=== PATIENT | female | born 1975 | race African-American/Black ===

== ENCOUNTER 2017-10-07 03:39 | Inpatient (IN) | payer OTHER ==
[~2017-10-07] VITALS: Ht 167.6 cm; Wt 81.4 kg
[2017-10-07] VITALS (11 sets, daily range): BP systolic 101–112; BP diastolic 48–66; PULSE 60–86; RESP 20–26; TEMP 98.6–99; O2SAT 96–100
--- NOTE | 2017-10-07 04:03 | PD ---
HPI Chief Complaint: Headache Time Seen by Provider: 03:43 Travel History International Travel<30 days: No Contact w/Intl Traveler<30days: No Traveled to known affect area: No History of Present Illness HPI The patient is a 42 year old female who presents to the [facility] emergency department with a history of headache that awoke her from sound sleep this evening. She reports that she has a history of headaches including migraine headaches, however this one felt much worse than her usual headache. She reports that since Thursday she had been suffering with her usual migraine headache that she was treating with Tylenol. The patient went to [facility] and was diagnosed with an extensive subarachnoid hemorrhage. The patient was accepted in transfer by the neurosurgeon on-call. 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 The patient reports that with her headache worsening she had nausea and vomiting numerous times. The patient reports that she has neck pain associated with a headache. Otherwise on review of systems, the patient denies having any fevers, cough, congestion, chest pain, shortness of breath, abdominal pain, diarrhea, urinary symptoms, one-sided weakness, slurred speech, facial droop, difficulty with word finding ability, or vision changes. LMP: Ended 2 days ago. 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 ?: Not Past Surgical History Narrative Surgical The patient's past surgical history is significant for knee surgery, ectopic resection, benign brain tumor resection. Social History Alcohol Use: No Tobacco Use: No Substance Use: No Allergies-Medications (Allergen,Severity, Reaction): Coded Allergies: prochlorperazine (Verified Allergy, Intermediate, 10/07/17) Review of Systems Except as stated in HPI: all other systems reviewed are Neg General / Constitutional: No: Fever Eyes: Positive: Photophobia, No: Visual changes HENT: Positive: Headaches, Neck Stiffness, Neck Pain Cardiovascular: No: Chest Pain or Discomfort Respiratory: No: Shortness of Breath Gastrointestinal: Positive: Nausea, Vomiting, No: Abdominal Pain Genitourinary: No: Dysuria Musculoskeletal: No: Pain Skin: No Rash Neurologic: Positive: Headache, No: Weakness, Focal Abnormalities, Change in Mentation, Slurred Speech, Sensory Disturbance Psychiatric: No: Depression Endocrine: No: Polydipsia Hematologic/Lymphatic: No: Easy Bruising Physical Exam Narrative General: The patient is a well-developed well-nourished female in no acute distress Head and Neck exam: Head is normocephalic atraumatic. Eyes: EOMI, pupils are equal round and reactive to light. Nose: Midline septum with pink mucous membranes Mouth: Dentition unremarkable. Moist mucus membranes. Posterior oropharynx is not erythematous. No tonsillar hypertrophy. Uvula midline. Airway patent. Neck: No palpable lymphadenopathy. The patient reports having neck discomfort with attempts at flexion or extension. No thyromegaly. Cardiovascular: Regular rate and rhythm without murmurs, gallops, or rubs. Lungs: Clear to auscultation bilaterally. No wheezes, rhonchi, or rales. Abdomen: Soft, without tenderness to palpation in all 4 quadrants of the abdomen. No guarding, rebound, or rigidity. Normal bowel sounds are audible. No tenderness on palpation of McBurney's point. Extremities: No clubbing, cyanosis, or edema. 2+ pulses in all 4 extremities. No Tenderness on palpation. Back: No costovertebral angle tenderness to palpation. Neurologic Exam: Cranial nerves 2-12 were intact on exam. Strength is 5/5 in all 4 extremities. No sensory deficits noted. GCS is 15. Skin Exam: No rash noted. Intact skin that is warm and dry. Data Data Last Documented VS Vital Signs Date Time Temp Pulse Resp B/P (MAP) Pulse Ox O2 Delivery O2 Flow Rate FiO2 10/07/17 03:43 99.0 86 20 108/60 (76) 97 Orders Orders Cta Brain W Iv Contrast W 3d (10/07/17 ) Admit Order (Ed Use Only) (10/07/17 04:04) MDM Medical Decision Making Medical Screen Exam Complete: Yes Emergency Medical Condition: Yes Medical Record Reviewed: Yes Interpretation(s) Last Impressions Neck CTA 10/07/17 0000 Signed Impressions: Service Date/Time: Saturday, October 07, 2017 04:41 - CONCLUSION: Extracranial carotid and vertebral arteries have a normal appearance. Johann Shin MD Head CTA 10/07/17 0000 Signed Impressions: Service Date/Time: Saturday, October 07, 2017 04:41 - CONCLUSION: 3 mm ACom aneurysm. Johann Shin MD Head CT 10/07/17 0000 Signed Impressions: Service Date/Time: Saturday, October 07, 2017 04:41 - CONCLUSION: Large acute subarachnoid hemorrhage of concern for ruptured aneurysm. CTA to follow. No midline shift or tonsillar herniation. Johann Shin MD Differential Diagnosis Traumatic subarachnoid hemorrhage, versus aneurysmal rupture was subarachnoid hemorrhage Narrative Course During the course of the patients emergency department visit, the patients history, examination, and differential diagnosis were reviewed with the patient. The patient was placed on a laboratory monitor with oximetry and frequent blood pressure monitoring. The patient had IV access obtained and blood work sent for analysis. Of the other facility the patient was given Benadryl, Decadron, and Reglan for her headache. After the subarachnoid hemorrhage was identified the patient was given Nimotop po x 1. The patients laboratory studies and imaging studies from the other facility were reviewed. The patient was noted to have a sodium of 137, potassium 3.6, chloride 99, glucose 120, BUN 8, creatinine 0.66, total protein 6.9, alkaline phosphatase 62, AST 23, ALT 16, total bilirubin 0.5. White count is 11.1, hemoglobin 12.1, platelets 328 with a neutrophil percent of 44.6, lymphocytes 49.1. PT 14.3, INR 1.1, PTT 28.4. test was negative. CT scan of the other facility revealed extensive subarachnoid hemorrhage. 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 CTA of the neck shows extracranial carotid and vertebral arteries have a normal appearance. The patients results were discussed with the patient, including the plan of care. I explained that further testing and/ or monitoring is indicated based on the patients history, examination, and/ or laboratory findings. Therefore, I recommended admission for additional evaluation. The patient expressed understanding and was agreeable with this plan. The patient was admitted to the hospital in critical condition and sent to a bed under the care of neurosurgeon , Dr. Clinton. Physician Communication Physician Communication At approximately 4 AM, I spoke to Dr. Clinton regarding this patient's case. He did agree to admit the patient for continued evaluation and treatment. He requested that a CTA of the brain be done to further evaluate. This study was ordered. Diagnosis Primary Impression: Subarachnoid hemorrhage Additional Impression: Cerebral aneurysm rupture Admitting Information Admitting Physician Requests: Admit Laila Cast MD Oct 07, 2017 04:03
[2017-10-07] MEDS ORDERED: HYDROmorphone HCL PF 1 MG/ML VIAL IV PUSH PRN (04:15)
[2017-10-07] MEDS ORDERED: NALOXONE HCL 0.4 MG/ML AMP IV PUSH PRN (04:15)
--- NOTE | 2017-10-07 04:41 | HHI.HP ---
HPI Service Neurosurgery Primary Care Physician Unknown Chief Complaint: Severe Headache,nausea History of Present Illness 42 y.o. female transfered from [facility] where she presented with severe BOWEN that she awoke with. Prior history of migraines. Positive nausea and emesis last evening. No complaining of diplopia, blurred vision. No significant speech deficit or memory loss. No complaint of pain and weakness or numbness in the extremities. Positive dizziness. No vertigo. Review of Systems Constitutional: COMPLAINS OF: Dizziness, DENIES: Fever Eyes: COMPLAINS OF: Eye pain, Photosensitivity, DENIES: Blurred vision, Diplopia Ears, nose, mouth, throat: DENIES: Tinnitus, Hearing loss Respiratory: DENIES: Cough, Shortness of breath Cardiovascular: DENIES: Chest pain, Palpitations Gastrointestinal: COMPLAINS OF: Nausea, Vomiting, DENIES: Abdominal pain, Diarrhea Musculoskeletal: COMPLAINS OF: Neck pain, DENIES: Joint pain, Muscle aches Hematologic/lymphatic: DENIES: Bruising Neurologic: COMPLAINS OF: Headache, DENIES: Abnormal gait Psychiatric: COMPLAINS OF: Anxiety, DENIES: Confusion Past Family Social History Allergies: Coded Allergies: prochlorperazine (Verified Allergy, Intermediate, 10/07/17) Past Medical History SLE Migraine headaches Brain-orbital neoplasm previously resected Past Surgical History Brain-orbital neoplasm resected 1990 Right knee meniscus repair Ectopic Family History Diabetes in her mother. Her mother had an aneurysm, her grandmother stroke. Social History Smokes 1 pack of cigarettes a day since she was a teenager. Drinks a glass of vodka in the morning. No cocaine or other illicit drug use Physical Exam Vital Signs Vital Signs Date Time Temp Pulse Resp B/P (MAP) Pulse Ox O2 Delivery O2 Flow Rate FiO2 10/07/17 04:08 98 Room Air 10/07/17 03:43 99.0 86 20 108/60 (76) 97 Physical Exam GENERAL: This is a well-nourished, well-developed patient, appears very comfortable SKIN: No abrasions, contusion, rash noted. Skin warm and dry. HEAD: Atraumatic. Normocephalic. No temporal or scalp tenderness. EYES: Sclerae are clear and nonicteric ENT: No facial edema or ecchymosis. No periorbital edema. No CSF otorrhea or rhinorrhea. No palpable facial fracture or deformity. NECK: Trachea midline. Mild cervical spine tenderness. No nuchal rigidity. Decreased range of motion due to discomfort CARDIOVASCULAR: Regular rate and rhythm without murmurs, gallops, or rubs. RESPIRATORY: Clear to auscultation. Breath sounds equal bilaterally. No wheezes , rales, or rhonchi. GASTROINTESTINAL: Abdomen soft, non-tender, nondistended. No hepato-splenomegaly , or palpable masses. No guarding. MUSCULOSKELETAL: Extremities without cyanosis, or edema. No joint tenderness, or edema noted. No calf tenderness. Dorsalis pedis pulses 2+ bilateral NEUROLOGICAL: Awake and relatively alert. Oriented X 3 Speech is soft but clear Mild slowing of speech and thought processes Conversant and appropriate Follow simple commands well Answers questions appropriately Reasonable judgment and insight Recent and remote memory are intact No definite evidence of depression. She relates to being very anxious. Pupils are equal and reactive to accommodation. Extra-ocular movements, visual moreno to confrontation, facial sensorimotor, tongue, palate, sternocleidomastoid testing, hearing to finger rub testing, and bilateral shoulder shrug are all intact. Sensation is intact to light touch in all extremities Strength normal major flexion and extension groups all extremities Samia's absent bilaterally No ankle clonus Plantar responses absent bilateral Fine motor movements intact upper extremities Laboratory Laboratory Tests Test 10/07/17 05:11 10/07/17 06:15 10/07/17 08:30 10/07/17 16:25 White Blood Count 13.1 TH/MM3 Red Blood Count 4.93 MIL/MM3 Hemoglobin 11.7 GM/DL Hematocrit 37.0 % Mean Corpuscular Volume 75.1 FL Mean Corpuscular Hemoglobin 23.8 PG Mean Corpuscular Hemoglobin Concent 31.7 % Red Cell Distribution Width 13.8 % Platelet Count 300 TH/MM3 Mean Platelet Volume 7.6 FL Neutrophils (%) (Auto) 94.0 % Lymphocytes (%) (Auto) 4.9 % Monocytes (%) (Auto) 0.6 % Eosinophils (%) (Auto) 0.0 % Basophils (%) (Auto) 0.5 % Neutrophils # (Auto) 12.3 TH/MM3 Lymphocytes # (Auto) 0.6 TH/MM3 Monocytes # (Auto) 0.1 TH/MM3 Eosinophils # (Auto) 0.0 TH/MM3 Basophils # (Auto) 0.1 TH/MM3 CBC Comment DIFF FINAL Differential Comment Prothrombin Time 12.2 SEC Prothromb Time International Ratio 1.1 RATIO Activated Partial Thromboplast Time 26.4 SEC Blood Urea Nitrogen 8 MG/DL Creatinine 0.65 MG/DL Random Glucose 128 MG/DL Calcium Level 8.7 MG/DL Sodium Level 137 MEQ/L 138 MEQ/L Potassium Level 3.4 MEQ/L Chloride Level 106 MEQ/L Carbon Dioxide Level 23.8 MEQ/L Anion Gap 7 MEQ/L Estimat Glomerular Filtration Rate 121 ML/MIN Nasal Screen MRSA (PCR) MRSA NOT DETECTED Urine Color LIGHT-YELLOW Urine Turbidity CLEAR Urine pH 6.0 Urine Specific Blossom 1.046 Urine Protein NEG mg/dL Urine Glucose (UA) NEG mg/dL Urine Ketones 40 mg/dL Urine Occult Blood NEG Urine Nitrite NEG Urine Bilirubin NEG Urine Urobilinogen LESS THAN 2.0 MG/DL Urine Leukocyte Esterase NEG Urine RBC LESS THAN 1 /hpf Urine WBC LESS THAN 1 /hpf Urine Squamous Epithelial Cells <1 /hpf Microscopic Urinalysis Comment CULT NOT INDICATED Phosphorus Level 3.3 MG/DL Magnesium Level 1.8 MG/DL Imaging Last Impressions Neck CTA 10/07/17 0000 Signed Impressions: Service Date/Time: Saturday, October 07, 2017 04:41 - CONCLUSION: Extracranial carotid and vertebral arteries have a normal appearance. Johann Shin MD Head CTA 10/07/17 0000 Signed Impressions: Service Date/Time: Saturday, October 07, 2017 04:41 - CONCLUSION: 3 mm ACom aneurysm. Johann Shin MD Head CT 10/07/17 0000 Signed Impressions: Service Date/Time: Saturday, October 07, 2017 04:41 - CONCLUSION: Large acute subarachnoid hemorrhage of concern for ruptured aneurysm. CTA to follow. No midline shift or tonsillar herniation. MD Dominick Mejia VTE Risk Assessment Dominick VTE Risk Assessment: No/Low Risk (score <= 1) VTE Pharm Contraindication: Hemorrhage Caprini Risk Assessment Model Point Value = 1 Point Value = 2 Point Value = 3 Point Value = 5 Age 41-60 Minor surgery BMI > 25 kg/m2 Swollen legs Varicose veins or History of unexplained or recurrent spontaneous Oral contraceptives or hormone replacement Sepsis (< 1 month) Serious lung disease, including pneumonia (< 1 month) Abnormal pulmonary function Acute myocardial infarction Congestive heart failure (< 1 month) History of inflammatory bowel disease Medical patient at bed rest Age 61-74 Arthroscopic surgery Major open surgery (> 45 min) Laparoscopic surgery (> 45 min) Malignancy Confined to bed (> 72 hours) Immobilizing plaster cast Central venous access Age >= 75 History of VTE Family history of VTE Factor V Leiden Prothrombin [id number] Lupus anticoagulant Anticardiolipin antibodies Elevated serum homocysteine Heparin-induced thrombocytopenia Other congenital or acquired thrombophilia Stroke (< 1 month) Elective arthroplasty Hip, pelvis, or leg fracture Acute spinal cord injury (< 1 month) Prophylaxis Regimen Total Risk Factor Score Risk Level Prophylaxis Regimen 0-1 Low Early ambulation 2 Moderate Order ONE of the following: *Sequential Compression Device (SCD) *Heparin 5000 units SQ BID 3-4 Higher Order ONE of the following medications: *Heparin 5000 units SQ TID *Enoxaparin/Lovenox 40 mg SQ daily (WT < 150 kg, CrCl > 30 mL/min) *Enoxaparin/Lovenox 30 mg SQ daily (WT < 150 kg, CrCl > 10-29 mL/min) *Enoxaparin/Lovenox 30 mg SQ BID (WT < 150 kg, CrCl > 30 mL/min) AND/OR *Sequential Compression Device (SCD) 5 or more Highest Order ONE of the following medications: *Heparin 5000 units SQ TID (Preferred with Epidurals) *Enoxaparin/Lovenox 40 mg SQ daily (WT < 150 kg, CrCl > 30 mL/min) *Enoxaparin/Lovenox 30 mg SQ daily (WT < 150 kg, CrCl > 10-29 mL/min) *Enoxaparin/Lovenox 30 mg SQ BID (WT < 150 kg, CrCl > 30 mL/min) AND *Sequential Compression Device (SCD) Assessment and Plan Assessment and Plan Impression: SAH Assess for aneurysm Plan: Admit ISC CTA Nimodpine Monitor BP to keep 100 - 130 HOB elevated Pain meds\ Nausea meds Monitor sodium Ulcer prophyllaxis [employer] Specialist consult Ventriculostomy. Possible placement under anesthesia depending on CTA findings Jono Clinton MD Oct 07, 2017 04:41
[2017-10-07] MEDS ORDERED: IOHEXOL 350 MG/ML 10 ML VIAL (for RAD DIAG) IVCONTRAST ONE (04:59)
[2017-10-07] MEDS ORDERED: niCARdipine INJ 25 MG in SODIUM CHLOR 0.9% 250 ML INJ 240 ML IV PRN (05:00)
--- NOTE | 2017-10-07 05:03 | RADRPT ---
EXAM DATE/TIME: 10/07/2017 04:41 [facility] COMPARISON: No previous studies available for comparison. INDICATIONS : Cephalgia. Transfer from [facility] with subarachoid hemorrhage. RADIATION DOSE: 48.86 CTDIvol (mGy) MEDICAL HISTORY : Lupus. SURGICAL HISTORY : None. ENCOUNTER: Initial ACUITY: 1 day PAIN SCALE: 10/10 LOCATION: cranial TECHNIQUE: Multiple contiguous axial images were obtained of the head. Using automated exposure control and adj ustment of the mA and/or kV according to patient size, radiation dose was kept as low as reasonably a chievable to obtain optimal diagnostic quality images. DICOM format image data is available electro nically for review and comparison. FINDINGS: Diffuse subarachnoid hemorrhage noted in the bilateral cerebral hemisphere sulci and also the basal c istern and region of the foramen magnum. The epicenter of blood appears to be anterior to the brainst em suggesting the possibility of a basilar tip aneurysm.. I don't clearly see a mass/aneurysm. No mid line shift. No evidence of an acute ischemic event. The patient has had previous left frontal craniotomy, appears to have been done fairly remotely. CONCLUSION: Large acute subarachnoid hemorrhage of concern for ruptured aneurysm. CTA to follow. No midline shift or tonsillar herniation. Johann Shin MD on October 07, 2017 at 4:58 Board Certified Radiologist. This report was verified electronically.
--- NOTE | 2017-10-07 05:11 | PD.CONS ---
[facility] Service Critical Care Medicine Consult Requested By Dr. Clinton Reason for Consult Critical care management Primary Care Physician No Primary Care Physician History of Present Illness 42 yo AAF with past medical history of SLE, migraine headaches, benign brain tumor s/p resection in 1990 who is transferred from [facility] due to acute subarachnoid hemorrhage. 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 She says she took 2 Tylenol and Topamax and went to work. She states she was in a stressful situation at work and her headache got worse but she completed her shift and then ran some additional errands the morning of 10/06 and then went to sleep. She was awoken from sleep with severe 10/10 frontal headache associated with neck pain, nausea, vomiting, diaphoresis and photophobia. She required assistance from her son to get up out of bed and then was transported to [facility] via [facility]. No seizure activity. CT brain demonstrates diffuse SAH with no intraventricular extension or hydrocephalus. CTA demonstrates 3 mm Acom aneurysm with narrow neck per radiology report. She has received nimodipine. She is normotensive. Review of Systems Constitutional: DENIES: Fever Eyes: COMPLAINS OF: Photosensitivity Ears, nose, mouth, throat: DENIES: Throat pain Respiratory: DENIES: Shortness of breath Cardiovascular: DENIES: Chest pain Gastrointestinal: COMPLAINS OF: Nausea, DENIES: Abdominal pain Genitourinary: DENIES: Urinary frequency Musculoskeletal: COMPLAINS OF: Neck pain Integumentary: DENIES: Rash Neurologic: COMPLAINS OF: Headache, DENIES: Seizures, Tremor Past Family Social History Allergies: Coded Allergies: prochlorperazine (Verified Allergy, Intermediate, 10/07/17) Past Medical History Systemic lupus erythematosus. She is no longer followed by rheumatology due to insurance. She has been on Plaquenil, prednisone, methotrexate but takes her medication sporadically. Migraine headaches Benign brain tumor resected in 1990 Past Surgical History Ectopic 2010 Medial meniscus repair right knee 2014 Resection of benign brain tumor on the left in 1990 Reported Medications She takes her medications intermittently because she is not currently followed by her physicians and she "is trying to make her medications last" She takes Plaquenil, prednisone, methotrexate, Topamax. Family History Her mother has hypertension and diabetes. She believes her mother may have had a cerebral aneurysm but she is not sure. No family history of polycystic kidney disease Social History She has smoked a pack of cigarettes per day since age 19 and his ongoing smoker. Drinks 1.5 ounces of vodka every morning to help her sleep after her welder 2nd shift. Denies use of illicit drugs She works at [employer] She is x 1year. Her ex- lives in [facility] She has 4 children aged 10, 13, 18, 21. Her mother, Keturah Bello, lives in [place]. Her number is [phone]. She is trying to speak with her mother about being her healthcare surrogate. She says she has Medicaid and has had difficulty following up with specialists because they did not accept Medicaid. She was expected to get insurance from her work in November 2017 Physical Exam Vital Signs Vital Signs Date Time Temp Pulse Resp B/P (MAP) Pulse Ox O2 Delivery O2 Flow Rate FiO2 10/07/17 05:03 80 20 109/65 (80) 99 Room Air 10/07/17 04:30 98 10/07/17 04:08 98 Room Air 10/07/17 03:43 99.0 86 20 108/60 (76) 97 Physical Exam GENERAL: Well-nourished, well-developed patient who is laying in ED stretcher, speaking softly, laying very still. SKIN: Warm and dry, well perfused. HEAD: Atraumatic. Normocephalic. EYES: Pupils equal and round, 3mm and reactive bilaterally. No scleral icterus. No injection or drainage. ENT: No nasal bleeding or discharge. Mucous membranes pink and moist. NECK: Trachea midline. No JVD. CARDIOVASCULAR: Regular rate and rhythm, sinus rhythm on the monitr. No murmurs rubs or gallops. RESPIRATORY: No accessory muscle use. Clear to auscultation. Breath sounds equal bilaterally. On RA. GASTROINTESTINAL: Abdomen soft, non-tender, nondistended. Bowel sounds present. MUSCULOSKELETAL: Extremities without clubbing, cyanosis, or edema. No obvious deformities. NEUROLOGICAL: Awake and alert. No obvious cranial nerve deficits. Extra ocular movements intact. Normal tongue protrusion. No pronator drift. Speaks softly due to her headache but speech is otherwise normal. Oriented 4. Strength 5 out of 5 in all extremities. Sensation intact. Assessment and Plan Problem List: (1) SLE (systemic lupus erythematosus) ICD Code: M32.9 - Systemic lupus erythematosus, unspecified Status: Chronic (2) Migraines ICD Code: G43.909 - Migraine, unspecified, not intractable, without status migrainosus Status: Chronic (3) Hypokalemia ICD Code: E87.6 - Hypokalemia Status: Acute (4) Leukocytosis ICD Code: D72.829 - Elevated white blood cell count, unspecified Status: Acute (5) Subarachnoid hemorrhage ICD Code: I60.9 - Nontraumatic subarachnoid hemorrhage, unspecified Status: Acute (6) Cerebral aneurysm rupture ICD Code: I60.9 - Nontraumatic subarachnoid hemorrhage, unspecified Status: Acute (7) Anterior communicating artery aneurysm ICD Code: I67.1 - Cerebral aneurysm, nonruptured Status: Acute (8) Tobacco abuse ICD Code: Z72.0 - Tobacco use Status: Chronic Assessment and Plan NEURO: Acute aneurysmal subarachnoid hemorrhage with 3 mm Acom aneurysm. Wright/Goodwin Grade 2 Webber Grade 3. GCS 15 History of migraine headaches Daily alcohol use (1 ounce of vodka daily) Nimodipine 60 g by mouth every 4 hours She is normotensive. We'll use nicardipine if needed to maintain systolic blood pressure 110 to 130 Monitor sodium. Sodium at outside hospital was 137. 2% NaCl @ 20 mL/hr to avoid hyponatremia, monitor serial sodium with recheck 10/07 13:00 CT brain - large acute SAH. No midline shift. No hydrocephalus. CTA brain - 3 mm aneursym with narrow neck at ACom, Right A1 segment small, most likely congenital but ?spasm per radiology report. Neurosurgery consulted, Dr. Clinton. Discussed with Dr. Clinton. Consult IR for angio and coil. Dr. Clinton will place ventric while patient is asleep in IR. Consult placed to IR and Dr. Wills to discuss with physician when he arrives at 07:30. On Topamax chronically for migraines Dilaudid prn headache. RESP: Ongoing tobacco abuse Tobacco cessation discussed On RA CV: art line for hemodynamic monitoring. Nicardipine if needed as per above. 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 Creatinine at outside hospital 0.66. Monitor I/O. Monitor electrolytes ID: Mild leukocytosis, likely reactive. White blood cell count was 11 at outside hospital Obtain UA and culture is sent HEME: Hemoglobin at outside hospital was 12.1 with hematocrit 37.2. Coags and outside hospital were normal 10/07. Repeat coags have been ordered. ENDO: Glucose at outside hospital was 120. Monitor bedside glucose. RHEUM: Systemic lupus erythematosus Not consistently on disease modifying therapy for several months PROPH: SCDs for DVT prophylaxis. Pharmacologic DVT prophylaxis contraindicated due to acute subarachnoid hemorrhage. Protonix 40 mg by mouth daily for stress ulcer prophylaxis. ACCESS: Peripheral IV providing adequate access at this time. Radial art line placement for hemodynamic monitoring. She requested that I call her place of employment and said that she gave me permission to know that she was going to be admitted to the ICU she was not going to be at work today. I spoke with Loretta Rodas per patients request. I discussed with her need to designate healthcare surrogate. She states that she wishes for her mother, Keturah Bello, to be her alternate healthcare surrogate. She gave me permission to call her mother and updated her. I did call her mother but there was no answer at [phone] She designated her friend, Lalo, as primary healthcare surrogate. She has filled out healthcare surrogate form with contact information and given to RN. Patient is critically ill with acute subarachnoid hemorrhage and is at risk for neurologic decompensation related to re-bleed, hydrocephalus, etc. She will need to remain in ISC for securing aneurysm, ventriculostomy, monitoring of sodium, monitoring for evidence of vasospasm, monitoring of airway protection. Discussed with Dr. Cast. Discussed with Dr. Clinton CCT 60 minutes exclusive of separately billable procedures. Ariana Loomis MD Oct 07, 2017 05:11
--- NOTE | 2017-10-07 05:13 | RADRPT ---
EXAM DATE/TIME: 10/07/2017 04:41 [facility] COMPARISON: No previous studies available for comparison. INDICATIONS : Cephalgia. Evaluate for aneurysm. IV CONTRAST: 70 cc Omnipaque 350 (iohexol) IV ; Cumulative dose for multiple exams. RADIATION DOSE: 28.80 CTDIvol (mGy) ; Combined studies MEDICAL HISTORY : Lupus. SURGICAL HISTORY : None. ENCOUNTER: Initial ACUITY: 1 day PAIN SCALE: 10/10 LOCATION: cranial TECHNIQUE: Volumetric scanning was performed using a multi-row detector CT scanner. The data was post processed with a variety of visualization algorithms including full volume maximum intensity projection, multi -planar sliding thin slab reformation, curved planar reformation, and surface rendering techniques. Using automated exposure control and adjustment of the mA and/or kV according to patient size, radiat ion dose was kept as low as reasonably achievable to obtain optimal diagnostic quality images. DICO M format image data is available electronically for review and comparison. FINDINGS: Patient has a large amount of acute subarachnoid hemorrhage. A 3 mm aneurysm with a narrow neck is se en of the anterior communicating artery. No other aneurysm demonstrated. Right A1 segment is small, could be spasm or more likely congenital/developmental. Otherwise normal c aliber vessels. CONCLUSION: 3 mm ACom aneurysm. Johann Shin MD on October 07, 2017 at 5:09 Board Certified Radiologist. This report was verified electronically.
[2017-10-07 05:24] LABS: AUTOMATED NEUTROPHIL # 12.3 TH/MM3 (1.8-7.7); BASOPHIL # 0.1 TH/MM3 (0-0.2); BASOPHIL % 0.5 % (0.0-2.0); HEMO FLAGS DIFF FINAL; LYMPH % 4.9 % (9.0-44.0); LYMPHOCYTE # 0.6 TH/MM3 (1.0-4.8); MEAN CELL VOLUME 75.1 FL (80.0-100.0); MEAN CORPUSCULAR HEMOGLOBIN 23.8 PG (27.0-34.0); MEAN CORPUSCULAR HGB CONC 31.7 % (32.0-36.0); MONO % 0.6 % (0.0-8.0); PLATELET COUNT 300 TH/MM3 (150-450); RED BLOOD COUNT 4.93 MIL/MM3 (4.00-5.30); RED CELL DISTRIBUTION WIDTH 13.8 % (11.6-17.2); WHITE BLOOD COUNT 13.1 TH/MM3 (4.0-11.0)
--- NOTE | 2017-10-07 05:27 | RADRPT ---
EXAM DATE/TIME: 10/07/2017 04:41 [facility] COMPARISON: No previous studies available for comparison. INDICATIONS : Cephalgia. Evaluate for aneurysm. IV CONTRAST: 70 cc Omnipaque 350 (iohexol) IV ; Cumulative dose for multiple exams. RADIATION DOSE: 28.80 CTDIvol (mGy) ; Combined studies MEDICAL HISTORY : Lupus. SURGICAL HISTORY : None. ENCOUNTER: Initial ACUITY: 1 day PAIN SCALE: 10/10 LOCATION: cranial Elevated flow velocities and ICA/CCA ratios have been found to correlate with increased degrees of vessel stenosis, calculated as percentage of diameter relative to a normal segment of distal ICA/CCA. TECHNIQUE: Volumetric scanning was performed using a multirow detector CT scanner. The data was post processed with a variety of visualization algorithms including full-volume maximum intensity projection, multip lanar sliding thin-slab reformation, curved-planar reformation, and surface-rendering techniques. Us ing automated exposure control and adjustment of the mA and/or kV according to patient size, radiatio n dose was kept as low as reasonably achievable to obtain optimal diagnostic quality images. DICOM f ormat image data is available electronically for review and comparison. FINDINGS: AORTIC ARCH: There is a three-vessel origin of the great vessels from the aorta. No evidence of ostial narrowing. RIGHT CAROTID: The common carotid artery is intact. The carotid bulb has a normal configuration without ulceration o r narrowing. The internal carotid artery lumen is smooth without stenosis. The external carotid arabella ry is intact. LEFT CAROTID: The common carotid artery is intact. The carotid bulb has a normal configuration without ulceration or narrowing. The internal carotid artery lumen is smooth without stenosis. The external carotid ar yadiel is intact. VERTEBRALS: The vertebral arteries have a symmetric diameter. No stenotic lesions are seen. CONCLUSION: Extracranial carotid and vertebral arteries have a normal appearance. Johann Shin MD on October 07, 2017 at 5:24 Board Certified Radiologist. This report was verified electronically.
[2017-10-07 05:42] LABS: APTT (PATIENT) 26.4 SEC (24.3-30.1); INTERNATIONAL NORMALIZED RATIO 1.1 RATIO; PROTHROMBIN TIME - PATIENT 12.2 SEC (9.8-11.6)
[2017-10-07 05:49] LABS: BICARBONATE 23.8 MEQ/L (21.0-32.0); POTASSIUM 3.4 MEQ/L (3.5-5.1)
[2017-10-07] MEDS: NS + KCL 20 MEQ INJ 1,000 ML IV SCH (07:02)
[2017-10-07] MEDS ORDERED: MAGNESIUM SULFATE INJ 2 GM in SODIUM CHLORIDE 0.9% INJ 96 ML IV PRN (07:30)
[2017-10-07] MEDS ORDERED: MAGNESIUM SULFATE INJ 4 GM in SODIUM CHLORIDE 0.9% INJ 92 ML IV PRN (07:30)
[2017-10-07] MEDS ORDERED: SODIUM PHOSPHATE INJ 30 MMOL in SODIUM CHLOR 0.9% 250 ML INJ 240 ML IV PRN (07:30)
[2017-10-07] MEDS ORDERED: MAGNESIUM OXIDE 400 MG TAB PO PRN (07:30)
[2017-10-07] MEDS ORDERED: POTASSIUM PHOSPHATE INJ 30 MMOL in SODIUM CHLOR 0.9% 250 ML INJ 250 ML IV PRN (07:30)
[2017-10-07] MEDS ORDERED: POTASSIUM CHLOR 40 MEQ PREMIX 100 ML IV PRN (07:30)
[2017-10-07] MEDS ORDERED: POTASSIUM CHLOR 20 MEQ PREMIX 100 ML IV PRN (07:30)
[2017-10-07] MEDS ORDERED: POTASSIUM PHOSPHATE MONOBASIC 500 MG TAB PO PRN (07:30)
[2017-10-07] MEDS ORDERED: POTASSIUM CHLORIDE 25 MEQ EFFERVESCENT TAB PO PRN (07:30)
[2017-10-07] MEDS ORDERED: POTASSIUM PHOSPHATE MONOBASIC 500 MG TAB PO/TUBE PRN (07:30)
[2017-10-07] MEDS: HYDROmorphone HCL PF 1 MG/ML VIAL IV PUSH PRN ×2 (08:07→15:06)
[2017-10-07] MEDS: DOCUSATE SODIUM 100 MG CAP PO SCH ×2 (09:00→21:23)
[2017-10-07] MEDS: PANTOPRAZOLE SOD 40 MG DELAYED RELEASE TAB PO SCH (09:00)
[2017-10-07 09:12] LABS: BLOOD, URINE NEG (NEG); GLUCOSE,URINE NEG (NEG); KETONE, URINE 40 mg/dL (NEG); NITRITE,URINE NEG (NEG); SQUAMOUS EPITHELIAL CELL URINE <1 /hpf (0-5); URINE COLOR LIGHT-YELLOW (YELLW/STRAW)
[2017-10-07 09:13] LABS: COMMENT (UR) CULT NOT INDICATED; CULTURE IF INDICATED CULT NOT INDICATED
[2017-10-07] MEDS: niMODipine 30 MG CAP PO SCH ×4 (09:14→21:23)
--- NOTE | 2017-10-07 10:09 | HHI.NSPN ---
(Chacorta Ahmadi) History Chief Complaint: Headache (DaianaChacorta BAUTISTA) Interval History 10/06: 42 y.o. female transfered from [facility] where she presented with severe BOWEN that she awoke with. Prior history of migraines. Poatitive nausea and emesis this evening. 10/07: The patient is awake but has her head covered when seen this morning due to the light hurting her eyes. She speaks softly due to her headache and she does have dizziness when moving her head. She has not had any further nausea since last night. She does report numbness to the fingers during the night but none at present. (Chacorta Ahmadi) System Review Comments EYES: Light sensitivity. GASTROINTESTINAL: Nausea last night but none at present. MUSCULOSKELETAL: Numbness to the fingers last night but none at present. NEUROLOGICAL: Headache. Dizziness with movement of her head. Difficulty finding words. Numbness to the fingers last night but none at present. (JayuyaChacorta) Exam Results Vital Signs Date Time Temp Pulse Resp B/P (MAP) Pulse Ox O2 Delivery O2 Flow Rate FiO2 10/07/17 07:00 99 Room Air 10/07/17 06:27 10/07/17 06:00 71 10/07/17 05:43 20 10/07/17 05:03 80 20 109/65 (80) 99 Room Air 10/07/17 04:30 98 10/07/17 04:08 98 Room Air 10/07/17 03:43 99.0 86 20 108/60 (76) 97 (Chacorta Ahmadi) Physical Examination GENERAL: The patient is awake & alert but has her head covered due to the light. She readily interacts. Her affect is flat. She is not in any apparent distress. HEENT: Normocephalic, atraumatic. Face symmetrical. PERRLA 3 mm brisk, EOMI. MMM & pink, tongue midline to protrusion. MUSCULOSKELETAL: PAIGE w/o difficulty, extremities NTTP, no evident deformity or clubbing. NEUROLOGICAL: AAOx3. Speech clear & appropriate but does have some difficulty finding words. Follows simple commands w/o difficulty. CN II-XII appear grossly intact. Sensation intact to light touch to all extremities. Motor strength is 5/5 to all major flexion & extension muscle groups to include hand intrinsics & extrinsics. (Chacorta Ahmadi) Lab, Micro, Other Results Recent Impressions Neck CTA 10/07/17 0000 Signed Impressions: Service Date/Time: Saturday, October 07, 2017 04:41 - CONCLUSION: Extracranial carotid and vertebral arteries have a normal appearance. Johann Shin MD Head CTA 10/07/17 0000 Signed Impressions: Service Date/Time: Saturday, October 07, 2017 04:41 - CONCLUSION: 3 mm ACom aneurysm. Johann Shin MD Head CT 10/07/17 0000 Signed Impressions: Service Date/Time: Saturday, October 07, 2017 04:41 - CONCLUSION: Large acute subarachnoid hemorrhage of concern for ruptured aneurysm. CTA to follow. No midline shift or tonsillar herniation. Johann Shin MD Laboratory Tests Test 10/07/17 05:11 10/07/17 06:15 10/07/17 08:30 White Blood Count 13.1 TH/MM3 Red Blood Count 4.93 MIL/MM3 Hemoglobin 11.7 GM/DL Hematocrit 37.0 % Mean Corpuscular Volume 75.1 FL Mean Corpuscular Hemoglobin 23.8 PG Mean Corpuscular Hemoglobin Concent 31.7 % Red Cell Distribution Width 13.8 % Platelet Count 300 TH/MM3 Mean Platelet Volume 7.6 FL Neutrophils (%) (Auto) 94.0 % Lymphocytes (%) (Auto) 4.9 % Monocytes (%) (Auto) 0.6 % Eosinophils (%) (Auto) 0.0 % Basophils (%) (Auto) 0.5 % Neutrophils # (Auto) 12.3 TH/MM3 Lymphocytes # (Auto) 0.6 TH/MM3 Monocytes # (Auto) 0.1 TH/MM3 Eosinophils # (Auto) 0.0 TH/MM3 Basophils # (Auto) 0.1 TH/MM3 CBC Comment DIFF FINAL Differential Comment Prothrombin Time 12.2 SEC Prothromb Time International Ratio 1.1 RATIO Activated Partial Thromboplast Time 26.4 SEC Blood Urea Nitrogen 8 MG/DL Creatinine 0.65 MG/DL Random Glucose 128 MG/DL Calcium Level 8.7 MG/DL Sodium Level 137 MEQ/L Potassium Level 3.4 MEQ/L Chloride Level 106 MEQ/L Carbon Dioxide Level 23.8 MEQ/L Anion Gap 7 MEQ/L Estimat Glomerular Filtration Rate 121 ML/MIN Urine Color LIGHT-YELLOW Urine Turbidity CLEAR Urine pH 6.0 Urine Specific [place] 1.046 Urine Protein NEG mg/dL Urine Glucose (UA) NEG mg/dL Urine Ketones 40 mg/dL Urine Occult Blood NEG Urine Nitrite NEG Urine Bilirubin NEG Urine Urobilinogen LESS THAN 2.0 MG/DL Urine Leukocyte Esterase NEG Urine RBC LESS THAN 1 /hpf Urine WBC LESS THAN 1 /hpf Urine Squamous Epithelial Cells <1 /hpf Microscopic Urinalysis Comment CULT NOT INDICATED (Chacorta Ahmadi) Medical Decision Making Impression and Plan Impression: 1. SAH 2. Anterior communicating artery aneurysm The patient is doing fair today. She continues to have her headache w/ intermittent dizziness but no further nausea. She is neurologically intact except for some expressive aphasia. Reviewed labs for today. Leukocytosis w/neutrophilia noted. Mild hypokalemia. Sodium WNL. 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 Frequent neuro checks. Continue Nimodipine. Monitor SBP and keep between 100 to 130 mm Hg. Keep HOB elevated. Monitor sodium level. Continue pain medication. Continue anti-emetics. Monitor sodium Stress ulcer prophylaxis. Mechanical DVT prophylaxis. Hold pharmacologic DVT prophylaxis. Interventional Radiology for ventriculostomy placement. (Chacorta Ahmadi) Attending Statement The exam, history, and the medical decision-making described in the above note were completed with the assistance of the mid-level provider. I reviewed and agree with the findings presented. I attest that I had a [id number] encounter with the patient on the same day, and personally performed and documented my assessment and findings in the medical record. Patient has undergone endovascular coiling of the approximate 3 mm anterior communicating artery aneurysm. Following the procedure she remains awake and alert oriented and conversant and appropriate. Cranial nerves tested and intact Extremity sensorimotor tested and intact Vital signs stable Headache is better this evening. Continue nimodipine Continue monitor blood pressure closely. Increased blood pressure parameters on 10/08/2017 due to possible vasospasm. Transcranial Doppler monitoring starting 10/09/2017 Follow-up CT scan head 10/08/17. Initial CT scan with minimal ventricular enlargement and headache improving. Plan to defer ventriculostomy at this point. Discussed options with patient and she is in agreement. (Jono Clinton MD) Chacorta Ahmadi Oct 07, 2017 10:09 Jono Clinton MD Oct 07, 2017 23:51
[2017-10-07] MEDS ORDERED: VERAPAMIL HCL 5 MG/2 ML VIAL ONE ×2 (10:40→11:54)
[2017-10-07] MEDS ORDERED: HEPARIN SODIUM - IV 10,000 UNITS/10 ML VIAL ONE (11:55)
[2017-10-07] MEDS ORDERED: SUGAMMADEX SODIUM 200 MG/2 ML VIAL IV PUSH ONE ×2 (13:26)
[2017-10-07] MEDS ORDERED: IODIXANOL 320 MG/ML 50 ML VIAL (for RAD SPEC) I-ARTERIAL ONE (13:37)
--- NOTE | 2017-10-07 15:07 | PD.RAD ---
Post Procedure Progress Note Pre Procedure Diagnosis: (1) Cerebral aneurysm rupture Post Procedure Diagnosis: (1) Cerebral aneurysm rupture Procedure Date: Oct 07, 2017 Supervising Radiologist: Jon Collins Proceduralist/Assist: Bhupinder De Anda, RT(R), Chet Helton RT(R), Ana Bourgeois RT(R) Anesthesia: General Plan of Activity Patient to Unit: Critical Care Patient Condition: Good See PACS Report for procedural detail/treatment Vascular-Arterial Procedure Procedure 1 Procedure Site: Cerebral Procedure(s): Angiogram (coiled aneurysm complete occlusion) Access Access Site(s): Right Femoral Artery Closure Site(s): Right vascular closure device Jon Collins MD Oct 07, 2017 15:07
[2017-10-07] MEDS ORDERED: ACETAMINOPHEN 325 MG TAB PO PRN (15:15)
[2017-10-07 16:44] LABS: MAGNESIUM 1.8 MG/DL (1.5-2.5)
[2017-10-07] MEDS: HYDROmorphone HCL PF 1 MG/ML VIAL IV PRN ×2 (19:53→23:18)
[2017-10-07] MEDS: SODIUM CHLORIDE 23.4% INJ 188 MEQ in SODIUM CHLOR 0.9% 1000 ML INJ 1,000 ML IV SCH (22:00)
[2017-10-08] VITALS (13 sets, daily range): BP systolic 112–157; BP diastolic 58–87; PULSE 50–70; RESP 16–25; TEMP 98.1–98.8; O2SAT 92–97
[2017-10-08] MEDS: niMODipine 30 MG CAP PO SCH ×6 (00:42→20:44)
[2017-10-08] MEDS: NS + KCL 20 MEQ INJ 1,000 ML IV SCH ×3 (00:43→23:06)
[2017-10-08] MEDS: HYDROmorphone HCL PF 1 MG/ML VIAL IV PRN ×6 (02:04→20:44)
[2017-10-08] MEDS: POTASSIUM CHLOR 20 MEQ PREMIX 100 ML IV PRN ×2 (02:13→04:30)
--- NOTE | 2017-10-08 05:39 | RADRPT ---
EXAM DATE/TIME: 10/08/2017 04:56 [facility] COMPARISON: No previous studies available for comparison. INDICATIONS : Follow up subarachnoid hemorrhage; post coiling. RADIATION DOSE: 56.35 CTDIvol (mGy) MEDICAL HISTORY : Lupus SURGICAL HISTORY : None. ENCOUNTER: Subsequent ACUITY: 1 day PAIN SCALE: 7/10 LOCATION: cranial TECHNIQUE: Multiple contiguous axial images were obtained of the head. Using automated exposure control and adj ustment of the mA and/or kV according to patient size, radiation dose was kept as low as reasonably a chievable to obtain optimal diagnostic quality images. DICOM format image data is available electro nically for review and comparison. FINDINGS: Interim anterior communicating artery aneurysm coiling. Diffuse subarachnoid blood again noted, not s ignificantly changed. No ventriculomegaly. No mass, mass effect or midline shift. No evidence of infa rct. CONCLUSION: Interim aneurysm coiling. Diffuse subarachnoid hemorrhage not significantly changed. No new blood. Johann Shin MD on October 08, 2017 at 5:35 Board Certified Radiologist. This report was verified electronically.
[2017-10-08] MEDS: DOCUSATE SODIUM 100 MG CAP PO SCH ×2 (08:21→21:02)
[2017-10-08] MEDS: PANTOPRAZOLE SOD 40 MG DELAYED RELEASE TAB PO SCH (08:21)
[2017-10-08] MEDS: ONDANSETRON HCL 4 MG/2 ML VIAL IV PUSH PRN ×2 (08:59→20:48)
[2017-10-08] MEDS: SODIUM CHLORIDE 23.4% INJ 188 MEQ in SODIUM CHLOR 0.9% 1000 ML INJ 1,000 ML IV SCH (09:00)
[2017-10-08 09:21] LABS: AUTOMATED NEUTROPHIL # 10.2 TH/MM3 (1.8-7.7); BASOPHIL # 0.1 TH/MM3 (0-0.2); BASOPHIL % 0.8 % (0.0-2.0); EOSINOPHIL # 0.1 TH/MM3 (0-0.4); EOSINOPHIL % 0.4 % (0.0-4.0); HEMATOCRIT 32.2 % (35.0-46.0); HEMO FLAGS DIFF FINAL; LYMPH % 23.8 % (9.0-44.0); LYMPHOCYTE # 3.5 TH/MM3 (1.0-4.8); MEAN CELL VOLUME 74.7 FL (80.0-100.0); MEAN CORPUSCULAR HEMOGLOBIN 24.8 PG (27.0-34.0); MEAN CORPUSCULAR HGB CONC 33.3 % (32.0-36.0); MONO % 4.7 % (0.0-8.0); NEUT % 70.3 % (16.0-70.0); PLATELET COUNT 272 TH/MM3 (150-450); RED BLOOD COUNT 4.31 MIL/MM3 (4.00-5.30); WHITE BLOOD COUNT 14.5 TH/MM3 (4.0-11.0)
[2017-10-08 09:42] LABS: BICARBONATE 23.1 MEQ/L (21.0-32.0); POTASSIUM 3.8 MEQ/L (3.5-5.1)
--- NOTE | 2017-10-08 11:04 | HHI.CCPN ---
Subjective Remarks/Hospital Course 42 yo AAF with past medical history of SLE, migraine headaches, benign brain tumor s/p resection in 1990 who is transferred from [facility] due to acute subarachnoid hemorrhage. 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 She says she took 2 Tylenol and Topamax and went to work. She states she was in a stressful situation at work and her headache got worse but she completed her shift and then ran some additional errands the morning of 10/06 and then went to sleep. She was awoken from sleep with severe 10/10 frontal headache associated with neck pain, nausea, vomiting, diaphoresis and photophobia. She required assistance from her son to get up out of bed and then was transported to [facility] via [facility]. No seizure activity. CT brain demonstrates diffuse SAH with no intraventricular extension or hydrocephalus. CTA demonstrates 3 mm Acom aneurysm with narrow neck per radiology report. She has received nimodipine. She is normotensive. 10/08: s/p ACOM aneurysm coiling. Headache is improved. Systolic blood pressure remains in 110. Discussed with Dr. Marquez. I will target SBP 140-180, start Dale-Synephrine to achieve goal Objective Vital Signs Date Time Temp Pulse Resp B/P (MAP) Pulse Ox O2 Delivery O2 Flow Rate FiO2 10/08/17 10:00 58 10/08/17 09:54 20 10/08/17 08:05 96 21 10/08/17 08:00 98.5 128/66 (86) 10/08/17 07:00 Room Air Intake and Output 10/08/17 10/08/17 10/09/17 08:00 16:00 00:00 Intake Total 720 ml Output Total 300 ml Balance 420 ml Result Diagram: 10/08/1790410/08/17904 Objective Remarks GENERAL: Well-nourished, well-developed patient who is laying in ICU bed, mild distress and anxiety SKIN: Warm and dry, well perfused. HEAD: Atraumatic. Normocephalic. EYES: Pupils equal and round, 3mm and reactive bilaterally. No scleral icterus. No injection or drainage. ENT: No nasal bleeding or discharge. Mucous membranes pink and moist. NECK: Trachea midline. No JVD. CARDIOVASCULAR: Regular rate and rhythm, sinus rhythm on the monitor. No murmurs rubs or gallops. RESPIRATORY: No accessory muscle use. Clear to auscultation. Breath sounds equal bilaterally. On RA. GASTROINTESTINAL: Abdomen soft, non-tender, nondistended. Bowel sounds present. MUSCULOSKELETAL: Extremities without clubbing, cyanosis, or edema. No obvious deformities. NEUROLOGICAL: Awake and alert. No obvious cranial nerve deficits. Extra ocular movements intact. Normal tongue protrusion. Speaks softly otherwise normal. Oriented 4. Strength 5 out of 5 in all extremities. Sensation intact. A/P Problem List: (1) SLE (systemic lupus erythematosus) ICD Code: M32.9 - Systemic lupus erythematosus, unspecified Status: Chronic (2) Migraines ICD Code: G43.909 - Migraine, unspecified, not intractable, without status migrainosus Status: Chronic (3) Hypokalemia ICD Code: E87.6 - Hypokalemia Status: Acute (4) Leukocytosis ICD Code: D72.829 - Elevated white blood cell count, unspecified Status: Acute (5) Subarachnoid hemorrhage ICD Code: I60.9 - Nontraumatic subarachnoid hemorrhage, unspecified Status: Acute (6) Cerebral aneurysm rupture ICD Code: I60.9 - Nontraumatic subarachnoid hemorrhage, unspecified Status: Acute (7) Anterior communicating artery aneurysm ICD Code: I67.1 - Cerebral aneurysm, nonruptured Status: Acute (8) Tobacco abuse ICD Code: Z72.0 - Tobacco use Status: Chronic Assessment and Plan NEURO: Acute aneurysmal subarachnoid hemorrhage with 3 mm Acom aneurysm. Wright/Goodwin Grade 2 Webber Grade 3. GCS 15 History of migraine headaches Daily alcohol use (1 ounce of vodka daily) s/p coiling of ACOM aneurysm Nimodipine 60 g by mouth every 4 hours Post coiling target SBP 140-180, for vasospasm prevention. Start Dale-Synephrine Transcranial Doppler monitoring starting 10/09/2017 Monitor sodium. 2% NaCl @ 20 mL/hr to avoid hyponatremia, today 140 CT brain - large acute SAH. No midline shift. No hydrocephalus. repeat CT 10/08 : stable SAH, sp coiling CTA brain - 3 mm aneursym with narrow neck at ACom, Right A1 segment small, most likely congenital but ?spasm per radiology report. Neurosurgery Dr. Clinton. On Topamax chronically for migraines Dilaudid prn headache. RESP: Ongoing tobacco abuse Tobacco cessation discussed On RA CV: art line for hemodynamic monitoring. DCd due to malfunction Target SBP 140-180 as the aneurysm is secured and for vasospasm prevention Start Dale-Synephrine to achieve target 0.9 NaCl with 20 mEq of KCl per liter at 150 mL per hour. 2% saline at 20 ml per hour GI: Full liquid diet BAR HELPER: test at outside hospital was -ve10/07/17 FEN/RENAL: Monitor BMP. Creatinine at outside hospital 0.66. Monitor I/O. Monitor electrolytes ID: Mild leukocytosis, likely reactive. White blood cell count was 11 at outside hospital F/U UA and culture is sent HEME: Hemoglobin at outside hospital was 12.1 with hematocrit 37.2. Coags and outside hospital were normal 10/07. Repeat coags have been ordered. ENDO: Glucose at outside hospital was 120. Monitor bedside glucose. RHEUM: Systemic lupus erythematosus Not consistently on disease modifying therapy for several months PROPH: SCDs for DVT prophylaxis. Pharmacologic DVT prophylaxis contraindicated due to acute subarachnoid hemorrhage. Protonix 40 mg by mouth daily for stress ulcer prophylaxis. ACCESS: Place central line to initiate vasopressor Dr. Loomis Note : She requested that I call her place of employment and said that she gave me permission to know that she was going to be admitted to the ICU she was not going to be at work today. I spoke with Loretta Rodas per patients request. I discussed with her need to designate healthcare surrogate. She states that she wishes for her mother, Keturah Bello, to be her alternate healthcare surrogate. She gave me permission to call her mother and updated her. I did call her mother but there was no answer at [phone] She designated her friend, Lalo, as primary healthcare surrogate. She has filled out healthcare surrogate form with contact information and given to RN. Patient is critically ill with acute subarachnoid hemorrhage and is at risk for neurologic decompensation related to re-bleed, hydrocephalus, etc. She will need to remain in ISC for securing aneurysm, ventriculostomy if needed, monitoring of sodium, monitoring for evidence of vasospasm, monitoring of airway protection and also for vasopressor use Discussed with Dr. Marquez CCT 32 minutes exclusive of separately billable procedures. Sarah Wills MD Oct 08, 2017 11:04
[2017-10-08] MEDS ORDERED: TERBUTALINE INJ 1 MG/ML AMP SQ PRN (11:15)
--- NOTE | 2017-10-08 11:18 | HHI.NSPN ---
(Tiffany Odom) Note Status Status: Progress Note (Tiffany Odom) Interval History Interval History 10/06: 42 y.o. female transfered from [facility] where she presented with severe BOWEN that she awoke with. Prior history of migraines. Poatitive nausea and emesis this evening. 10/07: The patient is awake but has her head covered when seen this morning due to the light hurting her eyes. She speaks softly due to her headache and she does have dizziness when moving her head. She has not had any further nausea since last night. She does report numbness to the fingers during the night but none at present. 10/08: c/o mild headaches, photophobia, and nausea, moves x 4 reports symmetrically but patient reports mild heaviness right side. f/u CT Head completed this am. (Tiffany Odom) Labs, Micro, & Vital Signs Results Date Time Temp Pulse Resp B/P (MAP) Pulse Ox O2 Delivery O2 Flow Rate FiO2 10/08/17 10:00 58 10/08/17 09:54 20 10/08/17 08:05 96 21 10/08/17 08:00 60 10/08/17 08:00 98.5 58 23 128/66 (86) 96 10/08/17 07:00 98 Room Air 10/08/17 06:00 59 10/08/17 04:00 98.3 56 23 112/63 (79) 96 10/08/17 04:00 56 10/08/17 02:00 61 10/08/17 00:00 70 10/08/17 00:00 98.1 62 16 131/58 (82) 96 10/07/17 22:00 68 10/07/17 20:06 96 21 10/07/17 20:00 64 10/07/17 20:00 98.6 64 26 101/50 (67) 98 10/07/17 19:00 98 Room Air 10/07/17 18:00 60 10/07/17 16:00 66 10/07/17 16:00 98.6 68 21 106/48 (67) 100 Constitutional Vital Signs Date Time Temp Pulse Resp B/P (MAP) Pulse Ox O2 Delivery O2 Flow Rate FiO2 10/08/17 10:00 58 10/08/17 09:54 20 10/08/17 08:05 96 21 10/08/17 08:00 60 10/08/17 08:00 98.5 58 23 128/66 (86) 96 10/08/17 07:00 98 Room Air 10/08/17 06:00 59 10/08/17 04:00 98.3 56 23 112/63 (79) 96 10/08/17 04:00 56 10/08/17 02:00 61 10/08/17 00:00 70 10/08/17 00:00 98.1 62 16 131/58 (82) 96 10/07/17 22:00 68 10/07/17 20:06 96 21 10/07/17 20:00 64 10/07/17 20:00 98.6 64 26 101/50 (67) 98 10/07/17 19:00 98 Room Air 10/07/17 18:00 60 10/07/17 16:00 66 10/07/17 16:00 98.6 68 21 106/48 (67) 100 (Tiffany Odom) Review of Systems Constitutional: DENIES: Fever, Chills Gastrointestinal: COMPLAINS OF: Nausea Neurologic: COMPLAINS OF: Headache, DENIES: Seizures (Tiffany Odom) Physical Exam Alert, no acute distress. follows commands well. Speech clear, conversing well. CN: pupils equal, gross eoms intact. facial motor symmetric Sensation intact to light touch to all extremities. Motor strength is 5/5 to both upper and lower extremities - pt reports mild heaviness right side (Tiffany Odom) Ms Curry is alert, awake and oriented to time, place and person. Speech is fluent. Higher cognitive functions are normal. Cranial nerve examination demonstrates the pupils to be equal, round, and reactive to light. Extra-ocular movements are intact. Facial motor and sensory function are normal and symmetrical. Gross hearing is intact, bilaterally. The uvula is midline and elevates symmetrically with the soft palate. Sternocleidomastoid and trapezius muscles have normal and symmetrical strength. Other cranial nerves are intact. Neck is soft and supple. Cervical spine has a full range of motion in anterior flexion, extension, lateral bending, and rotation without pain. There is no tenderness to palpation to the spinous processes or paraspinal muscles. Muscle testing reveals normal bulk and tone overall without rigidity, spasticity , fasciculations, or atrophy. Muscle strength is 5/5 in all muscle groups of both upper extremities including deltoid, biceps, triceps, brachioradialis, wrist extension and organic gardening teacher. In the lower extremities, strength is 5/5 in both iliopsoas, quadriceps, hamstrings, plantar flexion, dorsiflexion, and extensor hallicus longus. Sensory examination is intact to light touch and sharp/dull discrimination in both the upper and lower extremities, symmetrically. Deep tendon reflexes are 2+ and symmetrical in the biceps, triceps, and brachioradialis, bilaterally, in the upper extremities. In the lower extremities , the patellar and Achilles are 2+, bilaterally. There is a bilateral plantar flexion response. Hoffmanns sign is negative. There is no clonus or other abnormal reflexes noted. Cerebellar examination is intact to [id number] test, rapid rhythmic alternating motion. There is no dysmetria, dysdiadochokinesia (Edward Marquez MD) Medications Current Medications Current Medications Medications (Trade) Dose Ordered Sig/Abdias Route PRN Reason Start Time Stop Time Status Last Admin Dose Admin Docusate Sodium (Colace) 100 mg BID PO 10/07/17 09:00 10/08/17 08:21 Pantoprazole Sodium (Protonix) 40 mg DAILY PO 10/07/17 09:00 10/08/17 08:21 Ondansetron HCl (Zofran Inj) 4 mg Q6H PRN IV PUSH NAUSEA OR VOMITING 10/07/17 04:15 10/08/17 08:59 Hydromorphone HCl (Dilaudid Pf Inj) 0.5 mg Q3H PRN IV PUSH Pain 3-5; if unable to take PO 10/07/17 04:15 10/07/17 05:01 Naloxone HCl (Narcan Inj) 0.4 mg UNSCH PRN IV PUSH SEE LABEL COMMENTS 10/07/17 04:15 Nimodipine (Nimotop) 60 mg Q4HR PO 10/07/17 08:00 10/08/17 08:21 Nicardipine HCl 25 mg/Sodium Chloride 250 ml @ 50 mls/hr TITRATE PRN IV Blood pressure management 10/07/17 05:00 Potassium Chloride/Sodium Chloride 1,000 ml @ 150 mls/hr Q6H40M IV 10/07/17 06:45 10/08/17 00:43 Sodium Chloride 188 meq/Sodium Chloride 1,047 ml @ 20 mls/hr Q24H IV 10/07/17 09:00 10/07/17 22:00 Potassium Chloride 100 ml @ 50 mls/hr Q2H PRN IV For Potassium 2.8 - 3.2 mEq/L 10/07/17 07:30 Potassium Chloride 100 ml @ 50 mls/hr Q2H PRN IV For Potassium 2.8 - 3.2 mEq/L 10/07/17 07:30 Potassium Bicarb/ Potassium Chloride (K-Lyte Cl Eff) 50 meq UNSCH PRN PO For Potassium 3.3 - 3.5 mEq/L 10/07/17 07:30 Potassium Chloride 100 ml @ 25 mls/hr UNSCH PRN IV For Potassium 3.3 - 3.5 mEq/L 10/07/17 07:30 Potassium Chloride 100 ml @ 50 mls/hr Q2H PRN IV For Potassium 3.3 - 3.5 mEq/L 10/07/17 07:30 10/08/17 04:30 Magnesium Sulfate 4 gm/Sodium Chloride 100 ml @ 50 mls/hr UNSCH PRN IV For Magnesium 0.9 - 1.1 mg/dL 10/07/17 07:30 Magnesium Oxide (Mag-Ox) 800 mg UNSCH PRN PO For Magnesium 1.2 - 1.6 mg/dL 10/07/17 07:30 Magnesium Sulfate 2 gm/Sodium Chloride 100 ml @ 50 mls/hr UNSCH PRN IV For Magnesium 1.2 - 1.6 mg/dL 10/07/17 07:30 Potassium Phosphate (K-Phos) 2,000 mg Q4H PRN PO For Phosphorus < 2.5 mg/dL 10/07/17 07:30 Sodium Phosphate 30 mmol/Sodium Chloride 250 ml @ 42 mls/hr UNSCH PRN IV For Phosphorus < 2.5 mg/dL 10/07/17 07:30 Potassium Phosphate (K-Phos) 2,000 mg UNSCH PRN PO/TUBE SEE LABEL COMMENTS 10/07/17 07:30 Potassium Phosphate 30 mmol/ Sodium Chloride 260 ml @ 42 mls/hr UNSCH PRN IV SEE LABEL COMMENTS 10/07/17 07:30 Acetaminophen (Tylenol) 650 mg Q4H PRN PO PAIN SCALE 1 TO 10 10/07/17 15:15 Hydromorphone HCl (Dilaudid Pf Inj) 1 mg Q2H PRN IV PAIN SCALE 6-10 10/07/17 18:00 10/08/17 09:24 Phenylephrine HCl 80 mg/Dextrose 500 ml @ 15 mls/hr TITRATE PRN IV Blood pressure Management 10/08/17 11:15 Terbutaline Sulfate (Brethine Inj) 1 mg UNSCH PRN SQ For Extravasation 10/08/17 11:15 (Tiffany Odom) Medical Decision Making MDM Remarks 42 y/o female with SAH, s/p coiling of ACOM aneurysm f/u CT Head 10/08/17 stable (Tiffany Odom) Plan Plan Remarks cont supportive care of headaches and nause cont close neuro checks in ISC critical care following cont nimodipine TCDs ordered for tomorrow nonchemical dvt proph in view of ICH (Tiffany Odom) Attending Statement As above Neuro. Continue neuro checks in a serial fashion. Continue agrressive hydration , goal to SBP 140 to 160mm Hg. Follow up with TCD Pulmonary.aggressive pulmonary toilette, nasotracheal suction, and breathing treatments with nebulizers. Nutrition. Oral diet Renal. Continue to monitor closely urine output, BUN and creatinine Endocrine. Continue to Monitor serial Acu checks and SSI as needed in detail ID Continue to monitor for signs of infection Continue Protonix for stress ulcer prophylaxis Continue adela hose and SCD's. OK to Lovenox The exam, history, and the medical decision-making described in the above note were completed with the assistance of the mid-level provider. I reviewed and agree with the findings presented. I attest that I had a [id number] encounter with the patient on the same day, and personally performed and documented my assessment and findings in the medical record. (Edward Marquez MD) Tiffany Odom Oct 08, 2017 11:18 Edward Marquez MD Oct 08, 2017 11:50
[2017-10-08] MEDS: PHENYLEPHRINE INJ 80 MG in DEXTROSE 5% IN WATE 500 ML INJ 492 ML IV PRN ×2 (11:40)
[2017-10-08] MEDS ORDERED: HYDROmorphone HCL PF 1 MG/ML VIAL IV PUSH ONE (13:45)
--- NOTE | 2017-10-08 14:14 | PD.PROCEDR ---
Central Line Procedure REASON FOR PROCEDURE Central venous access PROCEDURE PERFORMED Central line placement: LIJ central line US guided CONSENT Informed consent for procedure was obtained and time out performed. The risks and benefits of the procedure were discussed to include but limited to bleeding , clot formation, infection, and even . ANESTHESIA Local injection of 1% Lidocaine DESCRIPTION OF THE PROCEDURE The patient was placed in supine, mild Trendelenburg position. The area was exposed and cleansed with ChloraPrep, times two. Large sterile drape was used to cover the patient, with the site exposed, under sterile conditions including cap, face mask, sterile gown, and sterile gloves. On single attempt, the introducer needle was inserted with negative pressure in syringe and venous flash was obtained. The guide wire was then advanced without any restriction and the needle was removed. The dilator was used without any complications. Using Seldinger technique the 20 CM 7F catheter was advanced over the guide wire to a depth of 18 centimeters. The guide wire was removed. All ports were aspirated with dark venous blood return and flushed easily with sterile saline. All ports were capped. Antibiotic disc was placed around central line at puncture site. The central line was secured to the skin with two interrupted 2.0 silk sutures. The area was bandaged with sterile see-through central line bandage. RADIOLOGICAL DATA Ultrasound guidance was used to locate LIJ. COMPLICATIONS: No apparent complications ESTIMATED BLOOD LOSS: Less than 1 cc. Sarah Wills MD Oct 08, 2017 14:14
--- NOTE | 2017-10-08 14:41 | RADRPT ---
EXAM DATE/TIME: 10/08/2017 12:18 [facility] COMPARISON: No previous studies available for comparison. INDICATIONS : Central line placement. MEDICAL HISTORY : Lupus. SURGICAL HISTORY : None. ENCOUNTER: Subsequent ACUITY: 1 day PAIN SCORE: Non-responsive. LOCATION: Bilateral chest FINDINGS: Left central line tip projects at the cavoatrial junction. No evidence of pneumothorax. The lungs a re symmetrically aerated. No focal areas of consolidation. Both hemidiaphragms are well delineated. The heart is normal in size. CONCLUSION: Central line in good position. No evidence of pneumothorax. Jett Collier MD on October 08, 2017 at 14:35 Board Certified Radiologist. This report was verified electronically.
[2017-10-09] VITALS (12 sets, daily range): BP systolic 140–166; BP diastolic 73–92; PULSE 52–73; RESP 16–25; TEMP 98–98.8; O2SAT 93–100
[2017-10-09] MEDS: niMODipine 30 MG CAP PO SCH ×7 (00:22→23:53)
[2017-10-09] MEDS: HYDROmorphone HCL PF 1 MG/ML VIAL IV PRN ×10 (00:41→23:54)
[2017-10-09] MEDS: ONDANSETRON HCL 4 MG/2 ML VIAL IV PUSH PRN ×3 (03:11→15:15)
[2017-10-09] MEDS: PHENYLEPHRINE INJ 80 MG in DEXTROSE 5% IN WATE 500 ML INJ 492 ML IV PRN ×4 (04:14→22:43)
[2017-10-09 05:30] LABS: AUTOMATED NEUTROPHIL # 11.4 TH/MM3 (1.8-7.7); BASOPHIL # 0.1 TH/MM3 (0-0.2); BASOPHIL % 0.6 % (0.0-2.0); EOSINOPHIL # 0.1 TH/MM3 (0-0.4); EOSINOPHIL % 0.5 % (0.0-4.0); HEMATOCRIT 35.2 % (35.0-46.0); HEMO FLAGS DIFF FINAL; LYMPH % 21.2 % (9.0-44.0); LYMPHOCYTE # 3.3 TH/MM3 (1.0-4.8); MEAN CELL VOLUME 75.9 FL (80.0-100.0); MEAN CORPUSCULAR HGB CONC 31.7 % (32.0-36.0); MONO % 5.1 % (0.0-8.0); NEUT % 72.6 % (16.0-70.0); PLATELET COUNT 311 TH/MM3 (150-450); RED BLOOD COUNT 4.64 MIL/MM3 (4.00-5.30); RED CELL DISTRIBUTION WIDTH 14.1 % (11.6-17.2); WHITE BLOOD COUNT 15.7 TH/MM3 (4.0-11.0)
[2017-10-09 05:49] LABS: AST (GOT) 21 U/L (15-37); CHLORIDE 103 MEQ/L (98-107); POTASSIUM 3.8 MEQ/L (3.5-5.1); SODIUM (NA) 135 MEQ/L (136-145)
[2017-10-09 05:50] LABS: ANION GAP 6 MEQ/L (5-15); BICARBONATE 26.1 MEQ/L (21.0-32.0); BLOOD UREA NITROGEN 4 MG/DL (7-18); GLOMERULAR FILTRATION RATE 168 ML/MIN (>89); MAGNESIUM 1.8 MG/DL (1.5-2.5)
[2017-10-09 05:55] LABS: ALKALINE PHOSPHATASE 63 U/L (45-117); ALT (GPT) 22 U/L (10-53); TOTAL BILIRUBIN ADULT 0.6 MG/DL (0.2-1.0)
[2017-10-09] MEDS: NS + KCL 20 MEQ INJ 1,000 ML IV SCH ×2 (06:31→14:50)
[2017-10-09] MEDS: PANTOPRAZOLE SOD 40 MG DELAYED RELEASE TAB PO SCH (08:32)
[2017-10-09] MEDS: DOCUSATE SODIUM 100 MG CAP PO SCH ×2 (08:32→19:48)
[2017-10-09] MEDS: SODIUM CHLORIDE 23.4% INJ 188 MEQ in SODIUM CHLOR 0.9% 1000 ML INJ 1,000 ML IV SCH (09:00)
--- NOTE | 2017-10-09 09:21 | HHI.CCPN ---
Subjective Remarks/Hospital Course 42 yo AAF with past medical history of SLE, migraine headaches, benign brain tumor s/p resection in 1990 who is transferred from [facility] due to acute subarachnoid hemorrhage. 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 She says she took 2 Tylenol and Topamax and went to work. She states she was in a stressful situation at work and her headache got worse but she completed her shift and then ran some additional errands the morning of 10/06 and then went to sleep. She was awoken from sleep with severe 10/10 frontal headache associated with neck pain, nausea, vomiting, diaphoresis and photophobia. She required assistance from her son to get up out of bed and then was transported to [facility] via [facility]. No seizure activity. CT brain demonstrates diffuse SAH with no intraventricular extension or hydrocephalus. CTA demonstrates 3 mm Acom aneurysm with narrow neck per radiology report. She has received nimodipine. She is normotensive. 10/08: s/p ACOM aneurysm coiling. Headache is improved. Systolic blood pressure remains in 110. Discussed with Dr. Marquez. I will target SBP 140-180, start Dale-Synephrine to achieve goal 10/09: Still complains of retro-orbital pain. Remains on 100 mcg/m of Dale- Synephrine to keep systolic blood pressure between 140-180. Sodium 135 increase 2% saline to 40 ml per hour. TCDs from am Objective Vital Signs Date Time Temp Pulse Resp B/P (MAP) Pulse Ox O2 Delivery O2 Flow Rate FiO2 10/09/17 08:00 54 10/09/17 08:00 98.0 18 166/82 (110) 100 10/09/17 07:00 Nasal Cannula 2.00 10/08/17 08:05 21 Intake and Output 10/09/17 10/09/17 10/10/17 08:00 16:00 00:00 Intake Total 1050 ml Output Total 3100 ml Balance -2050 ml Result Diagram: 10/09/17 0510 10/09/17 0510 Objective Remarks GENERAL: Well-nourished, well-developed patient who is laying in ICU bed, mild distress and anxiety SKIN: Warm and dry, well perfused. HEAD: Atraumatic. Normocephalic. EYES: Pupils equal and round, 3mm and reactive bilaterally. No scleral icterus. No injection or drainage. ENT: No nasal bleeding or discharge. Mucous membranes pink and moist. NECK: Trachea midline. No JVD. CARDIOVASCULAR: Regular rate and rhythm, sinus rhythm on the monitor. No murmurs rubs or gallops. RESPIRATORY: No accessory muscle use. Clear to auscultation. Breath sounds equal bilaterally. On RA. GASTROINTESTINAL: Abdomen soft, non-tender, nondistended. Bowel sounds present. MUSCULOSKELETAL: Extremities without clubbing, cyanosis, or edema. No obvious deformities. NEUROLOGICAL: Awake and alert. No obvious cranial nerve deficits. Extra ocular movements intact. Normal tongue protrusion. Speech normal. Oriented 4. Strength 5 out of 5 in all extremities. Sensation intact. A/P Problem List: (1) Subarachnoid hemorrhage ICD Code: I60.9 - Nontraumatic subarachnoid hemorrhage, unspecified Status: Acute (2) Cerebral aneurysm rupture ICD Code: I60.9 - Nontraumatic subarachnoid hemorrhage, unspecified Status: Acute (3) SLE (systemic lupus erythematosus) ICD Code: M32.9 - Systemic lupus erythematosus, unspecified Status: Chronic (4) Migraines ICD Code: G43.909 - Migraine, unspecified, not intractable, without status migrainosus Status: Chronic (5) Hypokalemia ICD Code: E87.6 - Hypokalemia Status: Acute (6) Leukocytosis ICD Code: D72.829 - Elevated white blood cell count, unspecified Status: Acute (7) Anterior communicating artery aneurysm ICD Code: I67.1 - Cerebral aneurysm, nonruptured Status: Acute (8) Tobacco abuse ICD Code: Z72.0 - Tobacco use Status: Chronic Assessment and Plan NEURO: Acute aneurysmal subarachnoid hemorrhage with 3 mm Acom aneurysm. Wright/Goodwin Grade 2 Webber Grade 3. GCS 15 History of migraine headaches Daily alcohol use (1 ounce of vodka daily) s/p coiling of ACOM aneurysm Nimodipine 60 g by mouth every 4 hours Post coiling target SBP 140-180, for vasospasm prevention. Dale-Synephrine at 100 mcg/m Transcranial Doppler monitoring starting 10/10/2017 Monitor sodium. 2% NaCl @ 40 mL/hr to avoid hyponatremia, today 135 and 2% was increased CT brain - large acute SAH. No midline shift. No hydrocephalus. repeat CT 10/08 : stable SAH, sp coiling CTA brain - 3 mm aneurysm with narrow neck at ACom, Right A1 segment small, most likely congenital but ?spasm per radiology report. Neurosurgery Dr. Clinton. On Topamax chronically for migraines Dilaudid prn headache. RESP: Ongoing tobacco abuse Tobacco cessation discussed On RA CV: Target SBP 140-180 as the aneurysm is secured and for vasospasm prevention. Dale- Synephrine to achieve target 0.9 NaCl with 20 mEq of KCl per liter at 100 mL per hour. 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 Creatinine at outside hospital 0.66. Monitor I/O. Monitor electrolytes ID: Mild leukocytosis, likely reactive. White blood cell count 15.4 F/U UA and culture is sent HEME: Hemoglobin at outside hospital was 12.1 with hematocrit 37.2. Coags and outside hospital were normal 10/07. Repeat coags Nl ENDO: Glucose at outside hospital was 120. Monitor bedside glucose. RHEUM: Systemic lupus erythematosus Not consistently on disease modifying therapy for several months PROPH: SCDs for DVT prophylaxis. Pharmacologic DVT prophylaxis contraindicated due to acute subarachnoid hemorrhage, until cleared by neurosurgery. Protonix 40 mg by mouth daily for stress ulcer prophylaxis. ACCESS: [facility] central line placed 10/08/17 Dr. Loomis Note : She requested that I call her place of employment and said that she gave me permission to know that she was going to be admitted to the ICU she was not going to be at work today. I spoke with Loretta Rodas per patients request. I discussed with her need to designate healthcare surrogate. She states that she wishes for her mother, Keturah Bello, to be her alternate healthcare surrogate. She gave me permission to call her mother and updated her. I did call her mother but there was no answer at [phone] She designated her friend, Lalo, as primary healthcare surrogate. She has filled out healthcare surrogate form with contact information and given to RN. Patient is critically ill with acute subarachnoid hemorrhage and is at risk for neurologic decompensation related to re-bleed, hydrocephalus, etc. She will need to remain in ISC for securing aneurysm, ventriculostomy if needed, monitoring of sodium, monitoring for evidence of vasospasm, monitoring of airway protection and also for vasopressor use Discussed with Dr. Marquez 10/08 CCT 30 minutes exclusive of separately billable procedures. Sarah Wills MD Oct 09, 2017 09:21
--- NOTE | 2017-10-09 09:37 | RADRPT ---
EXAM DATE/TIME: 10/09/2017 07:38 [facility] COMPARISON: No previous studies available for comparison. INDICATIONS : Subarachnoid hemorrhage. MEDICAL HISTORY : Lupus. Anxiety. Nausea/vomiting. Ectopic . SURGICAL HISTORY : Appendectomy. Benign tumor removal as child. Orthopedic surgery, right knee. ENCOUNTER: Initial ACUITY: 2 days PAIN SCORE: 8/10 LOCATION: Bilateral cranial Current Exam: Oct 09, 2017 Lindegaard Ratio: Right: 4.3 Left: 2.7 Johnson Ratio: Right: 1.7 Left: 2.2 FINDINGS: Examination performed at bedside. Real-time ultrasound with the assistance of color and spectral Dop pler was utilized to evaluate the intracerebral circulation. Time-averaged maximal velocities are ca lculated in cm/s. Right proximal ICA is not visualized. Increased Lindegard ratio on the right. CONCLUSION: 1. Findings consistent with mild right MCA vasospasm Korey Bustos MD on October 09, 2017 at 9:32 Board Certified Radiologist. This report was verified electronically.
--- NOTE | 2017-10-09 23:58 | HHI.NSPN ---
History Chief Complaint: Headache Interval History Patient presented on 10/07/2017 after she awoke with extremely severe headache, nausea and emesis. 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 Now status post endovascular treatment for coil placement on 10/07/2017 10/09/2017: Persistent headache. No focal deficit. Exam Results Vital Signs Date Time Temp Pulse Resp B/P (MAP) Pulse Ox O2 Delivery O2 Flow Rate FiO2 10/09/17 22:43 55 168/83 10/09/17 20:00 98.8 16 93 10/09/17 19:00 Room Air 10/09/17 07:00 2.00 10/08/17 08:05 21 Intake and Output 10/09/17 10/09/17 10/10/17 08:00 16:00 00:00 Intake Total 1050 ml Output Total 3100 ml 2900 ml Balance -2050 ml -2900 ml Physical Examination Ms Curry is relatively alert, no apparent distress. Her speech and thought processes are mildly slowed. However she answers questions appropriately and follows simple commands well. Appears to have reasonable judgment and insight. No obvious anxiety or depression. Cranial nerve examination demonstrates the pupils to be equal, round, and reactive to light. Extra-ocular movements are intact. Facial motor and sensory function are normal and symmetrical. Gross hearing is intact, bilaterally. The uvula is midline and elevates symmetrically with the soft palate. Sternocleidomastoid and trapezius muscles have normal and symmetrical strength. Other cranial nerves are intact. Neck is soft and supple. Cervical spine has a full range of motion in anterior flexion, extension, lateral bending, and rotation without pain. There is no tenderness to palpation to the spinous processes or paraspinal muscles. Muscle testing reveals normal bulk and tone overall without rigidity, spasticity , fasciculations, or atrophy. Muscle strength is 5/5 in all muscle groups of both upper extremities including deltoid, biceps, triceps, brachioradialis, wrist extension and guardian family member. In the lower extremities, strength is 5/5 in both iliopsoas, quadriceps, hamstrings, plantar flexion, dorsiflexion, and extensor hallicus longus. Sensory examination is intact to light touch and sharp/dull discrimination in both the upper and lower extremities, symmetrically. Deep tendon reflexes are 2+ and symmetrical in the biceps, triceps, and brachioradialis, bilaterally, in the upper extremities. In the lower extremities , the patellar and Achilles are 2+, bilaterally. There is a bilateral plantar flexion response. Hoffmanns sign is negative. There is no clonus or other abnormal reflexes noted. Cerebellar examination is intact to [id number] test, rapid rhythmic alternating motion. There is no dysmetria, dysdiadochokinesia Lab, Micro, Other Results 10/08/2017 CT scan head images reviewed. No significant hydrocephalus. There might be some early clearing of the subarachnoid blood. No significant mass effect. Transcranial Doppler Study Complete 10/09/17 0000 Signed Impressions: Service Date/Time: Monday, October 09, 2017 07:38 - CONCLUSION: 1. Findings consistent with mild right MCA vasospasm Korey Bustos MD Head CT 10/08/17 0600 Signed Impressions: Service Date/Time: September 04:56 - CONCLUSION: Interim aneurysm coiling. Diffuse subarachnoid hemorrhage not significantly changed. No new blood. Johann Shin MD Chest X-Ray 10/08/17 0000 Signed Impressions: Service Date/Time: September 12:18 - CONCLUSION: Central line in good position. No evidence of pneumothorax. Jett Collier MD Laboratory Tests Test 10/09/17 05:10 10/09/17 17:30 10/09/17 21:59 White Blood Count 15.7 TH/MM3 Red Blood Count 4.64 MIL/MM3 Hemoglobin 11.1 GM/DL Hematocrit 35.2 % Mean Corpuscular Volume 75.9 FL Mean Corpuscular Hemoglobin 24.0 PG Mean Corpuscular Hemoglobin Concent 31.7 % Red Cell Distribution Width 14.1 % Platelet Count 311 TH/MM3 Mean Platelet Volume 7.6 FL Neutrophils (%) (Auto) 72.6 % Lymphocytes (%) (Auto) 21.2 % Monocytes (%) (Auto) 5.1 % Eosinophils (%) (Auto) 0.5 % Basophils (%) (Auto) 0.6 % Neutrophils # (Auto) 11.4 TH/MM3 Lymphocytes # (Auto) 3.3 TH/MM3 Monocytes # (Auto) 0.8 TH/MM3 Eosinophils # (Auto) 0.1 TH/MM3 Basophils # (Auto) 0.1 TH/MM3 CBC Comment DIFF FINAL Differential Comment Blood Urea Nitrogen 4 MG/DL Creatinine 0.49 MG/DL Random Glucose 104 MG/DL Total Protein 7.2 GM/DL Albumin 3.6 GM/DL Calcium Level 8.3 MG/DL Magnesium Level 1.8 MG/DL Alkaline Phosphatase 63 U/L Aspartate Amino Transf (AST/SGOT) 21 U/L Alanine Aminotransferase (ALT/SGPT) 22 U/L Total Bilirubin 0.6 MG/DL Sodium Level 135 MEQ/L 134 MEQ/L 135 MEQ/L Potassium Level 3.8 MEQ/L Chloride Level 103 MEQ/L Carbon Dioxide Level 26.1 MEQ/L Anion Gap 6 MEQ/L Estimat Glomerular Filtration Rate 168 ML/MIN Medical Decision Making Impression and Plan Impression: 1. Stable neurologic exam following endovascular treatment for anterior communicating artery aneurysm. 10/09/2017 transcranial Doppler with possible mild right MCA spasm. Plan: Continue to advance diet and activity as tolerated. Allow the pressure to increase, pressors as needed to maintain systolic blood pressure greater than 140. Continue transcranial Doppler. Check CT angiogram 10/11/17 depending on clinical course. Jono Clinton MD Oct 09, 2017 23:58
[2017-10-10] VITALS (12 sets, daily range): BP systolic 141–178; BP diastolic 74–97; PULSE 54–68; RESP 12–19; TEMP 98.2–98.6; O2SAT 96–100
[2017-10-10] MEDS: HYDROmorphone HCL PF 1 MG/ML VIAL IV PRN ×2 (02:01→04:37)
[2017-10-10] MEDS: NS + KCL 20 MEQ INJ 1,000 ML IV SCH ×4 (02:43→20:24)
[2017-10-10] MEDS: niMODipine 30 MG CAP PO SCH ×5 (04:06→20:23)
[2017-10-10] MEDS: ONDANSETRON HCL 4 MG/2 ML VIAL IV PUSH PRN (04:12)
[2017-10-10 04:43] LABS: AUTOMATED NEUTROPHIL # 9.7 TH/MM3 (1.8-7.7); BASOPHIL # 0.1 TH/MM3 (0-0.2); BASOPHIL % 0.4 % (0.0-2.0); EOSINOPHIL # 0.2 TH/MM3 (0-0.4); EOSINOPHIL % 1.4 % (0.0-4.0); HEMO FLAGS DIFF FINAL; LYMPH % 25.3 % (9.0-44.0); LYMPHOCYTE # 3.6 TH/MM3 (1.0-4.8); MEAN CELL VOLUME 74.6 FL (80.0-100.0); MEAN CORPUSCULAR HEMOGLOBIN 24.5 PG (27.0-34.0); MEAN CORPUSCULAR HGB CONC 32.8 % (32.0-36.0); NEUT % 67.9 % (16.0-70.0); PLATELET COUNT 286 TH/MM3 (150-450); RED BLOOD COUNT 4.82 MIL/MM3 (4.00-5.30); RED CELL DISTRIBUTION WIDTH 13.8 % (11.6-17.2); WHITE BLOOD COUNT 14.4 TH/MM3 (4.0-11.0)
[2017-10-10 04:57] LABS: SODIUM (NA) 137 MEQ/L (136-145)
[2017-10-10 06:55] LABS: CHLORIDE 103 MEQ/L (98-107); POTASSIUM 3.8 MEQ/L (3.5-5.1)
[2017-10-10 07:24] LABS: ALT (GPT) 23 U/L (10-53); ANION GAP 9 MEQ/L (5-15); AST (GOT) 22 U/L (15-37); BICARBONATE 24.7 MEQ/L (21.0-32.0); BLOOD UREA NITROGEN 3 MG/DL (7-18); GLOMERULAR FILTRATION RATE 176 ML/MIN (>89); MAGNESIUM 1.9 MG/DL (1.5-2.5)
[2017-10-10 07:26] LABS: ALKALINE PHOSPHATASE 66 U/L (45-117); TOTAL BILIRUBIN ADULT 0.7 MG/DL (0.2-1.0)
--- NOTE | 2017-10-10 09:10 | HHI.NSPN ---
(Mike Kwan) History Chief Complaint: Headache (Mike Kwan) Interval History Patient presented on 10/07/2017 after she awoke with extremely severe headache, nausea and emesis. 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 Now status post endovascular treatment for coil placement on 10/07/2017 10/09/2017: Persistent headache. No focal deficit. 10/10/17: Pt complains of frontal headache. No nausea or vomiting. No numbness or paresthesias. (Mike Kwan) Review of Systems General: Negative for: fever, chills, insomnia Respiratory: Negative for: shortness of breath, cough, sputum Cardiovascular: Negative for: chest pain Gastrointestinal: Negative for: nausea, vomitting, diarrhea, constipation ( Mike Kwan) Exam Results Vital Signs Date Time Temp Pulse Resp B/P (MAP) Pulse Ox O2 Delivery O2 Flow Rate FiO2 10/10/17 06:00 64 10/10/17 06:00 122/72 10/10/17 04:00 98.6 18 98 10/09/17 19:00 Room Air 10/09/17 07:00 2.00 10/08/17 08:05 21 Intake and Output 10/10/17 10/10/17 10/11/17 08:00 16:00 00:00 Intake Total 1240 ml Output Total 2650 ml Balance -1410 ml (Mike Kwan) Physical Examination General: Pt awake and resting comfortably in bed. Vitals are stable. Eyes: Pupils 3mm bilaterally and sclera anicteric. Resp: CTA bilaterally Heart: NSR no murmurs Abd: Soft positive bs. Skin: No cyanosis or erythema. SCDs in place. Muscle: Moves all 4 extremities with 5/5 strength. Neuro: Pt awake and alert. Pupils 3mm bilaterally reactive bilaterally. Speech clear and appropriate. Follows commands well. Sensation intact to light touch. (Mike Kwan) Lab, Micro, Other Results Last Impressions Transcranial Doppler Study Complete 10/09/17 0000 Signed Impressions: Service Date/Time: Monday, October 09, 2017 07:38 - CONCLUSION: 1. Findings consistent with mild right MCA vasospasm Korey Bustos MD Head CT 10/08/17 0600 Signed Impressions: Service Date/Time: September 04:56 - CONCLUSION: Interim aneurysm coiling. Diffuse subarachnoid hemorrhage not significantly changed. No new blood. Johann Shin MD Chest X-Ray 10/08/17 0000 Signed Impressions: Service Date/Time: September 12:18 - CONCLUSION: Central line in good position. No evidence of pneumothorax. Jett Collier MD Neck CTA 10/07/17 0000 Signed Impressions: Service Date/Time: Saturday, October 07, 2017 04:41 - CONCLUSION: Extracranial carotid and vertebral arteries have a normal appearance. Johann Shin MD Head CTA 10/07/17 0000 Signed Impressions: Service Date/Time: Saturday, October 07, 2017 04:41 - CONCLUSION: 3 mm ACom aneurysm. Johann Shin MD Laboratory Tests Test 10/09/17 17:30 10/09/17 21:59 10/10/17 04:30 Sodium Level 134 MEQ/L 135 MEQ/L 137 MEQ/L White Blood Count 14.4 TH/MM3 Red Blood Count 4.82 MIL/MM3 Hemoglobin 11.8 GM/DL Hematocrit 36.0 % Mean Corpuscular Volume 74.6 FL Mean Corpuscular Hemoglobin 24.5 PG Mean Corpuscular Hemoglobin Concent 32.8 % Red Cell Distribution Width 13.8 % Platelet Count 286 TH/MM3 Mean Platelet Volume 7.5 FL Neutrophils (%) (Auto) 67.9 % Lymphocytes (%) (Auto) 25.3 % Monocytes (%) (Auto) 5.0 % Eosinophils (%) (Auto) 1.4 % Basophils (%) (Auto) 0.4 % Neutrophils # (Auto) 9.7 TH/MM3 Lymphocytes # (Auto) 3.6 TH/MM3 Monocytes # (Auto) 0.7 TH/MM3 Eosinophils # (Auto) 0.2 TH/MM3 Basophils # (Auto) 0.1 TH/MM3 CBC Comment DIFF FINAL Differential Comment Blood Urea Nitrogen 3 MG/DL Creatinine 0.47 MG/DL Random Glucose 99 MG/DL Total Protein 7.4 GM/DL Albumin 3.7 GM/DL Calcium Level 9.1 MG/DL Magnesium Level 1.9 MG/DL Alkaline Phosphatase 66 U/L Aspartate Amino Transf (AST/SGOT) 22 U/L Alanine Aminotransferase (ALT/SGPT) 23 U/L Total Bilirubin 0.7 MG/DL Potassium Level 3.8 MEQ/L Chloride Level 103 MEQ/L Carbon Dioxide Level 24.7 MEQ/L Anion Gap 9 MEQ/L Estimat Glomerular Filtration Rate 176 ML/MIN (Mike Kwan) Medical Decision Making Impression and Plan Impression: 1. Stable neurologic exam following endovascular treatment for anterior communicating artery aneurysm. 10/09/2017 transcranial Doppler with possible mild right MCA spasm. Plan: Continue to advance diet and activity as tolerated. Allow the pressure to increase, pressors as needed to maintain systolic blood pressure greater than 140. Continue transcranial Doppler. Check CT angiogram 10/11/17 depending on clinical course. (Mike Kwan) Attending Statement The exam, history, and the medical decision-making described in the above note were completed with the assistance of the mid-level provider. I reviewed and agree with the findings presented. I attest that I had a [id number] encounter with the patient on the same day, and personally performed and documented my assessment and findings in the medical record. Complains of headache but no focal motor deficits and fluent speech. As complains of chronic low back pain and right S1 radiculopathy with some numbness. Transcranial Doppler studies with mild right vasospasm which has improved slightly from yesterday. We'll continue with the hypertensive and hyperdynamic vasospasm treatment with maintaining systolic blood pressure 160 to 180s range. Discussed with night shift supervisor Dr. Wills. (Reji Castillo MD) Mike Kwan Oct 10, 2017 09:10 Reji Castillo MD Oct 10, 2017 12:32
[2017-10-10] MEDS: PANTOPRAZOLE SOD 40 MG DELAYED RELEASE TAB PO SCH (09:48)
[2017-10-10] MEDS: DOCUSATE SODIUM 100 MG CAP PO SCH ×2 (09:48→20:23)
[2017-10-10] MEDS: SODIUM CHLORIDE 23.4% INJ 188 MEQ in SODIUM CHLOR 0.9% 1000 ML INJ 1,000 ML IV SCH (09:49)
--- NOTE | 2017-10-10 11:02 | RADRPT ---
EXAM DATE/TIME: 10/10/2017 08:00 [facility] COMPARISON: No previous studies available for comparison. INDICATIONS : Subarachnoid hemorrhage. MEDICAL HISTORY : Lupus. Anxiety. Nausea/vomiting. Ectopic . SURGICAL HISTORY : Appendectomy. Benign tumor removal as child. ENCOUNTER: Initial ACUITY: 3 days PAIN SCORE: 7/10 LOCATION: Bilateral cranial Current Exam: Oct 10, 2017 Lindegaard Ratio: Right: 3.0 Left: 1.9 Johnson Ratio: Right: 2.3 Left: 1.6 Previous Exam: Oct 09, 2017 Lindegaard Ratio: Right: 4.3 Left: 2.7 Johnson Ratio: Right: 1.7 Left: 2.2 FINDINGS: Examination performed at bedside. Real-time ultrasound with the assistance of color and spectral Dop pler was utilized to evaluate the intracerebral circulation. Time-averaged maximal velocities are ca lculated in cm/s. On the right side the limb to guide ratio has decreased from 4.3-3.0 over the last day. Left-sided de creased from 2.7-1.9. CONCLUSION: 1. Improving ratio on the right side characteristic of mild right MCA vasospasm, improving over the l ast day. Ameya Harding MD on October 10, 2017 at 10:55 Board Certified Radiologist. This report was verified electronically.
--- NOTE | 2017-10-10 11:09 | HHI.CCPN ---
Subjective Remarks/Hospital Course 42 yo AAF with past medical history of SLE, migraine headaches, benign brain tumor s/p resection in 1990 who is transferred from [facility] due to acute subarachnoid hemorrhage. 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 She says she took 2 Tylenol and Topamax and went to work. She states she was in a stressful situation at work and her headache got worse but she completed her shift and then ran some additional errands the morning of 10/06 and then went to sleep. She was awoken from sleep with severe 10/10 frontal headache associated with neck pain, nausea, vomiting, diaphoresis and photophobia. She required assistance from her son to get up out of bed and then was transported to [facility] via [facility]. No seizure activity. CT brain demonstrates diffuse SAH with no intraventricular extension or hydrocephalus. CTA demonstrates 3 mm Acom aneurysm with narrow neck per radiology report. She has received nimodipine. She is normotensive. 10/08: s/p ACOM aneurysm coiling. Headache is improved. Systolic blood pressure remains in 110. Discussed with Dr. Marquez. I will target SBP 140-180, start Dale-Synephrine to achieve goal 10/09: Still complains of retro-orbital pain. Remains on 100 mcg/m of Dale- Synephrine to keep systolic blood pressure between 140-180. Sodium 135 increase 2% saline to 40 ml per hour. TCDs from am 10/10: Patient is still complaining of headache. Remains on Dale-Synephrine. TCD yesterday showed mild right vasospasm. Will increase the blood pressure parameters to 160-180, titrate up Dale-Synephrine, sodium remains at 137 will DC to person stop 3% at 40 ML per hour and increase normal saline to 150 ML per hour. Discussed with Dr. Castillo no CTA at this time as there is no clinical change Objective Vital Signs Date Time Temp Pulse Resp B/P (MAP) Pulse Ox O2 Delivery O2 Flow Rate FiO2 10/10/17 10:00 62 142/80 10/10/17 08:00 98.4 12 98 10/10/17 07:00 Room Air 10/09/17 07:00 2.00 10/08/17 08:05 21 Intake and Output 10/10/17 10/10/17 10/11/17 08:00 16:00 00:00 Intake Total 1240 ml 1047 ml Output Total 2650 ml Balance -1410 ml 1047 ml Result Diagram: 10/10/1742910/10/17429 Objective Remarks GENERAL: Well-nourished, well-developed patient who is laying in ICU bed, mild distress due to headache SKIN: Warm and dry, well perfused. HEAD: Atraumatic. Normocephalic. EYES: Pupils equal and round, 3mm and reactive bilaterally. No scleral icterus. No injection or drainage. ENT: No nasal bleeding or discharge. Mucous membranes pink and moist. NECK: Trachea midline. No JVD. CARDIOVASCULAR: Regular rate and rhythm, sinus rhythm on the monitor. No murmurs rubs or gallops. On Dale-Synephrine to maintain blood pressure above 140 RESPIRATORY: No accessory muscle use. Clear to auscultation. Breath sounds equal bilaterally. GASTROINTESTINAL: Abdomen soft, non-tender, nondistended. Bowel sounds present. MUSCULOSKELETAL: Extremities without clubbing, cyanosis, or edema. No obvious deformities. NEUROLOGICAL: Awake and alert. No obvious cranial nerve deficits. Extra ocular movements intact. Normal tongue protrusion. Speech normal. Oriented 4. Strength 5 out of 5 in all extremities. Sensation intact. A/P Problem List: (1) Subarachnoid hemorrhage ICD Code: I60.9 - Nontraumatic subarachnoid hemorrhage, unspecified Status: Acute (2) Cerebral aneurysm rupture ICD Code: I60.9 - Nontraumatic subarachnoid hemorrhage, unspecified Status: Acute (3) SLE (systemic lupus erythematosus) ICD Code: M32.9 - Systemic lupus erythematosus, unspecified Status: Chronic (4) Migraines ICD Code: G43.909 - Migraine, unspecified, not intractable, without status migrainosus Status: Chronic (5) Hypokalemia ICD Code: E87.6 - Hypokalemia Status: Acute (6) Leukocytosis ICD Code: D72.829 - Elevated white blood cell count, unspecified Status: Acute (7) Anterior communicating artery aneurysm ICD Code: I67.1 - Cerebral aneurysm, nonruptured Status: Acute (8) Tobacco abuse ICD Code: Z72.0 - Tobacco use Status: Chronic Assessment and Plan NEURO: Acute aneurysmal subarachnoid hemorrhage with 3 mm Acom aneurysm. Wright/Goodwin Grade 2 Webber Grade 3. GCS 15 Mild right vasospasm History of migraine headaches Daily alcohol use (1 ounce of vodka daily) s/p coiling of ACOM aneurysm Nimodipine 60 g by mouth every 4 hours Post coiling target SBP 140-180, for vasospasm prevention. Dale-Synephrine at 100 mcg/m Transcranial Doppler monitoring starting 10/09/2017-mild right vasospasm Monitor sodium. 2% NaCl @ 40 mL/hr to avoid hyponatremia, today 135 and 2% was increased CT brain - large acute SAH. No midline shift. No hydrocephalus. repeat CT 10/08 : stable SAH, sp coiling CTA brain - 3 mm aneurysm with narrow neck at ACom, Right A1 segment small, most likely congenital but ?spasm per radiology report. Neurosurgery Dr. Clinton. On Topamax chronically for migraines Dilaudid prn headache. RESP: Ongoing tobacco abuse Tobacco cessation discussed On RA CV: Target SBP 140-180 as the aneurysm is secured and for vasospasm prevention. Dale- Synephrine to achieve target 0.9 NaCl with 20 mEq of KCl per liter at 100 mL per hour. 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 Creatinine at outside hospital 0.66. Monitor I/O. Monitor electrolytes ID: Mild leukocytosis, likely reactive. White blood cell count 15.4 F/U UA and culture is sent HEME: Hemoglobin at outside hospital was 12.1 with hematocrit 37.2. Coags and outside hospital were normal 10/07. Repeat coags Nl ENDO: Glucose at outside hospital was 120. Monitor bedside glucose. RHEUM: Systemic lupus erythematosus Not consistently on disease modifying therapy for several months PROPH: SCDs for DVT prophylaxis. Pharmacologic DVT prophylaxis contraindicated due to acute subarachnoid hemorrhage, until cleared by neurosurgery. Protonix 40 mg by mouth daily for stress ulcer prophylaxis. ACCESS: [facility] central line placed 10/08/17 Dr. Loomis Note : She requested that I call her place of employment and said that she gave me permission to know that she was going to be admitted to the ICU she was not going to be at work today. I spoke with Loretta Rodas per patients request. I discussed with her need to designate healthcare surrogate. She states that she wishes for her mother, Keturah Bello, to be her alternate healthcare surrogate. She gave me permission to call her mother and updated her. I did call her mother but there was no answer at [phone] She designated her friend, Lalo, as primary healthcare surrogate. She has filled out healthcare surrogate form with contact information and given to RN. Patient is critically ill with acute subarachnoid hemorrhage and is at risk for neurologic decompensation related to re-bleed, hydrocephalus, etc. She will need to remain in ISC for securing aneurysm, ventriculostomy if needed, monitoring of sodium, monitoring for evidence of vasospasm, monitoring of airway protection and also for vasopressor use Discussed with Dr. Marquez 10/08 CCT 30 minutes exclusive of separately billable procedures. Sarah Wills MD Oct 10, 2017 11:09
[2017-10-10] MEDS ORDERED: MORPHINE SULFATE 4 MG/ML INJ IV PUSH PRN (11:15)
[2017-10-10] MEDS ORDERED: PHENYLEPHRINE INJ 80 MG in DEXTROSE 5% IN WATE 500 ML INJ 492 ML IV PRN ×2 (13:00)
[2017-10-10] MEDS: 3% SALINE INJ 500 ML IV SCH (13:49)
[2017-10-10] MEDS: HYDROmorphone HCL PF 2 MG/ML VIAL IV PUSH PRN ×2 (17:29→20:23)
[2017-10-10] MEDS: ENOXAPARIN SODIUM 40 MG/0.4 ML SYRINGE SQ SCH (17:29)
[2017-10-10 18:13] LABS: ALT (GPT) 27 U/L (10-53); ANION GAP 7 MEQ/L (5-15); AST (GOT) 24 U/L (15-37); BICARBONATE 28.3 MEQ/L (21.0-32.0); BLOOD UREA NITROGEN 2 MG/DL (7-18); CHLORIDE 106 MEQ/L (98-107); GLOMERULAR FILTRATION RATE 160 ML/MIN (>89); POTASSIUM 3.7 MEQ/L (3.5-5.1); SODIUM (NA) 141 MEQ/L (136-145)
[2017-10-10 18:15] LABS: ALKALINE PHOSPHATASE 71 U/L (45-117); TOTAL BILIRUBIN ADULT 0.7 MG/DL (0.2-1.0)
[2017-10-10] MEDS: PHENYLEPHRINE INJ 80 MG in SODIUM CHLORID 0.9% 500 ML INJ 492 ML IV PRN (21:36)
[2017-10-10 22:51] LABS: PH, URINE 7.5 (5.0-8.5)
[2017-10-11] VITALS: BP 177/93; PULSE 58; RESP 17; TEMP 98; O2SAT 99
[2017-10-11] MEDS: niMODipine 30 MG CAP PO SCH ×5 (00:56→21:36)
[2017-10-11] MEDS: HYDROmorphone HCL PF 2 MG/ML VIAL IV PUSH PRN ×4 (00:58→22:54)
[2017-10-11] MEDS: 3% SALINE INJ 500 ML IV SCH ×2 (01:09→18:20)
[2017-10-11 02:00] VITALS: PULSE 58
[2017-10-11] MEDS: NS + KCL 20 MEQ INJ 1,000 ML IV SCH ×2 (02:29→13:24)
[2017-10-11 04:00] VITALS: BP 145/90; PULSE 58; PULSE 60; RESP 11; TEMP 98.1; O2SAT 98
[2017-10-11] MEDS: PHENYLEPHRINE INJ 80 MG in SODIUM CHLORID 0.9% 500 ML INJ 492 ML IV PRN ×3 (05:40→22:08)
[2017-10-11 06:00] VITALS: PULSE 60
[2017-10-11] MEDS: PANTOPRAZOLE SOD 40 MG DELAYED RELEASE TAB PO SCH (09:00)
--- NOTE | 2017-10-11 10:05 | HHI.NSPN ---
(Mike Kwan) History Chief Complaint: Headache (Mike Kwan) Interval History Patient presented on 10/07/2017 after she awoke with extremely severe headache, nausea and emesis. 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 Now status post endovascular treatment for coil placement on 10/07/2017 10/09/2017: Persistent headache. No focal deficit. 10/10/17: Pt complains of frontal headache. No nausea or vomiting. No numbness or paresthesias. 10/11/17: Pt complains of frontal headaches and neck discomfort. No n/v. No numbness or paresthesias. No significant photophobia. (Mike Kwan) Review of Systems General: Negative for: fever, chills, insomnia Respiratory: Negative for: shortness of breath, cough, sputum Cardiovascular: Negative for: chest pain Gastrointestinal: Negative for: nausea, vomitting, diarrhea, constipation ( Mike Kwan) Exam Results Vital Signs Date Time Temp Pulse Resp B/P (MAP) Pulse Ox O2 Delivery O2 Flow Rate FiO2 10/11/17 06:09 11 10/11/17 06:00 60 10/11/17 05:40 164/82 10/11/17 04:00 98.1 98 10/10/17 19:00 Room Air 10/09/17 07:00 2.00 10/08/17 08:05 21 Intake and Output 10/11/17 10/11/17 10/12/17 08:00 16:00 00:00 Intake Total 4352 ml Output Total 3000 ml Balance 1352 ml (Mike Kwan) Physical Examination General: Pt awake and resting comfortably in bed. Vitals are stable. Eyes: Pupils 3mm bilaterally and sclera anicteric. Resp: CTA bilaterally Heart: NSR no murmurs Abd: Soft positive bs. Skin: No cyanosis or erythema. SCDs in place. Muscle: Moves all 4 extremities with 5/5 strength. Neuro: Pt awake and alert. Pupils 3mm bilaterally reactive bilaterally. Speech clear and appropriate. Follows commands well. Sensation intact to light touch. (Mike Kwan) Lab, Micro, Other Results Last Impressions Transcranial Doppler Study Complete 10/10/17 0000 Signed Impressions: Service Date/Time: Tuesday, October 10, 2017 08:00 - CONCLUSION: 1. Improving ratio on the right side characteristic of mild right MCA vasospasm, improving over the last day. Ameya Harding MD Head CT 10/08/17 0600 Signed Impressions: Service Date/Time: September 04:56 - CONCLUSION: Interim aneurysm coiling. Diffuse subarachnoid hemorrhage not significantly changed. No new blood. Johann Shin MD Chest X-Ray 10/08/17 0000 Signed Impressions: Service Date/Time: September 12:18 - CONCLUSION: Central line in good position. No evidence of pneumothorax. Jett Collier MD Neck CTA 10/07/17 0000 Signed Impressions: Service Date/Time: Saturday, October 07, 2017 04:41 - CONCLUSION: Extracranial carotid and vertebral arteries have a normal appearance. Johann Shin MD Head CTA 10/07/17 0000 Signed Impressions: Service Date/Time: Saturday, October 07, 2017 04:41 - CONCLUSION: 3 mm ACom aneurysm. Johann Shin MD Laboratory Tests Test 10/10/17 17:15 10/11/17 00:10 Urine pH 7.5 Urine Specific [place] 1.007 Urine Osmolality 343 MOSM/KG Blood Urea Nitrogen 2 MG/DL Creatinine 0.51 MG/DL Random Glucose 116 MG/DL Total Protein 7.8 GM/DL Albumin 3.7 GM/DL Calcium Level 9.0 MG/DL Alkaline Phosphatase 71 U/L Aspartate Amino Transf (AST/SGOT) 24 U/L Alanine Aminotransferase (ALT/SGPT) 27 U/L Total Bilirubin 0.7 MG/DL Sodium Level 141 MEQ/L 135 MEQ/L Potassium Level 3.7 MEQ/L Chloride Level 106 MEQ/L Carbon Dioxide Level 28.3 MEQ/L Anion Gap 7 MEQ/L Estimat Glomerular Filtration Rate 160 ML/MIN Serum Osmolality 294 MOSM/KG (Mike Kwan) Medical Decision Making Impression and Plan Impression: 1. Stable neurologic exam following endovascular treatment for anterior communicating artery aneurysm. 10/09/2017 transcranial Doppler with possible mild right MCA spasm. Plan: Continue with close Neuro checks. Continue to advance diet and activity as tolerated. Allow the pressure to increase, pressors as needed to maintain systolic blood pressure greater than 140. Continue transcranial Doppler. (Mike Kwan) Attending Statement The exam, history, and the medical decision-making described in the above note were completed with the assistance of the mid-level provider. I reviewed and agree with the findings presented. I attest that I had a [id number] encounter with the patient on the same day, and personally performed and documented my assessment and findings in the medical record. Stable neurologic examination. Relates headache is slightly better. Continue with the vasospasm prophylaxis treatment along with the transcranial Doppler monitoring. Out of bed as tolerated. Discussed with nursing staff. (Reji Castillo MD) Mike Kwan Oct 11, 2017 10:05 Reji Castillo MD Oct 11, 2017 11:30
[2017-10-11] MEDS ORDERED: BISACODYL 10 MG SUPP RECTAL ONE (10:30)
--- NOTE | 2017-10-11 10:38 | HHI.CCPN ---
Subjective Remarks/Hospital Course 42 yo AAF with past medical history of SLE, migraine headaches, benign brain tumor s/p resection in 1990 who is transferred from [facility] due to acute subarachnoid hemorrhage. 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 She says she took 2 Tylenol and Topamax and went to work. She states she was in a stressful situation at work and her headache got worse but she completed her shift and then ran some additional errands the morning of 10/06 and then went to sleep. She was awoken from sleep with severe 10/10 frontal headache associated with neck pain, nausea, vomiting, diaphoresis and photophobia. She required assistance from her son to get up out of bed and then was transported to [facility] via [facility]. No seizure activity. CT brain demonstrates diffuse SAH with no intraventricular extension or hydrocephalus. CTA demonstrates 3 mm Acom aneurysm with narrow neck per radiology report. She has received nimodipine. She is normotensive. 10/08: s/p ACOM aneurysm coiling. Headache is improved. Systolic blood pressure remains in 110. Discussed with Dr. Marquez. I will target SBP 140-180, start Dale-Synephrine to achieve goal 10/09: Still complains of retro-orbital pain. Remains on 100 mcg/m of Dale- Synephrine to keep systolic blood pressure between 140-180. Sodium 135 increase 2% saline to 40 ml per hour. TCDs from am 10/10: Patient is still complaining of headache. Remains on Dale-Synephrine. TCD yesterday showed mild right vasospasm. Will increase the blood pressure parameters to 160-180, titrate up Dale-Synephrine, sodium remains at 137 will DC to person stop 3% at 40 ML per hour and increase normal saline to 150 ML per hour. Discussed with Dr. Anna novak CTA at this time as there is no clinical change 10/11: Requiring dale to maintain sbp 160 -180 increased to 100 mcg/min. Na 135, 3% increased to 60 ml, will KVO NS. Head ache improved. TCD 10/10 improving vasospasm Objective Vital Signs Date Time Temp Pulse Resp B/P (MAP) Pulse Ox O2 Delivery O2 Flow Rate FiO2 10/11/17 06:09 11 10/11/17 06:00 60 10/11/17 05:40 164/82 10/11/17 04:00 98.1 98 10/10/17 19:00 Room Air 10/09/17 07:00 2.00 10/08/17 08:05 21 Intake and Output 10/11/17 10/11/17 10/12/17 08:00 16:00 00:00 Intake Total 4352 ml Output Total 3000 ml Balance 1352 ml Result Diagram: 10/10/17 0430 10/11/17 0010 Objective Remarks GENERAL: Well-nourished, well-developed patient who is laying in ICU bed, mild distress SKIN: Warm and dry, well perfused. HEAD: Atraumatic. Normocephalic. EYES: Pupils equal and round, 3mm and reactive bilaterally. No scleral icterus. No injection or drainage. ENT: No nasal bleeding or discharge. Mucous membranes pink and moist. NECK: Trachea midline. No JVD. CARDIOVASCULAR: Regular rate and rhythm, sinus rhythm on the monitor. No murmurs rubs or gallops. On Dale-Synephrine to maintain blood pressure 160-180 RESPIRATORY: No accessory muscle use. Clear to auscultation. Breath sounds equal bilaterally. GASTROINTESTINAL: Abdomen soft, non-tender, nondistended. Bowel sounds present. MUSCULOSKELETAL: Extremities without clubbing, cyanosis, or edema. No obvious deformities. NEUROLOGICAL: Awake and alert. No obvious cranial nerve deficits. Extra ocular movements intact. Speech normal. Oriented 4. Strength 5 out of 5 in all extremities. Sensation intact. A/P Problem List: (1) Subarachnoid hemorrhage ICD Code: I60.9 - Nontraumatic subarachnoid hemorrhage, unspecified Status: Acute (2) Vasospasm of cerebral artery ICD Code: I67.848 - Other cerebrovascular vasospasm and vasoconstriction (3) Cerebral aneurysm rupture ICD Code: I60.9 - Nontraumatic subarachnoid hemorrhage, unspecified Status: Acute (4) SLE (systemic lupus erythematosus) ICD Code: M32.9 - Systemic lupus erythematosus, unspecified Status: Chronic (5) Migraines ICD Code: G43.909 - Migraine, unspecified, not intractable, without status migrainosus Status: Chronic (6) Hypokalemia ICD Code: E87.6 - Hypokalemia Status: Acute (7) Leukocytosis ICD Code: D72.829 - Elevated white blood cell count, unspecified Status: Acute (8) Anterior communicating artery aneurysm ICD Code: I67.1 - Cerebral aneurysm, nonruptured Status: Acute (9) Tobacco abuse ICD Code: Z72.0 - Tobacco use Status: Chronic Assessment and Plan NEURO: Acute aneurysmal subarachnoid hemorrhage with 3 mm Acom aneurysm. Wright/Goodwin Grade 2 Webber Grade 3. GCS 15 Mild right vasospasm History of migraine headaches Daily alcohol use (1 ounce of vodka daily) s/p coiling of ACOM aneurysm. Nimodipine 60 g by mouth every 4 hours Post coiling target SBP 160-180, for vasospasm prevention. Dale-Synephrine at 100 mcg/m Transcranial Doppler monitoring starting 10/09/2017-mild right vasospasm, improved vasospasm 10/10/17 Monitor sodium. 3% NaCl @ 60 mL/hr. CT brain - large acute SAH. No midline shift. No hydrocephalus. repeat CT 10/08: stable SAH, sp coiling CTA brain - 3 mm aneurysm with narrow neck at ACOM, Right A1 segment small, most likely congenital but ?spasm per radiology report. Neurosurgery Dr. Clinton. On Topamax chronically for migraines Dilaudid, Percocet prn headache. RESP: Ongoing tobacco abuse Tobacco cessation discussed On RA CV: Target SBP 160-180 as the aneurysm is secured and for mild vasospasm. Dale- Synephrine to achieve target 0.9 NaCl with 20 mEq of KCl per liter at 20 mL per hour. 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 Creatinine at outside hospital 0.66. Monitor I/O. Monitor electrolytes ID: Mild leukocytosis, likely reactive. White blood cell count 15.4 F/U UA and culture is sent HEME: Hemoglobin at outside hospital was 12.1 with hematocrit 37.2. Coags and outside hospital were normal 10/07. Repeat coags Nl ENDO: Glucose at outside hospital was 120. Monitor bedside glucose. RHEUM: Systemic lupus erythematosus Not consistently on disease modifying therapy for several months PROPH: SCDs for DVT prophylaxis. Lovenox 40 mg sq daily from 10/10, cleared by neurosurgery Dr. Castillo. Protonix 40 mg by mouth daily for stress ulcer prophylaxis. ACCESS: [facility] central line placed 10/08/17 Dr. Loomis Note : She requested that I call her place of employment and said that she gave me permission to know that she was going to be admitted to the ICU she was not going to be at work today. I spoke with Loretta Rodas per patients request. I discussed with her need to designate healthcare surrogate. She states that she wishes for her mother, Keturah Bello, to be her alternate healthcare surrogate. She gave me permission to call her mother and updated her. I did call her mother but there was no answer at [phone] She designated her friend, Lalo, as primary healthcare surrogate. She has filled out healthcare surrogate form with contact information and given to RN. Patient is critically ill with acute subarachnoid hemorrhage and is at risk for neurologic decompensation related to re-bleed, hydrocephalus, etc. She will need to remain in ISC for securing aneurysm, ventriculostomy if needed, monitoring of sodium, and treatment of vasospasm. Discussed with Dr. Marquez 10/08, D/W Dr. Castillo 10/10/17 Level 3 Sarah Wills MD Oct 11, 2017 10:38
[2017-10-11] MEDS: LACTULOSE SYRUP 20 GM/30 ML CUP PO SCH ×3 (13:23→22:00)
[2017-10-11] MEDS: SENNOSIDES SYRUP 8.8 MG/5 ML CUP PO SCH (13:23)
[2017-10-11] MEDS: DOCUSATE SODIUM 100 MG CAP PO SCH ×2 (13:23→22:00)
--- NOTE | 2017-10-11 15:15 | RADRPT ---
EXAM DATE/TIME: 10/11/2017 07:20 [facility] COMPARISON: No previous studies available for comparison. INDICATIONS : Subarachnoid hemorrhage. MEDICAL HISTORY : Lupus. Anxiety. Nausea/vomiting. Ectopic . SURGICAL HISTORY : Appendectomy. Benign tumor removed as child. ENCOUNTER: Subsequent ACUITY: 4-6 days PAIN SCORE: 5/10 LOCATION: Bilateral cranial Current Exam: Oct 11, 2017 [place] Ratio: Right: 2.8 Left: 2.1 Johnson Ratio: Right: 2.1 Left: 1.5 Previous Exam: Oct 10, 2017 Ratio: Right: 3.0 Left: 1.9 Johnson Ratio: Right: 2.3 Left: 1.6 FINDINGS: Examination performed at bedside. Real-time ultrasound with the assistance of color and spectral Dop pler was utilized to evaluate the intracerebral circulation. Time-averaged maximal velocities are ca lculated in cm/s. On the right side [place] ratio has decreased from 3-2.8 over the last day. Left-sided ratio measu res 2.1 on today's exam. CONCLUSION: 1. Slight improvement in vasospasm in the right middle cerebral artery over the last day. Ameya Harding MD on October 11, 2017 at 15:10 Board Certified Radiologist. This report was verified electronically.
[2017-10-11] MEDS: ENOXAPARIN SODIUM 40 MG/0.4 ML SYRINGE SQ SCH (18:21)
[2017-10-11 20:00] VITALS: BP 156/93; PULSE 62; RESP 15; TEMP 98.6; O2SAT 99
[2017-10-11 22:00] VITALS: PULSE 64
[2017-10-12] VITALS (12 sets, daily range): BP systolic 149–183; BP diastolic 79–115; PULSE 58–74; RESP 11–18; TEMP 97.9–98.8; O2SAT 98–99
[2017-10-12] MEDS: niMODipine 30 MG CAP PO SCH ×6 (00:28→20:01)
[2017-10-12] MEDS: 3% SALINE INJ 500 ML IV SCH ×3 (00:28→20:01)
[2017-10-12] MEDS: HYDROmorphone HCL PF 2 MG/ML VIAL IV PUSH PRN ×5 (03:00→23:32)
[2017-10-12] MEDS: PHENYLEPHRINE INJ 80 MG in SODIUM CHLORID 0.9% 500 ML INJ 492 ML IV PRN ×4 (04:50→23:47)
[2017-10-12] MEDS: PANTOPRAZOLE SOD 40 MG DELAYED RELEASE TAB PO SCH (08:04)
[2017-10-12] MEDS: LACTULOSE SYRUP 20 GM/30 ML CUP PO SCH ×4 (08:04→20:02)
[2017-10-12] MEDS: SENNOSIDES SYRUP 8.8 MG/5 ML CUP PO SCH (08:04)
[2017-10-12] MEDS: DOCUSATE SODIUM 100 MG CAP PO SCH ×2 (08:04→20:01)
--- NOTE | 2017-10-12 09:06 | RADRPT ---
EXAM DATE/TIME: 10/12/2017 07:29 [facility] COMPARISON: US TRANSCRANIAL DOPPLER COMPLETE, October 11, 2017, 7:20. INDICATIONS : Subarachnoid hemorrhage. MEDICAL HISTORY : Lupus. Anxiety. Nausea/vomiting. SURGICAL HISTORY : Appendectomy. Benign tumor removal as child. Orthopedic surgery, right knee. ENCOUNTER: Subsequent ACUITY: 4-6 days PAIN SCORE: 0/10 LOCATION: Bilateral cranial Current Exam: Oct 12, 2017 [place] Ratio: Right: 2.7 Left: 1.8 Johnson Ratio: Right: 1.9 Left: 1.8 Previous Exam: Oct 11, 2017 [place] Ratio: Right: 2.8 Left: 2.1 Johnson Ratio: Right: 2.1 Left: 1.5 FINDINGS: Examination performed at bedside. Real-time ultrasound with the assistance of color and spectral Dop pler was utilized to evaluate the intracerebral circulation. Time-averaged maximal velocities are ca lculated in cm/s. No elevated velocities observed. No reversal of flow. Waveforms are normal. CONCLUSION: No vasospasm. Jett Fuentes Jr., MD on October 12, 2017 at 8:55 Board Certified Radiologist. This report was verified electronically.
--- NOTE | 2017-10-12 09:18 | HHI.CCPN ---
Subjective Remarks/Hospital Course 42 yo AAF with past medical history of SLE, migraine headaches, benign brain tumor s/p resection in 1990 who is transferred from [facility] due to acute subarachnoid hemorrhage. 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 She says she took 2 Tylenol and Topamax and went to work. She states she was in a stressful situation at work and her headache got worse but she completed her shift and then ran some additional errands the morning of 10/06 and then went to sleep. She was awoken from sleep with severe 10/10 frontal headache associated with neck pain, nausea, vomiting, diaphoresis and photophobia. She required assistance from her son to get up out of bed and then was transported to [facility] via [facility]. No seizure activity. CT brain demonstrates diffuse SAH with no intraventricular extension or hydrocephalus. CTA demonstrates 3 mm Acom aneurysm with narrow neck per radiology report. She has received nimodipine. She is normotensive. 10/08: s/p ACOM aneurysm coiling. Headache is improved. Systolic blood pressure remains in 110. Discussed with Dr. Marquez. I will target SBP 140-180, start Dale-Synephrine to achieve goal 10/09: Still complains of retro-orbital pain. Remains on 100 mcg/m of Dale- Synephrine to keep systolic blood pressure between 140-180. Sodium 135 increase 2% saline to 40 ml per hour. TCDs from am 10/10: Patient is still complaining of headache. Remains on Dale-Synephrine. TCD yesterday showed mild right vasospasm. Will increase the blood pressure parameters to 160-180, titrate up Dale-Synephrine, sodium remains at 137 will DC to person stop 3% at 40 ML per hour and increase normal saline to 150 ML per hour. Discussed with Dr. Anna novak CTA at this time as there is no clinical change 10/11: Requiring dale to maintain sbp 160 -180 increased to 100 mcg/min. Na 135, 3% increased to 60 ml, will KVO NS. Head ache improved. TCD 10/10 improving vasospasm 10/12: Clinically stable, Requiring dale-synephrine to maintain SBP 160-180. TCD 10/11 no vasospasm. C/o about some spotting. Objective Vital Signs Date Time Temp Pulse Resp B/P (MAP) Pulse Ox O2 Delivery O2 Flow Rate FiO2 10/12/17 08:00 62 10/12/17 07:00 Room Air 21 10/12/17 04:50 178/100 10/12/17 04:00 98.7 11 98 10/09/17 07:00 2.00 Intake and Output 10/12/17 10/12/17 10/13/17 08:00 16:00 00:00 Intake Total 750 ml Output Total 2600 ml Balance -1850 ml Result Diagram: 10/10/17 0430 10/11/17 0010 Objective Remarks GENERAL: Well-nourished, well-developed patient who is laying in ICU bed, mild distress, anxious SKIN: Warm and dry, well perfused. HEAD: Atraumatic. Normocephalic. EYES: Pupils equal and round, 3mm and reactive bilaterally. No scleral icterus. No injection or drainage. ENT: No nasal bleeding or discharge. Mucous membranes pink and moist. NECK: Trachea midline. No JVD. CARDIOVASCULAR: Regular rate and rhythm, sinus rhythm on the monitor. No murmurs rubs or gallops. On Dale-Synephrine to maintain blood pressure 160-180 RESPIRATORY: No accessory muscle use. Clear to auscultation. Breath sounds equal bilaterally. GASTROINTESTINAL: Abdomen soft, non-tender, nondistended. Bowel sounds present. MUSCULOSKELETAL: Extremities without clubbing, cyanosis, or edema. No obvious deformities. NEUROLOGICAL: Awake and alert. No obvious cranial nerve deficits. Extra ocular movements intact. Speech normal. Oriented 4. Strength 5 out of 5 in all extremities. A/P Problem List: (1) Subarachnoid hemorrhage ICD Code: I60.9 - Nontraumatic subarachnoid hemorrhage, unspecified Status: Acute (2) Vasospasm of cerebral artery ICD Code: I67.848 - Other cerebrovascular vasospasm and vasoconstriction (3) Cerebral aneurysm rupture ICD Code: I60.9 - Nontraumatic subarachnoid hemorrhage, unspecified Status: Acute (4) SLE (systemic lupus erythematosus) ICD Code: M32.9 - Systemic lupus erythematosus, unspecified Status: Chronic (5) Migraines ICD Code: G43.909 - Migraine, unspecified, not intractable, without status migrainosus Status: Chronic (6) Hypokalemia ICD Code: E87.6 - Hypokalemia Status: Acute (7) Leukocytosis ICD Code: D72.829 - Elevated white blood cell count, unspecified Status: Acute (8) Anterior communicating artery aneurysm ICD Code: I67.1 - Cerebral aneurysm, nonruptured Status: Acute (9) Tobacco abuse ICD Code: Z72.0 - Tobacco use Status: Chronic Assessment and Plan NEURO: Acute aneurysmal subarachnoid hemorrhage with 3 mm Acom aneurysm. (Wright/Goodwin Grade 2 Webber Grade 3) Mild vasospasm History of migraine headaches Daily alcohol use (1 ounce of vodka daily) s/p coiling of ACOM aneurysm. Nimodipine 60 g by mouth every 4 hours Post coiling target SBP 160-180, for vasospasm prevention. Dale-Synephrine titrate Transcranial Doppler monitoring starting 10/09/2017-mild right vasospasm, improved vasospasm 10/10/17, no vasospasm 10/11 Monitor sodium. 3% NaCl @ 60 mL/hr. CT brain - large acute SAH. No midline shift. No hydrocephalus. repeat CT 10/08: stable SAH, sp coiling CTA brain - 3 mm aneurysm with narrow neck at ACOM, Right A1 segment small, most likely congenital but ?spasm per radiology report. Neurosurgery Dr. Clinton. On Topamax chronically for migraines. Dilaudid, Percocet prn headache. RESP: Ongoing tobacco abuse Tobacco cessation discussed On RA CV: Target SBP 160-180 as the aneurysm is secured and for mild vasospasm. Dale- Synephrine to achieve target 0.9 NaCl with 20 mEq of KCl per liter at 20 mL per hour. 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 Creatinine normal. Monitor electrolytes ID: Mild leukocytosis, likely reactive. Repeat F/U UA HEME: Hemoglobin at outside hospital was 12.1 with hematocrit 37.2. Coags and outside hospital were normal 10/07. Repeat coags Nl ENDO: Glucose at outside hospital was 120. Monitor bedside glucose. RHEUM: Systemic lupus erythematosus Not consistently on disease modifying therapy for several months PROPH: SCDs for DVT prophylaxis. Lovenox 40 mg sq daily from 10/10, cleared by neurosurgery Dr. Castillo. Protonix 40 mg by mouth daily for stress ulcer prophylaxis. ACCESS: [facility] central line placed 10/08/17 Dr. Loomis Note : She requested that I call her place of employment and said that she gave me permission to know that she was going to be admitted to the ICU she was not going to be at work today. I spoke with Loretta Rodas per patients request. I discussed with her need to designate healthcare surrogate. She states that she wishes for her mother, Keturah Bello, to be her alternate healthcare surrogate. She gave me permission to call her mother and updated her. I did call her mother but there was no answer at [phone] She designated her friend, Lalo, as primary healthcare surrogate. She has filled out healthcare surrogate form with contact information and given to RN. Patient is critically ill with acute subarachnoid hemorrhage and is at risk for neurologic decompensation related to re-bleed, hydrocephalus, etc. She will need to remain in ISC for securing aneurysm, ventriculostomy if needed, monitoring of sodium, and treatment of vasospasm. Discussed with Dr. Marquez 10/08, D/W Dr. Castillo 10/10/17 D/W neuro PA Chacorta Ahmadi 10/12 Level 3 Sarah Wills MD Oct 12, 2017 09:18
--- NOTE | 2017-10-12 09:37 | HHI.NSPN ---
(Chacorta Ahmadi) History Chief Complaint: Pressure to the head, vaginal bleeding (Chacorta Ahmadi) Interval History 10/06: 42 y.o. female transfered from [facility] where she presented with severe BOWEN that she awoke with. Prior history of migraines. Poatitive nausea and emesis this evening. 10/07: The patient is awake but has her head covered when seen this morning due to the light hurting her eyes. She speaks softly due to her headache and she does have dizziness when moving her head. She has not had any further nausea since last night. She does report numbness to the fingers during the night but none at present. The patient went for an angiogram with subsequent coiling of an aneurysm with complete occlusion in the afternoon. 10/08: c/o mild headaches, photophobia, and nausea, moves x 4 reports symmetrically but patient reports mild heaviness right side. f/u CT Head completed this am. 10/09/2017: Persistent headache. No focal deficit. 10/10/17: Pt complains of frontal headache. No nausea or vomiting. No numbness or paresthesias. 10/11/17: Pt complains of frontal headaches and neck discomfort. No n/v. No numbness or paresthesias. No significant photophobia. 10/12: This morning the patient is awake and alert when seen. She states that no one is listening to her and taking her seriously. She says that she has had vaginal bleeding for a few days and that her menses ended a couple days before she came into the hospital. She is wondering if it might be related to the Cannon catheter being in place. She reports spasms to the posterolateral left neck which she relates to the central venous catheter placed in the left internal jugular vein. She states that she has pressure to the head and some light sensitivity. She denies any nausea for the past few days and states that she did have a bowel movement. She says she is getting up to the bedside commode without difficulty. Nursing this morning reports that the patient had a bowel movement and complained of blood which Nursing only saw on the tissue but not mixed with the stool. Nursing reports that the patient's sodium level was 135 yesterday and that she put out over four litres of urine the past 24 hours. It was also reported that the patient was changed from 2% saline to 3% saline in order to increase her sodium level and that if the fluids are decreased the patient's blood pressure drops in half. The Sap Sd Analyst is continuing to maintain the patient's systolic blood pressure between 160 and 180 mm Hg due to vasospasms noted on Thursday. Yesterday's transcranial Doppler study demonstrated slight improvement in the vasospasm. (Chacorta Ahmadi) System Review Comments EYES: Mild light sensitivity. NECK: Spasm to the left posterolateral region. GENITOURINARY: Vaginal bleeding which she relates to the Cannon. NEUROLOGICAL: Pressure to the head. The remainder of the ROS is negative. (Chacorta Ahmadi) Exam Results 10/10/17 10/10/17 10/11/17 10/11/17 10/12/17 10/12/17 06:00 18:00 06:00 18:00 06:00 18:00 Intake Total 1240 ml 1467 ml 4352 ml 240 ml 1250 ml Output Total 2650 ml 5600 ml 3000 ml 3850 ml 2600 ml Balance -1410 ml -4133 ml 1352 ml -3610 ml -1350 ml Intake Oral 240 ml 240 ml 480 ml 240 ml 50 ml IV Total 1000 ml 1227 ml 3872 ml 1200 ml Output Urine Total 2650 ml 5600 ml 3000 ml 3850 ml 2600 ml # Bowel Movements 0 0 0 0 0 Vital Signs Date Time Temp Pulse Resp B/P (MAP) Pulse Ox O2 Delivery O2 Flow Rate FiO2 10/12/17 07:00 Room Air 21 10/12/17 06:00 62 10/12/17 04:50 62 178/100 10/12/17 04:00 74 10/12/17 04:00 98.7 74 11 149/84 (105) 98 10/12/17 03:30 17 10/12/17 02:00 66 10/12/17 00:00 58 10/12/17 00:00 98.8 58 12 179/105 (129) 99 10/11/17 22:08 62 161/89 10/11/17 22:00 64 10/11/17 20:00 98.6 62 15 156/93 (114) 99 10/11/17 20:00 62 10/11/17 19:00 97 Room Air 10/11/17 15:31 62 109/63 10/11/17 07:00 95 Room Air 10/11/17 06:00 60 10/11/17 05:40 55 164/82 10/11/17 04:00 58 10/11/17 04:00 98.1 60 11 145/90 (108) 98 10/11/17 02:29 60 160/92 10/11/17 02:00 58 10/11/17 01:09 58 183/88 10/11/17 00:00 98.0 58 17 177/93 (121) 99 10/11/17 00:00 58 10/10/17 23:00 58 178/98 10/10/17 22:22 75 157/88 10/10/17 22:00 67 10/10/17 21:47 147 147/78 10/10/17 21:36 61 138/74 10/10/17 20:00 98.3 56 18 178/97 (124) 96 10/10/17 20:00 56 10/10/17 19:00 96 Room Air 10/10/17 18:00 54 10/10/17 16:00 62 10/10/17 16:00 98.4 62 16 152/75 (100) 100 10/10/17 14:00 68 10/10/17 12:00 98.5 58 19 152/87 (108) 99 10/10/17 12:00 58 10/10/17 10:00 62 10/10/17 10:00 62 142/80 10/10/17 08:00 64 10/10/17 08:00 98.4 65 12 141/76 (97) 98 10/10/17 07:00 97 Room Air 10/10/17 06:00 64 10/10/17 06:00 64 122/72 10/10/17 04:00 98.6 64 18 172/78 (109) 98 10/10/17 04:00 64 10/10/17 03:00 54 184/84 10/10/17 02:30 56 168/88 10/10/17 02:00 56 10/10/17 01:45 54 169/82 10/10/17 00:00 98.2 62 16 155/74 (101) 98 10/10/17 00:00 62 10/09/17 22:43 55 168/83 10/09/17 22:00 56 10/09/17 20:00 98.8 56 16 140/79 (99) 93 10/09/17 20:00 56 10/09/17 19:00 96 Room Air 10/09/17 18:00 56 10/09/17 16:00 98.3 73 18 148/81 (103) 96 10/09/17 16:00 56 10/09/17 14:00 59 10/09/17 12:00 62 10/09/17 12:00 98.0 62 18 148/73 (98) 10/09/17 10:00 62 (Chacorta Ahmadi) Physical Examination General: Awake & alert in bed, readily interacts. Affect normal. No apparent distress. HEENT: Normocephalic, atraumatic. PERRLA 3 mm brisk, EOMI. MMM & pink, tongue midline to protrusion. Respiratory: CTAB w/o W/R/R, equal excursion, non-laboured, on RA. Cardiovascular: S1S2 w/RRR w/o M/G/R, monitor is sinus rhythm w/o any ectopy noted. Gastrointestinal: Abdomen soft, nontender, positive bowel sounds. Genitourinary: Cannon catheter to BSD w/clear pale yellow urine. Skin: Warm, dry & intact w/o any evident rashes, ulcerations or lesions. Musculoskeletal: PAIGE w/o difficulty, no evident deformity or clubbing. Neurological: AAOx3. Speech clear & appropriate. Follows simple commands w/o difficulty. CN II-XII appear grossly intact. Sensation intact to light touch to all extremities. Motor strength is 5/5 to all flexion & extension muscle groups. (Chacorta Ahmadi) Lab, Micro, Other Results Recent Impressions Transcranial Doppler Study Complete 10/10/17 0000 Signed Impressions: Service Date/Time: Tuesday, October 10, 2017 08:00 - CONCLUSION: 1. Improving ratio on the right side characteristic of mild right MCA vasospasm, improving over the last day. Ameya Harding MD Laboratory Tests Test 10/09/17 17:30 10/09/17 21:59 10/10/17 04:30 10/10/17 17:15 Sodium Level 134 MEQ/L 135 MEQ/L 137 MEQ/L 141 MEQ/L White Blood Count 14.4 TH/MM3 Red Blood Count 4.82 MIL/MM3 Hemoglobin 11.8 GM/DL Hematocrit 36.0 % Mean Corpuscular Volume 74.6 FL Mean Corpuscular Hemoglobin 24.5 PG Mean Corpuscular Hemoglobin Concent 32.8 % Red Cell Distribution Width 13.8 % Platelet Count 286 TH/MM3 Mean Platelet Volume 7.5 FL Neutrophils (%) (Auto) 67.9 % Lymphocytes (%) (Auto) 25.3 % Monocytes (%) (Auto) 5.0 % Eosinophils (%) (Auto) 1.4 % Basophils (%) (Auto) 0.4 % Neutrophils # (Auto) 9.7 TH/MM3 Lymphocytes # (Auto) 3.6 TH/MM3 Monocytes # (Auto) 0.7 TH/MM3 Eosinophils # (Auto) 0.2 TH/MM3 Basophils # (Auto) 0.1 TH/MM3 CBC Comment DIFF FINAL Differential Comment Blood Urea Nitrogen 3 MG/DL 2 MG/DL Creatinine 0.47 MG/DL 0.51 MG/DL Random Glucose 99 MG/DL 116 MG/DL Total Protein 7.4 GM/DL 7.8 GM/DL Albumin 3.7 GM/DL 3.7 GM/DL Calcium Level 9.1 MG/DL 9.0 MG/DL Magnesium Level 1.9 MG/DL Alkaline Phosphatase 66 U/L 71 U/L Aspartate Amino Transf (AST/SGOT) 22 U/L 24 U/L Alanine Aminotransferase (ALT/SGPT) 23 U/L 27 U/L Total Bilirubin 0.7 MG/DL 0.7 MG/DL Potassium Level 3.8 MEQ/L 3.7 MEQ/L Chloride Level 103 MEQ/L 106 MEQ/L Carbon Dioxide Level 24.7 MEQ/L 28.3 MEQ/L Anion Gap 9 MEQ/L 7 MEQ/L Estimat Glomerular Filtration Rate 176 ML/MIN 160 ML/MIN Urine pH 7.5 Urine Specific [place] 1.007 Urine Osmolality 343 MOSM/KG Serum Osmolality 294 MOSM/KG Test 10/11/17 00:10 Sodium Level 135 MEQ/L (Chacorta Ahmadi) Medical Decision Making Impression and Plan Impression: 1. SAH 2. Anterior communicating artery aneurysm 3. Right middle cerebral artery vasospasm The patient is doing well today. Continues to have headache which she describes as pressure. Reports muscle spasm and vaginal bleeding. Labs for today still pending collection. Transcranial Doppler with slight improvement in the vasospasm to the right middle cerebral artery. POD #5 () s/p: Angiogram with aneurysm coiling resulting in complete occlusion Post Procedure Diagnosis: (1) Cerebral aneurysm rupture Plan: Critical care management per Sap Sd Analyst. Frequent neuro checks. Continue Nimodipine. Monitor SBP and keep between 160 to 180 mm Hg due to vasospasm. Keep HOB elevated. Continue 3% saline & monitor sodium level. Continue pain medication. Continue anti-emetics. Stress ulcer prophylaxis. Mechanical DVT prophylaxis. Pharmacological DVT prophylaxis. Maintain Cannon catheter to monitor urine output. CMP now. UA now. CMP & CBC in AM. CT w/o & CTA brain w/contrast today. (Chacorta Ahmadi) Attending Statement The exam, history, and the medical decision-making described in the above note were completed with the assistance of the mid-level provider. I reviewed and agree with the findings presented. I attest that I had a [id number] encounter with the patient on the same day, and personally performed and documented my assessment and findings in the medical record. Patient's exam remains nonfocal. Persistent significant headache. Mild nausea Increase urine output with sodium relatively stable, mostly within normal limits. Continue to monitor her fluid balance and electrolytes. Recheck urine specific gravity as needed. No definite DI at present. Transcranial Doppler and CT angiogram 10/12/2017 without evidence of vasospasm. Maintaining elevated blood pressure for cerebral perfusion. On Lovenox for DVT prophylaxis. (Jono Clinton MD) Chacorta Ahmadi Oct 12, 2017 09:37 Jono Clinton MD Oct 12, 2017 21:47
[2017-10-12 13:12] LABS: ALT (GPT) 26 U/L (10-53); ANION GAP 7 MEQ/L (5-15); AST (GOT) 16 U/L (15-37); BICARBONATE 27.3 MEQ/L (21.0-32.0); BLOOD UREA NITROGEN 4 MG/DL (7-18); CHLORIDE 103 MEQ/L (98-107); GLOMERULAR FILTRATION RATE 176 ML/MIN (>89); POTASSIUM 3.3 MEQ/L (3.5-5.1); SODIUM (NA) 137 MEQ/L (136-145)
[2017-10-12 13:14] LABS: ALKALINE PHOSPHATASE 77 U/L (45-117); TOTAL BILIRUBIN ADULT 0.7 MG/DL (0.2-1.0)
[2017-10-12] MEDS: ONDANSETRON HCL 4 MG/2 ML VIAL IV PUSH PRN ×2 (14:17→23:44)
[2017-10-12] MEDS: ENOXAPARIN SODIUM 40 MG/0.4 ML SYRINGE SQ SCH (14:17)
[2017-10-12] MEDS ORDERED: IOHEXOL 350 MG/ML 10 ML VIAL (for RAD DIAG) IVCONTRAST ONE (15:11)
--- NOTE | 2017-10-12 15:44 | RADRPT ---
EXAM DATE/TIME: 10/12/2017 14:53 [facility] COMPARISON: CTA BRAIN W 3D RECON, October 07, 2017, 4:41. CT BRAIN W/O CONTRAST, October 08, 2017, 4:56. INDICATIONS : Abnormal prior CTA brain. RADIATION DOSE: 56.35 CTDIvol (mGy) MEDICAL HISTORY : Lupus. SURGICAL HISTORY : anuerysm coil ENCOUNTER: Subsequent ACUITY: 1 day PAIN SCALE: Non-responsive LOCATION: Bilateral head TECHNIQUE: Multiple contiguous axial images were obtained of the head. Using automated exposure control and adj ustment of the mA and/or kV according to patient size, radiation dose was kept as low as reasonably a chievable to obtain optimal diagnostic quality images. DICOM format image data is available electro nically for review and comparison. FINDINGS: Since the most recent prior study there has been maturation of the subarachnoid hemorrhage. This is n early isodense to the adjacent brain parenchyma. No new hemorrhage appreciated. No infarction observe d. No significant mass effect. Ventricles remain patent. Streak artifact from the aneurysm coils note d within the suprasellar cistern. Calvarium is intact. A prior left temporal craniotomy again noted. CONCLUSION: 1. Further maturation of the subarachnoid hemorrhage. No new hemorrhage. 2. No appreciable mass effect. Jett Fuentes Jr., MD on October 12, 2017 at 15:38 Board Certified Radiologist. This report was verified electronically.
--- NOTE | 2017-10-12 16:30 | RADRPT ---
EXAM DATE/TIME: 10/12/2017 14:53 [facility] COMPARISON: CTA BRAIN W 3D RECON, October 07, 2017, 4:41. CT BRAIN W/O CONTRAST, October 12, 2017, 14:53. ANG IOGRAM, CEREBRAL WO ARCH, October 07, 2017, 10:40. INDICATIONS : Abnormal prior CTA brain. IV CONTRAST: 70 cc Omnipaque 350 (iohexol) IV RADIATION DOSE: 15.63 CTDIvol (mGy) MEDICAL HISTORY : Lupus. SURGICAL HISTORY : anuerysm coil ENCOUNTER: Initial ACUITY: 1 day PAIN SCALE: Non-responsive LOCATION: Bilateral head TECHNIQUE: Volumetric scanning was performed using a multi-row detector CT scanner. The data was post processed with a variety of visualization algorithms including full volume maximum intensity projection, multi -planar sliding thin slab reformation, curved planar reformation, and surface rendering techniques. Using automated exposure control and adjustment of the mA and/or kV according to patient size, radiat ion dose was kept as low as reasonably achievable to obtain optimal diagnostic quality images. DICO M format image data is available electronically for review and comparison. FINDINGS: There has been coil embolization of anterior communicating artery aneurysm. The aneurysm appears excl uded. There is no evidence of vasospasm with widely patent anterior and middle cerebral artery branch es on both sides. The right A1 is diminutive and not well-seen on today's exam. The posterior circula tion is stable and intact. CONCLUSION: Satisfactory appearance post ACOMM aneurysm coiling. Johann Troy MD on October 12, 2017 at 16:20 Board Certified Radiologist. This report was verified electronically.
[2017-10-13] VITALS (12 sets, daily range): BP systolic 158–191; BP diastolic 93–105; PULSE 62–80; RESP 12–22; TEMP 97.8–98.7; O2SAT 97–100
[2017-10-13] MEDS: niMODipine 30 MG CAP PO SCH ×6 (00:04→20:53)
[2017-10-13] MEDS: HYDROmorphone HCL PF 2 MG/ML VIAL IV PUSH PRN ×5 (04:33→20:53)
[2017-10-13 05:14] LABS: AUTOMATED NEUTROPHIL # 12.5 TH/MM3 (1.8-7.7); BASOPHIL % 0.3 % (0.0-2.0); EOSINOPHIL # 0.1 TH/MM3 (0-0.4); EOSINOPHIL % 0.5 % (0.0-4.0); HEMATOCRIT 39.2 % (35.0-46.0); HEMO FLAGS DIFF FINAL; LYMPH % 19.9 % (9.0-44.0); LYMPHOCYTE # 3.4 TH/MM3 (1.0-4.8); MEAN CELL VOLUME 74.9 FL (80.0-100.0); MEAN CORPUSCULAR HEMOGLOBIN 24.2 PG (27.0-34.0); MEAN CORPUSCULAR HGB CONC 32.3 % (32.0-36.0); MONO % 6.9 % (0.0-8.0); NEUT % 72.4 % (16.0-70.0); PLATELET COUNT 337 TH/MM3 (150-450); RED BLOOD COUNT 5.23 MIL/MM3 (4.00-5.30); RED CELL DISTRIBUTION WIDTH 13.8 % (11.6-17.2); WHITE BLOOD COUNT 17.3 TH/MM3 (4.0-11.0)
[2017-10-13 05:34] LABS: ANION GAP 9 MEQ/L (5-15); AST (GOT) 13 U/L (15-37); BICARBONATE 25.8 MEQ/L (21.0-32.0); BLOOD UREA NITROGEN 8 MG/DL (7-18); CHLORIDE 104 MEQ/L (98-107); GLOMERULAR FILTRATION RATE 153 ML/MIN (>89); MAGNESIUM 1.7 MG/DL (1.5-2.5); POTASSIUM 3.2 MEQ/L (3.5-5.1); SODIUM (NA) 139 MEQ/L (136-145)
[2017-10-13 05:38] LABS: ALKALINE PHOSPHATASE 73 U/L (45-117); ALT (GPT) 17 U/L (10-53); TOTAL BILIRUBIN ADULT 0.7 MG/DL (0.2-1.0)
[2017-10-13] MEDS: POTASSIUM CHLOR 40 MEQ PREMIX 100 ML IV PRN ×2 (05:45→09:16)
[2017-10-13] MEDS: PHENYLEPHRINE INJ 80 MG in SODIUM CHLORID 0.9% 500 ML INJ 492 ML IV PRN ×4 (05:58→21:47)
[2017-10-13] MEDS: 3% SALINE INJ 500 ML IV SCH (05:58)
[2017-10-13] MEDS: SENNOSIDES SYRUP 8.8 MG/5 ML CUP PO SCH (07:45)
[2017-10-13] MEDS: LACTULOSE SYRUP 20 GM/30 ML CUP PO SCH ×4 (07:45→20:54)
[2017-10-13] MEDS: PANTOPRAZOLE SOD 40 MG DELAYED RELEASE TAB PO SCH (07:53)
[2017-10-13] MEDS: DOCUSATE SODIUM 100 MG CAP PO SCH ×2 (07:53→20:53)
--- NOTE | 2017-10-13 10:02 | RADRPT ---
EXAM DATE/TIME: 10/13/2017 08:19 [facility] COMPARISON: US TRANSCRANIAL DOPPLER COMPLETE, October 12, 2017, 7:29. INDICATIONS : Subarachnoid hemorrhage. MEDICAL HISTORY : Lupus. Anxiety. Nausea/vomiting. SURGICAL HISTORY : Appendectomy. Benign tumor removal as child. Orthopedic surgery, right knee. ENCOUNTER: [facility] ACUITY: 4-6 days PAIN SCORE: 0/10 LOCATION: Bilateral cranial Current Exam: Oct 13, 2017 [place] Ratio: Right: 2.2 Left: 2.2 Johnson Ratio: Right: 1.4 Left: 1.7 Previous Exam: Oct 12, 2017 [place] Ratio: Right: 2.7 Left: 1.8 Johnson Ratio: Right: 1.9 Left: 1.8 FINDINGS: Examination performed at bedside. Real-time ultrasound with the assistance of color and spectral Dop pler was utilized to evaluate the intracerebral circulation. Time-averaged maximal velocities are ca lculated in cm/s. Stable normal ratios with unremarkable waveforms. CONCLUSION: 1. No significant vasospasm. Korey Bustos MD on October 13, 2017 at 9:58 Board Certified Radiologist. This report was verified electronically.
--- NOTE | 2017-10-13 12:11 | HHI.CCPN ---
Subjective Remarks/Hospital Course 42 yo AAF with past medical history of SLE, migraine headaches, benign brain tumor s/p resection in 1990 who is transferred from [facility] due to acute subarachnoid hemorrhage. 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 She says she took 2 Tylenol and Topamax and went to work. She states she was in a stressful situation at work and her headache got worse but she completed her shift and then ran some additional errands the morning of 10/06 and then went to sleep. She was awoken from sleep with severe 10/10 frontal headache associated with neck pain, nausea, vomiting, diaphoresis and photophobia. She required assistance from her son to get up out of bed and then was transported to [facility] via [facility]. No seizure activity. CT brain demonstrates diffuse SAH with no intraventricular extension or hydrocephalus. CTA demonstrates 3 mm Acom aneurysm with narrow neck per radiology report. She has received nimodipine. She is normotensive. 10/08: s/p ACOM aneurysm coiling. Headache is improved. Systolic blood pressure remains in 110. Discussed with Dr. Marquez. I will target SBP 140-180, start Dale-Synephrine to achieve goal 10/09: Still complains of retro-orbital pain. Remains on 100 mcg/m of Dale- Synephrine to keep systolic blood pressure between 140-180. Sodium 135 increase 2% saline to 40 ml per hour. TCDs from am 10/10: Patient is still complaining of headache. Remains on Dale-Synephrine. TCD yesterday showed mild right vasospasm. Will increase the blood pressure parameters to 160-180, titrate up Dale-Synephrine, sodium remains at 137 will DC to person stop 3% at 40 ML per hour and increase normal saline to 150 ML per hour. Discussed with Dr. Castillo no CTA at this time as there is no clinical change 10/11: Requiring dale to maintain sbp 160 -180 increased to 100 mcg/min. Na 135, 3% increased to 60 ml, will KVO NS. Head ache improved. TCD 10/10 improving vasospasm 10/12: Clinically stable, Requiring dale-synephrine to maintain SBP 160-180. TCD 10/11 no vasospasm. C/o about some spotting. 11/28: CTA negative for vasospasm on 10/12/17/ CT of the head stable subarachnoid hemorrhage. TCD today negative for vasospasm. RN reports significant orthostatic hypotension with getting out of bed. I will start Midrin, continue Dale-Synephrine to target systolic blood pressure 160-180, continue 3% saline Objective Vital Signs Date Time Temp Pulse Resp B/P (MAP) Pulse Ox O2 Delivery O2 Flow Rate FiO2 10/13/17 11:56 69 193/107 10/13/17 08:00 97.8 12 97 10/12/17 07:00 Room Air 21 10/09/17 07:00 2.00 Intake and Output 10/13/17 10/13/17 10/14/17 08:00 16:00 00:00 Intake Total 1200 ml 95 ml Output Total 1350 ml Balance -150 ml 95 ml Result Diagram: 10/13/173 10/13/17442 Objective Remarks GENERAL: Well-nourished, well-developed patient who is laying in ICU bed, mild distress, anxious SKIN: Warm and dry, well perfused. HEAD: Atraumatic. Normocephalic. EYES: Pupils equal and round, 3mm and reactive bilaterally. No scleral icterus. No injection or drainage. ENT: No nasal bleeding or discharge. Mucous membranes pink and moist. NECK: Trachea midline. No JVD. CARDIOVASCULAR: Regular rate and rhythm, sinus rhythm on the monitor. No murmurs rubs or gallops. On Dale-Synephrine to maintain blood pressure 160-180 RESPIRATORY: No accessory muscle use. Clear to auscultation. Breath sounds equal bilaterally. GASTROINTESTINAL: Abdomen soft, non-tender, nondistended. Bowel sounds present. MUSCULOSKELETAL: Extremities without clubbing, cyanosis, or edema. No obvious deformities. NEUROLOGICAL: Awake and alert. No obvious cranial nerve deficits. Extra ocular movements intact. Speech normal. Oriented 4. Strength normal. A/P Problem List: (1) Subarachnoid hemorrhage ICD Code: I60.9 - Nontraumatic subarachnoid hemorrhage, unspecified Status: Acute (2) Vasospasm of cerebral artery ICD Code: I67.848 - Other cerebrovascular vasospasm and vasoconstriction (3) Cerebral aneurysm rupture ICD Code: I60.9 - Nontraumatic subarachnoid hemorrhage, unspecified Status: Acute (4) SLE (systemic lupus erythematosus) ICD Code: M32.9 - Systemic lupus erythematosus, unspecified Status: Chronic (5) Migraines ICD Code: G43.909 - Migraine, unspecified, not intractable, without status migrainosus Status: Chronic (6) Hypokalemia ICD Code: E87.6 - Hypokalemia Status: Acute (7) Leukocytosis ICD Code: D72.829 - Elevated white blood cell count, unspecified Status: Acute (8) Anterior communicating artery aneurysm ICD Code: I67.1 - Cerebral aneurysm, nonruptured Status: Acute (9) Tobacco abuse ICD Code: Z72.0 - Tobacco use Status: Chronic Assessment and Plan NEURO: Acute aneurysmal subarachnoid hemorrhage with 3 mm Acom aneurysm. (Wright/Goodwin Grade 2 Webber Grade 3) Mild vasospasm History of migraine headaches Daily alcohol use (1 ounce of vodka daily) s/p coiling of ACOM aneurysm. Continue Nimodipine 60 g by mouth every 4 hours Post coiling target SBP 160-180, for vasospasm prevention. On Dale-Synephrine. Transcranial Doppler monitoring starting 10/09/2017-mild right vasospasm. No vasospasm TCD 10/13 and CTA 10/12 Monitor sodium. 3% NaCl @ 60 mL/hr to keep NA above 140 CT brain - large acute SAH. No midline shift. No hydrocephalus. repeat CT 10/08 : stable SAH, sp coiling CTA brain - 3 mm aneurysm with narrow neck at ACOM, Right A1 segment small, most likely congenital but ?spasm per radiology report. Neurosurgery Dr. Clinton. On Topamax chronically for migraines. Dilaudid, Percocet prn headache. RESP: Ongoing tobacco abuse Tobacco cessation discussed On RA CV: Target SBP 160-180 as the aneurysm is secured and for mild vasospasm. 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 Creatinine normal. Monitor electrolytes ID: Mild leukocytosis, likely reactive. Repeat F/U UA HEME: Hemoglobin coags stable ENDO: Glucose at outside hospital was 120. Monitor bedside glucose. RHEUM: Systemic lupus erythematosus Not consistently on disease modifying therapy for several months PROPH: SCDs for DVT prophylaxis. Lovenox 40 mg sq daily from 10/10, cleared by neurosurgery Dr. Castillo. Protonix 40 mg by mouth daily for stress ulcer prophylaxis. ACCESS: [facility] central line placed 10/08/17 Dr. Loomis Note : She requested that I call her place of employment and said that she gave me permission to know that she was going to be admitted to the ICU she was not going to be at work today. I spoke with Loretta Rodas per patients request. I discussed with her need to designate healthcare surrogate. She states that she wishes for her mother, Keturah Bello, to be her alternate healthcare surrogate. She gave me permission to call her mother and updated her. I did call her mother but there was no answer at [phone] She designated her friend, Lalo, as primary healthcare surrogate. She has filled out healthcare surrogate form with contact information and given to RN. Patient is critically ill with acute subarachnoid hemorrhage and is at risk for neurologic decompensation related to re-bleed, hydrocephalus, etc. She will need to remain in [facility] for securing aneurysm, ventriculostomy if needed, monitoring of sodium, and treatment of vasospasm. Discussed with Dr. Marquez 10/08, D/W Dr. Castillo 10/10/17 D/W neuro PA Chacorta Ahmadi 10/12 Level 3 Sarha Wills MD Oct 13, 2017 12:11
[2017-10-13] MEDS: MIDODRINE 5 MG TAB PO SCH ×2 (12:26→16:57)
--- NOTE | 2017-10-13 12:27 | HHI.NSPN ---
History Chief Complaint: Frontal headache Interval History 10/06: 42 y.o. female transfered from [facility] where she presented with severe BOWEN that she awoke with. Prior history of migraines. Poatitive nausea and emesis this evening. 10/07: The patient is awake but has her head covered when seen this morning due to the light hurting her eyes. She speaks softly due to her headache and she does have dizziness when moving her head. She has not had any further nausea since last night. She does report numbness to the fingers during the night but none at present. The patient went for an angiogram with subsequent coiling of an aneurysm with complete occlusion in the afternoon. 10/08: c/o mild headaches, photophobia, and nausea, moves x 4 reports symmetrically but patient reports mild heaviness right side. f/u CT Head completed this am. 10/09/2017: Persistent headache. No focal deficit. 10/10/17: Pt complains of frontal headache. No nausea or vomiting. No numbness or paresthesias. 10/11/17: Pt complains of frontal headaches and neck discomfort. No n/v. No numbness or paresthesias. No significant photophobia. 10/12: This morning the patient is awake and alert when seen. She states that no one is listening to her and taking her seriously. She says that she has had vaginal bleeding for a few days and that her menses ended a couple days before she came into the hospital. She is wondering if it might be related to the Cannon catheter being in place. She reports spasms to the posterolateral left neck which she relates to the central venous catheter placed in the left internal jugular vein. She states that she has pressure to the head and some light sensitivity. She denies any nausea for the past few days and states that she did have a bowel movement. She says she is getting up to the bedside commode without difficulty. Nursing this morning reports that the patient had a bowel movement and complained of blood which Nursing only saw on the tissue but not mixed with the stool. Nursing reports that the patient's sodium level was 135 yesterday and that she put out over four litres of urine the past 24 hours. It was also reported that the patient was changed from 2% saline to 3% saline in order to increase her sodium level and that if the fluids are decreased the patient's blood pressure drops in half. The Court Transcriber is continuing to maintain the patient's systolic blood pressure between 160 and 180 mm Hg due to vasospasms noted on Thursday. Yesterday's transcranial Doppler study demonstrated slight improvement in the vasospasm. 10/13: The patient is awake and alert when seen this morning. She complains of a frontal headache. She states that when she gets up it is worse and she will have some lightheadedness. She reports having to get up every couple hours so as to void. The Cannon catheter was discontinued yesterday. She does endorse light sensitivity to bright lights. She has not had any nausea the past several hours but did earlier. The transcranial Doppler study yesterday did not demonstrated any significant vasospasm. CT brain yesterday demonstrated an evolving subarachnoid haemorrhage but no new findings and the CTA did not demonstrate any vasospasm. System Review Comments EYES: Light sensitivity to bright lights. NECK: Spasm to the left neck. GASTROINTESTINAL: Nausea earlier but none the past several hours. GENITOURINARY: Has to get up to urinate every couple hours. NEUROLOGICAL: Headache to the front of the head. Lightheaded when she gets up. The remainder of the ROS is negative. Exam Results 10/11/17 10/11/17 10/12/17 10/12/17 10/13/17 10/13/17 06:00 18:00 06:00 18:00 06:00 18:00 Intake Total 4352 ml 240 ml 1250 ml 2000 ml 1800 ml 95 ml Output Total 3000 ml 3850 ml 2600 ml 1350 ml 1350 ml Balance 1352 ml -3610 ml -1350 ml 650 ml 450 ml 95 ml Intake Oral 480 ml 240 ml 50 ml 200 ml IV Total 3872 ml 1200 ml 2000 ml 1600 ml 95 ml Output Urine Total 3000 ml 3850 ml 2600 ml 1350 ml 1350 ml # Voids 3 # Bowel Movements 0 0 0 2 0 Vital Signs Date Time Temp Pulse Resp B/P (MAP) Pulse Ox O2 Delivery O2 Flow Rate FiO2 10/13/17 11:56 69 193/107 10/13/17 10:50 68 133/89 10/13/17 10:00 66 10/13/17 08:24 65 123/82 10/13/17 08:00 97.8 66 12 191/105 (133) 97 10/13/17 08:00 65 10/13/17 07:38 66 119/74 10/13/17 06:00 74 10/13/17 05:58 77 163/96 10/13/17 05:03 12 10/13/17 04:00 64 10/13/17 04:00 98.7 64 22 158/93 (114) 98 10/13/17 02:00 80 10/13/17 00:00 98.4 62 13 168/94 (118) 100 10/13/17 00:00 62 10/12/17 23:47 65 170/92 10/12/17 22:00 66 10/12/17 20:00 98.3 62 17 183/115 (137) 99 10/12/17 20:00 62 10/12/17 18:00 65 10/12/17 16:11 62 168/78 10/12/17 16:00 62 10/12/17 16:00 97.9 64 18 168/85 (112) 98 10/12/17 14:00 65 10/12/17 12:00 98.2 62 18 172/79 (110) 98 10/12/17 12:00 62 10/12/17 10:09 62 171/104 10/12/17 10:00 62 10/12/17 08:00 62 10/12/17 08:00 98.0 62 18 175/88 (117) 98 10/12/17 07:00 Room Air 21 10/12/17 06:00 62 10/12/17 04:50 62 178/100 10/12/17 04:00 74 10/12/17 04:00 98.7 74 11 149/84 (105) 98 10/12/17 02:00 66 10/12/17 00:00 58 10/12/17 00:00 98.8 58 12 179/105 (129) 99 10/11/17 22:08 62 161/89 10/11/17 22:00 64 10/11/17 20:00 98.6 62 15 156/93 (114) 99 10/11/17 20:00 62 10/11/17 19:00 97 Room Air 10/11/17 15:31 62 109/63 10/11/17 07:00 95 Room Air 10/11/17 06:00 60 10/11/17 05:40 55 164/82 10/11/17 04:00 58 10/11/17 04:00 98.1 60 11 145/90 (108) 98 10/11/17 02:29 60 160/92 10/11/17 02:00 58 10/11/17 01:09 58 183/88 10/11/17 00:00 98.0 58 17 177/93 (121) 99 10/11/17 00:00 58 10/10/17 23:00 58 178/98 10/10/17 22:22 75 157/88 10/10/17 22:00 67 10/10/17 21:47 147 147/78 10/10/17 21:36 61 138/74 10/10/17 20:00 98.3 56 18 178/97 (124) 96 10/10/17 20:00 56 10/10/17 19:00 96 Room Air 10/10/17 18:00 54 10/10/17 16:00 62 10/10/17 16:00 98.4 62 16 152/75 (100) 100 10/10/17 14:00 68 Physical Examination General: Awake & alert sitting up in bed, readily interacts. Affect normal. No apparent distress. HEENT: Normocephalic, atraumatic. PERRLA 3 mm brisk, EOMI. MMM & pink, tongue midline to protrusion. Musculoskeletal: PAIGE w/o difficulty, no evident deformity or clubbing. Neurological: AAOx3. Speech clear & appropriate. Follows simple commands w/o difficulty. CN II-XII appear grossly intact. Sensation intact to light touch to all extremities. Motor strength is 5/5 to all flexion & extension muscle groups. Lab, Micro, Other Results Recent Impressions Transcranial Doppler Study Complete 10/13/17 0000 Signed Impressions: Service Date/Time: Friday, October 13, 2017 08:19 - CONCLUSION: 1. No significant vasospasm. Korey Bustos MD Transcranial Doppler Study Complete 10/12/17 0000 Signed Impressions: Service Date/Time: Thursday, October 12, 2017 07:29 - CONCLUSION: No vasospasm. Jett Fuentes Jr., MD Head CTA 10/12/17 0000 Signed Impressions: Service Date/Time: Thursday, October 12, 2017 14:53 - CONCLUSION: Satisfactory appearance post ACOMM aneurysm coiling. Johann Troy MD Head CT 10/12/17 0000 Signed Impressions: Service Date/Time: Thursday, October 12, 2017 14:53 - CONCLUSION: 1. Further maturation of the subarachnoid hemorrhage. No new hemorrhage. 2. No appreciable mass effect. Jett Fuentes Jr., MD Transcranial Doppler Study Complete 10/11/17 0000 Signed Impressions: Service Date/Time: Wednesday, October 11, 2017 07:20 - CONCLUSION: 1. Slight improvement in vasospasm in the right middle cerebral artery over the last day. Ameya Harding MD Laboratory Tests Test 10/10/17 17:15 10/11/17 00:10 10/12/17 12:08 10/13/17 04:43 Urine pH 7.5 Urine Specific [place] 1.007 Urine Osmolality 343 MOSM/KG Blood Urea Nitrogen 2 MG/DL 4 MG/DL 8 MG/DL Creatinine 0.51 MG/DL 0.47 MG/DL 0.53 MG/DL Random Glucose 116 MG/DL 108 MG/DL 104 MG/DL Total Protein 7.8 GM/DL 8.1 GM/DL 7.6 GM/DL Albumin 3.7 GM/DL 3.7 GM/DL 3.4 GM/DL Calcium Level 9.0 MG/DL 9.2 MG/DL 8.8 MG/DL Alkaline Phosphatase 71 U/L 77 U/L 73 U/L Aspartate Amino Transf (AST/SGOT) 24 U/L 16 U/L 13 U/L Alanine Aminotransferase (ALT/SGPT) 27 U/L 26 U/L 17 U/L Total Bilirubin 0.7 MG/DL 0.7 MG/DL 0.7 MG/DL Sodium Level 141 MEQ/L 135 MEQ/L 137 MEQ/L 139 MEQ/L Potassium Level 3.7 MEQ/L 3.3 MEQ/L 3.2 MEQ/L Chloride Level 106 MEQ/L 103 MEQ/L 104 MEQ/L Carbon Dioxide Level 28.3 MEQ/L 27.3 MEQ/L 25.8 MEQ/L Anion Gap 7 MEQ/L 7 MEQ/L 9 MEQ/L Estimat Glomerular Filtration Rate 160 ML/MIN 176 ML/MIN 153 ML/MIN Serum Osmolality 294 MOSM/KG White Blood Count 17.3 TH/MM3 Red Blood Count 5.23 MIL/MM3 Hemoglobin 12.6 GM/DL Hematocrit 39.2 % Mean Corpuscular Volume 74.9 FL Mean Corpuscular Hemoglobin 24.2 PG Mean Corpuscular Hemoglobin Concent 32.3 % Red Cell Distribution Width 13.8 % Platelet Count 337 TH/MM3 Mean Platelet Volume 7.8 FL Neutrophils (%) (Auto) 72.4 % Lymphocytes (%) (Auto) 19.9 % Monocytes (%) (Auto) 6.9 % Eosinophils (%) (Auto) 0.5 % Basophils (%) (Auto) 0.3 % Neutrophils # (Auto) 12.5 TH/MM3 Lymphocytes # (Auto) 3.4 TH/MM3 Monocytes # (Auto) 1.2 TH/MM3 Eosinophils # (Auto) 0.1 TH/MM3 Basophils # (Auto) 0.0 TH/MM3 CBC Comment DIFF FINAL Differential Comment Magnesium Level 1.7 MG/DL Medical Decision Making Impression and Plan Impression: 1. SAH 2. Anterior communicating artery aneurysm 3. Right middle cerebral artery vasospasm The patient has a persistent headache. Lightheaded when getting up. Decrease in excessive urine output the past 24 hours. Reviewed labs for today. Leukocytosis w/increase. Hypokalemia. Sodium WNL. Transcranial Doppler w/o vasospasm. CT brain w/evolving SAH. CTA brain w/o vasospasm. POD #6 () s/p: Angiogram with aneurysm coiling resulting in complete occlusion Post Procedure Diagnosis: (1) Cerebral aneurysm rupture Plan: Critical care management per Court Transcriber. Frequent neuro checks. Continue Nimodipine. Monitor SBP and keep between 160 to 180 mm Hg due to vasospasm. Keep HOB elevated. Continue 3% saline & monitor sodium level. Continue pain medication. Continue anti-emetics. Stress ulcer prophylaxis. Mechanical DVT prophylaxis. Pharmacological DVT prophylaxis. Electrolyte replacement guidelines. Chacorta Ahmadi Oct 13, 2017 12:27
[2017-10-13] MEDS: ENOXAPARIN SODIUM 40 MG/0.4 ML SYRINGE SQ SCH (16:57)
[2017-10-13 17:36] LABS: BACTERIA, URINE RARE /hpf; BLOOD, URINE LARGE (NEG); GLUCOSE,URINE NEG (NEG); KETONE, URINE NEG (NEG); MUCUS URINE FEW /lpf (OCC); NITRITE,URINE NEG (NEG); PH, URINE 7.5 (5.0-8.5); SQUAMOUS EPITHELIAL CELL URINE 8 /hpf (0-5); URINE COLOR YELLOW (YELLW/STRAW)
[2017-10-13 17:40] LABS: COMMENT (UR) CATH-CULTURE IND; CULTURE IF INDICATED CATH CULTURE IND
[2017-10-14] VITALS (12 sets, daily range): BP systolic 151–183; BP diastolic 72–107; PULSE 58–84; RESP 12–22; TEMP 98.2–98.7; O2SAT 99–100
[2017-10-14] MEDS: HYDROmorphone HCL PF 2 MG/ML VIAL IV PUSH PRN ×6 (00:50→22:35)
[2017-10-14] MEDS: niMODipine 30 MG CAP PO SCH ×7 (00:50→23:40)
[2017-10-14] MEDS: 3% SALINE INJ 500 ML IV SCH ×2 (01:26→20:49)
[2017-10-14] MEDS: SENNOSIDES SYRUP 8.8 MG/5 ML CUP PO SCH (07:49)
[2017-10-14] MEDS: LACTULOSE SYRUP 20 GM/30 ML CUP PO SCH ×4 (07:49→20:48)
[2017-10-14] MEDS: PANTOPRAZOLE SOD 40 MG DELAYED RELEASE TAB PO SCH (08:12)
[2017-10-14] MEDS: DOCUSATE SODIUM 100 MG CAP PO SCH ×2 (08:12→20:49)
[2017-10-14] MEDS: MIDODRINE 5 MG TAB PO SCH ×4 (08:12→23:40)
--- NOTE | 2017-10-14 11:40 | RADRPT ---
EXAM DATE/TIME: 10/14/2017 07:46 [place] COMPARISON: US TRANSCRANIAL DOPPLER COMPLETE, October 13, 2017, 8:19. INDICATIONS : Subarachnoid hemorrhage. MEDICAL HISTORY : Lupus. Anxiety. Nausea/vomiting. SURGICAL HISTORY : Appendectomy. Benign tumor removal as child. Orthopedic surgery; right knee. ENCOUNTER: Subsequent ACUITY: 4-6 days PAIN SCORE: 5/10 LOCATION: cranial Current Exam: Oct 14, 2017 [place] Ratio: Right: 1.81 Left: 1.6 [place] Ratio: Right: 1.47 Left: 1.91 Previous Exam: Oct 13, 2017 [place] Ratio: Right: 1.1 Left: 1.2 Johnson Ratio: Right: 0.9 Left: 0.8 FINDINGS: Examination performed at bedside. Real-time ultrasound with the assistance of color and spectral Dop pler was utilized to evaluate the intracerebral circulation. Time-averaged maximal velocities are ca lculated in cm/s. Stable satisfactory flow velocity measurements and ratios involving anterior and posterior circulatio n vasculature. CONCLUSION: No evidence of vasospasm Johann Troy MD on October 14, 2017 at 11:35 Board Certified Radiologist. This report was verified electronically.
--- NOTE | 2017-10-14 13:18 | HHI.CCPN ---
Subjective Remarks/Hospital Course 42 yo AAF with past medical history of SLE, migraine headaches, benign brain tumor s/p resection in 1990 who is transferred from [facility] due to acute subarachnoid hemorrhage. 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 She says she took 2 Tylenol and Topamax and went to work. She states she was in a stressful situation at work and her headache got worse but she completed her shift and then ran some additional errands the morning of 10/06 and then went to sleep. She was awoken from sleep with severe 10/10 frontal headache associated with neck pain, nausea, vomiting, diaphoresis and photophobia. She required assistance from her son to get up out of bed and then was transported to [facility] via [facility]. No seizure activity. CT brain demonstrates diffuse SAH with no intraventricular extension or hydrocephalus. CTA demonstrates 3 mm Acom aneurysm with narrow neck per radiology report. She has received nimodipine. She is normotensive. 10/08: s/p ACOM aneurysm coiling. Headache is improved. Systolic blood pressure remains in 110. Discussed with Dr. Marquez. I will target SBP 140-180, start Dale-Synephrine to achieve goal 10/09: Still complains of retro-orbital pain. Remains on 100 mcg/m of Dale- Synephrine to keep systolic blood pressure between 140-180. Sodium 135 increase 2% saline to 40 ml per hour. TCDs from am 10/10: Patient is still complaining of headache. Remains on Dale-Synephrine. TCD yesterday showed mild right vasospasm. Will increase the blood pressure parameters to 160-180, titrate up Dale-Synephrine, sodium remains at 137 will DC to person stop 3% at 40 ML per hour and increase normal saline to 150 ML per hour. Discussed with Dr. Castillo no CTA at this time as there is no clinical change 10/11: Requiring dale to maintain sbp 160 -180 increased to 100 mcg/min. Na 135, 3% increased to 60 ml, will KVO NS. Head ache improved. TCD 10/10 improving vasospasm 10/12: Clinically stable, Requiring dale-synephrine to maintain SBP 160-180. TCD 10/11 no vasospasm. C/o about some spotting. 11/28: CTA negative for vasospasm on 10/12/17/ CT of the head stable subarachnoid hemorrhage. TCD today negative for vasospasm. RN reports significant orthostatic hypotension with getting out of bed. I will start Midrin, continue Dale-Synephrine to target systolic blood pressure 160-180, continue 3% saline. 10/14: No vasopspams and asymptomatic when BP low; will taper off neosynephrine. D/W Neurosurgery. Objective Vital Signs Date Time Temp Pulse Resp B/P (MAP) Pulse Ox O2 Delivery O2 Flow Rate FiO2 10/14/17 12:00 79 10/14/17 12:00 98.2 12 181/107 (131) 100 10/12/17 07:00 Room Air 21 Intake and Output 10/14/17 10/14/17 10/15/17 08:00 16:00 00:00 Intake Total 2044 ml Output Total 1600 ml Balance 444 ml Result Diagram: 10/13/17 0443 10/13/17 1610 Objective Remarks Laying in ICU bed, mild distress, anxious, jittery. SKIN: Warm and dry, well perfused. HEAD: Atraumatic. Normocephalic. EYES: Pupils equal and round, 2 mm and reactive bilaterally. No scleral icterus. No injection or drainage. ENT: No nasal bleeding or discharge. Mucous membranes pink and moist. NECK: Trachea midline. Airway widely patent. CARDIOVASCULAR: Regular rate and rhythm, sinus rhythm on the monitor. No murmurs rubs or gallops. RESPIRATORY: No accessory muscle use. Clear to auscultation. Breath sounds equal bilaterally. No wheezes. GASTROINTESTINAL: Abdomen soft, non-tender, nondistended. Bowel sounds present. MUSCULOSKELETAL: Extremities without clubbing, cyanosis, or edema. Well perfused. NEUROLOGICAL: Awake and alert. No obvious cranial nerve deficits. Extra ocular movements intact. Speech normal. Oriented 3. Strength normal. A/P Problem List: (1) Subarachnoid hemorrhage ICD Code: I60.9 - Nontraumatic subarachnoid hemorrhage, unspecified Status: Acute (2) Vasospasm of cerebral artery ICD Code: I67.848 - Other cerebrovascular vasospasm and vasoconstriction (3) Cerebral aneurysm rupture ICD Code: I60.9 - Nontraumatic subarachnoid hemorrhage, unspecified Status: Acute (4) SLE (systemic lupus erythematosus) ICD Code: M32.9 - Systemic lupus erythematosus, unspecified Status: Chronic (5) Migraines ICD Code: G43.909 - Migraine, unspecified, not intractable, without status migrainosus Status: Chronic (6) Hypokalemia ICD Code: E87.6 - Hypokalemia Status: Acute (7) Leukocytosis ICD Code: D72.829 - Elevated white blood cell count, unspecified Status: Acute (8) Anterior communicating artery aneurysm ICD Code: I67.1 - Cerebral aneurysm, nonruptured Status: Acute (9) Tobacco abuse ICD Code: Z72.0 - Tobacco use Status: Chronic Assessment and Plan NEURO: Acute aneurysmal subarachnoid hemorrhage with 3 mm Acom aneurysm. (Wright/Goodwin Grade 2 Webber Grade 3) Mild vasospasm History of migraine headaches Daily alcohol use (1 ounce of vodka daily) s/p coiling of ACOM aneurysm. Continue Nimodipine 60 g by mouth every 4 hours Post coiling target SBP 160-180, for vasospasm prevention. On Dale-Synephrine. Transcranial Doppler monitoring starting 10/09/2017-mild right vasospasm. No vasospasm TCD 10/13 and CTA 10/12 Monitor sodium. 3% NaCl @ 60 mL/hr to keep NA above 140 CT brain - large acute SAH. No midline shift. No hydrocephalus. repeat CT 10/08 : stable SAH, sp coiling CTA brain - 3 mm aneurysm with narrow neck at ACOM, Right A1 segment small, most likely congenital but ?spasm per radiology report. Neurosurgery Dr. Clinton. On Topamax chronically for migraines. Dilaudid, Percocet prn headache. Minimize hip/sciatic pain medication. RESP: Ongoing tobacco abuse Tobacco cessation discussed On RA CV: Target SBP 160-180 as the aneurysm is secured and for mild vasospasm. Dale- Synephrine to achieve target Increase Midodrine for orthostatic hypotension started 10 mg by mouth 3 times a day d/c 3% saline at 60 ml per hour Trend Na GI: Regular diet INVESTIGATION OFFICER: test at outside hospital was -ve10/07/17 FEN/RENAL: Monitor BMP. Creatinine normal. Monitor electrolytes ID: Mild leukocytosis, likely reactive. Repeat F/U UA HEME: Hemoglobin coags stable ENDO: Glucose at outside hospital was 120. Monitor bedside glucose. RHEUM: Systemic lupus erythematosus Not consistently on disease modifying therapy for several months PROPH: SCDs for DVT prophylaxis. Lovenox 40 mg sq daily from 10/10, cleared by neurosurgery Dr. Castillo. Protonix 40 mg by mouth daily for stress ulcer prophylaxis. ACCESS: [facility] central line placed 10/08/17 Dr. Loomis Note : She requested that I call her place of employment and said that she gave me permission to know that she was going to be admitted to the ICU she was not going to be at work today. I spoke with Loretta Rodas per patients request. I discussed with her need to designate healthcare surrogate. She states that she wishes for her mother, Keturah Bello, to be her alternate healthcare surrogate. She gave me permission to call her mother and updated her. I did call her mother but there was no answer at [phone] She designated her friend, Lalo, as primary healthcare surrogate. She has filled out healthcare surrogate form with contact information and given to RN. Overall impression: Patient is critically ill with acute subarachnoid hemorrhage. No signs of vasospasm. Say Lynch MD Oct 14, 2017 13:18
[2017-10-14] MEDS: ONDANSETRON HCL 4 MG/2 ML VIAL IV PUSH PRN (13:50)
[2017-10-14] MEDS: ENOXAPARIN SODIUM 40 MG/0.4 ML SYRINGE SQ SCH (17:06)
--- NOTE | 2017-10-14 23:58 | HHI.NSPN ---
History Chief Complaint: Frontal headache Interval History Patient presented on 10/07/2017 after she awoke with extremely severe headache, nausea and emesis. 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 Now status post endovascular treatment for coil placement on 10/07/2017 10/09/2017: Persistent headache. No focal deficit. Exam Results Vital Signs Date Time Temp Pulse Resp B/P (MAP) Pulse Ox O2 Delivery O2 Flow Rate FiO2 10/14/17 22:00 67 10/14/17 21:00 155/90 10/14/17 20:00 98.2 15 100 10/12/17 07:00 Room Air 21 Intake and Output 10/14/17 10/14/17 10/15/17 08:00 16:00 00:00 Intake Total 2044 ml 1300 ml Output Total 1600 ml 1300 ml Balance 444 ml 0 ml Physical Examination General: Awake & alert sitting up in bed, readily interacts. Affect normal. No apparent distress. HEENT: Normocephalic, atraumatic. PERRLA 3 mm brisk, EOMI. MMM & pink, tongue midline to protrusion. Musculoskeletal: PAIGE w/o difficulty, no evident deformity or clubbing. Neurological: AAOx3. Speech clear & appropriate. Follows simple commands w/o difficulty. CN II-XII appear grossly intact. Sensation intact to light touch to all extremities. Motor strength is 5/5 to all flexion & extension muscle groups. Lab, Micro, Other Results Last 24 hours Impressions Transcranial Doppler Study Complete 10/14/17 0000 Signed Impressions: Service Date/Time: Saturday, October 14, 2017 07:46 - CONCLUSION: No evidence of vasospasm Johann Troy MD Medical Decision Making Impression and Plan Impression: 1. Stable neurologic exam following endovascular treatment for anterior communicating artery aneurysm. 10/14/2017 transcranial Doppler with possible mild right MCA spasm. Fluid balance has normalized Plan: Continue to advance diet and activity as tolerated. Allow the pressure to increase, pressors as needed to maintain systolic blood pressure greater than 140. Continue transcranial Doppler. D/W poiser Jono Clinton MD Oct 14, 2017 23:58
[2017-10-15] VITALS (8 sets, daily range): BP systolic 110–123; BP diastolic 56–73; PULSE 60–77; RESP 12–20; TEMP 98–98.4; O2SAT 98–100
[2017-10-15] MEDS: niMODipine 30 MG CAP PO SCH ×6 (03:40→22:37)
[2017-10-15] MEDS: MIDODRINE 5 MG TAB PO SCH ×4 (05:10→22:37)
[2017-10-15] MEDS: SENNOSIDES SYRUP 8.8 MG/5 ML CUP PO SCH (08:21)
[2017-10-15] MEDS: DOCUSATE SODIUM 100 MG CAP PO SCH ×2 (08:21→19:45)
[2017-10-15] MEDS: 3% SALINE INJ 500 ML IV SCH ×2 (08:21→22:37)
[2017-10-15] MEDS: LACTULOSE SYRUP 20 GM/30 ML CUP PO SCH ×4 (08:21→19:45)
[2017-10-15] MEDS: PANTOPRAZOLE SOD 40 MG DELAYED RELEASE TAB PO SCH (08:21)
[2017-10-15] MEDS: HYDROmorphone HCL PF 2 MG/ML VIAL IV PUSH PRN ×4 (08:33→22:46)
[2017-10-15 10:54] LABS: HEMATOCRIT 33.3 % (35.0-46.0); MEAN CELL VOLUME 74.7 FL (80.0-100.0); MEAN CORPUSCULAR HGB CONC 32.1 % (32.0-36.0); PLATELET COUNT 254 TH/MM3 (150-450); RED BLOOD COUNT 4.45 MIL/MM3 (4.00-5.30); RED CELL DISTRIBUTION WIDTH 13.4 % (11.6-17.2); REVIEW FLAG FINAL; WHITE BLOOD COUNT 7.7 TH/MM3 (4.0-11.0)
[2017-10-15 11:18] LABS: BICARBONATE 24.1 MEQ/L (21.0-32.0)
[2017-10-15] MEDS: POTASSIUM CHLOR 40 MEQ PREMIX 100 ML IV PRN ×2 (11:27→13:55)
--- NOTE | 2017-10-15 11:55 | HHI.CCPN ---
Subjective Remarks/Hospital Course 42 yo AAF with past medical history of SLE, migraine headaches, benign brain tumor s/p resection in 1990 who is transferred from [facility] due to acute subarachnoid hemorrhage. 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 She says she took 2 Tylenol and Topamax and went to work. She states she was in a stressful situation at work and her headache got worse but she completed her shift and then ran some additional errands the morning of 10/06 and then went to sleep. She was awoken from sleep with severe 10/10 frontal headache associated with neck pain, nausea, vomiting, diaphoresis and photophobia. She required assistance from her son to get up out of bed and then was transported to [facility] via [facility]. No seizure activity. CT brain demonstrates diffuse SAH with no intraventricular extension or hydrocephalus. CTA demonstrates 3 mm Acom aneurysm with narrow neck per radiology report. She has received nimodipine. She is normotensive. 10/08: s/p ACOM aneurysm coiling. Headache is improved. Systolic blood pressure remains in 110. Discussed with Dr[address] Marquez. I will target SBP 140-180, start Dale-Synephrine to achieve goal 10/09: Still complains of retro-orbital pain. Remains on 100 mcg/m of Dale- Synephrine to keep systolic blood pressure between 140-180. Sodium 135 increase 2% saline to 40 ml per hour. TCDs from am 10/10: Patient is still complaining of headache. Remains on Dale-Synephrine. TCD yesterday showed mild right vasospasm. Will increase the blood pressure parameters to 160-180, titrate up Dale-Synephrine, sodium remains at 137 will DC to person stop 3% at 40 ML per hour and increase normal saline to 150 ML per hour. Discussed with Dr. Casitllo no CTA at this time as there is no clinical change 10/11: Requiring dale to maintain sbp 160 -180 increased to 100 mcg/min. Na 135, 3% increased to 60 ml, will KVO NS. Head ache improved. TCD 10/10 improving vasospasm 10/12: Clinically stable, Requiring dale-synephrine to maintain SBP 160-180. TCD 10/11 no vasospasm. C/o about some spotting. 11/28: CTA negative for vasospasm on 10/12/17/ CT of the head stable subarachnoid hemorrhage. TCD today negative for vasospasm. RN reports significant orthostatic hypotension with getting out of bed. I will start Midrin, continue Dale-Synephrine to target systolic blood pressure 160-180, continue 3% saline. 10/14: No vasopspams and asymptomatic when BP low; will taper off neosynephrine. D/W Neurosurgery. 10/15: BP acceptable off of neosynephrine. Continue midodrine until stable. Objective Vital Signs Date Time Temp Pulse Resp B/P (MAP) Pulse Ox O2 Delivery O2 Flow Rate FiO2 10/15/17 08:00 67 10/15/17 08:00 98.2 12 112/64 (80) 98 10/12/17 07:00 Room Air 21 Intake and Output 10/15/17 10/15/17 10/16/17 08:00 16:00 00:00 Intake Total 2180 ml 500 ml Output Total 950 ml Balance 1230 ml 500 ml Result Diagram: 10/15/17 1035 10/15/17 1035 Objective Remarks Laying in ICU bed, mild distress, anxious, jittery. SKIN: Warm and dry, well perfused. HEAD: Atraumatic. Normocephalic. EYES: Pupils equal and round, 2 mm and reactive bilaterally. No scleral icterus. No injection or drainage. ENT: No nasal bleeding or discharge. Mucous membranes pink and moist. NECK: Trachea midline. Airway widely patent. CARDIOVASCULAR: Regular rate and rhythm, sinus rhythm on the monitor. No murmurs rubs or gallops. RESPIRATORY: No accessory muscle use. Clear to auscultation. Breath sounds equal bilaterally. No wheezes. GASTROINTESTINAL: Abdomen soft, non-tender, nondistended. Bowel sounds present. MUSCULOSKELETAL: Extremities without clubbing, cyanosis, or edema. Well perfused. NEUROLOGICAL: Awake and alert. No obvious cranial nerve deficits. Extra ocular movements intact. Speech normal. Oriented 3. Strength normal. Painful sciatica. A/P Problem List: (1) Subarachnoid hemorrhage ICD Code: I60.9 - Nontraumatic subarachnoid hemorrhage, unspecified Status: Acute (2) Vasospasm of cerebral artery ICD Code: I67.848 - Other cerebrovascular vasospasm and vasoconstriction (3) Cerebral aneurysm rupture ICD Code: I60.9 - Nontraumatic subarachnoid hemorrhage, unspecified Status: Acute (4) SLE (systemic lupus erythematosus) ICD Code: M32.9 - Systemic lupus erythematosus, unspecified Status: Chronic (5) Migraines ICD Code: G43.909 - Migraine, unspecified, not intractable, without status migrainosus Status: Chronic (6) Hypokalemia ICD Code: E87.6 - Hypokalemia Status: Acute (7) Leukocytosis ICD Code: D72.829 - Elevated white blood cell count, unspecified Status: Acute (8) Anterior communicating artery aneurysm ICD Code: I67.1 - Cerebral aneurysm, nonruptured Status: Acute (9) Tobacco abuse ICD Code: Z72.0 - Tobacco use Status: Chronic Assessment and Plan NEURO: Acute aneurysmal subarachnoid hemorrhage with 3 mm Acom aneurysm. (Wright/Goodwin Grade 2 Webber Grade 3) Mild vasospasm History of migraine headaches Daily alcohol use (1 ounce of vodka daily) s/p coiling of ACOM aneurysm. Continue Nimodipine 60 g by mouth every 4 hours Post coiling target SBP 160-180, for vasospasm prevention. On Dale-Synephrine. Transcranial Doppler monitoring starting 10/09/2017-mild right vasospasm. No vasospasm TCD 10/13 and CTA 10/12 Monitor sodium. 3% NaCl @ 60 mL/hr to keep NA above 140 CT brain - large acute SAH. No midline shift. No hydrocephalus. repeat CT 10/08 : stable SAH, sp coiling CTA brain - 3 mm aneurysm with narrow neck at ACOM, Right A1 segment small, most likely congenital but ?spasm per radiology report. Neurosurgery Dr. Clinton. On Topamax chronically for migraines. Dilaudid, Percocet prn headache. Minimize hip/sciatic pain medication. RESP: Ongoing tobacco abuse Tobacco cessation discussed On RA CV: Target SBP 160-180 as the aneurysm is secured and for mild vasospasm. Dale- Synephrine to achieve target Increase Midodrine for orthostatic hypotension started 10 mg by mouth 3 times a day d/c 3% saline at 60 ml per hour Trend Na GI: Regular diet BUSINESS SUPPORT PROFESSIONAL: test at outside hospital was -ve10/07/17 FEN/RENAL: Monitor BMP. Creatinine normal. Monitor electrolytes ID: Mild leukocytosis, likely reactive. Repeat F/U UA HEME: Hemoglobin coags stable ENDO: Glucose at outside hospital was 120. Monitor bedside glucose. RHEUM: Systemic lupus erythematosus Not consistently on disease modifying therapy for several months PROPH: SCDs for DVT prophylaxis. Lovenox 40 mg sq daily from 10/10, cleared by neurosurgery Dr. Castillo. Protonix 40 mg by mouth daily for stress ulcer prophylaxis. ACCESS: [facility] central line placed 10/08/17 Dr. Loomis Note : She requested that I call her place of employment and said that she gave me permission to know that she was going to be admitted to the ICU she was not going to be at work today. I spoke with Loretta Rodas per patients request. I discussed with her need to designate healthcare surrogate. She states that she wishes for her mother, Keturah Bello, to be her alternate healthcare surrogate. She gave me permission to call her mother and updated her. I did call her mother but there was no answer at [phone] She designated her friend, Lalo, as primary healthcare surrogate. She has filled out healthcare surrogate form with contact information and given to RN. Overall impression: BP acceptable. Transfer to floor. Say Lynch MD Oct 15, 2017 11:55
--- NOTE | 2017-10-15 12:06 | RADRPT ---
EXAM DATE/TIME: 10/15/2017 07:36 [place] COMPARISON: US TRANSCRANIAL DOPPLER COMPLETE, October 14, 2017, 7:46. INDICATIONS : Subarachnoid hemorrhage. MEDICAL HISTORY : Lupus. Anxiety. Nausea/vomiting SURGICAL HISTORY : Appendectomy. Benign tumor removal as child. Orthopedic surgery right knee. ENCOUNTER: [facility] ACUITY: 4-6 days PAIN SCORE: 8/10 LOCATION: cranial Current Exam: Oct 15, 2017 [place] Ratio: Right: 2.71 Left: 2.86 [place] Ratio: Right: 1.86 Left: 3.28 Previous Exam: Oct 14, 2017 [place] Ratio: Right: 1.81 Left: 1.6 [place] Ratio: Right: 1.47 Left: 1.91 FINDINGS: Examination performed at bedside. Real-time ultrasound with the assistance of color and spectral Dop pler was utilized to evaluate the intracerebral circulation. Time-averaged maximal velocities are ca lculated in cm/s. CONCLUSION: No evidence of vasospasm. Jett Fuentes Jr., MD on October 15, 2017 at 11:51 Board Certified Radiologist. This report was verified electronically.
[2017-10-15] MEDS: ENOXAPARIN SODIUM 40 MG/0.4 ML SYRINGE SQ SCH (17:12)
[2017-10-16] VITALS (7 sets, daily range): BP systolic 100–142; BP diastolic 60–86; PULSE 61–78; RESP 18–20; TEMP 98.1–98.7; O2SAT 9–100
[2017-10-16] MEDS: HYDROmorphone HCL PF 2 MG/ML VIAL IV PUSH PRN ×6 (03:29→20:29)
[2017-10-16] MEDS: niMODipine 30 MG CAP PO SCH ×5 (03:29→20:26)
[2017-10-16] MEDS: MIDODRINE 5 MG TAB PO SCH ×3 (05:03→17:44)
[2017-10-16] MEDS: PANTOPRAZOLE SOD 40 MG DELAYED RELEASE TAB PO SCH (08:00)
[2017-10-16] MEDS: DOCUSATE SODIUM 100 MG CAP PO SCH ×2 (08:00→20:26)
[2017-10-16] MEDS: LACTULOSE SYRUP 20 GM/30 ML CUP PO SCH ×4 (08:00→20:27)
[2017-10-16] MEDS: SENNOSIDES SYRUP 8.8 MG/5 ML CUP PO SCH (08:01)
--- NOTE | 2017-10-16 09:47 | HHI.NSPN ---
History Chief Complaint: Sciatica Interval History 10/06: 42 y.o. female transfered from [facility] where she presented with severe BOWEN that she awoke with. Prior history of migraines. Poatitive nausea and emesis this evening. 10/07: The patient is awake but has her head covered when seen this morning due to the light hurting her eyes. She speaks softly due to her headache and she does have dizziness when moving her head. She has not had any further nausea since last night. She does report numbness to the fingers during the night but none at present. The patient went for an angiogram with subsequent coiling of an aneurysm with complete occlusion in the afternoon. 10/08: c/o mild headaches, photophobia, and nausea, moves x 4 reports symmetrically but patient reports mild heaviness right side. f/u CT Head completed this am. 10/09/2017: Persistent headache. No focal deficit. 10/09/2017: Persistent headache. No focal deficit. 10/10/17: Pt complains of frontal headache. No nausea or vomiting. No numbness or paresthesias. 10/11/17: Pt complains of frontal headaches and neck discomfort. No n/v. No numbness or paresthesias. No significant photophobia. 10/12: This morning the patient is awake and alert when seen. She states that no one is listening to her and taking her seriously. She says that she has had vaginal bleeding for a few days and that her menses ended a couple days before she came into the hospital. She is wondering if it might be related to the Cannon catheter being in place. She reports spasms to the posterolateral left neck which she relates to the central venous catheter placed in the left internal jugular vein. She states that she has pressure to the head and some light sensitivity. She denies any nausea for the past few days and states that she did have a bowel movement. She says she is getting up to the bedside commode without difficulty. Nursing this morning reports that the patient had a bowel movement and complained of blood which Nursing only saw on the tissue but not mixed with the stool. Nursing reports that the patient's sodium level was 135 yesterday and that she put out over four litres of urine the past 24 hours. It was also reported that the patient was changed from 2% saline to 3% saline in order to increase her sodium level and that if the fluids are decreased the patient's blood pressure drops in half. The Electroencephalographic Technologist is continuing to maintain the patient's systolic blood pressure between 160 and 180 mm Hg due to vasospasms noted on Thursday. Yesterday's transcranial Doppler study demonstrated slight improvement in the vasospasm. 10/13: The patient is awake and alert when seen this morning. She complains of a frontal headache. She states that when she gets up it is worse and she will have some lightheadedness. She reports having to get up every couple hours so as to void. The Cannon catheter was discontinued yesterday. She does endorse light sensitivity to bright lights. She has not had any nausea the past several hours but did earlier. The transcranial Doppler study yesterday did not demonstrated any significant vasospasm. CT brain yesterday demonstrated an evolving subarachnoid haemorrhage but no new findings and the CTA did not demonstrate any vasospasm. 10/16: The patient is drowsy when seen. She awakens to voice and readily interacts. Techs are doing a transcranial Doppler when seen. She denies any headache or dizziness at present. She states that her sciatica is what is bothering her the most at present. She does say that when she wakes up if she opens her eyes before she moves she has no problem but if she starts to move before opening her eyes she gets spasms to the lower extremities. She also says that when she gets up to ambulate once she takes a step she has to stop and get herself ready to take another step. She says she feels like she is getting better but is having trouble doing things. She does say it is like the lower extremities between the knees to the buttocks are not working. System Review Comments EYES: Light sensitivity to bright lights. MUSCULOSKELETAL: Legs give out. Muscle spasms if she moves before opening eyes. NEUROLOGICAL: Intermittent headache. Dizziness intermittently when she gets up. The remainder of the ROS is negative. Exam Results 10/14/17 10/14/17 10/15/17 10/15/17 10/16/17 10/16/17 06:00 18:00 06:00 18:00 06:00 18:00 Intake Total 2044 ml 800 ml 2680 ml 600 ml 2290 ml Output Total 1600 ml 1300 ml 950 ml Balance 444 ml -500 ml 1730 ml 600 ml 2290 ml Intake Oral 360 ml 800 ml 1050 ml 1690 ml IV Total 1684 ml 1630 ml 600 ml 600 ml Output Urine Total 1600 ml 1300 ml 950 ml # Voids 2 9 # Bowel Movements 0 0 1 2 Vital Signs Date Time Temp Pulse Resp B/P (MAP) Pulse Ox O2 Delivery O2 Flow Rate FiO2 10/16/17 04:00 98.3 62 18 133/77 (95) 100 10/16/17 00:00 98.7 78 20 126/73 (90) 100 10/15/17 20:00 60 10/15/17 20:00 98.1 60 18 110/67 (81) 100 10/15/17 16:00 98.2 65 12 119/56 (77) 100 10/15/17 12:00 98.0 77 20 123/61 (81) 100 10/15/17 08:00 67 10/15/17 08:00 98.2 64 12 112/64 (80) 98 10/15/17 06:00 70 10/15/17 04:00 98.1 62 18 120/70 (87) 100 10/15/17 04:00 72 10/15/17 04:00 62 120/70 10/15/17 03:00 63 134/80 10/15/17 02:00 64 10/15/17 02:00 69 114/68 10/15/17 01:00 65 111/63 10/15/17 00:00 98.4 70 16 119/73 (88) 100 10/15/17 00:00 68 10/15/17 00:00 58 134/83 10/14/17 23:00 61 122/74 10/14/17 22:00 67 10/14/17 22:00 68 126/67 10/14/17 21:00 61 155/90 10/14/17 20:00 98.2 65 15 178/72 (107) 100 10/14/17 20:00 58 10/14/17 20:00 65 138/72 10/14/17 18:00 62 10/14/17 16:00 67 10/14/17 16:00 98.5 67 14 151/78 (102) 100 10/14/17 14:00 63 10/14/17 12:00 79 10/14/17 12:00 98.2 74 12 181/107 (131) 100 10/14/17 10:00 68 10/14/17 08:00 98.3 79 22 183/100 (127) 100 10/14/17 08:00 84 10/14/17 06:00 68 10/14/17 04:56 15 10/14/17 04:00 80 10/14/17 04:00 98.7 80 15 153/100 (117) 99 10/14/17 02:00 70 10/14/17 00:00 62 10/14/17 00:00 98.3 62 15 153/100 (117) 99 10/13/17 22:00 65 10/13/17 21:47 70 151/96 10/13/17 20:00 72 10/13/17 20:00 98.7 72 21 180/103 (128) 99 10/13/17 18:00 67 10/13/17 17:02 74 190/113 10/13/17 16:00 98.4 72 12 184/105 (131) 99 10/13/17 16:00 66 10/13/17 14:00 65 10/13/17 12:00 67 10/13/17 12:00 97.8 66 15 180/105 (130) 98 10/13/17 11:56 69 193/107 10/13/17 10:50 68 133/89 10/13/17 10:00 66 Physical Examination General: Drowsy but awakens to voice, alert after that. Affect normal. No apparent distress. HEENT: Normocephalic, atraumatic. Face symmetrical. PERRLA 3 mm brisk, EOMI. MMM & pink, tongue midline to protrusion. RESPIRATORY: CTAB w/o W/R/R, equal excursion, nonlaboured, on RA. CARDIOVASCULAR: S1S2 w/RRR w/o MG/R, monitor is sinus rhythm w/o any ectopy. GASTROINTESTINAL: Abdomen soft, nontender, positive bowel sounds. MUSCULOSKELETAL: PAIGE w/o difficulty, no evident deformity or clubbing. NEUROLOGICAL: AAOx3. Speech clear & appropriate. Follows simple commands w/o difficulty. CN II-XII appear grossly intact. Sensation intact to light touch to all extremities. Motor strength is 5/5 to all flexion & extension muscle groups. Lab, Micro, Other Results Recent Impressions Transcranial Doppler Study Complete 10/15/17 0000 Signed Impressions: Service Date/Time: September 07:36 - CONCLUSION: No evidence of vasospasm. Jett Fuentes Jr., MD Transcranial Doppler Study Complete 10/14/17 0000 Signed Impressions: Service Date/Time: Saturday, October 14, 2017 07:46 - CONCLUSION: No evidence of vasospasm Johann Troy MD Laboratory Tests Test 10/13/17 16:10 10/13/17 16:35 10/15/17 10:35 10/15/17 21:20 Potassium Level 3.5 MEQ/L 3.0 MEQ/L 3.5 MEQ/L Urine Color YELLOW Urine Turbidity HAZY Urine pH 7.5 Urine Specific [place] 1.011 Urine Protein TRACE mg/dL Urine Glucose (UA) NEG mg/dL Urine Ketones NEG mg/dL Urine Occult Blood LARGE Urine Nitrite NEG Urine Bilirubin NEG Urine Urobilinogen LESS THAN 2.0 MG/DL Urine Leukocyte Esterase NEG Urine RBC 22 /hpf Urine WBC 7 /hpf Urine Squamous Epithelial Cells 8 /hpf Urine Amorphous Sediment RARE Urine Bacteria RARE /hpf Urine Mucus FEW /lpf Microscopic Urinalysis Comment CATH-CULTURE IND White Blood Count 7.7 TH/MM3 Red Blood Count 4.45 MIL/MM3 Hemoglobin 10.7 GM/DL Hematocrit 33.3 % Mean Corpuscular Volume 74.7 FL Mean Corpuscular Hemoglobin 24.0 PG Mean Corpuscular Hemoglobin Concent 32.1 % Red Cell Distribution Width 13.4 % Platelet Count 254 TH/MM3 Mean Platelet Volume 7.9 FL Blood Urea Nitrogen 7 MG/DL Creatinine 0.43 MG/DL Random Glucose 88 MG/DL Calcium Level 8.6 MG/DL Sodium Level 142 MEQ/L Chloride Level 107 MEQ/L Carbon Dioxide Level 24.1 MEQ/L Anion Gap 11 MEQ/L Estimat Glomerular Filtration Rate 195 ML/MIN Medical Decision Making Impression and Plan Impression: 1. SAH 2. Anterior communicating artery aneurysm 3. Right middle cerebral artery vasospasm The patient is doing better, remains neurologically intact. Complains of sciatica and lower extremity weakness. PT recommends inpatient rehab at present. Urine culuture positive for UTI with Enterococcus facecalis. Transcranial Doppler w/o vasospasm. CT brain w/evolving SAH. CTA brain w/o vasospasm. POD #9 () s/p: Angiogram with aneurysm coiling resulting in complete occlusion Post Procedure Diagnosis: (1) Cerebral aneurysm rupture Plan: Critical care management per Electroencephalographic Technologist. Frequent neuro checks. Continue Nimodipine. Normalise blood pressure. Keep HOB elevated. Continue 3% saline & monitor sodium level. Continue pain medication. Continue anti-emetics. Stress ulcer prophylaxis. Mechanical DVT prophylaxis. Pharmacological DVT prophylaxis. Electrolyte replacement guidelines. Ciprofloxin 250 mg BID x3d. Chacorta Ahmadi Oct 16, 2017 09:47
--- NOTE | 2017-10-16 10:53 | RADRPT ---
EXAM DATE/TIME: 10/16/2017 07:36 [place] COMPARISON: No previous studies available for comparison. INDICATIONS : Subarachnoid hemorrhage. MEDICAL HISTORY : Lupus. Anxiety. Nausea/vomiting. SURGICAL HISTORY : Appendectomy. Benign tumor removal as child. Orthopedic surgery right knee. ENCOUNTER: [facility] ACUITY: 1 week PAIN SCORE: 8/10 LOCATION: Bilateral cranial Current Exam: Oct 16, 2017 [place] Ratio: Right: 2.8 Left: 2.6 [place] Ratio: Right: 0.6 Left: 2.4 Previous Exam: Oct 15, 2017 [place] Ratio: Right: 2.71 Left: 2.86 [place] Ratio: Right: 1.86 Left: 1.9 FINDINGS: Examination performed at bedside. Real-time ultrasound with the assistance of color and spectral Dop pler was utilized to evaluate the intracerebral circulation. Time-averaged maximal velocities are ca lculated in cm/s. Stable intact cerebral circulatory parameters. CONCLUSION: No evidence of vasospasm Johann Troy MD on October 16, 2017 at 10:49 Board Certified Radiologist. This report was verified electronically.
--- NOTE | 2017-10-16 14:36 | HHI.CCPN ---
Subjective Remarks/Hospital Course 42 yo AAF with past medical history of SLE, migraine headaches, benign brain tumor s/p resection in 1990 who is transferred from [facility] due to acute subarachnoid hemorrhage. She states that she works shift supervisor film processing and she originally woke up with a headache the evening of 10/05. She says she took 2 Tylenol and Topamax and went to work. She states she was in a stressful situation at work and her headache got worse but she completed her shift and then ran some additional errands the morning of 10/06 and then went to sleep. She was awoken from sleep with severe 10/10 frontal headache associated with neck pain, nausea, vomiting, diaphoresis and photophobia. She required assistance from her son to get up out of bed and then was transported to [facility] via [facility]. No seizure activity. CT brain demonstrates diffuse SAH with no intraventricular extension or hydrocephalus. CTA demonstrates 3 mm Acom aneurysm with narrow neck per radiology report. She has received nimodipine. She is normotensive. 10/08: s/p ACOM aneurysm coiling. Headache is improved. Systolic blood pressure remains in 110. Discussed with Dr. Marquez. I will target SBP 140-180, start Dale-Synephrine to achieve goal 10/09: Still complains of retro-orbital pain. Remains on 100 mcg/m of Dale- Synephrine to keep systolic blood pressure between 140-180. Sodium 135 increase 2% saline to 40 ml per hour. TCDs from am 10/10: Patient is still complaining of headache. Remains on Dale-Synephrine. TCD yesterday showed mild right vasospasm. Will increase the blood pressure parameters to 160-180, titrate up Dale-Synephrine, sodium remains at 137 will DC to person stop 3% at 40 ML per hour and increase normal saline to 150 ML per hour. Discussed with Dr. Castillo no CTA at this time as there is no clinical change 10/11: Requiring dale to maintain sbp 160 -180 increased to 100 mcg/min. Na 135, 3% increased to 60 ml, will KVO NS. Head ache improved. TCD 10/10 improving vasospasm 10/12: Clinically stable, Requiring dale-synephrine to maintain SBP 160-180. TCD 10/11 no vasospasm. C/o about some spotting. 10/13: CTA negative for vasospasm on 10/12/17/ CT of the head stable subarachnoid hemorrhage. TCD today negative for vasospasm. RN reports significant orthostatic hypotension with getting out of bed. I will start Midrin, continue Dale-Synephrine to target systolic blood pressure 160-180, continue 3% saline. 10/14: No vasopspams and asymptomatic when BP low; will taper off neosynephrine. D/W Neurosurgery. 10/15: BP acceptable off of neosynephrine. Continue midodrine until stable. 10/16: No vasospasm and no additional iv BP support. Continue midodrine. Objective Vital Signs Date Time Temp Pulse Resp B/P (MAP) Pulse Ox O2 Delivery O2 Flow Rate FiO2 10/16/17 14:04 98.2 78 18 100/60 (73) 99 10/12/17 07:00 Room Air 21 Intake and Output 10/16/17 10/16/17 10/17/17 08:00 16:00 00:00 Intake Total 840 ml 330 ml Balance 840 ml 330 ml Result Diagram: 10/15/17 1035 10/15/17 2120 Other Results Microbiology Date/Time Source Procedure Growth Status 10/13/17 16:35 Urine Catheterized Urine Urine Culture - Final Enterococcus Faecalis Complete Objective Remarks Colin: anxious, jittery. SKIN: Warm and dry, well perfused. HEAD: Atraumatic. Normocephalic. EYES: Pupils equal and round, 2 mm and reactive bilaterally. No scleral icterus. No injection or drainage. ENT: No nasal bleeding or discharge. Mucous membranes pink and moist. NECK: Trachea midline. Airway widely patent. CARDIOVASCULAR: Regular rate and rhythm, sinus rhythm on the monitor. No murmurs rubs or gallops. RESPIRATORY: No accessory muscle use. Clear to auscultation. Breath sounds equal bilaterally. No wheezes. GASTROINTESTINAL: Abdomen soft, non-tender, nondistended. Bowel sounds present. MUSCULOSKELETAL: Extremities without clubbing, cyanosis, or edema. Well perfused. NEUROLOGICAL: Awake and alert. No obvious cranial nerve deficits. Extra ocular movements intact. Speech normal. Oriented 3. Strength normal. Painful sciatica persists. A/P Problem List: (1) Subarachnoid hemorrhage ICD Code: I60.9 - Nontraumatic subarachnoid hemorrhage, unspecified Status: Acute (2) Vasospasm of cerebral artery ICD Code: I67.848 - Other cerebrovascular vasospasm and vasoconstriction (3) Cerebral aneurysm rupture ICD Code: I60.9 - Nontraumatic subarachnoid hemorrhage, unspecified Status: Acute (4) SLE (systemic lupus erythematosus) ICD Code: M32.9 - Systemic lupus erythematosus, unspecified Status: Chronic (5) Migraines ICD Code: G43.909 - Migraine, unspecified, not intractable, without status migrainosus Status: Chronic (6) Hypokalemia ICD Code: E87.6 - Hypokalemia Status: Acute (7) Leukocytosis ICD Code: D72.829 - Elevated white blood cell count, unspecified Status: Acute (8) Anterior communicating artery aneurysm ICD Code: I67.1 - Cerebral aneurysm, nonruptured Status: Acute (9) Tobacco abuse ICD Code: Z72.0 - Tobacco use Status: Chronic Assessment and Plan NEURO: Acute aneurysmal subarachnoid hemorrhage with 3 mm Acom aneurysm. (Wright/Goodwin Grade 2 Webber Grade 3) Mild vasospasm History of migraine headaches Daily alcohol use (1 ounce of vodka daily) s/p coiling of ACOM aneurysm. Continue Nimodipine 60 g by mouth every 4 hours Post coiling target SBP 160-180, for vasospasm prevention. On Dale-Synephrine. Transcranial Doppler monitoring starting 10/09/2017-mild right vasospasm. No vasospasm TCD 10/13 and CTA 10/12 Monitor sodium. 3% NaCl @ 60 mL/hr to keep NA above 140 CT brain - large acute SAH. No midline shift. No hydrocephalus. repeat CT 10/08 : stable SAH, sp coiling CTA brain - 3 mm aneurysm with narrow neck at ACOM, Right A1 segment small, most likely congenital but ?spasm per radiology report. Neurosurgery Dr. Clinton. On Topamax chronically for migraines. Dilaudid, Percocet prn headache. Minimize hip/sciatic pain medication. RESP: Ongoing tobacco abuse Tobacco cessation discussed On RA CV: Target SBP 160-180 as the aneurysm is secured and for mild vasospasm. 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 Creatinine normal. Monitor electrolytes ID: Mild leukocytosis, likely reactive. Repeat F/U UA HEME: Hemoglobin coags stable ENDO: Glucose at outside hospital was 120. Monitor bedside glucose. RHEUM: Systemic lupus erythematosus Not consistently on disease modifying therapy for several months PROPH: SCDs for DVT prophylaxis. Lovenox 40 mg sq daily from 10/10, cleared by neurosurgery Dr. Castillo. Protonix 40 mg by mouth daily for stress ulcer prophylaxis. ACCESS: [facility] central line placed 10/08/17 Dr. Loomis Note : She requested that I call her place of employment and said that she gave me permission to know that she was going to be admitted to the ICU she was not going to be at work today. I spoke with Loretta Rodas per patients request. I discussed with her need to designate healthcare surrogate. She states that she wishes for her mother, Keturah Bello, to be her alternate healthcare surrogate. She gave me permission to call her mother and updated her. I did call her mother but there was no answer at [phone] She designated her friend, Lalo, as primary healthcare surrogate. She has filled out healthcare surrogate form with contact information and given to RN. Overall impression: BP acceptable. Transfer to floor. D/C central line. Say Lynch MD Oct 16, 2017 14:36
[2017-10-16] MEDS: ENOXAPARIN SODIUM 40 MG/0.4 ML SYRINGE SQ SCH (16:14)
[2017-10-16] MEDS: CIPROFLOXACIN 250 MG TAB PO SCH (20:26)
[2017-10-17] MEDS: MIDODRINE 5 MG TAB PO SCH ×4 (00:03→07:07)
[2017-10-17] MEDS: niMODipine 30 MG CAP PO SCH ×6 (00:03→20:54)
[2017-10-17] MEDS: HYDROmorphone HCL PF 2 MG/ML VIAL IV PUSH PRN ×3 (00:04→08:01)
[2017-10-17 01:17] VITALS: BP 146/82; PULSE 63; RESP 18; TEMP 98.6; O2SAT 100
[2017-10-17] MEDS: ONDANSETRON HCL 4 MG/2 ML VIAL IV PUSH PRN (03:26)
[2017-10-17 04:50] VITALS: BP 141/77; PULSE 63; RESP 18; TEMP 99.2; O2SAT 99
[2017-10-17] MEDS: LACTULOSE SYRUP 20 GM/30 ML CUP PO SCH ×4 (08:00→20:56)
[2017-10-17] MEDS: DOCUSATE SODIUM 100 MG CAP PO SCH ×2 (08:00→20:56)
[2017-10-17] MEDS: SENNOSIDES SYRUP 8.8 MG/5 ML CUP PO SCH (08:00)
[2017-10-17] MEDS: PANTOPRAZOLE SOD 40 MG DELAYED RELEASE TAB PO SCH (08:01)
[2017-10-17] MEDS: CIPROFLOXACIN 250 MG TAB PO SCH ×2 (08:01→20:54)
[2017-10-17 08:57] VITALS: BP 145/70; PULSE 67; RESP 20; TEMP 98.2; O2SAT 100
--- NOTE | 2017-10-17 09:57 | HHI.PR ---
Subjective Remarks Patient reports nausea and vomiting overnight which she attributed to Cipro. She took Cipro this morning but doing OK so far. She complains of muscle spasm of bilateral thigh muscles which makes it difficult to ambulate. She reports a mild headache this morning. No change in vision. No focal weakness. No lightheadedness. Objective Vitals Vital Signs Date Time Temp Pulse Resp B/P (MAP) Pulse Ox O2 Delivery O2 Flow Rate FiO2 10/17/17 08:57 98.2 67 20 145/70 (95) 100 10/17/17 04:50 99.2 63 18 141/77 (98) 99 10/17/17 01:17 98.6 63 18 146/82 (103) 100 10/16/17 20:59 98.1 64 18 138/86 (103) 100 10/16/17 16:45 98.1 78 20 127/73 (91) 98 10/16/17 16:00 98.3 61 18 142/78 (99) 99 10/16/17 14:04 98.2 78 18 100/60 (73) 99 I/O 10/16/17 10/16/17 10/16/17 10/17/17 10/17/17 10/17/17 07:00 15:00 23:00 07:00 15:00 23:00 Intake Total 840 ml 330 ml Balance 840 ml 330 ml Intake Oral 840 ml IV Total 330 ml # Voids 6 2 # Bowel Movements 1 Result Diagram: 10/15/17 1035 10/17/17 0724 Imaging Last Impressions Transcranial Doppler Study Complete 10/16/17 0000 Signed Impressions: Service Date/Time: Monday, October 16, 2017 07:36 - CONCLUSION: No evidence of vasospasm Johann Troy MD Head CTA 10/12/17 0000 Signed Impressions: Service Date/Time: Thursday, October 12, 2017 14:53 - CONCLUSION: Satisfactory appearance post ACOMM aneurysm coiling. Johann Troy MD Head CT 10/12/17 0000 Signed Impressions: Service Date/Time: Thursday, October 12, 2017 14:53 - CONCLUSION: 1. Further maturation of the subarachnoid hemorrhage. No new hemorrhage. 2. No appreciable mass effect. Jett Fuentes Jr., MD Chest X-Ray 10/08/17 0000 Signed Impressions: Service Date/Time: September 12:18 - CONCLUSION: Central line in good position. No evidence of pneumothorax. Jett Collier MD Neck CTA 10/07/17 0000 Signed Impressions: Service Date/Time: Saturday, October 07, 2017 04:41 - CONCLUSION: Extracranial carotid and vertebral arteries have a normal appearance. Johann Shin MD Objective Remarks GENERAL: This is a well-nourished, well-developed patient, in no apparent distress. CARDIOVASCULAR: Normal rate and regular rhythm without murmurs, gallops, or rubs. RESPIRATORY: Good respiratory efforts. Breath sounds equal and clear to auscultation bilaterally. GASTROINTESTINAL: Abdomen soft, non-tender, non-distended. Normal active bowel sounds MUSCULOSKELETAL: Extremities without cyanosis, or edema. Patient complains of tenderness to palpation over the posterior thigh muscles bilaterally. NEURO: Alert & Oriented x4 to person, place, time, situation. Moves all ext x4 PSYCH: Appropriate mood and affect. 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 (Wright/Goodwin Grade 2 Webber Grade 3) Mild vasospasm History of migraine headaches Daily alcohol use (1 ounce of vodka daily) s/p coiling of ACOM aneurysm. Continue Nimodipine 60 g by mouth every 4 hours Transcranial Doppler monitoring starting 10/09/2017-mild right vasospasm. No vasospasm TCD 10/13 and CTA 10/12 Monitor sodium. Patient received 3% saline in the ICU. Sodium dropped down to 134. Will give a liter of normal saline. Monitor sodium level in a.m. CT brain - large acute SAH. No midline shift. No hydrocephalus. repeat CT 10/08 : stable SAH, sp coiling CTA brain - 3 mm aneurysm with narrow neck at ACOM, Right A1 segment small, most likely congenital but ?spasm per radiology report. Neurosurgery Dr. Clinton. Discontinue Dilaudid. Add [place] as needed for pain BP elevated, discontinue Midodrine and continue to monitor. Physical therapy. Bilateral Lower extremity spasm: Could be related to above versus electrolyte abnormalities versus deconditioning. - Check electrolytes. Continue PT Ongoing tobacco abuse Tobacco cessation discussed On RA Systemic lupus erythematosus Not consistently on disease modifying therapy for several months PROPH: SCDs for DVT prophylaxis. Lovenox 40 mg sq daily from 10/10, cleared by neurosurgery Dr. Castillo. Protonix 40 mg by mouth daily for stress ulcer prophylaxis. Discharge Planning Will need clearance from neurosurgery prior to discharge. Possible discharge in 1-2 days if she continues to improve. Valarie Zavaleta MD Oct 17, 2017 09:57
[2017-10-17 10:52] LABS: MAGNESIUM 1.9 MG/DL (1.5-2.5)
[2017-10-17 10:53] LABS: BICARBONATE 30.8 MEQ/L (21.0-32.0)
[2017-10-17 10:55] LABS: POTASSIUM 2.9 MEQ/L (3.5-5.1)
[2017-10-17] MEDS ORDERED: NS + KCL 20 MEQ INJ 1,000 ML IV SCH (11:00)
[2017-10-17] MEDS ORDERED: POTASSIUM CHLORIDE 10 MEQ CONTROLLED RELEASE TAB PO ONE (11:15)
[2017-10-17] MEDS: ACETAMINOPHEN/HYDROcodone 325 MG/5 MG TAB PO PRN ×3 (11:22→20:55)
[2017-10-17 11:43] VITALS: BP 158/67; PULSE 81; RESP 20; TEMP 97.8; O2SAT 97
--- NOTE | 2017-10-17 12:24 | HHI.NSPN ---
(Tiffany Odom) Note Status Status: Progress Note (Tiffany Odom) Interval History Interval History 10/06: 42 y.o. female transfered from [facility] where she presented with severe BOWEN that she awoke with. Prior history of migraines. Poatitive nausea and emesis this evening. 10/07: The patient is awake but has her head covered when seen this morning due to the light hurting her eyes. She speaks softly due to her headache and she does have dizziness when moving her head. She has not had any further nausea since last night. She does report numbness to the fingers during the night but none at present. The patient went for an angiogram with subsequent coiling of an aneurysm with complete occlusion in the afternoon. 10/08: c/o mild headaches, photophobia, and nausea, moves x 4 reports symmetrically but patient reports mild heaviness right side. f/u CT Head completed this am. 10/09/2017: Persistent headache. No focal deficit. 10/09/2017: Persistent headache. No focal deficit. 10/10/17: Pt complains of frontal headache. No nausea or vomiting. No numbness or paresthesias. 10/11/17: Pt complains of frontal headaches and neck discomfort. No n/v. No numbness or paresthesias. No significant photophobia. 10/12: This morning the patient is awake and alert when seen. She states that no one is listening to her and taking her seriously. She says that she has had vaginal bleeding for a few days and that her menses ended a couple days before she came into the hospital. She is wondering if it might be related to the Cannon catheter being in place. She reports spasms to the posterolateral left neck which she relates to the central venous catheter placed in the left internal jugular vein. She states that she has pressure to the head and some light sensitivity. She denies any nausea for the past few days and states that she did have a bowel movement. She says she is getting up to the bedside commode without difficulty. Nursing this morning reports that the patient had a bowel movement and complained of blood which Nursing only saw on the tissue but not mixed with the stool. Nursing reports that the patient's sodium level was 135 yesterday and that she put out over four litres of urine the past 24 hours. It was also reported that the patient was changed from 2% saline to 3% saline in order to increase her sodium level and that if the fluids are decreased the patient's blood pressure drops in half. The Learning And Development Director is continuing to maintain the patient's systolic blood pressure between 160 and 180 mm Hg due to vasospasms noted on Thursday. Yesterday's transcranial Doppler study demonstrated slight improvement in the vasospasm. 10/13: The patient is awake and alert when seen this morning. She complains of a frontal headache. She states that when she gets up it is worse and she will have some lightheadedness. She reports having to get up every couple hours so as to void. The Cannon catheter was discontinued yesterday. She does endorse light sensitivity to bright lights. She has not had any nausea the past several hours but did earlier. The transcranial Doppler study yesterday did not demonstrated any significant vasospasm. CT brain yesterday demonstrated an evolving subarachnoid haemorrhage but no new findings and the CTA did not demonstrate any vasospasm. 10/16: The patient is drowsy when seen. She awakens to voice and readily interacts. Techs are doing a transcranial Doppler when seen. She denies any headache or dizziness at present. She states that her sciatica is what is bothering her the most at present. She does say that when she wakes up if she opens her eyes before she moves she has no problem but if she starts to move before opening her eyes she gets spasms to the lower extremities. She also says that when she gets up to ambulate once she takes a step she has to stop and get herself ready to take another step. She says she feels like she is getting better but is having trouble doing things. She does say it is like the lower extremities between the knees to the buttocks are not working. 10/17: reports headaches improving, persistent pain in her legs due to muscle spasms requesting muscle relaxants. (Tiffany Odom) Labs, Micro, & Vital Signs Results Date Time Temp Pulse Resp B/P (MAP) Pulse Ox O2 Delivery O2 Flow Rate FiO2 12/2/17 11:43 97.8 81 20 158/67 (97) 97 10/17/17 08:57 98.2 67 20 145/70 (95) 100 10/17/17 04:50 99.2 63 18 141/77 (98) 99 10/17/17 01:17 98.6 63 18 146/82 (103) 100 10/16/17 20:59 98.1 64 18 138/86 (103) 100 10/16/17 16:45 98.1 78 20 127/73 (91) 98 10/16/17 16:00 98.3 61 18 142/78 (99) 99 10/16/17 14:04 98.2 78 18 100/60 (73) 99 Constitutional Vital Signs Date Time Temp Pulse Resp B/P (MAP) Pulse Ox O2 Delivery O2 Flow Rate FiO2 10/17/17 11:43 97.8 81 20 158/67 (97) 97 10/17/17 08:57 98.2 67 20 145/70 (95) 100 10/17/17 04:50 99.2 63 18 141/77 (98) 99 10/17/17 01:17 98.6 63 18 146/82 (103) 100 10/16/17 20:59 98.1 64 18 138/86 (103) 100 10/16/17 16:45 98.1 78 20 127/73 (91) 98 10/16/17 16:00 98.3 61 18 142/78 (99) 99 10/16/17 14:04 98.2 78 18 100/60 (73) 99 (Tiffany Odom) Physical Exam Alert and oriented x 3. Speech is fluent. Follows commands well CN: pupils equal, facial motor symmetric Motor: 5/5 in both upper and lower extremities Sensory: intact to light touch x 4 (Tiffany Odom) She is alert, awake and oriented to time, place and person. Speech is fluent. Cranial nerve examination: pupils to be equal, round and reactive to light. Extra-ocular movements are intact. Facial motor and sensory function are normal and symmetrical. Gross hearing appears intact. Sternocleidomastoid and trapezius muscles are symmetrical. Other cranial nerves are intact. Neck is soft and supple with a good range of motion without pain. Muscle strength is normal in all muscle groups of both upper and lower extremities. Sensory examination is intact to light touch and pin prick in both the upper and lower extremities. Deep tendon reflexes are symmetrical in both upper and lower extremities. There is a bilateral plantar flexion response. Cerebellar examination is unremarkable, without deficits. (Edward Marquez MD) Medications Current Medications Current Medications Medications (Trade) Dose Ordered Sig/Abdias Route PRN Reason Start Time Stop Time Status Last Admin Dose Admin Docusate Sodium (Colace) 100 mg BID PO 10/07/17 09:00 10/16/17 20:26 Pantoprazole Sodium (Protonix) 40 mg DAILY PO 10/07/17 09:00 10/17/17 08:01 Ondansetron HCl (Zofran Inj) 4 mg Q6H PRN IV PUSH NAUSEA OR VOMITING 10/07/17 04:15 10/17/17 03:26 Naloxone HCl (Narcan Inj) 0.4 mg UNSCH PRN IV PUSH SEE LABEL COMMENTS 10/07/17 04:15 Nimodipine (Nimotop) 60 mg Q4HR PO 10/07/17 08:00 10/17/17 11:20 Nicardipine HCl 25 mg/Sodium Chloride 250 ml @ 50 mls/hr TITRATE PRN IV Blood pressure management 10/07/17 05:00 Acetaminophen (Tylenol) 650 mg Q4H PRN PO PAIN SCALE 1 TO 5 10/07/17 15:15 Terbutaline Sulfate (Brethine Inj) 1 mg UNSCH PRN SQ For Extravasation 10/08/17 11:15 Enoxaparin Sodium (Lovenox Inj) 40 mg Q24H SQ 10/10/17 16:00 10/16/17 16:14 Lactulose (Lactulose Liq) 30 ml QID PO 10/11/17 13:00 10/16/17 20:27 Sennosides (Senna Liq) 8.8 mg DAILY PO 10/11/17 10:30 10/12/17 08:04 Phenylephrine HCl 80 mg/Sodium Chloride 500 ml @ 15 mls/hr TITRATE PRN IV Blood pressure Management 10/12/17 05:15 10/13/17 21:47 Ciprofloxacin (Cipro) 250 mg Q12HR PO 10/16/17 21:00 10/19/17 21:00 10/17/17 08:01 Acetaminophen/ Hydrocodone Bitart (Leland 5-325 Mg) 1 tab Q4H PRN PO PAIN GREATER THAN 5 10/17/17 10:00 10/17/17 11:22 Potassium Chloride/Sodium Chloride 1,000 ml @ 84 mls/hr [id number] IV 10/17/17 11:00 10/17/17 22:54 10/17/17 11:21 (Tiffany Odom) Current Medications Current Medications Docusate Sodium (Colace) 100 mg BID PO Last administered on 10/16/17 20:26; Start 10/07/17 at 09:00 Pantoprazole Sodium (Protonix) 40 mg DAILY PO Last administered on 10/18/17 09 :12; Start 10/07/17 at 09:00 Ondansetron HCl (Zofran Inj) 4 mg Q6H PRN IV PUSH NAUSEA OR VOMITING Last administered on 10/17/17 03:26; Start 10/07/17 at 04:15 Hydromorphone HCl (Dilaudid Pf Inj) 0.5 mg Q3H PRN IV PUSH Pain 3-5; if unable to take PO Last administered on 10/07/17 05:01; Start 10/07/17 at 04:15; Stop 10/10/17 at 11:03; Status DC Hydromorphone HCl (Dilaudid Pf Inj) 1 mg Q3H PRN IV PUSH Pain 6-10;if unable to take PO Last administered on 10/07/17 15:06; Start 10/07/17 at 04:15; Stop 10/07/17 at 17:58; Status DC Naloxone HCl (Narcan Inj) 0.4 mg UNSCH PRN IV PUSH SEE LABEL COMMENTS; Start 10/07/17 at 04:15 Nimodipine (Nimotop) 60 mg Q4HR PO Last administered on 10/18/17 15:29; Start 10/07/17 at 08:00 Nicardipine HCl 25 mg/Sodium Chloride 250 ml @ 50 mls/hr TITRATE PRN IV Blood pressure management; Start 10/07/17 at 05:00 Iohexol (Omnipaque 350 Inj) 70 ml STK-MED ONCE IVCONTRAST Last administered on 10/07/17 04:59; Start 10/07/17 at 04:59; Stop 10/07/17 at 05:00; Status DC Potassium Chloride/Sodium Chloride 1,000 ml @ 20 mls/hr Q24H IV Last administered on 10/11/17 13:24; Start 10/07/17 at 06:45; Stop 10/12/17 at 16 :06; Status DC Sodium Chloride 188 meq/Sodium Chloride 1,047 ml @ 60 mls/hr [id number] IV Last administered on 10/10/17 09:49; Start 10/07/17 at 09:00; Stop 10/10/17 at 11 :03; Status DC Potassium Chloride 100 ml @ 50 mls/hr Q2H PRN IV For Potassium 2.8 - 3.2 mEq/ L Last administered on 10/15/17 13:55; Start 10/07/17 at 07:30; Stop at 07:12; Status DC Potassium Chloride 100 ml @ 50 mls/hr Q2H PRN IV For Potassium 2.8 - 3.2 mEq/L ; Start 10/07/17 at 07:30; Stop 10/17/17 at 07:12; Status DC Potassium Bicarb/ Potassium Chloride (K-Lyte Cl Eff) 50 meq UNSCH PRN PO For Potassium 3.3 - 3.5 mEq/L; Start 10/07/17 at 07:30; Stop 10/17/17 at 07:12; Status DC Potassium Chloride 100 ml @ 25 mls/hr UNSCH PRN IV For Potassium 3.3 - 3.5 mEq /L Last administered on 10/12/17 14:33; Start 10/07/17 at 07:30; Stop at 07:12; Status DC Potassium Chloride 100 ml @ 50 mls/hr Q2H PRN IV For Potassium 3.3 - 3.5 mEq/ L Last administered on 10/08/17 04:30; Start 10/07/17 at 07:30; Stop at 07:12; Status DC Magnesium Sulfate 4 gm/Sodium Chloride 100 ml @ 50 mls/hr UNSCH PRN IV For Magnesium 0.9 - 1.1 mg/dL; Start 10/07/17 at 07:30; Stop 10/17/17 at 07:12; Status DC Magnesium Oxide (Mag-Ox) 800 mg UNSCH PRN PO For Magnesium 1.2 - 1.6 mg/dL; Start 10/07/17 at 07:30; Stop 10/17/17 at 07:12; Status DC Magnesium Sulfate 2 gm/Sodium Chloride 100 ml @ 50 mls/hr UNSCH PRN IV For Magnesium 1.2 - 1.6 mg/dL; Start 10/07/17 at 07:30; Stop 10/17/17 at 07:12; Status DC Potassium Phosphate (K-Phos) 2,000 mg Q4H PRN PO For Phosphorus < 2.5 mg/dL; Start 10/07/17 at 07:30; Stop 10/17/17 at 07:12; Status DC Sodium Phosphate 30 mmol/Sodium Chloride 250 ml @ 42 mls/hr UNSCH PRN IV For Phosphorus < 2.5 mg/dL; Start 10/07/17 at 07:30; Stop 10/17/17 at 07:12; Status DC Potassium Phosphate (K-Phos) 2,000 mg UNSCH PRN PO/TUBE SEE LABEL COMMENTS; Start 10/07/17 at 07:30; Stop 10/17/17 at 07:12; Status DC Potassium Phosphate 30 mmol/ Sodium Chloride 260 ml @ 42 mls/hr UNSCH PRN IV SEE LABEL COMMENTS; Start 10/07/17 at 07:30; Stop 10/17/17 at 07:12; Status DC Verapamil HCl (Isoptin Inj) 10 mg STK-MED ONCE .ROUTE Last administered on t 02:30; Start 10/07/17 at 10:40; Stop 10/07/17 at 10:41; Status DC Verapamil HCl (Isoptin Inj) 10 mg STK-MED ONCE .ROUTE ; Start 10/07/17 at 11:54 ; Stop 10/07/17 at 11:55; Status DC Heparin Sodium (Porcine) (Heparin Inj) 10,000 units STK-MED ONCE .ROUTE ; Start 10/07/17 at 11:55; Stop 10/07/17 at 11:56; Status DC Sugammadex Sodium (Bridion Inj) 200 mg STK-MED ONCE IV PUSH ; Start 10/07/17 at 13:26; Stop 10/07/17 at 13:27; Status DC Iodixanol (VISIPAQUE 320 INJ (Rad Spec)) 94 ml STK-MED ONCE I-ARTERIAL Last administered on 10/07/17 13:20; Start 10/07/17 at 13:37; Stop 10/07/17 at 13 :38; Status DC Acetaminophen (Tylenol) 650 mg Q4H PRN PO PAIN SCALE 1 TO 5; Start 10/07/17 at 15:15 Hydromorphone HCl (Dilaudid Pf Inj) 1 mg Q2H PRN IV PAIN SCALE 6-10 Last administered on 10/10/17 04:37; Start 10/07/17 at 18:00; Stop 10/10/17 at 11 :03; Status DC Phenylephrine HCl 80 mg/Dextrose 500 ml @ 15 mls/hr TITRATE PRN IV Blood pressure Management Last administered on 10/09/17 22:43; Start 10/08/17 at 11 :15; Stop 10/10/17 at 11:00; Status DC Terbutaline Sulfate (Brethine Inj) 1 mg UNSCH PRN SQ For Extravasation; Start 10/08/17 at 11:15 Hydromorphone HCl (Dilaudid Pf Inj) 1 mg ONCE ONCE IV PUSH Last administered on 10/08/17 13:45; Start 10/08/17 at 13:45; Stop 10/08/17 at 13:46; Status DC Phenylephrine HCl 80 mg/Dextrose 500 ml @ 15 mls/hr TITRATE PRN IV Blood pressure Management; Start 10/10/17 at 13:00; Stop 10/10/17 at 20:50; Status DC Enoxaparin Sodium (Lovenox Inj) 40 mg Q24H SQ Last administered on 10/18/17 15 :29; Start 10/10/17 at 16:00 Morphine Sulfate (Morphine Inj) 4 mg Q3H PRN IV PUSH pain 6-10 Last administered on 10/10/17 13:42; Start 10/10/17 at 11:15; Stop 10/10/17 at 16 :41; Status DC Sodium Chloride 500 ml @ 30 mls/hr CONTINUOUS IV Last administered on 22:37; Start 10/10/17 at 11:15; Stop 10/16/17 at 10:21; Status DC Hydromorphone HCl (Dilaudid Pf Inj) 2 mg Q3H PRN IV PUSH pain 6-10 Last administered on 10/17/17 08:01; Start 10/10/17 at 16:45; Stop 10/17/17 at 10: 00; Status DC Phenylephrine HCl 80 mg/Sodium Chloride 500 ml @ 15 mls/hr TITRATE PRN IV Blood pressure Management Last administered on 10/12/17 04:50; Start at 21:00; Stop 10/12/17 at 05:04; Status DC Lactulose (Lactulose Liq) 30 ml QID PO Last administered on 10/16/17 20:27; Start 10/11/17 at 13:00 Bisacodyl (Dulcolax Supp) 10 mg ONCE ONCE RECTAL Last administered on 13:23; Start 10/11/17 at 10:30; Stop 10/11/17 at 10:31; Status DC Sennosides (Senna Liq) 8.8 mg DAILY PO Last administered on 10/12/17 08:04; Start 10/11/17 at 10:30 Phenylephrine HCl 80 mg/Sodium Chloride 500 ml @ 15 mls/hr TITRATE PRN IV Blood pressure Management Last administered on 10/13/17 21:47; Start at 05:15 Iohexol (Omnipaque 350 Inj) 70 ml STK-MED ONCE IVCONTRAST Last administered on 10/12/17 15:11; Start 10/12/17 at 15:11; Stop 10/12/17 at 15:12; Status DC Midodrine (Proamatine) 5 mg TID@07,12,17 PO Last administered on 10/14/17 11: 14; Start 10/13/17 at 12:00; Stop 10/14/17 at 13:21; Status DC Midodrine (Proamatine) 10 mg Q6H PO Last administered on 10/17/17 07:07; Start 10/14/17 at 18:00; Stop 10/17/17 at 09:56; Status DC Ciprofloxacin (Cipro) 250 mg Q12HR PO Last administered on 10/18/17 09:12; Start 10/16/17 at 21:00; Stop 10/19/17 at 21:00 Acetaminophen/ Hydrocodone Bitart (Leland 5-325 Mg) 1 tab Q4H PRN PO PAIN GREATER THAN 5 Last administered on 10/18/17 13:20; Start 10/17/17 at 10:00 Potassium Chloride/Sodium Chloride 1,000 ml @ 84 mls/hr [id number] IV Last administered on 10/17/17 11:21; Start 10/17/17 at 11:00; Stop 10/17/17 at 22:54 ; Status DC Potassium Chloride (KCl) 30 meq ONCE ONCE PO Last administered on 10/17/17 11 :21; Start 10/17/17 at 11:15; Stop 10/17/17 at 11:18; Status DC Cyclobenzaprine HCl (Flexeril) 5 mg Q8H PRN PO muscle spasms Last administered on 10/18/17 11:30; Start 10/17/17 at 12:30 Miscellaneous (Pill Splitter) 1 ea UNSCH PRN OTHER SEE LABEL COMMENTS; Start 10/17/17 at 12:30 Sodium Chloride 500 ml @ 50 mls/hr Q10H ONCE IV Last administered on 09:35; Start 10/18/17 at 09:15; Stop 10/18/17 at 19:14 Potassium Chloride 100 ml @ 50 mls/hr Q2H IV Last administered on 10/18/17 13 :20; Start 10/18/17 at 11:00; Stop 10/18/17 at 14:59; Status DC Potassium Chloride (KCl) 40 meq ONCE ONCE PO Last administered on 10/18/17 11 :30; Start 10/18/17 at 11:00; Stop 10/18/17 at 11:05; Status DC Zolpidem Tartrate (Ambien) 5 mg HS PRN PO INSOMNIA; Start 10/18/17 at 17:00 (Edward Marquez MD) Medical Decision Making MDM Remarks 42 y/o female with SAH, s/p coiling of ACOM aneurysm stable serial TCDs and CTA w/o vasospasms leg muscle spasms (Tiffany Odom) MDM Remarks Last 48 hours Impressions Transcranial Doppler Study Complete 10/17/17 0000 Signed Impressions: Service Date/Time: Tuesday, October 17, 2017 11:42 - CONCLUSION: 1. Findings consistent with mild right MCA vasospasm. 2. Basilar artery was not visualized and therefore not evaluated on today's exam. Korey Bustos MD (Edward Marquez MD) Plan Plan Remarks cont supportive care prn pain start on muscle relaxants for spasms cont neuro checks f/u TCDs cont nimodipine (Tiffany Odom) Attending Statement Continue neuro checks in a serial fashion. A follow-up TCD will be obtained Pulmonary.. Continue aggressive pulmonary toilette, nasotracheal suction, and breathing treatments with nebulizers. Nutrition. NPO Renal. monitor closely urine output, BUN and creatinine Endocrine. Monitor serial Acu checks and SSI as needed in detail ID monitor for signs of infection Protonix for stress ulcer prophylaxis The exam, history, and the medical decision-making described in the above note were completed with the assistance of the mid-level provider. I reviewed and agree with the findings presented. I attest that I had a [id number] encounter with the patient on the same day, and personally performed and documented my assessment and findings in the medical record. (Edward Marquez MD) Tiffany Odom Oct 17, 2017 12:24 Edward Marquez MD Oct 18, 2017 17:11
[2017-10-17] MEDS ORDERED: PILL SPLITTER OTHER PRN (12:30)
[2017-10-17] MEDS: CYCLOBENZAPRINE HCL 10 MG TAB PO PRN ×2 (14:49→20:55)
[2017-10-17] MEDS: ENOXAPARIN SODIUM 40 MG/0.4 ML SYRINGE SQ SCH (16:03)
--- NOTE | 2017-10-17 16:37 | RADRPT ---
EXAM DATE/TIME: 10/17/2017 11:42 [facility] COMPARISON: US TRANSCRANIAL DOPPLER COMPLETE, October 16, 2017, 7:36. INDICATIONS : Subarachnoid hemorrhage. MEDICAL HISTORY : Lupus. Anxiety. Nausea/vomiting. Ectopic . SURGICAL HISTORY : Appendectomy. 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 Orthopedic surgery, right knee. ENCOUNTER: [facility] ACUITY: 1 week PAIN SCORE: 7/10 LOCATION: Bilateral cranial Current Exam: Oct 17, 2017 [place] Ratio: Right: 3.8 Left: 2.6 [place] Ratio: Right: 1.3 Left: 1.2 Previous Exam: Oct 16, 2017 [place] Ratio: Right: 2.8 Left: 2.6 Johnson Ratio: Right: 0.6 Left: 2.4 FINDINGS: Examination performed at bedside. Real-time ultrasound with the assistance of color and spectral Dop pler was utilized to evaluate the intracerebral circulation. Time-averaged maximal velocities are ca lculated in cm/s. Basilar artery is not visualized. Interval increase in right [place] ratio consistent with mild vas ospasm. CONCLUSION: 1. Findings consistent with mild right MCA vasospasm. 2. Basilar artery was not visualized and therefore not evaluated on today's exam. Korey Bustos MD on October 17, 2017 at 16:30 Board Certified Radiologist. This report was verified electronically.
[2017-10-17 16:43] VITALS: BP 144/70; PULSE 77; RESP 20; TEMP 98.9; O2SAT 100
[2017-10-17 20:00] VITALS: BP 145/81; PULSE 85; RESP 18; TEMP 99.1; O2SAT 100
[2017-10-18] VITALS: BP 148/84; PULSE 87; RESP 20; TEMP 98
[2017-10-18] MEDS: ACETAMINOPHEN/HYDROcodone 325 MG/5 MG TAB PO PRN ×6 (00:16→21:02)
[2017-10-18] MEDS: niMODipine 30 MG CAP PO SCH ×6 (00:17→21:02)
[2017-10-18 04:00] VITALS: BP 123/64; PULSE 79; RESP 18; TEMP 97; O2SAT 97
[2017-10-18 08:00] VITALS: BP 119/73; PULSE 81; RESP 18; TEMP 98.7; O2SAT 99
[2017-10-18] MEDS: LACTULOSE SYRUP 20 GM/30 ML CUP PO SCH ×4 (09:00→21:02)
[2017-10-18] MEDS: SENNOSIDES SYRUP 8.8 MG/5 ML CUP PO SCH (09:00)
[2017-10-18] MEDS: DOCUSATE SODIUM 100 MG CAP PO SCH ×2 (09:00→21:02)
[2017-10-18] MEDS: PANTOPRAZOLE SOD 40 MG DELAYED RELEASE TAB PO SCH (09:12)
[2017-10-18] MEDS: CIPROFLOXACIN 250 MG TAB PO SCH ×2 (09:12→21:02)
[2017-10-18] MEDS ORDERED: SODIUM CHLORID 0.9% 500 ML INJ 500 ML IV ONE (09:15)
--- NOTE | 2017-10-18 10:30 | HHI.PR ---
Subjective Remarks Patient reports persistent bilateral lower extremity spasm/pain. Potassium is still low Objective Vitals Vital Signs Date Time Temp Pulse Resp B/P (MAP) Pulse Ox O2 Delivery O2 Flow Rate FiO2 10/18/17 08:00 98.7 81 18 119/73 (88) 99 10/18/17 04:00 97.0 79 18 123/64 (83) 97 10/18/17 00:00 98.0 87 20 148/84 (105) 10/17/17 20:00 99.1 85 18 145/81 (102) 100 10/17/17 16:43 98.9 77 20 144/70 (94) 100 10/17/17 11:43 97.8 81 20 158/67 (97) 97 I/O 10/17/17 10/17/17 10/17/17 10/18/17 10/18/17 10/18/17 07:00 15:00 23:00 07:00 15:00 23:00 Intake Total 600 ml 588 ml Output Total 8 ml Balance 600 ml 588 ml -8 ml Intake Oral 600 ml IV Total 588 ml Output Urine Total 8 ml # Voids 2 6 # Bowel Movements 0 Result Diagram: 10/15/17 1035 10/17/17 0724 Objective Remarks GENERAL: This is a well-nourished, well-developed patient, in no apparent distress. CARDIOVASCULAR: Normal rate and regular rhythm without murmurs, gallops, or rubs. RESPIRATORY: Good respiratory efforts. Breath sounds equal and clear to auscultation bilaterally. GASTROINTESTINAL: Abdomen soft, non-tender, non-distended. Normal active bowel sounds MUSCULOSKELETAL: Extremities without cyanosis, or edema. Patient denies tenderness to palpation over the posterior thigh muscles bilaterally. NEURO: Alert & Oriented x4 to person, place, time, situation. Moves all ext x4 PSYCH: Appropriate mood and affect. 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 (Wright/Goodwin Grade 2 Webber Grade 3) Mild vasospasm History of migraine headaches Daily alcohol use (1 ounce of vodka daily) s/p coiling of ACOM aneurysm. Continue Nimodipine 60 g by mouth every 4 hours Transcranial Doppler monitoring starting 10/09/2017-mild right vasospasm. No vasospasm TCD 10/13 and CTA 10/12 Monitor sodium. Patient received 3% saline in the ICU. Sodium dropped down to 134. Will give a liter of normal saline. Monitor sodium level in a.m. CT brain - large acute SAH. No midline shift. No hydrocephalus. repeat CT 10/08 : stable SAH, sp coiling CTA brain - 3 mm aneurysm with narrow neck at ACOM, Right A1 segment small, most likely congenital but ?spasm per radiology report. Neurosurgery Dr. Clinton. [place] as needed for pain Physical therapy. Serial transcranial Doppler per neurosurgery. Still has some evidence of vasospasm today. Bilateral Lower extremity spasm: Likely related to above versus electrolyte abnormalities versus deconditioning. -Replace K. Continue PT Ongoing tobacco abuse Tobacco cessation discussed On RA Systemic lupus erythematosus Not consistently on disease modifying therapy for several months PROPH: SCDs for DVT prophylaxis. Lovenox 40 mg sq daily from 10/10, cleared by neurosurgery Dr. Castillo. Protonix 40 mg by mouth daily for stress ulcer prophylaxis. Discharge Planning Per primary. Valarie Zavaleta MD Oct 18, 2017 10:30
--- NOTE | 2017-10-18 10:47 | HHI.NSPN ---
(Tiffany Odom) Note Status Status: Progress Note (Tiffany Odom) Interval History Interval History 10/06: 42 y.o. female transfered from [facility], [place] where she presented with severe BOWEN that she awoke with. Prior history of migraines. Poatitive nausea and emesis this evening. 10/07: The patient is awake but has her head covered when seen this morning due to the light hurting her eyes. She speaks softly due to her headache and she does have dizziness when moving her head. She has not had any further nausea since last night. She does report numbness to the fingers during the night but none at present. The patient went for an angiogram with subsequent coiling of an aneurysm with complete occlusion in the afternoon. 10/08: c/o mild headaches, photophobia, and nausea, moves x 4 reports symmetrically but patient reports mild heaviness right side. f/u CT Head completed this am. 10/09/2017: Persistent headache. No focal deficit. 10/09/2017: Persistent headache. No focal deficit. 10/10/17: Pt complains of frontal headache. No nausea or vomiting. No numbness or paresthesias. 10/11/17: Pt complains of frontal headaches and neck discomfort. No n/v. No numbness or paresthesias. No significant photophobia. 10/12: This morning the patient is awake and alert when seen. She states that no one is listening to her and taking her seriously. She says that she has had vaginal bleeding for a few days and that her menses ended a couple days before she came into the hospital. She is wondering if it might be related to the Cannon catheter being in place. She reports spasms to the posterolateral left neck which she relates to the central venous catheter placed in the left internal jugular vein. She states that she has pressure to the head and some light sensitivity. She denies any nausea for the past few days and states that she did have a bowel movement. She says she is getting up to the bedside commode without difficulty. Nursing this morning reports that the patient had a bowel movement and complained of blood which Nursing only saw on the tissue but not mixed with the stool. Nursing reports that the patient's sodium level was 135 yesterday and that she put out over four litres of urine the past 24 hours. It was also reported that the patient was changed from 2% saline to 3% saline in order to increase her sodium level and that if the fluids are decreased the patient's blood pressure drops in half. The Diesel Truck Technician is continuing to maintain the patient's systolic blood pressure between 160 and 180 mm Hg due to vasospasms noted on Thursday. Yesterday's transcranial Doppler study demonstrated slight improvement in the vasospasm. 10/13: The patient is awake and alert when seen this morning. She complains of a frontal headache. She states that when she gets up it is worse and she will have some lightheadedness. She reports having to get up every couple hours so as to void. The Cannon catheter was discontinued yesterday. She does endorse light sensitivity to bright lights. She has not had any nausea the past several hours but did earlier. The transcranial Doppler study yesterday did not demonstrated any significant vasospasm. CT brain yesterday demonstrated an evolving subarachnoid haemorrhage but no new findings and the CTA did not demonstrate any vasospasm. 10/16: The patient is drowsy when seen. She awakens to voice and readily interacts. Techs are doing a transcranial Doppler when seen. She denies any headache or dizziness at present. She states that her sciatica is what is bothering her the most at present. She does say that when she wakes up if she opens her eyes before she moves she has no problem but if she starts to move before opening her eyes she gets spasms to the lower extremities. She also says that when she gets up to ambulate once she takes a step she has to stop and get herself ready to take another step. She says she feels like she is getting better but is having trouble doing things. She does say it is like the lower extremities between the knees to the buttocks are not working. 10/17: reports headaches improving, persistent pain in her legs due to muscle spasms requesting muscle relaxants. 10/18: stable headaches and leg spasms. TCD yesterday reports mild right MCA vasospasm, denies left hemiparesis or paresthesias. (Tiffany Odom) Labs, Micro, & Vital Signs Results Date Time Temp Pulse Resp B/P (MAP) Pulse Ox O2 Delivery O2 Flow Rate FiO2 10/18/17 08:00 98.7 81 18 119/73 (88) 99 10/18/17 04:00 97.0 79 18 123/64 (83) 97 10/18/17 00:00 98.0 87 20 148/84 (105) 10/17/17 20:00 99.1 85 18 145/81 (102) 100 10/17/17 16:43 98.9 77 20 144/70 (94) 100 10/17/17 11:43 97.8 81 20 158/67 (97) 97 Constitutional Vital Signs Date Time Temp Pulse Resp B/P (MAP) Pulse Ox O2 Delivery O2 Flow Rate FiO2 10/18/17 08:00 98.7 81 18 119/73 (88) 99 10/18/17 04:00 97.0 79 18 123/64 (83) 97 10/18/17 00:00 98.0 87 20 148/84 (105) 10/17/17 20:00 99.1 85 18 145/81 (102) 100 10/17/17 16:43 98.9 77 20 144/70 (94) 100 10/17/17 11:43 97.8 81 20 158/67 (97) 97 (Tiffany Odom) Review of Systems Musculoskeletal: COMPLAINS OF: Muscle aches Neurologic: COMPLAINS OF: Headache, DENIES: Localized weakness, Paresthesias ( Tiffany Odom) Physical Exam Alert and oriented x 3. Speech is fluent. Follows commands well CN: pupils equal, facial motor symmetric. EOMs intact. Motor: 5/5 in both upper and lower extremities Sensory: intact to light touch x 4 Cerebellar: finger to nose intact (Tiffany Odom) Ms Curry is alert, awake and oriented to time, place and person. Speech is fluent. Cranial nerve examination: pupils to be equal, round and reactive to light. Extra-ocular movements are intact. Facial motor and sensory function are normal and symmetrical. Gross hearing appears intact. Sternocleidomastoid and trapezius muscles are symmetrical. Other cranial nerves are intact. Neck is soft and supple with a good range of motion without pain. Muscle strength is normal in all muscle groups of both upper and lower extremities. Sensory examination is intact to light touch and pin prick in both the upper and lower extremities. Deep tendon reflexes are symmetrical in both upper and lower extremities. There is a bilateral plantar flexion response. Cerebellar examination is unremarkable (Edward Marquez MD) Medications Current Medications Current Medications Medications (Trade) Dose Ordered Sig/Abdias Route PRN Reason Start Time Stop Time Status Last Admin Dose Admin Docusate Sodium (Colace) 100 mg BID PO 10/07/17 09:00 10/16/17 20:26 Pantoprazole Sodium (Protonix) 40 mg DAILY PO 10/07/17 09:00 10/18/17 09:12 Ondansetron HCl (Zofran Inj) 4 mg Q6H PRN IV PUSH NAUSEA OR VOMITING 10/07/17 04:15 10/17/17 03:26 Naloxone HCl (Narcan Inj) 0.4 mg UNSCH PRN IV PUSH SEE LABEL COMMENTS 10/07/17 04:15 Nimodipine (Nimotop) 60 mg Q4HR PO 10/07/17 08:00 10/18/17 09:13 Nicardipine HCl 25 mg/Sodium Chloride 250 ml @ 50 mls/hr TITRATE PRN IV Blood pressure management 10/07/17 05:00 Acetaminophen (Tylenol) 650 mg Q4H PRN PO PAIN SCALE 1 TO 5 10/07/17 15:15 Terbutaline Sulfate (Brethine Inj) 1 mg UNSCH PRN SQ For Extravasation 10/08/17 11:15 Enoxaparin Sodium (Lovenox Inj) 40 mg Q24H SQ 10/10/17 16:00 10/17/17 16:03 Lactulose (Lactulose Liq) 30 ml QID PO 10/11/17 13:00 10/16/17 20:27 Sennosides (Senna Liq) 8.8 mg DAILY PO 10/11/17 10:30 10/12/17 08:04 Phenylephrine HCl 80 mg/Sodium Chloride 500 ml @ 15 mls/hr TITRATE PRN IV Blood pressure Management 10/12/17 05:15 10/13/17 21:47 Ciprofloxacin (Cipro) 250 mg Q12HR PO 10/16/17 21:00 10/19/17 21:00 10/18/17 09:12 Acetaminophen/ Hydrocodone Bitart ([place] 5-325 Mg) 1 tab Q4H PRN PO PAIN GREATER THAN 5 10/17/17 10:00 10/18/17 09:12 Cyclobenzaprine HCl (Flexeril) 5 mg Q8H PRN PO muscle spasms 10/17/17 12:30 10/17/17 20:55 Miscellaneous (Pill Splitter) 1 ea UNSCH PRN OTHER SEE LABEL COMMENTS 10/17/17 12:30 Sodium Chloride 500 ml @ 50 mls/hr Q10H ONCE IV 10/18/17 09:15 10/18/17 19:14 10/18/17 09:35 (Tiffany Odom) Current Medications Current Medications Docusate Sodium (Colace) 100 mg BID PO Last administered on 10/16/17 20:26; Start 10/07/17 at 09:00 Pantoprazole Sodium (Protonix) 40 mg DAILY PO Last administered on 10/18/17 09 :12; Start 10/07/17 at 09:00 Ondansetron HCl (Zofran Inj) 4 mg Q6H PRN IV PUSH NAUSEA OR VOMITING Last administered on 10/17/17 03:26; Start 10/07/17 at 04:15 Hydromorphone HCl (Dilaudid Pf Inj) 0.5 mg Q3H PRN IV PUSH Pain 3-5; if unable to take PO Last administered on 10/07/17 05:01; Start 10/07/17 at 04:15; Stop 10/10/17 at 11:03; Status DC Hydromorphone HCl (Dilaudid Pf Inj) 1 mg Q3H PRN IV PUSH Pain 6-10;if unable to take PO Last administered on 10/07/17 15:06; Start 10/07/17 at 04:15; Stop 10/07/17 at 17:58; Status DC Naloxone HCl (Narcan Inj) 0.4 mg UNSCH PRN IV PUSH SEE LABEL COMMENTS; Start 10/07/17 at 04:15 Nimodipine (Nimotop) 60 mg Q4HR PO Last administered on 10/18/17 15:29; Start 10/07/17 at 08:00 Nicardipine HCl 25 mg/Sodium Chloride 250 ml @ 50 mls/hr TITRATE PRN IV Blood pressure management; Start 10/07/17 at 05:00 Iohexol (Omnipaque 350 Inj) 70 ml STK-MED ONCE IVCONTRAST Last administered on 10/07/17 04:59; Start 10/07/17 at 04:59; Stop 10/07/17 at 05:00; Status DC Potassium Chloride/Sodium Chloride 1,000 ml @ 20 mls/hr Q24H IV Last administered on 10/11/17 13:24; Start 10/07/17 at 06:45; Stop 10/12/17 at 16 :06; Status DC Sodium Chloride 188 meq/Sodium Chloride 1,047 ml @ 60 mls/hr [id number] IV Last administered on 10/10/17 09:49; Start 10/07/17 at 09:00; Stop 10/10/17 at 11 :03; Status DC Potassium Chloride 100 ml @ 50 mls/hr Q2H PRN IV For Potassium 2.8 - 3.2 mEq/ L Last administered on 10/15/17 13:55; Start 10/07/17 at 07:30; Stop at 07:12; Status DC Potassium Chloride 100 ml @ 50 mls/hr Q2H PRN IV For Potassium 2.8 - 3.2 mEq/L ; Start 10/07/17 at 07:30; Stop 10/17/17 at 07:12; Status DC Potassium Bicarb/ Potassium Chloride (K-Lyte Cl Eff) 50 meq UNSCH PRN PO For Potassium 3.3 - 3.5 mEq/L; Start 10/07/17 at 07:30; Stop 10/17/17 at 07:12; Status DC Potassium Chloride 100 ml @ 25 mls/hr UNSCH PRN IV For Potassium 3.3 - 3.5 mEq /L Last administered on 10/12/17 14:33; Start 10/07/17 at 07:30; Stop at 07:12; Status DC Potassium Chloride 100 ml @ 50 mls/hr Q2H PRN IV For Potassium 3.3 - 3.5 mEq/ L Last administered on 10/08/17 04:30; Start 10/07/17 at 07:30; Stop at 07:12; Status DC Magnesium Sulfate 4 gm/Sodium Chloride 100 ml @ 50 mls/hr UNSCH PRN IV For Magnesium 0.9 - 1.1 mg/dL; Start 10/07/17 at 07:30; Stop 10/17/17 at 07:12; Status DC Magnesium Oxide (Mag-Ox) 800 mg UNSCH PRN PO For Magnesium 1.2 - 1.6 mg/dL; Start 10/07/17 at 07:30; Stop 10/17/17 at 07:12; Status DC Magnesium Sulfate 2 gm/Sodium Chloride 100 ml @ 50 mls/hr UNSCH PRN IV For Magnesium 1.2 - 1.6 mg/dL; Start 10/07/17 at 07:30; Stop 10/17/17 at 07:12; Status DC Potassium Phosphate (K-Phos) 2,000 mg Q4H PRN PO For Phosphorus < 2.5 mg/dL; Start 10/07/17 at 07:30; Stop 10/17/17 at 07:12; Status DC Sodium Phosphate 30 mmol/Sodium Chloride 250 ml @ 42 mls/hr UNSCH PRN IV For Phosphorus < 2.5 mg/dL; Start 10/07/17 at 07:30; Stop 10/17/17 at 07:12; Status DC Potassium Phosphate (K-Phos) 2,000 mg UNSCH PRN PO/TUBE SEE LABEL COMMENTS; Start 10/07/17 at 07:30; Stop 10/17/17 at 07:12; Status DC Potassium Phosphate 30 mmol/ Sodium Chloride 260 ml @ 42 mls/hr UNSCH PRN IV SEE LABEL COMMENTS; Start 10/07/17 at 07:30; Stop 10/17/17 at 07:12; Status DC Verapamil HCl (Isoptin Inj) 10 mg STK-MED ONCE .ROUTE Last administered on t 02:30; Start 10/07/17 at 10:40; Stop 10/07/17 at 10:41; Status DC Verapamil HCl (Isoptin Inj) 10 mg STK-MED ONCE .ROUTE ; Start 10/07/17 at 11:54 ; Stop 10/07/17 at 11:55; Status DC Heparin Sodium (Porcine) (Heparin Inj) 10,000 units STK-MED ONCE .ROUTE ; Start 10/07/17 at 11:55; Stop 10/07/17 at 11:56; Status DC Sugammadex Sodium (Bridion Inj) 200 mg STK-MED ONCE IV PUSH ; Start 10/07/17 at 13:26; Stop 10/07/17 at 13:27; Status DC Iodixanol (VISIPAQUE 320 INJ (Rad Spec)) 94 ml STK-MED ONCE I-ARTERIAL Last administered on 10/07/17 13:20; Start 10/07/17 at 13:37; Stop 10/07/17 at 13 :38; Status DC Acetaminophen (Tylenol) 650 mg Q4H PRN PO PAIN SCALE 1 TO 5; Start 10/07/17 at 15:15 Hydromorphone HCl (Dilaudid Pf Inj) 1 mg Q2H PRN IV PAIN SCALE 6-10 Last administered on 10/10/17 04:37; Start 10/07/17 at 18:00; Stop 10/10/17 at 11 :03; Status DC Phenylephrine HCl 80 mg/Dextrose 500 ml @ 15 mls/hr TITRATE PRN IV Blood pressure Management Last administered on 10/09/17 22:43; Start 10/08/17 at 11 :15; Stop 10/10/17 at 11:00; Status DC Terbutaline Sulfate (Brethine Inj) 1 mg UNSCH PRN SQ For Extravasation; Start 10/08/17 at 11:15 Hydromorphone HCl (Dilaudid Pf Inj) 1 mg ONCE ONCE IV PUSH Last administered on 10/08/17 13:45; Start 10/08/17 at 13:45; Stop 10/08/17 at 13:46; Status DC Phenylephrine HCl 80 mg/Dextrose 500 ml @ 15 mls/hr TITRATE PRN IV Blood pressure Management; Start 10/10/17 at 13:00; Stop 10/10/17 at 20:50; Status DC Enoxaparin Sodium (Lovenox Inj) 40 mg Q24H SQ Last administered on 10/18/17 15 :29; Start 10/10/17 at 16:00 Morphine Sulfate (Morphine Inj) 4 mg Q3H PRN IV PUSH pain 6-10 Last administered on 10/10/17 13:42; Start 10/10/17 at 11:15; Stop 10/10/17 at 16 :41; Status DC Sodium Chloride 500 ml @ 30 mls/hr CONTINUOUS IV Last administered on 22:37; Start 10/10/17 at 11:15; Stop 10/16/17 at 10:21; Status DC Hydromorphone HCl (Dilaudid Pf Inj) 2 mg Q3H PRN IV PUSH pain 6-10 Last administered on 10/17/17 08:01; Start 10/10/17 at 16:45; Stop 10/17/17 at 10: 00; Status DC Phenylephrine HCl 80 mg/Sodium Chloride 500 ml @ 15 mls/hr TITRATE PRN IV Blood pressure Management Last administered on 10/12/17 04:50; Start at 21:00; Stop 10/12/17 at 05:04; Status DC Lactulose (Lactulose Liq) 30 ml QID PO Last administered on 10/16/17 20:27; Start 10/11/17 at 13:00 Bisacodyl (Dulcolax Supp) 10 mg ONCE ONCE RECTAL Last administered on 13:23; Start 10/11/17 at 10:30; Stop 10/11/17 at 10:31; Status DC Sennosides (Senna Liq) 8.8 mg DAILY PO Last administered on 10/12/17 08:04; Start 10/11/17 at 10:30 Phenylephrine HCl 80 mg/Sodium Chloride 500 ml @ 15 mls/hr TITRATE PRN IV Blood pressure Management Last administered on 10/13/17 21:47; Start at 05:15 Iohexol (Omnipaque 350 Inj) 70 ml STK-MED ONCE IVCONTRAST Last administered on 10/12/17 15:11; Start 10/12/17 at 15:11; Stop 10/12/17 at 15:12; Status DC Midodrine (Proamatine) 5 mg TID@07,12,17 PO Last administered on 10/14/17 11: 14; Start 10/13/17 at 12:00; Stop 10/14/17 at 13:21; Status DC Midodrine (Proamatine) 10 mg Q6H PO Last administered on 10/17/17 07:07; Start 10/14/17 at 18:00; Stop 10/17/17 at 09:56; Status DC Ciprofloxacin (Cipro) 250 mg Q12HR PO Last administered on 10/18/17 09:12; Start 10/16/17 at 21:00; Stop 10/19/17 at 21:00 Acetaminophen/ Hydrocodone Bitart ([place] 5-325 Mg) 1 tab Q4H PRN PO PAIN GREATER THAN 5 Last administered on 10/18/17 13:20; Start 10/17/17 at 10:00 Potassium Chloride/Sodium Chloride 1,000 ml @ 84 mls/hr [id number] IV Last administered on 10/17/17 11:21; Start 10/17/17 at 11:00; Stop 10/17/17 at 22:54 ; Status DC Potassium Chloride (KCl) 30 meq ONCE ONCE PO Last administered on 10/17/17 11 :21; Start 10/17/17 at 11:15; Stop 10/17/17 at 11:18; Status DC Cyclobenzaprine HCl (Flexeril) 5 mg Q8H PRN PO muscle spasms Last administered on 10/18/17 11:30; Start 10/17/17 at 12:30 Miscellaneous (Pill Splitter) 1 ea UNSCH PRN OTHER SEE LABEL COMMENTS; Start 10/17/17 at 12:30 Sodium Chloride 500 ml @ 50 mls/hr Q10H ONCE IV Last administered on 09:35; Start 10/18/17 at 09:15; Stop 10/18/17 at 19:14 Potassium Chloride 100 ml @ 50 mls/hr Q2H IV Last administered on 10/18/17 13 :20; Start 10/18/17 at 11:00; Stop 10/18/17 at 14:59; Status DC Potassium Chloride (KCl) 40 meq ONCE ONCE PO Last administered on 10/18/17 11 :30; Start 10/18/17 at 11:00; Stop 10/18/17 at 11:05; Status DC Zolpidem Tartrate (Ambien) 5 mg HS PRN PO INSOMNIA; Start 10/18/17 at 17:00 (Edward Marquez MD) Medical Decision Making MDM Remarks 42 y/o female with SAH, s/p coiling of ACOM aneurysm, TCD 10/17 with mild right MCA vasospasms, with nonfocal neurological exam leg muscle spasms (Tiffany Odom) MDM Remarks Last 48 hours Impressions Transcranial Doppler Study Complete 10/18/17 0000 Signed Impressions: Service Date/Time: Wednesday, October 18, 2017 08:31 - CONCLUSION: 1. Improved right MCA territory vasospasm. 2. Mild left MCA territory vasospasm. Korey Bustos MD Transcranial Doppler Study Complete 10/17/17 0000 Signed Impressions: Service Date/Time: Tuesday, October 17, 2017 11:42 - CONCLUSION: 1. Findings consistent with mild right MCA vasospasm. 2. Basilar artery was not visualized and therefore not evaluated on today's exam. Korey Bustos MD (Edward Marquez MD) Plan Plan Remarks bolus of NS, cont close neuro checks cont supportive care prn pain cont muscle relaxants for spasms f/u TCDs cont nimodipine dw nursing (Tiffany Odom) Attending Statement S/P SAH. Continue neuro checks in a serial fashion. A follow-up TCD will be obtained today Pulmonary.. Continue aggressive pulmonary toilette, nasotracheal suction, and breathing treatments with nebulizers. Nutrition. NPO Renal. monitor closely urine output, BUN and creatinine Endocrine. Monitor serial Acu checks and SSI as needed in detail ID monitor for signs of infection Protonix for stress ulcer prophylaxis The exam, history, and the medical decision-making described in the above note were completed with the assistance of the mid-level provider. I reviewed and agree with the findings presented. I attest that I had a [id number] encounter with the patient on the same day, and personally performed and documented my assessment and findings in the medical record. (Edward Marquez MD) Tiffany Odom Oct 18, 2017 10:47 Edward Marquez MD Oct 18, 2017 17:12
[2017-10-18 10:51] LABS: POTASSIUM 2.8 MEQ/L (3.5-5.1)
[2017-10-18] MEDS ORDERED: POTASSIUM CHLORIDE 20 MEQ CONTROLLED RELEASE TAB PO ONE (11:00)
[2017-10-18] MEDS: POTASSIUM CHLOR 20 MEQ PREMIX 100 ML IV SCH ×2 (11:30→13:20)
[2017-10-18] MEDS: CYCLOBENZAPRINE HCL 10 MG TAB PO PRN ×2 (11:30→21:02)
[2017-10-18 12:00] VITALS: BP 109/64; PULSE 90; RESP 18; TEMP 98.4; O2SAT 100
--- NOTE | 2017-10-18 15:05 | RADRPT ---
EXAM DATE/TIME: 10/18/2017 08:31 [facility] COMPARISON: US TRANSCRANIAL DOPPLER COMPLETE, October 17, 2017, 11:42. INDICATIONS : Subarachnoid hemorrhage. MEDICAL HISTORY : Lupus. Anxiety. Nathen SURGICAL HISTORY : Appendectomy. Benign tumor removal as child. Orthopedic surgery, right ovidioe e. ENCOUNTER: [facility] ACUITY: 1 week PAIN SCORE: 7/10 LOCATION: cranial Current Exam: Oct 18, 2017 [place] Ratio: Right: 2.9 Left: 2.98 Johnson Ratio: Right: 1.3 Left: 3.0 Previous Exam: Oct 17, 2017 [place] Ratio: Right: 3.8 Left: 2.6 Johnson Ratio: Right: 1.3 Left: 2.4 FINDINGS: Examination performed at bedside. Real-time ultrasound with the assistance of color an d spectral Doppler was utilized to evaluate the intracerebral circulation. Time-averaged maximal joao ocities are calculated in cm/s. Improved ratios on the right with slightly increased pressure on the left suggesting possible mild le ft MCA vasospasm. CONCLUSION: 1. Improved right MCA territory vasospasm. 2. Mild left MCA territory vasospasm. Korey Bustos MD on October 18, 2017 at 15:00 Board Certified Radiologist. This report was verified electronically.
[2017-10-18] MEDS: ENOXAPARIN SODIUM 40 MG/0.4 ML SYRINGE SQ SCH (15:29)
[2017-10-18 16:00] VITALS: BP 115/77; PULSE 86; RESP 18; TEMP 98.7; O2SAT 98
[2017-10-18 20:00] VITALS: BP 116/68; PULSE 87; RESP 18; TEMP 98.8; O2SAT 99
[2017-10-18] MEDS: ZOLPIDEM TARTRATE 5 MG TAB PO PRN (21:02)
[2017-10-19] VITALS: BP 117/80; PULSE 80; RESP 18; TEMP 97.3; O2SAT 97
[2017-10-19] MEDS: niMODipine 30 MG CAP PO SCH ×6 (00:48→20:30)
[2017-10-19] MEDS: ACETAMINOPHEN/HYDROcodone 325 MG/5 MG TAB PO PRN ×5 (02:00→20:31)
[2017-10-19 04:00] VITALS: BP_SYST 117; PULSE 86; RESP 18; TEMP 98.2; O2SAT 99
[2017-10-19] MEDS: CYCLOBENZAPRINE HCL 10 MG TAB PO PRN ×2 (04:44→15:58)
[2017-10-19 07:57] LABS: BICARBONATE 28.1 MEQ/L (21.0-32.0)
[2017-10-19] MEDS: PANTOPRAZOLE SOD 40 MG DELAYED RELEASE TAB PO SCH (08:28)
[2017-10-19] MEDS: CIPROFLOXACIN 250 MG TAB PO SCH ×2 (08:29→20:29)
[2017-10-19] MEDS: SENNOSIDES SYRUP 8.8 MG/5 ML CUP PO SCH ×2 (08:29→08:36)
[2017-10-19] MEDS: DOCUSATE SODIUM 100 MG CAP PO SCH ×2 (08:29→20:30)
[2017-10-19] MEDS: LACTULOSE SYRUP 20 GM/30 ML CUP PO SCH ×5 (08:29→20:30)
[2017-10-19 08:30] VITALS: BP 114/76; PULSE 97; RESP 18; TEMP 98.2; O2SAT 99
[2017-10-19] MEDS ORDERED: POTASSIUM CHLORIDE 20 MEQ CONTROLLED RELEASE TAB PO ONE (09:15)
--- NOTE | 2017-10-19 09:53 | RADRPT ---
EXAM DATE/TIME: 10/19/2017 07:23 [facility] COMPARISON: US TRANSCRANIAL DOPPLER COMPLETE, October 18, 2017, 8:31. INDICATIONS : Subarachnoid hemorrhage. MEDICAL HISTORY : Lupus. Anxiety. Nausea/vomiting. Ectopic . SURGICAL HISTORY : Appendectomy. Benign tumor removal as child. Orthopedic ENCOUNTER: Subsequent ACUITY: 2 weeks PAIN SCORE: 2/10 LOCATION: Bilateral cranial Current Exam: Oct 19, 2017 [place] Ratio: Right: 3.9 Left: 2.4 Johnson Ratio: Right: 1.5 Left: 2.6 Previous Exam: Oct 18, 2017 [place] Ratio: Right: 2.9 Left: 2.98 Johnson Ratio: Right: 1.3 Left: 3.0 FINDINGS: Examination performed at bedside. Real-time ultrasound with the assistance of color and spectral Dop pler was utilized to evaluate the intracerebral circulation. Time-averaged maximal velocities are ca lculated in cm/s. Doppler velocities in the proximal right MCA territory approximately 120 cm/s CONCLUSION: 1. Interval increase in velocities and the [place] ratio in the right MCA territory characteristic of mild vasospasm in this territory. 2. Otherwise stable. Dimitris Astudillo MD on October 19, 2017 at 9:48 Board Certified Radiologist. This report was verified electronically.
--- NOTE | 2017-10-19 10:02 | RADRPT ---
EXAM DATE/TIME: 10/07/2017 10:40 [facility] COMPARISON: CTA BRAIN W 3D RECON, October 07, 2017, 4:41. CT BRAIN W/O CONTRAST, October 12, 2017, 14:53. INDICATIONS : Patient presents with possible aneurysm in need of cerebral angiogram with possible coiling. MEDICAL HISTORY : Systemic lupus erythematosus. She is no longer followed by rheumatology due to insurance. She has b een on Plaquenil, prednisone, methotrexate but takes her medication sporadically. Migraine headaches Benign brain tumor resected in 1990 SURGICAL HISTORY : Ectopic 2010 Medial meniscus repair right knee 2013 Resection of benign brain tumor on the left in 1990 ENCOUNTER: Initial ACUITY: 2 days PAIN SCORE: 10/10 LOCATION: Headache FLUORO TIME: 40.7 minutes IMAGE SERIES: 13 ACCESS SITE: Right Femoral artery CONTRAST: 94 cc Visipaque (iodixanol) MEDICATION(S): 1.) 2 g cefazolin (Ancef) IV 2.) 8,000 units Heparin IV 3.) 10 mg Verapamil IV DEVICE(S): 1.) Left Anterior communicating artery 3mm x 6mm embolic coil(s) 2.) Left Anterior communicating artery 2mm x 2cm embolic coil(s) 3.) Left Anterior communicating artery 2mm x 1.5cm embolic coil(s) 4.) Right common femoral artery 6fr Angio-Seal PROCEDURE : 1. Ultrasound-guided puncture of the access site. 2. Angiography of the access site prior to closure device. 3. Conscious sedation with continuous EKG and Oximetry monitoring. 4. Percutaneous closure of the access site. 5. Angiography of the left common carotid artery 6. Angiography of the left internal carotid artery 7. angiography of the left intercommunicating artery 8. Intracranial aneurysm coiling The risks, benefits and alternatives to the procedure were explained and verbal and written consent w as obtained. The site was prepped in sterile fashion. Full sterile technique was used, including ca p, mask, sterile gloves and gown and a large sterile sheet. Hand hygiene and 2% chlorhexidine and/or betadine/alcohol prep was utilized per protocol for cutaneous antisepsis. Sterile gel and sterile p robe cover were utilized for ultrasound guidance. The skin and subcutaneous tissues were infiltrated with local anesthetic solution. With ultrasound and fluoroscopic guidance the selected artery was punctured and a vascular sheath was placed. Angiography of the common femoral artery was performed for evaluation prior to percutaneous closure device placement. A diagnostic catheter was advanced into the left common carotid artery where AP and lateral runs were obtained demonstrating the cerebral circulation time as well as the anterior communicating artery an eurysm. Following this a 6 Serbian guide catheter was placed into the horizontal petrous segment and r oadmapping was performed. Using the prescribed coils the aneurysm was packed to 44% density. Followup angiography demonstrates no evidence of vasospasm or embolism. Hemostasis was obtained with the prescribed medicated closure device. Conscious sedation was perform ed with the prescribed dosages and duration as above in the presence of an independent trained radiol ogy nurse to assist in the monitoring of the patient. EKG and oximetry remained stable throughout th e procedure. CONCLUSION: 1. 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 This report was verified electronically.
--- NOTE | 2017-10-19 10:17 | HHI.NSPN ---
History Chief Complaint: Leg pain and spasms Interval History 10/06: 42 y.o. female transfered from [facility] where she presented with severe BOWEN that she awoke with. Prior history of migraines. Poatitive nausea and emesis this evening. 10/07: The patient is awake but has her head covered when seen this morning due to the light hurting her eyes. She speaks softly due to her headache and she does have dizziness when moving her head. She has not had any further nausea since last night. She does report numbness to the fingers during the night but none at present. The patient went for an angiogram with subsequent coiling of an aneurysm with complete occlusion in the afternoon. 10/08: c/o mild headaches, photophobia, and nausea, moves x 4 reports symmetrically but patient reports mild heaviness right side. f/u CT Head completed this am. 10/09/2017: Persistent headache. No focal deficit. 10/09/2017: Persistent headache. No focal deficit. 10/10/17: Pt complains of frontal headache. No nausea or vomiting. No numbness or paresthesias. 10/11/17: Pt complains of frontal headaches and neck discomfort. No n/v. No numbness or paresthesias. No significant photophobia. 10/12: This morning the patient is awake and alert when seen. She states that no one is listening to her and taking her seriously. She says that she has had vaginal bleeding for a few days and that her menses ended a couple days before she came into the hospital. She is wondering if it might be related to the Cannon catheter being in place. She reports spasms to the posterolateral left neck which she relates to the central venous catheter placed in the left internal jugular vein. She states that she has pressure to the head and some light sensitivity. She denies any nausea for the past few days and states that she did have a bowel movement. She says she is getting up to the bedside commode without difficulty. Nursing this morning reports that the patient had a bowel movement and complained of blood which Nursing only saw on the tissue but not mixed with the stool. Nursing reports that the patient's sodium level was 135 yesterday and that she put out over four litres of urine the past 24 hours. It was also reported that the patient was changed from 2% saline to 3% saline in order to increase her sodium level and that if the fluids are decreased the patient's blood pressure drops in half. The [place] [employer] is continuing to maintain the patient's systolic blood pressure between 160 and 180 mm Hg due to vasospasms noted on Thursday. Yesterday's transcranial Doppler study demonstrated slight improvement in the vasospasm. 10/13: The patient is awake and alert when seen this morning. She complains of a frontal headache. She states that when she gets up it is worse and she will have some lightheadedness. She reports having to get up every couple hours so as to void. The Cannon catheter was discontinued yesterday. She does endorse light sensitivity to bright lights. She has not had any nausea the past several hours but did earlier. The transcranial Doppler study yesterday did not demonstrated any significant vasospasm. CT brain yesterday demonstrated an evolving subarachnoid haemorrhage but no new findings and the CTA did not demonstrate any vasospasm. 10/16: The patient is drowsy when seen. She awakens to voice and readily interacts. Techs are doing a transcranial Doppler when seen. She denies any headache or dizziness at present. She states that her sciatica is what is bothering her the most at present. She does say that when she wakes up if she opens her eyes before she moves she has no problem but if she starts to move before opening her eyes she gets spasms to the lower extremities. She also says that when she gets up to ambulate once she takes a step she has to stop and get herself ready to take another step. She says she feels like she is getting better but is having trouble doing things. She does say it is like the lower extremities between the knees to the buttocks are not working. 10/17: reports headaches improving, persistent pain in her legs due to muscle spasms requesting muscle relaxants. 10/18: stable headaches and leg spasms. TCD yesterday reports mild right MCA vasospasm, denies left hemiparesis or paresthesias. 10/19: The patient this morning awakens as this practitioner enters the room. She states that she isn't doing good because of pain and spasms to the lower extremities. She says the muscle relaxant "hasn't kicked in yet." She reports the pain whenever she stands. She had no other complaints. System Review Comments EYES: Improved light sensitivity. MUSCULOSKELETAL: Pain and muscle spasms to the legs. NEUROLOGICAL: Leg pain. The remainder of the ROS is negative. Exam Results 10/17/17 10/17/17 10/18/17 10/18/17 10/19/17 10/19/17 06:00 18:00 06:00 18:00 06:00 18:00 Intake Total 600 ml 588 ml 1120 ml 250 ml Output Total 8 ml Balance 600 ml 580 ml 1120 ml 250 ml Intake Oral 600 ml 720 ml IV Total 588 ml 400 ml 250 ml Output Urine Total 8 ml # Voids 2 6 6 6 # Bowel Movements 0 Vital Signs Date Time Temp Pulse Resp B/P (MAP) Pulse Ox O2 Delivery O2 Flow Rate FiO2 10/19/17 08:30 98.2 97 18 114/76 (89) 99 10/19/17 04:00 98.2 86 18 117/ 99 10/19/17 00:00 97.3 80 18 117/80 (92) 97 10/18/17 20:00 98.8 87 18 116/68 (84) 99 10/18/17 16:00 98.7 86 18 115/77 (90) 98 10/18/17 12:00 98.4 90 18 109/64 (79) 100 10/18/17 08:00 98.7 81 18 119/73 (88) 99 10/18/17 04:00 97.0 79 18 123/64 (83) 97 10/18/17 00:00 98.0 87 20 148/84 (105) 10/17/17 20:00 99.1 85 18 145/81 (102) 100 10/17/17 16:43 98.9 77 20 144/70 (94) 100 10/17/17 11:43 97.8 81 20 158/67 (97) 97 10/17/17 08:57 98.2 67 20 145/70 (95) 100 10/17/17 04:50 99.2 63 18 141/77 (98) 99 10/17/17 01:17 98.6 63 18 146/82 (103) 100 10/16/17 20:59 98.1 64 18 138/86 (103) 100 10/16/17 16:45 98.1 78 20 127/73 (91) 98 10/16/17 16:00 98.3 61 18 142/78 (99) 99 10/16/17 14:04 98.2 78 18 100/60 (73) 99 Physical Examination General: Asleep but awakens as this practitioner enters the room, alert after that. Affect flat. No apparent distress. HEENT: Normocephalic, atraumatic. Face symmetrical. PERRLA 3 mm brisk, EOMI. MMM & pink, tongue midline to protrusion. MUSCULOSKELETAL: PAIGE w/o difficulty, no evident deformity or clubbing. No evident TTP of extremities. Minimal TTP to the lumbosacral spine. NEUROLOGICAL: AAOx3. Speech clear & appropriate. Follows simple commands w/o difficulty. CN II-XII appear grossly intact. Sensation intact to light touch to all extremities. Motor strength is 5/5 to all flexion & extension muscle groups. No ankle clonus bilaterally. Appears to be upward plantar flexion response bilaterally. No Lujan's bilaterally. Lab, Micro, Other Results Recent Impressions Transcranial Doppler Study Complete 10/18/17 0000 Signed Impressions: Service Date/Time: Wednesday, October 18, 2017 08:31 - CONCLUSION: 1. Improved right MCA territory vasospasm. 2. Mild left MCA territory vasospasm. Korey Bustos MD Transcranial Doppler Study Complete 10/17/17 0000 Signed Impressions: Service Date/Time: Tuesday, October 17, 2017 11:42 - CONCLUSION: 1. Findings consistent with mild right MCA vasospasm. 2. Basilar artery was not visualized and therefore not evaluated on today's exam. Korey Bustos MD Laboratory Tests Test 10/17/17 07:24 10/18/17 10:03 10/19/17 06:29 Blood Urea Nitrogen 4 MG/DL 6 MG/DL 6 MG/DL Creatinine 0.53 MG/DL 0.51 MG/DL 0.55 MG/DL Random Glucose 105 MG/DL 97 MG/DL 94 MG/DL Calcium Level 9.3 MG/DL 9.4 MG/DL 9.3 MG/DL Magnesium Level 1.9 MG/DL Sodium Level 134 MEQ/L 133 MEQ/L 136 MEQ/L Potassium Level 2.9 MEQ/L 2.8 MEQ/L 3.0 MEQ/L Chloride Level 97 MEQ/L 97 MEQ/L 99 MEQ/L Carbon Dioxide Level 30.8 MEQ/L 28.0 MEQ/L 28.1 MEQ/L Anion Gap 6 MEQ/L 8 MEQ/L 9 MEQ/L Estimat Glomerular Filtration Rate 153 ML/MIN 160 ML/MIN 147 ML/MIN Medical Decision Making Impression and Plan Impression: 1. SAH 2. Anterior communicating artery aneurysm 3. Right middle cerebral artery vasospasm 4. Mild left middle cerebral artery vasospasm The patient is neurologically stable. She complains of pain and muscle spasms to both lower extremities. . PT recommends inpatient rehab at present. Urine culture positive for UTI with Enterococcus facecalis & treated w/Cipro. Transcranial Doppler w/improved right MCA territory vasospasm & mild left MCA territory vasospasm. TCD report for today is pending. Reviewed labs for today. Slightly improved hypokalemia from yesterday being treated. CT brain w/evolving SAH. CTA brain w/o vasospasm. POD #12 () s/p: Angiogram with aneurysm coiling resulting in complete occlusion Post Procedure Diagnosis: (1) Cerebral aneurysm rupture Plan: Medical management per Hospitalist. Frequent neuro checks. Continue Nimodipine. Normalise blood pressure. Keep HOB elevated. Monitor sodium level. Continue pain medication. Continue anti-emetics. Stress ulcer prophylaxis. Mechanical DVT prophylaxis. Pharmacological DVT prophylaxis. Electrolyte replacement guidelines. Chacorta Ahmadi Oct 19, 2017 10:17
--- NOTE | 2017-10-19 11:09 | HHI.PR ---
Subjective Remarks Patient is still having LE pain/spasm. States it is unchanged K is still low Objective Vitals Vital Signs Date Time Temp Pulse Resp B/P (MAP) Pulse Ox O2 Delivery O2 Flow Rate FiO2 10/19/17 08:30 98.2 97 18 114/76 (89) 99 10/19/17 04:00 98.2 86 18 117/ 99 10/19/17 00:00 97.3 80 18 117/80 (92) 97 10/18/17 20:00 98.8 87 18 116/68 (84) 99 10/18/17 16:00 98.7 86 18 115/77 (90) 98 10/18/17 12:00 98.4 90 18 109/64 (79) 100 I/O 10/18/17 10/18/17 10/18/17 10/19/17 10/19/17 10/19/17 07:00 15:00 23:00 07:00 15:00 23:00 Intake Total 300 ml 1070 ml Output Total 8 ml Balance -8 ml 300 ml 1070 ml Intake Oral 720 ml IV Total 300 ml 350 ml Output Urine Total 8 ml # Voids 6 6 Result Diagram: 10/15/17 1035 10/19/17 0629 Objective Remarks GENERAL: This is a well-nourished, well-developed patient, in no apparent distress. CARDIOVASCULAR: Normal rate and regular rhythm without murmurs, gallops, or rubs. RESPIRATORY: Good respiratory efforts. Breath sounds equal and clear to auscultation bilaterally. GASTROINTESTINAL: Abdomen soft, non-tender, non-distended. Normal active bowel sounds MUSCULOSKELETAL: Extremities without cyanosis, or edema. Patient denies tenderness to palpation over the posterior thigh muscles bilaterally. NEURO: Alert & Oriented x4 to person, place, time, situation. Moves all ext x4 PSYCH: Appropriate mood and affect. 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 (Wright/Goodwin Grade 2 Webber Grade 3) Mild vasospasm History of migraine headaches Daily alcohol use (1 ounce of vodka daily) s/p coiling of ACOM aneurysm. Continue Nimodipine 60 g by mouth every 4 hours Transcranial Doppler monitoring starting 10/09/2017-mild right vasospasm. No vasospasm TCD 10/13 and CTA 10/12 Monitor sodium. Patient received 3% saline in the ICU. Sodium dropped down to 134. Will give a liter of normal saline. Monitor sodium level in a.m. CT brain - large acute SAH. No midline shift. No hydrocephalus. repeat CT 10/08 : stable SAH, sp coiling CTA brain - 3 mm aneurysm with narrow neck at ACOM, Right A1 segment small, most likely congenital but ?spasm per radiology report. Neurosurgery Dr. Clinton. [place] as needed for pain Physical therapy. Serial transcranial Doppler per neurosurgery. Further plans per neurosurgery Bilateral Lower extremity spasm: Likely related to above. Also has some electrolyte abnormalities. Replace potassium. -Continue PT Ongoing tobacco abuse Tobacco cessation discussed On RA Systemic lupus erythematosus Not consistently on disease modifying therapy for several months Hypokalemia: - Replace K. Check mag PROPH: SCDs for DVT prophylaxis. Lovenox 40 mg sq daily from 10/10, cleared by neurosurgery Dr. Castillo. Protonix 40 mg by mouth daily for stress ulcer prophylaxis. Discharge Planning Per primary. Valarie Zavaleta MD Oct 19, 2017 11:09
[2017-10-19 12:03] VITALS: BP 107/71; PULSE 93; RESP 18; TEMP 97.7; O2SAT 98
[2017-10-19] MEDS: ENOXAPARIN SODIUM 40 MG/0.4 ML SYRINGE SQ SCH (16:48)
[2017-10-19 16:56] VITALS: BP 114/74; PULSE 90; RESP 18; TEMP 98.7; O2SAT 98
[2017-10-19 20:26] VITALS: BP 106/56; PULSE 94; RESP 18; TEMP 98.5; O2SAT 100
[2017-10-19] MEDS: POTASSIUM CHLORIDE 10 MEQ CONTROLLED RELEASE TAB PO SCH (20:30)
[2017-10-19] MEDS: ZOLPIDEM TARTRATE 5 MG TAB PO PRN (20:30)
[2017-10-20] VITALS (12 sets, daily range): BP systolic 97–115; BP diastolic 55–82; PULSE 68–96; RESP 18–20; TEMP 97.6–98.8; O2SAT 94–100
[2017-10-20] MEDS: niMODipine 30 MG CAP PO SCH ×6 (00:39→21:07)
[2017-10-20] MEDS: ACETAMINOPHEN/HYDROcodone 325 MG/5 MG TAB PO PRN ×4 (00:39→18:42)
[2017-10-20] MEDS: LACTULOSE SYRUP 20 GM/30 ML CUP PO SCH ×4 (09:00→21:00)
[2017-10-20] MEDS: DOCUSATE SODIUM 100 MG CAP PO SCH ×2 (09:00→21:05)
[2017-10-20] MEDS: SENNOSIDES SYRUP 8.8 MG/5 ML CUP PO SCH (09:00)
[2017-10-20] MEDS: POTASSIUM CHLORIDE 10 MEQ CONTROLLED RELEASE TAB PO SCH ×2 (09:13→21:06)
[2017-10-20] MEDS: PANTOPRAZOLE SOD 40 MG DELAYED RELEASE TAB PO SCH (09:14)
--- NOTE | 2017-10-20 10:09 | RADRPT ---
EXAM DATE/TIME: 10/20/2017 07:55 [facility] COMPARISON: US TRANSCRANIAL DOPPLER COMPLETE, October 19, 2017, 7:23. INDICATIONS : Subarachnoid hemorrhage. MEDICAL HISTORY : Lupus. Anxiety. Nausea/vomiting. Ectopic . SURGICAL HISTORY : Appendectomy. 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 Orthopedic surgery, right knee. ENCOUNTER: Subsequent ACUITY: 2 weeks PAIN SCORE: 4/10 LOCATION: Bilateral cranial Current Exam: Oct 20, 2017 [place] Ratio: Right: 6.0 Left: 2.0 [place] Ratio: Right: 1.6 Left: 2.4 Previous Exam: Oct 19, 2017 [place] Ratio: Right: 3.9 Left: 2.4 Johnson Ratio: Right: 1.5 Left: 2.6 FINDINGS: Examination performed at bedside. Real-time ultrasound with the assistance of color and spectral Dop pler was utilized to evaluate the intracerebral circulation. Time-averaged maximal velocities are ca lculated in cm/s. Findings consistent with increasing vasospasm right MCA. CONCLUSION: Increasing right MCA vasospasm. Js Fletcher MD FACR on October 20, 2017 at 10:04 Board Certified Radiologist. This report was verified electronically.
--- NOTE | 2017-10-20 10:30 | HHI.PR ---
Subjective Remarks Increasing vasospasm on TCD today. BP low. Objective Vitals Vital Signs Date Time Temp Pulse Resp B/P (MAP) Pulse Ox O2 Delivery O2 Flow Rate FiO2 10/20/17 08:01 97.9 84 18 104/67 (79) 100 10/20/17 05:22 97.8 85 18 99/73 (82) 100 10/20/17 00:33 98.1 89 18 102/65 (77) 99 10/19/17 20:26 98.5 94 18 106/56 (73) 100 10/19/17 16:56 98.7 90 18 114/74 (87) 98 10/19/17 12:03 97.7 93 18 107/71 (83) 98 I/O 10/19/17 10/19/17 10/19/17 10/20/17 10/20/17 10/20/17 07:00 15:00 23:00 07:00 15:00 23:00 Intake Total 480 ml Balance 480 ml Intake Oral 480 ml # Voids 6 2 1 Result Diagram: 10/20/17 0540 Objective Remarks GENERAL: This is a well-nourished, well-developed patient, in no apparent distress. CARDIOVASCULAR: Normal rate and regular rhythm without murmurs, gallops, or rubs. RESPIRATORY: Good respiratory efforts. Breath sounds equal and clear to auscultation bilaterally. GASTROINTESTINAL: Abdomen soft, non-tender, non-distended. Normal active bowel sounds MUSCULOSKELETAL: Extremities without cyanosis, or edema. Patient denies tenderness to palpation over the posterior thigh muscles bilaterally. NEURO: Alert & Oriented x4 to person, place, time, situation. Moves all ext x4 PSYCH: Appropriate mood and affect. A/P Assessment and Plan 42-year-old female admitted with subarachnoid hemorrhage and aneurysm: Acute aneurysmal subarachnoid hemorrhage with 3 mm Acom aneurysm. (Wright/Goodwin Grade 2 Webber Grade 3) Mild vasospasm History of migraine headaches Daily alcohol use (1 ounce of vodka daily) s/p coiling of ACOM aneurysm. Continue Nimodipine 60 g by mouth every 4 hours Monitor sodium. Patient received 3% saline in the ICU. Sodium dropped down to 134. Will give a liter of normal saline. Monitor sodium level in a.m. CT brain - large acute SAH. No midline shift. No hydrocephalus. repeat CT 10/08 : stable SAH, sp coiling CTA brain - 3 mm aneurysm with narrow neck at ACOM, Right A1 segment small, most likely congenital but ?spasm per radiology report. Neurosurgery Dr. Clinton. [place] as needed for pain Physical therapy. Serial transcranial Doppler per neurosurgery. 10/20/17: Persistent and increasing vasospasm. BP is low. Midodrine previously discontinued for elevated BP. Will restart Midodrine and give 500 ns bolus. Further plans per neurosurgery Bilateral Lower extremity spasm: Likely related to above. Also has some electrolyte abnormalities. Replace potassium. -Continue PT Ongoing tobacco abuse Tobacco cessation previously discussed On RA Systemic lupus erythematosus Not consistently on disease modifying therapy for several months Hypokalemia: - Replace K. Check mag PROPH: SCDs for DVT prophylaxis. Lovenox 40 mg sq daily from 10/10, cleared by neurosurgery Dr. Castillo. Protonix 40 mg by mouth daily for stress ulcer prophylaxis. Discharge Planning Per primary. Valarie Zavaleta MD Oct 20, 2017 10:30
[2017-10-20] MEDS ORDERED: SODIUM CHLORID 0.9% 500 ML INJ 500 ML IV ONE (11:00)
--- NOTE | 2017-10-20 11:59 | HHI.NSPN ---
(Chacorta Ahmadi) History Chief Complaint: Slight headache (Chacorta Ahmadi) Interval History 10/06: 42 y.o. female transfered from [facility] where she presented with severe BOWEN that she awoke with. Prior history of migraines. Poatitive nausea and emesis this evening. 10/07: The patient is awake but has her head covered when seen this morning due to the light hurting her eyes. She speaks softly due to her headache and she does have dizziness when moving her head. She has not had any further nausea since last night. She does report numbness to the fingers during the night but none at present. The patient went for an angiogram with subsequent coiling of an aneurysm with complete occlusion in the afternoon. 10/08: c/o mild headaches, photophobia, and nausea, moves x 4 reports symmetrically but patient reports mild heaviness right side. f/u CT Head completed this am. 10/09/2017: Persistent headache. No focal deficit. 10/09/2017: Persistent headache. No focal deficit. 10/10/17: Pt complains of frontal headache. No nausea or vomiting. No numbness or paresthesias. 10/11/17: Pt complains of frontal headaches and neck discomfort. No n/v. No numbness or paresthesias. No significant photophobia. 10/12: This morning the patient is awake and alert when seen. She states that no one is listening to her and taking her seriously. She says that she has had vaginal bleeding for a few days and that her menses ended a couple days before she came into the hospital. She is wondering if it might be related to the Cannon catheter being in place. She reports spasms to the posterolateral left neck which she relates to the central venous catheter placed in the left internal jugular vein. She states that she has pressure to the head and some light sensitivity. She denies any nausea for the past few days and states that she did have a bowel movement. She says she is getting up to the bedside commode without difficulty. Nursing this morning reports that the patient had a bowel movement and complained of blood which Nursing only saw on the tissue but not mixed with the stool. Nursing reports that the patient's sodium level was 135 yesterday and that she put out over four litres of urine the past 24 hours. It was also reported that the patient was changed from 2% saline to 3% saline in order to increase her sodium level and that if the fluids are decreased the patient's blood pressure drops in half. The Joint Finisher is continuing to maintain the patient's systolic blood pressure between 160 and 180 mm Hg due to vasospasms noted on Thursday. Yesterday's transcranial Doppler study demonstrated slight improvement in the vasospasm. 10/13: The patient is awake and alert when seen this morning. She complains of a frontal headache. She states that when she gets up it is worse and she will have some lightheadedness. She reports having to get up every couple hours so as to void. The Cannon catheter was discontinued yesterday. She does endorse light sensitivity to bright lights. She has not had any nausea the past several hours but did earlier. The transcranial Doppler study yesterday did not demonstrated any significant vasospasm. CT brain yesterday demonstrated an evolving subarachnoid haemorrhage but no new findings and the CTA did not demonstrate any vasospasm. 10/16: The patient is drowsy when seen. She awakens to voice and readily interacts. Techs are doing a transcranial Doppler when seen. She denies any headache or dizziness at present. She states that her sciatica is what is bothering her the most at present. She does say that when she wakes up if she opens her eyes before she moves she has no problem but if she starts to move before opening her eyes she gets spasms to the lower extremities. She also says that when she gets up to ambulate once she takes a step she has to stop and get herself ready to take another step. She says she feels like she is getting better but is having trouble doing things. She does say it is like the lower extremities between the knees to the buttocks are not working. 10/17: reports headaches improving, persistent pain in her legs due to muscle spasms requesting muscle relaxants. 10/18: stable headaches and leg spasms. TCD yesterday reports mild right MCA vasospasm, denies left hemiparesis or paresthesias. 10/19: The patient this morning awakens as this practitioner enters the room. She states that she isn't doing good because of pain and spasms to the lower extremities. She says the muscle relaxant "hasn't kicked in yet." She reports the pain whenever she stands. She had no other complaints. 10/20: The patient is awake and alert this morning when seen. She does have a slight headache. Her affect is better today. She denies any dizziness, nausea and leg pain or spasms. Her only other complaint is a dry nose and not being able to blow it. (Chacorta Ahmadi) System Review Comments HENT: Dry but stopped up nose. EYES: Light sensitivity continues to improve. NEUROLOGICAL: Slight headache. The remainder of the ROS is negative. (Chacorta Ahmadi) Exam Results 10/18/17 10/18/17 10/19/17 10/19/17 10/20/17 10/20/17 05:59 17:59 05:59 17:59 05:59 17:59 Intake Total 588 ml 400 ml 970 ml 480 ml Output Total 8 ml Balance 580 ml 400 ml 970 ml 480 ml Intake Oral 720 ml 480 ml IV Total 588 ml 400 ml 250 ml Output Urine Total 8 ml # Voids 12 2 1 Vital Signs Date Time Temp Pulse Resp B/P (MAP) Pulse Ox O2 Delivery O2 Flow Rate FiO2 10/20/17 08:01 97.9 84 18 104/67 (79) 100 10/20/17 05:22 97.8 85 18 99/73 (82) 100 10/20/17 00:33 98.1 89 18 102/65 (77) 99 10/19/17 20:26 98.5 94 18 106/56 (73) 100 10/19/17 16:56 98.7 90 18 114/74 (87) 98 10/19/17 12:03 97.7 93 18 107/71 (83) 98 10/19/17 08:30 98.2 97 18 114/76 (89) 99 10/19/17 04:00 98.2 86 18 117/ 99 10/19/17 00:00 97.3 80 18 117/80 (92) 97 10/18/17 20:00 98.8 87 18 116/68 (84) 99 10/18/17 16:00 98.7 86 18 115/77 (90) 98 10/18/17 12:00 98.4 90 18 109/64 (79) 100 10/18/17 08:00 98.7 81 18 119/73 (88) 99 10/18/17 04:00 97.0 79 18 123/64 (83) 97 10/18/17 00:00 98.0 87 20 148/84 (105) 10/17/17 20:00 99.1 85 18 145/81 (102) 100 10/17/17 16:43 98.9 77 20 144/70 (94) 100 (Chacorta Ahmadi) Physical Examination General: Awake & alert, affect improved, no apparent distress. HEENT: Normocephalic, atraumatic. Face symmetrical. PERRLA 3 mm brisk, EOMI. MMM & pink, tongue midline to protrusion. MUSCULOSKELETAL: PAIGE w/o difficulty, no evident deformity or clubbing. No evident TTP of extremities. NEUROLOGICAL: AAOx3. Speech clear & appropriate. Follows simple commands w/o difficulty. CN II-XII appear grossly intact. Sensation intact to light touch to all extremities. Motor strength is 5/5 to all flexion & extension muscle groups. (Chacorta Ahmadi) Physical Examination Ms Curry is alert, awake and oriented to time, place and person. Speech is fluent. Cranial nerve examination: pupils to be equal, round and reactive to light. Extra-ocular movements are intact. Facial motor and sensory function are normal and symmetrical. Gross hearing appears intact. Sternocleidomastoid and trapezius muscles are symmetrical. Other cranial nerves are intact. Neck is soft and supple with a good range of motion without pain. Muscle strength is normal in all muscle groups of both upper and lower extremities. Sensory examination is intact to light touch and pin prick in both the upper and lower extremities. Deep tendon reflexes are symmetrical in both upper and lower extremities. There is a bilateral plantar flexion response. Cerebellar examination is unremarkable (Edward Marquez MD) Lab, Micro, Other Results Recent Impressions Transcranial Doppler Study Complete 10/20/17 0000 Signed Impressions: Service Date/Time: Friday, October 20, 2017 07:55 - CONCLUSION: Increasing right MCA vasospasm. Js Fletcher MD FACR Transcranial Doppler Study Complete 10/19/17 0000 Signed Impressions: Service Date/Time: Thursday, October 19, 2017 07:23 - CONCLUSION: 1. Interval increase in velocities and the Lindegard ratio in the right MCA territory characteristic of mild vasospasm in this territory. 2. Otherwise stable. Dimitris Astudillo MD Transcranial Doppler Study Complete 10/18/17 0000 Signed Impressions: Service Date/Time: Wednesday, October 18, 2017 08:31 - CONCLUSION: 1. Improved right MCA territory vasospasm. 2. Mild left MCA territory vasospasm. Korey Bustos MD Laboratory Tests Test 10/18/17 10:03 10/19/17 06:29 10/20/17 05:40 Blood Urea Nitrogen 6 MG/DL 6 MG/DL Creatinine 0.51 MG/DL 0.55 MG/DL Random Glucose 97 MG/DL 94 MG/DL Calcium Level 9.4 MG/DL 9.3 MG/DL Sodium Level 133 MEQ/L 136 MEQ/L 137 MEQ/L Potassium Level 2.8 MEQ/L 3.0 MEQ/L Chloride Level 97 MEQ/L 99 MEQ/L Carbon Dioxide Level 28.0 MEQ/L 28.1 MEQ/L Anion Gap 8 MEQ/L 9 MEQ/L Estimat Glomerular Filtration Rate 160 ML/MIN 147 ML/MIN Magnesium Level 2.0 MG/DL (Chacorta Ahmadi) Lab, Micro, Other Results Last 48 hours Impressions Transcranial Doppler Study Complete 10/20/17 0000 Signed Impressions: Service Date/Time: Friday, October 20, 2017 07:55 - CONCLUSION: Increasing right MCA vasospasm. Js Fletcher MD FACR Cerebral Arteriogram 10/20/17 0000 Signed Impressions: Service Date/Time: Friday, October 20, 2017 13:51 - CONCLUSION: 1. No significant angiographic evidence for right MCA territory vasospasm. 2. Uncomplicated intra-arterial administration of 10 mg verapamil in the distal right internal carotid cervical segment. Korey Bustos MD Transcranial Doppler Study Complete 10/19/17 0000 Signed Impressions: Service Date/Time: Thursday, October 19, 2017 07:23 - CONCLUSION: 1. Interval increase in velocities and the Lindegard ratio in the right MCA territory characteristic of mild vasospasm in this territory. 2. Otherwise stable. Dimitris Astudillo MD (Edward Marquez MD) Medical Decision Making Impression and Plan Impression: 1. SAH 2. Anterior communicating artery aneurysm 3. Right middle cerebral artery vasospasm 4. Mild left middle cerebral artery vasospasm The patient is neurologically stable. She complains of pain and muscle spasms to both lower extremities. . PT recommends inpatient rehab at present. Reviewed labs for today. Sodium 137. Transcranial Doppler w/increasing right MCA territory vasospasm. POD #13 () s/p: Angiogram with aneurysm coiling resulting in complete occlusion Post Procedure Diagnosis: (1) Cerebral aneurysm rupture Plan: Medical management per Hospitalist. Frequent neuro checks. Continue Nimodipine. Normalise blood pressure. Keep HOB elevated. Monitor sodium level. Continue pain medication. Continue anti-emetics. Stress ulcer prophylaxis. Mechanical DVT prophylaxis. Pharmacological DVT prophylaxis. Electrolyte replacement guidelines. Saline nasal spray PRN. Will do cerebral angiogram today due to increasing right MCA vasospasm. (Chacorta Ahmadi) Impression and Plan Current Medications Docusate Sodium (Colace) 100 mg BID PO Last administered on 10/20/17 21:05; Start 10/07/17 at 09:00 Pantoprazole Sodium (Protonix) 40 mg DAILY PO Last administered on 10/20/17 09 :14; Start 10/07/17 at 09:00 Ondansetron HCl (Zofran Inj) 4 mg Q6H PRN IV PUSH NAUSEA OR VOMITING Last administered on 10/17/17 03:26; Start 10/07/17 at 04:15 Hydromorphone HCl (Dilaudid Pf Inj) 0.5 mg Q3H PRN IV PUSH Pain 3-5; if unable to take PO Last administered on 10/07/17 05:01; Start 10/07/17 at 04:15; Stop 10/10/17 at 11:03; Status DC Hydromorphone HCl (Dilaudid Pf Inj) 1 mg Q3H PRN IV PUSH Pain 6-10;if unable to take PO Last administered on 10/07/17 15:06; Start 10/07/17 at 04:15; Stop 10/07/17 at 17:58; Status DC Naloxone HCl (Narcan Inj) 0.4 mg UNSCH PRN IV PUSH SEE LABEL COMMENTS; Start 10/07/17 at 04:15 Nimodipine (Nimotop) 60 mg Q4HR PO Last administered on 10/20/17 21:07; Start 10/07/17 at 08:00 Nicardipine HCl 25 mg/Sodium Chloride 250 ml @ 50 mls/hr TITRATE PRN IV Blood pressure management; Start 10/07/17 at 05:00 Iohexol (Omnipaque 350 Inj) 70 ml STK-MED ONCE IVCONTRAST Last administered on 10/07/17 04:59; Start 10/07/17 at 04:59; Stop 10/07/17 at 05:00; Status DC Potassium Chloride/Sodium Chloride 1,000 ml @ 20 mls/hr Q24H IV Last administered on 10/11/17 13:24; Start 10/07/17 at 06:45; Stop 10/12/17 at 16 :06; Status DC Sodium Chloride 188 meq/Sodium Chloride 1,047 ml @ 60 mls/hr [id number] IV Last administered on 10/10/17 09:49; Start 10/07/17 at 09:00; Stop 10/10/17 at 11 :03; Status DC Potassium Chloride 100 ml @ 50 mls/hr Q2H PRN IV For Potassium 2.8 - 3.2 mEq/ L Last administered on 10/15/17 13:55; Start 10/07/17 at 07:30; Stop at 07:12; Status DC Potassium Chloride 100 ml @ 50 mls/hr Q2H PRN IV For Potassium 2.8 - 3.2 mEq/L ; Start 10/07/17 at 07:30; Stop 10/17/17 at 07:12; Status DC Potassium Bicarb/ Potassium Chloride (K-Lyte Cl Eff) 50 meq UNSCH PRN PO For Potassium 3.3 - 3.5 mEq/L; Start 10/07/17 at 07:30; Stop 10/17/17 at 07:12; Status DC Potassium Chloride 100 ml @ 25 mls/hr UNSCH PRN IV For Potassium 3.3 - 3.5 mEq /L Last administered on 10/12/17 14:33; Start 10/07/17 at 07:30; Stop at 07:12; Status DC Potassium Chloride 100 ml @ 50 mls/hr Q2H PRN IV For Potassium 3.3 - 3.5 mEq/ L Last administered on 10/08/17t 04:30; Start 10/07/17 at 07:30; Stop at 07:12; Status DC Magnesium Sulfate 4 gm/Sodium Chloride 100 ml @ 50 mls/hr UNSCH PRN IV For Magnesium 0.9 - 1.1 mg/dL; Start 10/07/17 at 07:30; Stop 10/17/17 at 07:12; Status DC Magnesium Oxide (Mag-Ox) 800 mg UNSCH PRN PO For Magnesium 1.2 - 1.6 mg/dL; Start 10/07/17 at 07:30; Stop 10/17/17 at 07:12; Status DC Magnesium Sulfate 2 gm/Sodium Chloride 100 ml @ 50 mls/hr UNSCH PRN IV For Magnesium 1.2 - 1.6 mg/dL; Start 10/07/17 at 07:30; Stop 10/17/17 at 07:12; Status DC Potassium Phosphate (K-Phos) 2,000 mg Q4H PRN PO For Phosphorus < 2.5 mg/dL; Start 10/07/17 at 07:30; Stop 10/17/17 at 07:12; Status DC Sodium Phosphate 30 mmol/Sodium Chloride 250 ml @ 42 mls/hr UNSCH PRN IV For Phosphorus < 2.5 mg/dL; Start 10/07/17 at 07:30; Stop 10/17/17 at 07:12; Status DC Potassium Phosphate (K-Phos) 2,000 mg UNSCH PRN PO/TUBE SEE LABEL COMMENTS; Start 10/07/17 at 07:30; Stop 10/17/17 at 07:12; Status DC Potassium Phosphate 30 mmol/ Sodium Chloride 260 ml @ 42 mls/hr UNSCH PRN IV SEE LABEL COMMENTS; Start 10/07/17 at 07:30; Stop 10/17/17 at 07:12; Status DC Verapamil HCl (Isoptin Inj) 10 mg STK-MED ONCE .ROUTE Last administered on 02:30; Start 10/07/17 at 10:40; Stop 10/07/17 at 10:41; Status DC Verapamil HCl (Isoptin Inj) 10 mg STK-MED ONCE .ROUTE ; Start 10/07/17 at 11:54 ; Stop 10/07/17 at 11:55; Status DC Heparin Sodium (Porcine) (Heparin Inj) 10,000 units STK-MED ONCE .ROUTE ; Start 10/07/17 at 11:55; Stop 10/07/17 at 11:56; Status DC Sugammadex Sodium (Bridion Inj) 200 mg STK-MED ONCE IV PUSH ; Start 10/07/17 at 13:26; Stop 10/07/17 at 13:27; Status DC Iodixanol (VISIPAQUE 320 INJ (Rad Spec)) 94 ml STK-MED ONCE I-ARTERIAL Last administered on 10/07/17 13:20; Start 10/07/17 at 13:37; Stop 10/07/17 at 13 :38; Status DC Acetaminophen (Tylenol) 650 mg Q4H PRN PO PAIN SCALE 1 TO 5; Start 10/07/17 at 15:15 Hydromorphone HCl (Dilaudid Pf Inj) 1 mg Q2H PRN IV PAIN SCALE 6-10 Last administered on 10/10/17 04:37; Start 10/07/17 at 18:00; Stop 10/10/17 at 11 :03; Status DC Phenylephrine HCl 80 mg/Dextrose 500 ml @ 15 mls/hr TITRATE PRN IV Blood pressure Management Last administered on 10/09/17 22:43; Start 10/08/17 at 11 :15; Stop 10/10/17 at 11:00; Status DC Terbutaline Sulfate (Brethine Inj) 1 mg UNSCH PRN SQ For Extravasation; Start 10/08/17 at 11:15 Hydromorphone HCl (Dilaudid Pf Inj) 1 mg ONCE ONCE IV PUSH Last administered on 10/08/17 13:45; Start 10/08/17 at 13:45; Stop 10/08/17 at 13:46; Status DC Phenylephrine HCl 80 mg/Dextrose 500 ml @ 15 mls/hr TITRATE PRN IV Blood pressure Management; Start 10/10/17 at 13:00; Stop 10/10/17 at 20:50; Status DC Enoxaparin Sodium (Lovenox Inj) 40 mg Q24H SQ Last administered on 10/19/17 16 :48; Start 10/10/17 at 16:00 Morphine Sulfate (Morphine Inj) 4 mg Q3H PRN IV PUSH pain 6-10 Last administered on 10/10/17 13:42; Start 10/10/17 at 11:15; Stop 10/10/17 at 16 :41; Status DC Sodium Chloride 500 ml @ 30 mls/hr CONTINUOUS IV Last administered on 22:37; Start 10/10/17 at 11:15; Stop 10/16/17 at 10:21; Status DC Hydromorphone HCl (Dilaudid Pf Inj) 2 mg Q3H PRN IV PUSH pain 6-10 Last administered on 10/17/17 08:01; Start 10/10/17 at 16:45; Stop 10/17/17 at 10: 00; Status DC Phenylephrine HCl 80 mg/Sodium Chloride 500 ml @ 15 mls/hr TITRATE PRN IV Blood pressure Management Last administered on 10/12/17 04:50; Start at 21:00; Stop 10/12/17 at 05:04; Status DC Lactulose (Lactulose Liq) 30 ml QID PO Last administered on 10/18/17 21:02; Start 10/11/17 at 13:00 Bisacodyl (Dulcolax Supp) 10 mg ONCE ONCE RECTAL Last administered on 13:23; Start 10/11/17 at 10:30; Stop 10/11/17 at 10:31; Status DC Sennosides (Senna Liq) 8.8 mg DAILY PO Last administered on 10/12/17 08:04; Start 10/11/17 at 10:30 Phenylephrine HCl 80 mg/Sodium Chloride 500 ml @ 15 mls/hr TITRATE PRN IV Blood pressure Management Last administered on 10/13/17 21:47; Start at 05:15 Iohexol (Omnipaque 350 Inj) 70 ml STK-MED ONCE IVCONTRAST Last administered on 10/12/17 15:11; Start 10/12/17 at 15:11; Stop 10/12/17 at 15:12; Status DC Midodrine (Proamatine) 5 mg TID@07,12,17 PO Last administered on 10/14/17 11: 14; Start 10/13/17 at 12:00; Stop 10/14/17 at 13:21; Status DC Midodrine (Proamatine) 10 mg Q6H PO Last administered on 10/17/17 07:07; Start 10/14/17 at 18:00; Stop 10/17/17 at 09:56; Status DC Ciprofloxacin (Cipro) 250 mg Q12HR PO Last administered on 10/19/17 20:29; Start 10/16/17 at 21:00; Stop 10/19/17 at 21:00; Status DC Acetaminophen/ Hydrocodone Bitart ([place] 5-325 Mg) 1 tab Q4H PRN PO PAIN GREATER THAN 5 Last administered on 10/20/17 18:42; Start 10/17/17 at 10:00 Potassium Chloride/Sodium Chloride 1,000 ml @ 84 mls/hr [id number] IV Last administered on 10/17/17 11:21; Start 10/17/17 at 11:00; Stop 10/17/17 at 22:54 ; Status DC Potassium Chloride (KCl) 30 meq ONCE ONCE PO Last administered on 10/17/17 11 :21; Start 10/17/17 at 11:15; Stop 10/17/17 at 11:18; Status DC Cyclobenzaprine HCl (Flexeril) 5 mg Q8H PRN PO muscle spasms Last administered on 10/20/17 21:14; Start 10/17/17 at 12:30 Miscellaneous (Pill Splitter) 1 ea UNSCH PRN OTHER SEE LABEL COMMENTS; Start 10/17/17 at 12:30 Sodium Chloride 500 ml @ 50 mls/hr Q10H ONCE IV Last administered on 09:35; Start 10/18/17 at 09:15; Stop 10/18/17 at 19:14; Status DC Potassium Chloride 100 ml @ 50 mls/hr Q2H IV Last administered on 10/18/17 13 :20; Start 10/18/17 at 11:00; Stop 10/18/17 at 14:59; Status DC Potassium Chloride (KCl) 40 meq ONCE ONCE PO Last administered on 10/18/17 11 :30; Start 10/18/17 at 11:00; Stop 10/18/17 at 11:05; Status DC Zolpidem Tartrate (Ambien) 5 mg HS PRN PO INSOMNIA Last administered on 21:14; Start 10/18/17 at 17:00 Potassium Chloride (KCl) 30 meq Q12HR PO Last administered on 10/20/17 21:06; Start 10/19/17 at 21:00 Potassium Chloride (KCl) 40 meq ONCE ONCE PO Last administered on 10/19/17 10 :16; Start 10/19/17 at 09:15; Stop 10/19/17 at 09:16; Status DC Midodrine (Proamatine) 10 mg TID@07,12,17 PO Last administered on 10/20/17 17: 18; Start 10/20/17 at 12:00 Sodium Chloride 500 ml @ 500 mls/hr BOLUS ONCE IV Last administered on 12:04; Start 10/20/17 at 11:00; Stop 10/20/17 at 11:59; Status DC Sodium Chloride ([place] Saline 0.65% Tk Drp/ [place]) 2 drop UNSCH PRN EACH NARE NASAL CONGESTION; Start 10/20/17 at 12:00 Fentanyl Citrate (fentaNYL INJ) 200 mcg STK-MED ONCE .ROUTE Last administered on 10/20/17 14:20; Start 10/20/17 at 13:46; Stop 10/20/17 at 13:47; Status DC Midazolam HCl (Versed Inj) 4 mg STK-MED ONCE .ROUTE Last administered on 14:40; Start 10/20/17 at 13:46; Stop 10/20/17 at 13:47; Status DC Verapamil HCl (Isoptin Inj) 10 mg STK-MED ONCE .ROUTE Last administered on 10/20 14:56; Start 10/20/17 at 13:47; Stop 10/20/17 at 13:48; Status DC Iodixanol (VISIPAQUE 320 INJ (Rad Spec)) 40 ml STK-MED ONCE I-ARTERIAL Last administered on 10/20/17 14:45; Start 10/20/17 at 15:10; Stop 10/20/17 at 15:11 ; Status DC (Edward Marquez MD) Attending Statement S/P SAH. Continue neuro checks, follow-up TCD looks worse. An emergency cerebral angiography will be obtained today Pulmonary.. Continue aggressive pulmonary toilette, nasotracheal suction, and breathing treatments with nebulizers. Nutrition. NPO Renal. monitor closely urine output, BUN and creatinine Endocrine. Monitor serial Acu checks and SSI as needed in detail ID monitor for signs of infection Protonix for stress ulcer prophylaxis The exam, history, and the medical decision-making described in the above note were completed with the assistance of the mid-level provider. I reviewed and agree with the findings presented. I attest that I had a [id number] encounter with the patient on the same day, and personally performed and documented my assessment and findings in the medical record (Edward Marquez MD) Chacorta Ahmadi Oct 20, 2017 11:59 Edward Marquez MD Oct 20, 2017 21:23
[2017-10-20] MEDS ORDERED: SODIUM CHLORIDE 0.65% NASAL DRP/SPRY 30 ML BTL EACH NARE PRN (12:00)
[2017-10-20] MEDS: MIDODRINE 5 MG TAB PO SCH ×2 (12:02→17:18)
[2017-10-20 12:49] LABS: BICARBONATE 28.9 MEQ/L (21.0-32.0); POTASSIUM 3.8 MEQ/L (3.5-5.1)
[2017-10-20] MEDS ORDERED: MIDAZOLAM HCL 2 MG/2 ML VIAL ONE (13:46)
[2017-10-20] MEDS ORDERED: VERAPAMIL HCL 5 MG/2 ML VIAL ONE (13:47)
--- NOTE | 2017-10-20 15:03 | PD.RAD ---
Post Procedure Progress Note Pre Procedure Diagnosis: (1) Vasospasm of cerebral artery Post Procedure Diagnosis: (1) Vasospasm of cerebral artery Procedure Date: Oct 20, 2017 Supervising Radiologist: Korey Bustos Proceduralist/Assist: Bhupinder De Anda, RT(R), Chet Helton RT(R) Anesthesia: Conscious Sedation Plan of Activity Patient to Unit: Nursing Unit Patient Condition: Good See PACS Report for procedural detail/treatment Korey Bustos MD Oct 20, 2017 15:03
[2017-10-20] MEDS ORDERED: IODIXANOL 320 MG/ML 50 ML VIAL (for RAD SPEC) I-ARTERIAL ONE (15:10)
[2017-10-20] MEDS: ENOXAPARIN SODIUM 40 MG/0.4 ML SYRINGE SQ SCH (16:00)
--- NOTE | 2017-10-20 16:30 | RADRPT ---
EXAM DATE/TIME: 10/20/2017 13:51 [facility] COMPARISON: CTA BRAIN W 3D RECON, October 07, 2017, 4:41. CTA BRAIN W 3D RECON, October 12, 2017, 14:53. ADITI ELLEN, CEREBRAL WO ARCH, October 07, 2017, 10:40. 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 Patient has increasing evidence for vasospasm on transcranial Doppler examination in the right M CA territory. MEDICAL HISTORY : SLE Migraine headaches SURGICAL HISTORY : Brain-orbital neoplasm resected 1990 Right knee meniscus repair Ectopic ENCOUNTER: Subsequent ACUITY: 2 weeks PAIN SCORE: 4/10 LOCATION: Headache FLUORO TIME: 1.3 minutes IMAGE SERIES: 4 ACCESS SITE: Right Femoral artery SEDATION TIME: 40 minutes CONTRAST: 40 cc Visipaque (iodixanol) MEDICATION(S): 1.) 4 mg midazolam (Versed) IV 2.) 200 mcg fentanyl (Sublimaze) IV DEVICE(S): 1.) Right middle cerebral artery TPA Spasmolytic therapy PROCEDURE : 1. Ultrasound-guided puncture of the access site. 2. Conscious sedation with continuous EKG and Oximetry monitoring. 3. Selective catheter placement in the right internal carotid artery with cerebral angiography 4. Intra-arterial administration of verapamil in the distal cervical right internal carotid artery The risks, benefits and alternatives to the procedure were explained and verbal and written consent w as obtained. The site was prepped in sterile fashion. Full sterile technique was used, including ca p, mask, sterile gloves and gown and a large sterile sheet. Hand hygiene and 2% chlorhexidine and/or betadine/alcohol prep was utilized per protocol for cutaneous antisepsis. Sterile gel and sterile p robe cover were utilized for ultrasound guidance. The skin and subcutaneous tissues were infiltrated with local anesthetic solution. With ultrasound and fluoroscopic guidance the selected artery was punctured and a vascular sheath was placed. A 4 [place] catheter was advanced into the distal cervical segment of the right internal hughes tid artery and its renal angiography was performed. This demonstrates patency of the right middle cer ebral arteries with hypoplastic right A1 segment similar to prior CTA exam. Given the significant pro gressive increased ratios noted on transcranial Doppler examination, decision was made to proceed wit h intra-arterial verapamil administration. 10 mg of verapamil was then slowly injected in the distal right cervical segment. Followup examination demonstrated a brisk flow in the MCA territory. Catheter s and wires were then removed. The puncture site was closed with manual pressure and hemostasis was obtained. The patient tolerated the procedure well and there were no complications. Conscious sedation was performed with the prescribed dosages and duration as above in the presence of an independent trained radiology nurse to assist in the monitoring of the patient. EKG and oximetry remained stable throughout the procedure. CONCLUSION: 1. No significant angiographic evidence for right MCA territory vasospasm. 2. Uncomplicated intra-arterial administration of 10 mg verapamil in the distal right internal caroti d cervical segment. Korey Bustos MD on October 20, 2017 at 16:16 Board Certified Radiologist. This report was verified electronically.
[2017-10-20] MEDS: CYCLOBENZAPRINE HCL 10 MG TAB PO PRN (21:14)
[2017-10-20] MEDS: ZOLPIDEM TARTRATE 5 MG TAB PO PRN (21:14)
[2017-10-21] VITALS: BP 100/59; PULSE 90; RESP 22; TEMP 99; O2SAT 99
[2017-10-21] MEDS: niMODipine 30 MG CAP PO SCH ×6 (00:39→21:01)
[2017-10-21] MEDS: ACETAMINOPHEN/HYDROcodone 325 MG/5 MG TAB PO PRN ×4 (00:40→15:50)
[2017-10-21 01:25] VITALS: BP 119/70; PULSE 86; RESP 18; TEMP 98.7; O2SAT 99
[2017-10-21] MEDS: HYDROmorphone HCL PF 1 MG/ML VIAL IV PUSH PRN ×2 (02:00→21:07)
--- NOTE | 2017-10-21 03:02 | RADRPT ---
EXAM DATE/TIME: 10/21/2017 02:28 [facility] COMPARISON: CT BRAIN W/O CONTRAST, October 12, 2017, 14:53. INDICATIONS : Severe right side headache. RADIATION DOSE: 32.66 CTDIvol (mGy) MEDICAL HISTORY : Lupus. Aneurysm, intracranial. SURGICAL HISTORY : Aneurysm coil. ENCOUNTER: Initial ACUITY: 1 day PAIN SCALE: 10/10 LOCATION: cranial TECHNIQUE: Multiple contiguous axial images were obtained of the head. Using automated exposure control and adj ustment of the mA and/or kV according to patient size, radiation dose was kept as low as reasonably a chievable to obtain optimal diagnostic quality images. DICOM format image data is available electro nically for review and comparison. FINDINGS: CEREBRUM: The ventricles are normal for age. No evidence of midline shift, mass lesion, hemorrhage or acute in farction. An aneurysm clip is again noted suprasellar region. No extra-axial fluid collections are s een. POSTERIOR FOSSA: The cerebellum and brainstem are intact. The 4th ventricle is midline. The cerebellopontine angle i s unremarkable. EXTRACRANIAL: The visualized portion of the orbits is intact. SKULL: The calvaria is intact. No evidence of skull fracture. CONCLUSION: Negative noncontrast CT with no evidence hemorrhage or mass effect. Eduin Casillas MD on October 21, 2017 at 3:00 Board Certified Radiologist. This report was verified electronically.
[2017-10-21 04:00] VITALS: BP 112/74; PULSE 70; RESP 20; TEMP 99.1; O2SAT 95
[2017-10-21] MEDS: MIDODRINE 5 MG TAB PO SCH ×3 (06:36→15:49)
[2017-10-21 08:00] VITALS: BP 101/59; PULSE 67; RESP 16; TEMP 97.7; O2SAT 98
[2017-10-21] MEDS: SENNOSIDES SYRUP 8.8 MG/5 ML CUP PO SCH (08:42)
[2017-10-21] MEDS: LACTULOSE SYRUP 20 GM/30 ML CUP PO SCH ×4 (08:42→21:00)
[2017-10-21] MEDS: POTASSIUM CHLORIDE 10 MEQ CONTROLLED RELEASE TAB PO SCH (08:43)
[2017-10-21] MEDS: DOCUSATE SODIUM 100 MG CAP PO SCH ×2 (08:43→21:00)
[2017-10-21] MEDS: PANTOPRAZOLE SOD 40 MG DELAYED RELEASE TAB PO SCH (08:43)
--- NOTE | 2017-10-21 09:32 | RADRPT ---
EXAM DATE/TIME: 10/21/2017 07:53 [facility] COMPARISON: US TRANSCRANIAL DOPPLER COMPLETE, October 13, 2017, 8:19. US TRANSCRANIAL DOPPLER COMPLETE, Apryl2016, 7:55. INDICATIONS : Subarachnoid hemorrhage. MEDICAL HISTORY : Lupus. Anxiety. Nausea/vomiting. Ectopic . SURGICAL HISTORY : Appendectomy. 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 Orthopedic surgery, right knee. ENCOUNTER: [facility] ACUITY: 2 weeks PAIN SCORE: 6/10 LOCATION: Bilateral cranial Current Exam: Oct 21, 2017 [place] Ratio: Right: 6.6 Left: 2.1 [place] Ratio: Right: 1.9 Left: 2.3 Previous Exam: Oct 20, 2017 [place] Ratio: Right: 6.0 Left: 2.0 [place] Ratio: Right: 1.6 Left: 2.4 FINDINGS: Examination performed at bedside. Real-time ultrasound with the assistance of color and spectral Dop pler was utilized to evaluate the intracerebral circulation. Time-averaged maximal velocities are ca lculated in cm/s. Peak MCA systolic velocities on the right measure up to 155 cm/s based on velocities of 162 cm/s.. Th ere is decreased ICA velocities on current exam in comparison to prior measuring 26 cm/s. Based on ve locity of 50 cm/s. This results in persistent elevated ratio of 6.6 CONCLUSION: 1. Continued elevated ratios suggesting some degree of vasospasm. Patient is status post cerebral ang iography yesterday without significant angiographic evidence for vasospasm and was treated with IA ve rapamil. Will continue close clinical observation and consider angiography if patient develops neurol ogical symptoms. Korey Bustos MD on October 21, 2017 at 8:50 Board Certified Radiologist. This report was verified electronically.
--- NOTE | 2017-10-21 11:06 | HHI.FF ---
Face to Face Verification Diagnosis: (1) Subarachnoid hemorrhage (2) Cerebral aneurysm rupture (3) Vasospasm of cerebral artery (4) Anterior communicating artery aneurysm (5) SLE (systemic lupus erythematosus) Physical Therapy Order: Evaluate and Treat, Improve ambulation, Strength and gait training Home Health Nursing Order: Signs/symptoms of disease process Nursing assessment with vital signs I have seen patient Rut Curry on 10/21/17. My clinical findings support the need for the requested home health care services because: Limited ability to care for self Need for psychosocial assistance Impaired cognition/judgement High risk of falls I certify that my clinical findings support that this patient is homebound because: Unsteady gait/balance Unsafe to leave home unassisted Unable to use public transportation Earnestine Moreira DO Oct 21, 2017 11:06
[2017-10-21 12:00] VITALS: BP 102/62; PULSE 80; RESP 17; TEMP 98.4; O2SAT 99
--- NOTE | 2017-10-21 13:01 | HHI.NSPN ---
History Chief Complaint: Slight headache Interval History Patient presented on 10/07/2017 after she awoke with extremely severe headache, nausea and emesis. 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 Now status post endovascular treatment for coil placement on 10/07/2017 10/09/2017: Persistent headache. No focal deficit. 10/10/17: Pt complains of frontal headache. No nausea or vomiting. No numbness or paresthesias. 10/11/17: Pt complains of frontal headaches and neck discomfort. No n/v. No numbness or paresthesias. No significant photophobia. 10/13: The patient is awake and alert when seen this morning. She complains of a frontal headache. She states that when she gets up it is worse and she will have some lightheadedness. She reports having to get up every couple hours so as to void. The Cannon catheter was discontinued yesterday. She does endorse light sensitivity to bright lights. She has not had any nausea the past several hours but did earlier. The transcranial Doppler study yesterday did not demonstrated any significant vasospasm. CT brain yesterday demonstrated an evolving subarachnoid haemorrhage but no new findings and the CTA did not demonstrate any vasospasm. 10/16: The patient is drowsy when seen. She awakens to voice and readily interacts. Techs are doing a transcranial Doppler when seen. She denies any headache or dizziness at present. She states that her sciatica is what is bothering her the most at present. She does say that when she wakes up if she opens her eyes before she moves she has no problem but if she starts to move before opening her eyes she gets spasms to the lower extremities. She also says that when she gets up to ambulate once she takes a step she has to stop and get herself ready to take another step. She says she feels like she is getting better but is having trouble doing things. She does say it is like the lower extremities between the knees to the buttocks are not working. 10/17: reports headaches improving, persistent pain in her legs due to muscle spasms requesting muscle relaxants. 10/18: stable headaches and leg spasms. TCD yesterday reports mild right MCA vasospasm, denies left hemiparesis or paresthesias. 10/19: The patient this morning awakens as this practitioner enters the room. She states that she isn't doing good because of pain and spasms to the lower extremities. She says the muscle relaxant "hasn't kicked in yet." She reports the pain whenever she stands. She had no other complaints. 10/20: The patient is awake and alert this morning when seen. She does have a slight headache. Her affect is better today. She denies any dizziness, nausea and leg pain or spasms. Her only other complaint is a dry nose and not being able to blow it. 10/21: Pt awake and alert. Denies headache. No n/v. No paresthesias. Pt had an angiogram yesterday and although no vasospasm seen given the findings of this on TCD she received intra arterial Verapamil. She is doing very well today. Review of Systems General: Negative for: fever, chills, insomnia Respiratory: Negative for: shortness of breath, cough, sputum Cardiovascular: Negative for: chest pain Gastrointestinal: Negative for: nausea, vomitting, diarrhea, constipation Exam Results Vital Signs Date Time Temp Pulse Resp B/P (MAP) Pulse Ox O2 Delivery O2 Flow Rate FiO2 10/21/17 08:00 97.7 67 16 101/59 (73) 98 Physical Examination General: Pt awake and alert resting in bed talking on her phone in NAD. Eyes: Pupils 3mm bilaterally reactive bilaterally. Resp: CTA bilaterally. Heart: NSR no murmurs. Abd: Soft positive bs Skin: No cyanosis or erythema Muscle: Moves all 4 extremities symmetrically. Neuro: Pt awake and alert. Pupils equal 3mm bilaterally. Face symmetric. Speech clear and appropriate. Lab, Micro, Other Results Last Impressions Transcranial Doppler Study Complete 10/21/17 0000 Signed Impressions: Service Date/Time: Saturday, October 21, 2017 07:53 - CONCLUSION: 1. Continued elevated ratios suggesting some degree of vasospasm. Patient is status post cerebral angiography yesterday without significant angiographic evidence for vasospasm and was treated with IA verapamil. Will continue close clinical observation and consider angiography if patient develops neurological symptoms. Korey Bustos MD Head CT 10/21/17 0000 Signed Impressions: Service Date/Time: Saturday, October 21, 2017 02:28 - CONCLUSION: Negative noncontrast CT with no evidence hemorrhage or mass effect. Eduin Casillas MD Cerebral Arteriogram 10/20/17 0000 Signed Impressions: Service Date/Time: Friday, October 20, 2017 13:51 - CONCLUSION: 1. No significant angiographic evidence for right MCA territory vasospasm. 2. Uncomplicated intra-arterial administration of 10 mg verapamil in the distal right internal carotid cervical segment. Korey Bustos MD Head CTA 10/12/17 0000 Signed Impressions: Service Date/Time: Thursday, October 12, 2017 14:53 - CONCLUSION: Satisfactory appearance post ACOMM aneurysm coiling. Johann Troy MD Chest X-Ray 10/08/17 0000 Signed Impressions: Service Date/Time: September 12:18 - CONCLUSION: Central line in good position. No evidence of pneumothorax. Jett Collier MD Neck CTA 10/07/17 0000 Signed Impressions: Service Date/Time: Saturday, October 07, 2017 04:41 - CONCLUSION: Extracranial carotid and vertebral arteries have a normal appearance. Johann Shin MD Laboratory Tests Test 10/21/17 05:10 Sodium Level 135 MEQ/L 10/21/17 10/21/17 10/22/17 15:00 23:00 07:00 # Bowel Movements 1 Medical Decision Making Impression and Plan Impression: 1. Stable neurologic exam following endovascular treatment for anterior communicating artery aneurysm. Plan: Continue with close Neuro checks for evidence of s/s of vasospasm. Pt received IA verapamil yesterday. Continue to advance diet and activity as tolerated. Allow the pressure to increase, pressors as needed to maintain systolic blood pressure greater than 140. Continue transcranial Doppler. Continue with rehab efforts. Mike Kwan Oct 21, 2017 1:01 pm
--- NOTE | 2017-10-21 13:38 | HHI.PR ---
Subjective Remarks Follow-up for subarachnoid hemorrhage related to aneurysm. Patient is currently doing well. no chest pain, shortness of breath, fever or chills. Denies any significant headache. She underwent angiogram yesterday with intra- arterial verapamil administration. Objective Vitals Vital Signs Date Time Temp Pulse Resp B/P (MAP) Pulse Ox O2 Delivery O2 Flow Rate FiO2 10/21/17 08:00 97.7 67 16 101/59 (73) 98 10/21/17 04:00 99.1 70 20 112/74 (87) 95 10/21/17 01:25 98.7 86 18 119/70 (86) 99 10/21/17 00:00 99.0 90 22 100/59 (73) 99 10/20/17 22:00 98.7 77 18 97/55 (69) 99 10/20/17 21:01 98.8 78 18 101/57 (72) 100 10/20/17 20:03 98.0 80 18 98/58 (71) 99 10/20/17 18:08 98.1 78 18 102/58 (73) 100 10/20/17 16:15 69 18 110/78 (89) 95 10/20/17 16:00 70 20 108/79 (89) 96 10/20/17 15:45 68 20 115/75 (88) 94 10/20/17 15:30 97.7 75 18 107/70 (82) 94 I/O 10/20/17 10/20/17 10/20/17 10/21/17 10/21/17 10/21/17 07:00 15:00 23:00 07:00 15:00 23:00 # Voids 1 7 # Bowel Movements 1 Result Diagram: 10/21/17 0510 Imaging Last Impressions Transcranial Doppler Study Complete 10/21/17 0000 Signed Impressions: Service Date/Time: Saturday, October 21, 2017 07:53 - CONCLUSION: 1. Continued elevated ratios suggesting some degree of vasospasm. Patient is status post cerebral angiography yesterday without significant angiographic evidence for vasospasm and was treated with IA verapamil. Will continue close clinical observation and consider angiography if patient develops neurological symptoms. Korey Bustos MD Head CT 10/21/17 0000 Signed Impressions: Service Date/Time: Saturday, October 21, 2017 02:28 - CONCLUSION: Negative noncontrast CT with no evidence hemorrhage or mass effect. Eduin Casillas MD Cerebral Arteriogram 10/20/17 0000 Signed Impressions: Service Date/Time: Friday, October 20, 2017 13:51 - CONCLUSION: 1. No significant angiographic evidence for right MCA territory vasospasm. 2. Uncomplicated intra-arterial administration of 10 mg verapamil in the distal right internal carotid cervical segment. Korey Bustos MD Head CTA 10/12/17 0000 Signed Impressions: Service Date/Time: Thursday, October 12, 2017 14:53 - CONCLUSION: Satisfactory appearance post ACOMM aneurysm coiling. Johann Troy MD Chest X-Ray 10/08/17 0000 Signed Impressions: Service Date/Time: September 12:18 - CONCLUSION: Central line in good position. No evidence of pneumothorax. Jett Collier MD Neck CTA 10/07/17 0000 Signed Impressions: Service Date/Time: Saturday, October 07, 2017 04:41 - CONCLUSION: Extracranial carotid and vertebral arteries have a normal appearance. Johann Shin MD Objective Remarks GENERAL: Alert, oriented 3, NAD SKIN: Warm and dry. HEAD: Normocephalic. EYES: No scleral icterus. No injection or drainage. NECK: Supple, trachea midline. No JVD or lymphadenopathy. CARDIOVASCULAR: Regular rate and rhythm without murmurs, gallops, or rubs. RESPIRATORY: Breath sounds equal bilaterally. No accessory muscle use. GASTROINTESTINAL: Abdomen soft, non-tender, nondistended. MUSCULOSKELETAL: No cyanosis, or edema. BACK: Nontender without obvious deformity. No CVA tenderness. Procedures Cerebral angiogram with verapamil administration for vasospasm. 10/20/2017. A/P Problem List: (1) Subarachnoid hemorrhage ICD Code: I60.9 - Nontraumatic subarachnoid hemorrhage, unspecified Status: Acute (2) Anterior communicating artery aneurysm ICD Code: I67.1 - Cerebral aneurysm, nonruptured Status: Acute (3) Vasospasm of cerebral artery ICD Code: I67.848 - Other cerebrovascular vasospasm and vasoconstriction Assessment and Plan Ms. Curry is a 42-year-old female with a history of SLE, migraine headache, benign brain tumor status post resection in 1990 who was transferred to [place] due to acute subarachnoid hemorrhage on 10/07/2017. CT brain demonstrates diffuse SAH with no intraventricular extension or hydrocephalus. CTA demonstrates 3 mm Acom aneurysm with narrow neck per radiology report. She has received nimodipine. - Acute subarachnoid hemorrhage - Anterior communicating artery aneurysm - Cerebral artery vasospasm - Neurosurgery following. - s/p coiling of ACOM aneurysm. Continue Nimodipine 60 g by mouth every 4 hours. - Serial transcranial Doppler per neurosurgery. - Hypokalemia - K+ 3.0 --> 3.8. Resolved with KCL replacement. D/C KCL treatments. - Hypotension - Continue Midodrine 10mg TID. Full code. Lovenox. Earnestine Moreira DO Oct 21, 2017 1:38 pm
[2017-10-21] MEDS: ENOXAPARIN SODIUM 40 MG/0.4 ML SYRINGE SQ SCH (15:50)
--- NOTE | 2017-10-21 17:36 | PQ ---
Physician Query Response Document PATIENT: KISHAN ORTEGA : 1975 ADMIT DATE: 10/07/2017 4:05 AM DISCH DATE: RESPONDING PROVIDER #: sima QUERY TEXT: Cause and Effect Relationship Please clarify in documentation the relationship, if any, between UTI and___INDWE LLING CATHETER Such as: -- Conditions are due to or associated -- Unrelated to each other -- Other, please specify The patient's Clinical Indicators include: Urine culuture positive for UTI with Enterococcus facecalis. Oct 07, 2017 08:20 Indwelling - Single 16 Catheter Placed In [facility] ISC Catheter Present Prior to Admission No Query created by: Denise Chavez on 10/16/2017 1:56 PM RESPONSE TEXT: UTI caused by Cannon catheter. Electronically signed by: Preet Lynch MD 10/21/2017 5:32 PM
[2017-10-21 20:52] VITALS: BP 111/59; PULSE 80; RESP 18; TEMP 98.4; O2SAT 100
[2017-10-21] MEDS: ZOLPIDEM TARTRATE 5 MG TAB PO PRN (22:41)
[2017-10-22] VITALS (8 sets, daily range): BP systolic 93–114; BP diastolic 51–68; PULSE 78–89; RESP 16–20; TEMP 98.2–98.7; O2SAT 98–99
[2017-10-22] MEDS: niMODipine 30 MG CAP PO SCH ×6 (00:40→21:20)
[2017-10-22] MEDS: CYCLOBENZAPRINE HCL 10 MG TAB PO PRN ×2 (03:49→17:31)
[2017-10-22] MEDS: MIDODRINE 5 MG TAB PO SCH ×3 (06:20→17:33)
[2017-10-22] MEDS: ACETAMINOPHEN/HYDROcodone 325 MG/5 MG TAB PO PRN (06:23)
--- NOTE | 2017-10-22 08:23 | HHI.PR ---
Subjective Remarks Follow-up for subarachnoid hemorrhage related to aneurysm. Patient is currently doing well. She complains of headache. No fever or chills. At the time of this interview, patient was undergoing transcranial Doppler study. Objective Vitals Vital Signs Date Time Temp Pulse Resp B/P (MAP) Pulse Ox O2 Delivery O2 Flow Rate FiO2 10/22/17 08:16 98.7 83 16 96/51 (66) 99 10/22/17 04:42 98.4 85 18 114/60 (78) 99 10/22/17 00:12 98.3 89 18 96/58 (71) 99 10/21/17 20:52 98.4 80 18 111/59 (76) 100 10/21/17 12:00 98.4 80 17 102/62 (75) 99 I/O 10/21/17 10/21/17 10/21/17 10/22/17 10/22/17 10/22/17 07:00 15:00 23:00 07:00 15:00 23:00 # Voids 7 # Bowel Movements 1 1 Result Diagram: 10/21/17 0510 Imaging Last Impressions Transcranial Doppler Study Complete 10/22/17 0000 Signed Impressions: Service Date/Time: October 07:57 - CONCLUSION: 1. Decreasing spasm in the right middle cerebral artery. Jon Collins MD Head CT 10/21/17 0000 Signed Impressions: Service Date/Time: Saturday, October 21, 2017 02:28 - CONCLUSION: Negative noncontrast CT with no evidence hemorrhage or mass effect. Eduin Casillas MD Cerebral Arteriogram 10/20/17 0000 Signed Impressions: Service Date/Time: Friday, October 20, 2017 13:51 - CONCLUSION: 1. No significant angiographic evidence for right MCA territory vasospasm. 2. Uncomplicated intra-arterial administration of 10 mg verapamil in the distal right internal carotid cervical segment. Korey Bustos MD Head CTA 10/12/17 0000 Signed Impressions: Service Date/Time: Thursday, October 12, 2017 14:53 - CONCLUSION: Satisfactory appearance post ACOMM aneurysm coiling. Johann Troy MD Chest X-Ray 10/08/17 0000 Signed Impressions: Service Date/Time: September 12:18 - CONCLUSION: Central line in good position. No evidence of pneumothorax. Jett Collier MD Neck CTA 10/07/17 0000 Signed Impressions: Service Date/Time: Saturday, October 07, 2017 04:41 - CONCLUSION: Extracranial carotid and vertebral arteries have a normal appearance. Johann Shin MD Objective Remarks GENERAL: Alert, oriented 3, NAD SKIN: Warm and dry. HEAD: Normocephalic. EYES: No scleral icterus. No injection or drainage. NECK: Supple, trachea midline. No JVD or lymphadenopathy. CARDIOVASCULAR: Regular rate and rhythm without murmurs, gallops, or rubs. RESPIRATORY: Breath sounds equal bilaterally. No accessory muscle use. GASTROINTESTINAL: Abdomen soft, non-tender, nondistended. MUSCULOSKELETAL: No cyanosis, or edema. BACK: Nontender without obvious deformity. No CVA tenderness. Procedures Cerebral angiogram with verapamil administration for vasospasm. 10/20/2017. A/P Problem List: (1) Subarachnoid hemorrhage ICD Code: I60.9 - Nontraumatic subarachnoid hemorrhage, unspecified Status: Acute (2) Anterior communicating artery aneurysm ICD Code: I67.1 - Cerebral aneurysm, nonruptured Status: Acute (3) Vasospasm of cerebral artery ICD Code: I67.848 - Other cerebrovascular vasospasm and vasoconstriction Assessment and Plan Ms. Curry is a 42-year-old female with a history of SLE, migraine headache, benign brain tumor status post resection in 1990 who was transferred to [place] due to acute subarachnoid hemorrhage on 10/07/2017. CT brain demonstrates diffuse SAH with no intraventricular extension or hydrocephalus. CTA demonstrates 3 mm Acom aneurysm with narrow neck per radiology report. She has received nimodipine. - Acute subarachnoid hemorrhage - Anterior communicating artery aneurysm - Cerebral artery vasospasm - Neurosurgery following. - s/p coiling of ACOM aneurysm. Continue Nimodipine 60 g by mouth every 4 hours. - Serial transcranial Doppler per neurosurgery. - Transcranial Doppler study shows decreased spasm - Hypokalemia - K+ 3.0 --> 3.8. Resolved with KCL replacement. D/C KCL treatments. - Hypotension - Continue Midodrine 10mg TID. Full code. Lovenox. Earnestine Moreira DO Oct 22, 2017 8:23 am
--- NOTE | 2017-10-22 08:49 | HHI.FF ---
Face to Face Verification Diagnosis: (1) Subarachnoid hemorrhage (2) Cerebral aneurysm rupture (3) SLE (systemic lupus erythematosus) (4) Anterior communicating artery aneurysm (5) Vasospasm of cerebral artery Home Health Nursing Order: Medical education Signs/symptoms of disease process Nursing assessment with vital signs I have seen patient Rut Curry on 10/22/17. My clinical findings support the need for the requested home health care services because: Ltd mobility - disease progression Deconditioned w/ increased weakness Limited ability to care for self Need for psychosocial assistance High risk of falls Infection w/ risk of complications I certify that my clinical findings support that this patient is homebound because: Unsteady gait/balance Unsafe to leave home unassisted Unable to use public transportation Earnestine Moreira DO Oct 22, 2017 8:49 am
[2017-10-22] MEDS: LACTULOSE SYRUP 20 GM/30 ML CUP PO SCH ×4 (09:00→21:00)
[2017-10-22] MEDS: DOCUSATE SODIUM 100 MG CAP PO SCH ×2 (09:00→21:00)
[2017-10-22] MEDS: SENNOSIDES SYRUP 8.8 MG/5 ML CUP PO SCH (09:00)
[2017-10-22] MEDS: PANTOPRAZOLE SOD 40 MG DELAYED RELEASE TAB PO SCH (09:06)
[2017-10-22] MEDS: KETOROLAC TROMETHAMINE 30 MG/ML (IVP) VIAL IV PUSH PRN ×3 (09:06→23:53)
--- NOTE | 2017-10-22 09:18 | RADRPT ---
EXAM DATE/TIME: 10/22/2017 07:57 [facility] COMPARISON: US TRANSCRANIAL DOPPLER COMPLETE, October 21, 2017, 7:53. INDICATIONS : Subarachnoid hemorrhage. MEDICAL HISTORY : Lupus. Anxiety. Nausea/vomiting. Ectopic . SURGICAL HISTORY : Appendectomy. 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 Orthopedic surgery, right knee. ENCOUNTER: [facility] ACUITY: 2 weeks PAIN SCORE: 8/10 LOCATION: Bilateral cranial Current Exam: Oct 22, 2017 [place] Ratio: Right: 4.8 Left: 2.1 Johnson Ratio: Right: 1.2 Left: 1.9 Previous Exam: Oct 21, 2017 [place] Ratio: Right: 6.6 Left: 2.1 Johnson Ratio: Right: 1.9 Left: 2.3 FINDINGS: Examination performed at bedside. Real-time ultrasound with the assistance of color and spectral Dop pler was utilized to evaluate the intracerebral circulation. Time-averaged maximal velocities are ca lculated in cm/s. There findings of decreasing spasm in the right middle cerebral artery when compared to the prior brandon dy. This would now be moderate in nature. Remainder of examination is unremarkable. CONCLUSION: 1. Decreasing spasm in the right middle cerebral artery. Jon Collins MD on October 22, 2017 at 9:15 Board Certified Radiologist. This report was verified electronically.
--- NOTE | 2017-10-22 12:05 | HHI.NSPN ---
History Chief Complaint: Slight headache Interval History 10/06: 42 y.o. female transfered from [facility] where she presented with severe BOWEN that she awoke with. Prior history of migraines. Poatitive nausea and emesis this evening. 10/07: The patient is awake but has her head covered when seen this morning due to the light hurting her eyes. She speaks softly due to her headache and she does have dizziness when moving her head. She has not had any further nausea since last night. She does report numbness to the fingers during the night but none at present. The patient went for an angiogram with subsequent coiling of an aneurysm with complete occlusion in the afternoon. 10/08: c/o mild headaches, photophobia, and nausea, moves x 4 reports symmetrically but patient reports mild heaviness right side. f/u CT Head completed this am. 10/09/2017: Persistent headache. No focal deficit. 10/09/2017: Persistent headache. No focal deficit. 10/10/17: Pt complains of frontal headache. No nausea or vomiting. No numbness or paresthesias. 10/11/17: Pt complains of frontal headaches and neck discomfort. No n/v. No numbness or paresthesias. No significant photophobia. 10/12: This morning the patient is awake and alert when seen. She states that no one is listening to her and taking her seriously. She says that she has had vaginal bleeding for a few days and that her menses ended a couple days before she came into the hospital. She is wondering if it might be related to the Cannon catheter being in place. She reports spasms to the posterolateral left neck which she relates to the central venous catheter placed in the left internal jugular vein. She states that she has pressure to the head and some light sensitivity. She denies any nausea for the past few days and states that she did have a bowel movement. She says she is getting up to the bedside commode without difficulty. Nursing this morning reports that the patient had a bowel movement and complained of blood which Nursing only saw on the tissue but not mixed with the stool. Nursing reports that the patient's sodium level was 135 yesterday and that she put out over four litres of urine the past 24 hours. It was also reported that the patient was changed from 2% saline to 3% saline in order to increase her sodium level and that if the fluids are decreased the patient's blood pressure drops in half. The Animal Tech is continuing to maintain the patient's systolic blood pressure between 160 and 180 mm Hg due to vasospasms noted on Thursday. Yesterday's transcranial Doppler study demonstrated slight improvement in the vasospasm. 10/13: The patient is awake and alert when seen this morning. She complains of a frontal headache. She states that when she gets up it is worse and she will have some lightheadedness. She reports having to get up every couple hours so as to void. The Cannon catheter was discontinued yesterday. She does endorse light sensitivity to bright lights. She has not had any nausea the past several hours but did earlier. The transcranial Doppler study yesterday did not demonstrated any significant vasospasm. CT brain yesterday demonstrated an evolving subarachnoid haemorrhage but no new findings and the CTA did not demonstrate any vasospasm. 10/16: The patient is drowsy when seen. She awakens to voice and readily interacts. Techs are doing a transcranial Doppler when seen. She denies any headache or dizziness at present. She states that her sciatica is what is bothering her the most at present. She does say that when she wakes up if she opens her eyes before she moves she has no problem but if she starts to move before opening her eyes she gets spasms to the lower extremities. She also says that when she gets up to ambulate once she takes a step she has to stop and get herself ready to take another step. She says she feels like she is getting better but is having trouble doing things. She does say it is like the lower extremities between the knees to the buttocks are not working. 10/17: reports headaches improving, persistent pain in her legs due to muscle spasms requesting muscle relaxants. 10/18: stable headaches and leg spasms. TCD yesterday reports mild right MCA vasospasm, denies left hemiparesis or paresthesias. 10/19: The patient this morning awakens as this practitioner enters the room. She states that she isn't doing good because of pain and spasms to the lower extremities. She says the muscle relaxant "hasn't kicked in yet." She reports the pain whenever she stands. She had no other complaints. 10/20: The patient is awake and alert this morning when seen. She does have a slight headache. Her affect is better today. She denies any dizziness, nausea and leg pain or spasms. Her only other complaint is a dry nose and not being able to blow it. 10/21: Pt awake and alert. Denies headache. No n/v. No paresthesias. Pt had an angiogram yesterday and although no vasospasm seen given the findings of this on TCD she received intra arterial Verapamil. She is doing very well today. 10/22: When seen the patient states that she is doing better today. She does endorse a slight headache but says it is improving. Her affect is mildly flat. She denies any dizziness or nausea although she does have some occasional spasms to the posterior right thigh. System Review Comments EYES: Light sensitivity continues to improve. MUSCULOSKELETAL: Occasional spasms to posterior right thigh. NEUROLOGICAL: Slight headache. Exam Results 10/20/17 10/20/17 10/21/17 10/21/17 10/22/17 10/22/17 06:00 18:00 06:00 18:00 06:00 18:00 # Voids 1 7 # Bowel Movements 1 1 Vital Signs Date Time Temp Pulse Resp B/P (MAP) Pulse Ox O2 Delivery O2 Flow Rate FiO2 10/22/17 08:16 98.7 83 16 96/51 (66) 99 10/22/17 04:42 98.4 85 18 114/60 (78) 99 10/22/17 00:12 98.3 89 18 96/58 (71) 99 10/21/17 20:52 98.4 80 18 111/59 (76) 100 10/21/17 12:00 98.4 80 17 102/62 (75) 99 10/21/17 08:00 97.7 67 16 101/59 (73) 98 10/21/17 04:00 99.1 70 20 112/74 (87) 95 10/21/17 01:25 98.7 86 18 119/70 (86) 99 10/21/17 00:00 99.0 90 22 100/59 (73) 99 10/20/17 22:00 98.7 77 18 97/55 (69) 99 10/20/17 21:01 98.8 78 18 101/57 (72) 100 10/20/17 20:03 98.0 80 18 98/58 (71) 99 10/20/17 18:08 98.1 78 18 102/58 (73) 100 10/20/17 16:15 69 18 110/78 (89) 95 10/20/17 16:00 70 20 108/79 (89) 96 10/20/17 15:45 68 20 115/75 (88) 94 10/20/17 15:30 97.7 75 18 107/70 (82) 94 10/20/17 12:28 97.6 96 18 102/82 (89) 99 10/20/17 08:01 97.9 84 18 104/67 (79) 100 10/20/17 05:22 97.8 85 18 99/73 (82) 100 10/20/17 00:33 98.1 89 18 102/65 (77) 99 10/19/17 20:26 98.5 94 18 106/56 (73) 100 10/19/17 16:56 98.7 90 18 114/74 (87) 98 10/19/17 12:03 97.7 93 18 107/71 (83) 98 Physical Examination GENERAL: Awake & alert, affect mildly flat, no apparent distress. HEENT: Normocephalic, atraumatic. Face symmetrical. PERRLA 3 mm brisk, EOMI. MMM & pink, tongue midline to protrusion. MUSCULOSKELETAL: PAIGE w/o difficulty, no evident deformity or clubbing. No evident TTP of extremities. NEUROLOGICAL: AAOx3. Speech clear & appropriate. Follows simple commands w/o difficulty. CN II-XII appear grossly intact. Sensation intact to light touch to all extremities. Motor strength is 5/5 to all flexion & extension muscle groups. Lab, Micro, Other Results Recent Impressions Transcranial Doppler Study Complete 10/22/17 0000 Signed Impressions: Service Date/Time: October 07:57 - CONCLUSION: 1. Decreasing spasm in the right middle cerebral artery. Jon Collins MD Transcranial Doppler Study Complete 10/21/17 0000 Signed Impressions: Service Date/Time: Saturday, October 21, 2017 07:53 - CONCLUSION: 1. Continued elevated ratios suggesting some degree of vasospasm. Patient is status post cerebral angiography yesterday without significant angiographic evidence for vasospasm and was treated with IA verapamil. Will continue close clinical observation and consider angiography if patient develops neurological symptoms. Korey Bustos MD Head CT 10/21/17 0000 Signed Impressions: Service Date/Time: Saturday, October 21, 2017 02:28 - CONCLUSION: Negative noncontrast CT with no evidence hemorrhage or mass effect. Eduin Casillas MD Transcranial Doppler Study Complete 10/20/17 0000 Signed Impressions: Service Date/Time: Friday, October 20, 2017 07:55 - CONCLUSION: Increasing right MCA vasospasm. Js Fletcher MD FACR Cerebral Arteriogram 10/20/17 0000 Signed Impressions: Service Date/Time: Friday, October 20, 2017 13:51 - CONCLUSION: 1. No significant angiographic evidence for right MCA territory vasospasm. 2. Uncomplicated intra-arterial administration of 10 mg verapamil in the distal right internal carotid cervical segment. Korey Bustos MD Laboratory Tests Test 10/20/17 05:40 10/20/17 11:55 10/21/17 05:10 10/22/17 09:44 Sodium Level 137 MEQ/L 136 MEQ/L 135 MEQ/L 132 MEQ/L Blood Urea Nitrogen 9 MG/DL Creatinine 0.71 MG/DL Random Glucose 103 MG/DL Calcium Level 9.2 MG/DL Potassium Level 3.8 MEQ/L Chloride Level 100 MEQ/L Carbon Dioxide Level 28.9 MEQ/L Anion Gap 7 MEQ/L Estimat Glomerular Filtration Rate 109 ML/MIN Medical Decision Making Impression and Plan Impression: 1. SAH 2. Anterior communicating artery aneurysm 3. Right middle cerebral artery vasospasm 4. Mild left middle cerebral artery vasospasm The patient is neurologically stable. She has a slight headache that is improving. Occasional right thigh muscle spasms. PT recommends inpatient rehab at present. Reviewed labs for today. Sodium 132. Transcranial Doppler w/decreasing right MCA territory vasospasm. POD #15 () s/p: Angiogram with aneurysm coiling resulting in complete occlusion Post Procedure Diagnosis: (1) Cerebral aneurysm rupture Plan: Medical management per Hospitalist. Neuro checks. Continue transcranial Doppler daily. Continue Nimodipine. Normalise blood pressure. Keep HOB elevated. Monitor sodium level. Will give patient 500 mL normal saline bolus. Continue pain medication. Continue anti-emetics. Stress ulcer prophylaxis. Mechanical DVT prophylaxis. Pharmacological DVT prophylaxis. Electrolyte replacement guidelines. Saline nasal spray PRN. Chacorta Ahmadi Oct 22, 2017 12:05
[2017-10-22] MEDS ORDERED: SODIUM CHLORID 0.9% 500 ML INJ 500 ML IV SCH (12:15)
[2017-10-22] MEDS: ENOXAPARIN SODIUM 40 MG/0.4 ML SYRINGE SQ SCH (17:42)
[2017-10-22] MEDS: ZOLPIDEM TARTRATE 5 MG TAB PO PRN (21:21)
[2017-10-23] VITALS: BP_SYST 111; BP_SYST 99; BP_DIAS 53; BP_DIAS 57; PULSE 87; PULSE 93; RESP 18; RESP 20; TEMP 98.2; TEMP 98.8; O2SAT 98; O2SAT 99
[2017-10-23] MEDS: niMODipine 30 MG CAP PO SCH ×7 (04:58→23:51)
[2017-10-23] MEDS: KETOROLAC TROMETHAMINE 30 MG/ML (IVP) VIAL IV PUSH PRN ×3 (05:01→20:04)
[2017-10-23] MEDS: MIDODRINE 5 MG TAB PO SCH ×3 (06:20→17:49)
[2017-10-23 08:57] VITALS: BP 97/54; PULSE 85; RESP 16; TEMP 98.2; O2SAT 98
[2017-10-23] MEDS: PANTOPRAZOLE SOD 40 MG DELAYED RELEASE TAB PO SCH (09:37)
[2017-10-23] MEDS: DOCUSATE SODIUM 100 MG CAP PO SCH ×2 (09:37→20:33)
[2017-10-23] MEDS ORDERED: HYDROmorphone HCL PF 1 MG/ML VIAL IV PUSH ONE (09:45)
[2017-10-23] MEDS: LACTULOSE SYRUP 20 GM/30 ML CUP PO SCH ×4 (09:46→20:33)
[2017-10-23] MEDS: SENNOSIDES SYRUP 8.8 MG/5 ML CUP PO SCH (09:46)
[2017-10-23 10:05] LABS: AUTOMATED NEUTROPHIL # 3.6 TH/MM3 (1.8-7.7); BASOPHIL % 0.3 % (0.0-2.0); EOSINOPHIL # 0.2 TH/MM3 (0-0.4); EOSINOPHIL % 1.9 % (0.0-4.0); HEMATOCRIT 38.5 % (35.0-46.0); HEMO FLAGS DIFF FINAL; LYMPH % 49.1 % (9.0-44.0); LYMPHOCYTE # 4.1 TH/MM3 (1.0-4.8); MEAN CORPUSCULAR HEMOGLOBIN 24.2 PG (27.0-34.0); MEAN CORPUSCULAR HGB CONC 32.2 % (32.0-36.0); MONO % 5.9 % (0.0-8.0); NEUT % 42.8 % (16.0-70.0); PLATELET COUNT 467 TH/MM3 (150-450); RED BLOOD COUNT 5.13 MIL/MM3 (4.00-5.30); RED CELL DISTRIBUTION WIDTH 13.5 % (11.6-17.2); WHITE BLOOD COUNT 8.3 TH/MM3 (4.0-11.0)
[2017-10-23 10:27] LABS: BICARBONATE 27.6 MEQ/L (21.0-32.0)
[2017-10-23 10:32] LABS: POTASSIUM 4.1 MEQ/L (3.5-5.1)
--- NOTE | 2017-10-23 10:44 | RADRPT ---
EXAM DATE/TIME: 10/23/2017 08:22 [facility] COMPARISON: US TRANSCRANIAL DOPPLER COMPLETE, October 22, 2017, 7:57. INDICATIONS : Subarachnoid hemorrhage. MEDICAL HISTORY : Lupus. Anxiety. Nausea/vomiting. Ectopic . SURGICAL HISTORY : Appendectomy. 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 Orthopedic surgery; right knee. ENCOUNTER: [facility] ACUITY: 2 weeks PAIN SCORE: 2/10 LOCATION: Bilateral cranial Current Exam: Oct 23, 2017 [place] Ratio: Right: 3.9 Left: 2.8 Johnson Ratio: Right: 1.3 Left: 2.9 Previous Exam: Oct 22, 2017 [place] Ratio: Right: 4.8 Left: 2.1 Johnson Ratio: Right: 1.2 Left: 1.9 FINDINGS: Examination performed at bedside. Real-time ultrasound with the assistance of color and spectral Dop pler was utilized to evaluate the intracerebral circulation. Time-averaged maximal velocities are ca lculated in cm/s. There is continued improving ratios in the right middle cerebral territory. Remainder of the exam is within normal limits. CONCLUSION: 1. Continued improving right middle cerebral artery vasospasm. Korey Bustos MD on October 23, 2017 at 10:40 Board Certified Radiologist. This report was verified electronically.
[2017-10-23 12:00] VITALS: BP 97/56; PULSE 83; RESP 18; TEMP 98.1; O2SAT 97
--- NOTE | 2017-10-23 13:46 | HHI.PR ---
Subjective Remarks Follow-up for subarachnoid hemorrhage related to aneurysm. Patient is currently doing well. She feels that her headache is not as bad. She wants to go home. No fever or chills. Objective Vitals Vital Signs Date Time Temp Pulse Resp B/P (MAP) Pulse Ox O2 Delivery O2 Flow Rate FiO2 10/23/17 12:00 98.1 83 18 97/56 (70) 97 10/23/17 08:57 98.2 85 16 97/54 (68) 98 10/23/17 00:00 98.8 93 20 99/53 (68) 98 10/23/17 00:00 98.2 87 18 111/57 (75) 99 10/22/17 20:00 98.2 78 20 105/59 (74) 99 10/22/17 17:37 110/68 (82) 10/22/17 16:00 98.3 89 18 98/54 (69) 99 I/O 10/22/17 10/22/17 10/22/17 10/23/17 10/23/17 10/23/17 07:00 15:00 23:00 07:00 15:00 23:00 Intake Total 500 ml Balance 500 ml IV Total 500 ml # Voids 3 1 # Bowel Movements 0 0 Result Diagram: 10/23/17 0804 10/23/17 0804 Imaging Last Impressions Transcranial Doppler Study Complete 10/23/17 0800 Signed Impressions: Service Date/Time: Monday, October 23, 2017 08:22 - CONCLUSION: 1. Continued improving right middle cerebral artery vasospasm. Korey Bustos MD Head CT 10/21/17 0000 Signed Impressions: Service Date/Time: Saturday, October 21, 2017 02:28 - CONCLUSION: Negative noncontrast CT with no evidence hemorrhage or mass effect. Eduin Casillas MD Cerebral Arteriogram 10/20/17 0000 Signed Impressions: Service Date/Time: Friday, October 20, 2017 13:51 - CONCLUSION: 1. No significant angiographic evidence for right MCA territory vasospasm. 2. Uncomplicated intra-arterial administration of 10 mg verapamil in the distal right internal carotid cervical segment. Korey Bustos MD Head CTA 10/12/17 0000 Signed Impressions: Service Date/Time: Thursday, October 12, 2017 14:53 - CONCLUSION: Satisfactory appearance post ACOMM aneurysm coiling. Johann Troy MD Chest X-Ray 10/08/17 0000 Signed Impressions: Service Date/Time: September 12:18 - CONCLUSION: Central line in good position. No evidence of pneumothorax. Jett Collier MD Neck CTA 10/07/17 0000 Signed Impressions: Service Date/Time: Saturday, October 07, 2017 04:41 - CONCLUSION: Extracranial carotid and vertebral arteries have a normal appearance. Johann Shin MD Objective Remarks GENERAL: Alert, oriented 3, NAD SKIN: Warm and dry. HEAD: Normocephalic. EYES: No scleral icterus. No injection or drainage. NECK: Supple, trachea midline. No JVD or lymphadenopathy. CARDIOVASCULAR: Regular rate and rhythm without murmurs, gallops, or rubs. RESPIRATORY: Breath sounds equal bilaterally. No accessory muscle use. GASTROINTESTINAL: Abdomen soft, non-tender, nondistended. MUSCULOSKELETAL: No cyanosis, or edema. BACK: Nontender without obvious deformity. No CVA tenderness. Procedures Cerebral angiogram with verapamil administration for vasospasm. 10/20/2017. A/P Problem List: (1) Subarachnoid hemorrhage ICD Code: I60.9 - Nontraumatic subarachnoid hemorrhage, unspecified Status: Acute (2) Anterior communicating artery aneurysm ICD Code: I67.1 - Cerebral aneurysm, nonruptured Status: Acute (3) Vasospasm of cerebral artery ICD Code: I67.848 - Other cerebrovascular vasospasm and vasoconstriction Assessment and Plan Ms. Curry is a 42-year-old female with a history of SLE, migraine headache, benign brain tumor status post resection in 1990 who was transferred to [facility] due to acute subarachnoid hemorrhage on 10/07/2017. CT brain demonstrates diffuse SAH with no intraventricular extension or hydrocephalus. CTA demonstrates 3 mm Acom aneurysm with narrow neck per radiology report. She has received nimodipine. - Acute subarachnoid hemorrhage - Anterior communicating artery aneurysm - Cerebral artery vasospasm - Neurosurgery following. - s/p coiling of ACOM aneurysm. Continue Nimodipine 60 g by mouth every 4 hours. - Serial transcranial Doppler per neurosurgery. - Transcranial Doppler study shows continued improving right MCA vasospasm. - Hypokalemia - K+ 3.0 improved to 3.8 --> 4.1. Reviewed CBC, BMP from 2016. - Hypotension - Continue Midodrine 10mg TID. Full code. Lovenox. Patient would like to go home. Sent a msg to Neurosurgery PA that patient wants to go home. Earnestine Moreira DO Oct 23, 2017 1:46 pm
--- NOTE | 2017-10-23 14:25 | HHI.NSPN ---
History Chief Complaint: Slight headache Interval History 10/06: 42 y.o. female transfered from [facility] where she presented with severe BOWEN that she awoke with. Prior history of migraines. Poatitive nausea and emesis this evening. 10/07: The patient is awake but has her head covered when seen this morning due to the light hurting her eyes. She speaks softly due to her headache and she does have dizziness when moving her head. She has not had any further nausea since last night. She does report numbness to the fingers during the night but none at present. The patient went for an angiogram with subsequent coiling of an aneurysm with complete occlusion in the afternoon. 10/08: c/o mild headaches, photophobia, and nausea, moves x 4 reports symmetrically but patient reports mild heaviness right side. f/u CT Head completed this am. 10/09/2017: Persistent headache. No focal deficit. 10/09/2017: Persistent headache. No focal deficit. 10/10/17: Pt complains of frontal headache. No nausea or vomiting. No numbness or paresthesias. 10/11/17: Pt complains of frontal headaches and neck discomfort. No n/v. No numbness or paresthesias. No significant photophobia. 10/12: This morning the patient is awake and alert when seen. She states that no one is listening to her and taking her seriously. She says that she has had vaginal bleeding for a few days and that her menses ended a couple days before she came into the hospital. She is wondering if it might be related to the Cannon catheter being in place. She reports spasms to the posterolateral left neck which she relates to the central venous catheter placed in the left internal jugular vein. She states that she has pressure to the head and some light sensitivity. She denies any nausea for the past few days and states that she did have a bowel movement. She says she is getting up to the bedside commode without difficulty. Nursing this morning reports that the patient had a bowel movement and complained of blood which Nursing only saw on the tissue but not mixed with the stool. Nursing reports that the patient's sodium level was 135 yesterday and that she put out over four litres of urine the past 24 hours. It was also reported that the patient was changed from 2% saline to 3% saline in order to increase her sodium level and that if the fluids are decreased the patient's blood pressure drops in half. The [employer] Director is continuing to maintain the patient's systolic blood pressure between 160 and 180 mm Hg due to vasospasms noted on Thursday. Yesterday's transcranial Doppler study demonstrated slight improvement in the vasospasm. 10/13: The patient is awake and alert when seen this morning. She complains of a frontal headache. She states that when she gets up it is worse and she will have some lightheadedness. She reports having to get up every couple hours so as to void. The Cannon catheter was discontinued yesterday. She does endorse light sensitivity to bright lights. She has not had any nausea the past several hours but did earlier. The transcranial Doppler study yesterday did not demonstrated any significant vasospasm. CT brain yesterday demonstrated an evolving subarachnoid haemorrhage but no new findings and the CTA did not demonstrate any vasospasm. 10/16: The patient is drowsy when seen. She awakens to voice and readily interacts. Techs are doing a transcranial Doppler when seen. She denies any headache or dizziness at present. She states that her sciatica is what is bothering her the most at present. She does say that when she wakes up if she opens her eyes before she moves she has no problem but if she starts to move before opening her eyes she gets spasms to the lower extremities. She also says that when she gets up to ambulate once she takes a step she has to stop and get herself ready to take another step. She says she feels like she is getting better but is having trouble doing things. She does say it is like the lower extremities between the knees to the buttocks are not working. 10/17: reports headaches improving, persistent pain in her legs due to muscle spasms requesting muscle relaxants. 10/18: stable headaches and leg spasms. TCD yesterday reports mild right MCA vasospasm, denies left hemiparesis or paresthesias. 10/19: The patient this morning awakens as this practitioner enters the room. She states that she isn't doing good because of pain and spasms to the lower extremities. She says the muscle relaxant "hasn't kicked in yet." She reports the pain whenever she stands. She had no other complaints. 10/20: The patient is awake and alert this morning when seen. She does have a slight headache. Her affect is better today. She denies any dizziness, nausea and leg pain or spasms. Her only other complaint is a dry nose and not being able to blow it. 10/21: Pt awake and alert. Denies headache. No n/v. No paresthesias. Pt had an angiogram yesterday and although no vasospasm seen given the findings of this on TCD she received intra arterial Verapamil. She is doing very well today. 10/22: When seen the patient states that she is doing better today. She does endorse a slight headache but says it is improving. Her affect is mildly flat. She denies any dizziness or nausea although she does have some occasional spasms to the posterior right thigh. 10/23: No acute events overnight. Patient expresses a she would like to go home to her kids. She reports improved headaches. Exam Results Vital Signs Date Time Temp Pulse Resp B/P (MAP) Pulse Ox O2 Delivery O2 Flow Rate FiO2 10/23/17 12:00 98.1 83 18 97/56 (70) 97 Physical Examination GEN: Patient is awake and alert. No acute distress HEENT: Normocephalic, atraumatic. CV: Regular rate and rhythm PULM: Clear to auscultation bilaterally GI: soft, nondistended, normoactive bowel sounds : Cannon in place Extremities: No ecchymosis or edema NEURO: CNII: Pupils OS 3+/OD 3+. CNIII/IV/: EOMI bilaterally CNVII: Face symmetric CNVIII: Hearing intact to finger rub bilaterally CNX: Uvula elevates in the midline CNXI: Shoulder shrug intact CNXII: Tongue midline Motor strength testing (L/R): Shoulder abduction 5/5 Elbow flexion 5/5 Elbow extension 5/5 Wrist extension 5/5 Hand program arranger 5/5 Hand intrinsics 5/5 Hip flexion 5/5 Knee extension 5/5 Knee flexion 5/5 Ankle dorsiflexion 5/5 Ankle plantarflexion 5/5 Great toe extension 5/5 DTR: Biceps Triceps Patella Achilles No Hoffmanns No clonus Sensory: Intact to light touch throughout Gait: Unable to assess Lab, Micro, Other Results Allergies Coded Allergies Type Severity Reaction Last Updated Verified prochlorperazine Allergy Intermediate 10/07/17 Yes Recent Impressions Transcranial Doppler Study Complete 10/23/17 0800 Signed Impressions: Service Date/Time: Monday, October 23, 2017 08:22 - CONCLUSION: 1. Continued improving right middle cerebral artery vasospasm. Korey Bustos MD Transcranial Doppler Study Complete 10/22/17 0000 Signed Impressions: Service Date/Time: October 07:57 - CONCLUSION: 1. Decreasing spasm in the right middle cerebral artery. Jon Collins MD Transcranial Doppler Study Complete 10/21/17 0000 Signed Impressions: Service Date/Time: Saturday, October 21, 2017 07:53 - CONCLUSION: 1. Continued elevated ratios suggesting some degree of vasospasm. Patient is status post cerebral angiography yesterday without significant angiographic evidence for vasospasm and was treated with IA verapamil. Will continue close clinical observation and consider angiography if patient develops neurological symptoms. Korey Bustos MD Head CT 10/21/17 0000 Signed Impressions: Service Date/Time: Saturday, October 21, 2017 02:28 - CONCLUSION: Negative noncontrast CT with no evidence hemorrhage or mass effect. Eduin Casillas MD 10/21/17 10/21/17 10/22/17 10/22/17 10/23/17 10/23/17 06:00 18:00 06:00 18:00 06:00 18:00 Intake Total 500 ml Balance 500 ml IV Total 500 ml # Voids 7 3 1 # Bowel Movements 1 1 0 0 Laboratory Tests Test 10/21/17 05:10 10/22/17 09:44 10/23/17 08:04 Sodium Level 135 MEQ/L 132 MEQ/L 135 MEQ/L White Blood Count 8.3 TH/MM3 Red Blood Count 5.13 MIL/MM3 Hemoglobin 12.4 GM/DL Hematocrit 38.5 % Mean Corpuscular Volume 75.0 FL Mean Corpuscular Hemoglobin 24.2 PG Mean Corpuscular Hemoglobin Concent 32.2 % Red Cell Distribution Width 13.5 % Platelet Count 467 TH/MM3 Mean Platelet Volume 8.6 FL Neutrophils (%) (Auto) 42.8 % Lymphocytes (%) (Auto) 49.1 % Monocytes (%) (Auto) 5.9 % Eosinophils (%) (Auto) 1.9 % Basophils (%) (Auto) 0.3 % Neutrophils # (Auto) 3.6 TH/MM3 Lymphocytes # (Auto) 4.1 TH/MM3 Monocytes # (Auto) 0.5 TH/MM3 Eosinophils # (Auto) 0.2 TH/MM3 Basophils # (Auto) 0.0 TH/MM3 CBC Comment DIFF FINAL Differential Comment Blood Urea Nitrogen 11 MG/DL Creatinine 0.78 MG/DL Random Glucose 93 MG/DL Calcium Level 9.4 MG/DL Potassium Level 4.1 MEQ/L Chloride Level 99 MEQ/L Carbon Dioxide Level 27.6 MEQ/L Anion Gap 8 MEQ/L Estimat Glomerular Filtration Rate 98 ML/MIN Orders Procedure Category Date Status Time Vital Signs (Adult) ARISTEO 10/20/17 Complete 15:02 Neuro Checks ARISTEO 10/20/17 Complete 15:02 Notify Parameters ARISTEO 10/20/17 In Process 15:02 ^ Apply Pressure ARISTEO 10/20/17 In Process 15:02 ^ Dressings ARISTEO 10/20/17 In Process 15:02 Activity Bed Rest ARISTEO 10/20/17 In Process 15:02 Diet Regular Basic DIET 10/20/17 Transmitted Dinner Iodixanol 320 Inj MED 10/20/17 Complete (Rad Spec) (Visipaque 15:10 Us Guided Vascular RADINV 10/20/17 Taken Access Spasmolytic RADINV 10/20/17 Taken Therapy,Intracrani (Hub Use Only)Inp Phy CONS 10/20/17 Transmitted Cons/Ref Ct Brain W/O Iv RADCT 10/21/17 Resulted Contrast(Rout) Hydromorphone Pf Inj MED 10/21/17 In Process (Dilaudid Pf Inj) 02:00 Ketorolac Inj MED 10/22/17 In Process (Toradol Inj) 08:30 Us Transcranial RADUS 10/23/17 Resulted Doppler Comp 08:00 Us Transcranial RADUS 10/24/17 Verified Doppler Comp 08:00 Us Transcranial RADUS 10/25/17 Verified Doppler Comp 08:00 Us Transcranial RADUS 10/26/17 Verified Doppler Comp 08:00 Sodium (Na) LAB 10/24/17 Verified 06:00 Sodium (Na) LAB 10/25/17 Verified 06:00 Sodium (Na) LAB 10/26/17 Verified 06:00 Sodium (Na) LAB 10/27/17 Verified 06:00 Sodium Chlorid 0.9% MED 10/22/17 Complete 500 Ml Inj (Ns 500 M 12:15 Basic Metabolic Panel LAB 10/23/17 Complete (Bmp) 06:00 Complete Blood Count LAB 10/23/17 Complete With Diff 06:00 Hydromorphone Pf Inj MED 10/23/17 Complete (Dilaudid Pf Inj) 09:45 Vital Signs Date Time Temp Pulse Resp B/P (MAP) Pulse Ox O2 Delivery O2 Flow Rate FiO2 10/23/17 12:00 98.1 83 18 97/56 (70) 97 10/23/17 08:57 98.2 85 16 97/54 (68) 98 10/23/17 00:00 98.8 93 20 99/53 (68) 98 10/23/17 00:00 98.2 87 18 111/57 (75) 99 10/22/17 20:00 98.2 78 20 105/59 (74) 99 10/22/17 17:37 110/68 (82) 10/22/17 16:00 98.3 89 18 98/54 (69) 99 10/22/17 12:00 98.4 80 16 100/58 (72) 99 10/22/17 11:47 84 17 93/58 (70) 98 10/22/17 10:07 18 10/22/17 08:16 98.7 83 16 96/51 (66) 99 10/22/17 04:42 98.4 85 18 114/60 (78) 99 10/22/17 00:12 98.3 89 18 96/58 (71) 99 10/21/17 20:52 98.4 80 18 111/59 (76) 100 10/21/17 12:00 98.4 80 17 102/62 (75) 99 10/21/17 08:00 97.7 67 16 101/59 (73) 98 10/21/17 04:00 99.1 70 20 112/74 (87) 95 10/21/17 01:25 98.7 86 18 119/70 (86) 99 10/21/17 00:00 99.0 90 22 100/59 (73) 99 10/20/17 22:00 98.7 77 18 97/55 (69) 99 10/20/17 21:01 98.8 78 18 101/57 (72) 100 10/20/17 20:03 98.0 80 18 98/58 (71) 99 10/20/17 18:08 98.1 78 18 102/58 (73) 100 10/20/17 16:15 69 18 110/78 (89) 95 10/20/17 16:00 70 20 108/79 (89) 96 10/20/17 15:45 68 20 115/75 (88) 94 10/20/17 15:30 97.7 75 18 107/70 (82) 94 Medical Decision Making Impression and Plan Ms Curry is a 42 year old female who 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 Daily TCD reveal improving vasospasm. Patient also shows clinical improvement. Continue nimodipine CV: normotensive. Now off Verapamil. Pulm: Good O2 saturation GI: Good bowel function Bowel regimen PPI prophylaxis : Good UOP F/E/N: ID: afebrile DVT prophylaxis: SCD, Lovenox Pain: BOWEN improving and well controlled. Disposition: May be stable for discharge if TCD normalize Deep Pink MD Oct 23, 2017 14:25
[2017-10-23 16:00] VITALS: BP 105/66; PULSE 82; RESP 18; TEMP 98.3; O2SAT 100
[2017-10-23] MEDS: ENOXAPARIN SODIUM 40 MG/0.4 ML SYRINGE SQ SCH (17:49)
[2017-10-23] MEDS: ZOLPIDEM TARTRATE 5 MG TAB PO PRN (20:34)
[2017-10-23 22:00] VITALS: BP 99/57; PULSE 74; RESP 20; TEMP 98.3; O2SAT 100
[2017-10-23] MEDS: ACETAMINOPHEN/HYDROcodone 325 MG/5 MG TAB PO PRN (23:21)
[2017-10-23] MEDS: CYCLOBENZAPRINE HCL 10 MG TAB PO PRN (23:21)
[2017-10-23 23:50] VITALS: BP 110/58; PULSE 77; RESP 18; TEMP 97.9; O2SAT 100
[2017-10-24] MEDS: MIDODRINE 5 MG TAB PO SCH ×2 (04:53→09:30)
[2017-10-24] MEDS: niMODipine 30 MG CAP PO SCH ×3 (04:53→11:52)
[2017-10-24] MEDS: ACETAMINOPHEN/HYDROcodone 325 MG/5 MG TAB PO PRN (05:58)
[2017-10-24 06:22] VITALS: BP 102/55; PULSE 88; RESP 20; TEMP 97.9; O2SAT 98
[2017-10-24 08:00] VITALS: BP 101/59; PULSE 80; RESP 18; TEMP 98.1; O2SAT 98
--- NOTE | 2017-10-24 09:23 | RADRPT ---
EXAM DATE/TIME: 10/24/2017 07:39 [place] COMPARISON: US TRANSCRANIAL DOPPLER COMPLETE, October 23, 2017, 8:22. INDICATIONS : Subarachnoid hemorrhage. MEDICAL HISTORY : Lupus. Anxiety. Nausea/vomiting. Ectopic . SURGICAL HISTORY : Appendectomy. Benign tumor removal. Right knee surgery. ENCOUNTER: [facility]ela ACUITY: 2 weeks PAIN SCORE: 0/10 LOCATION: Bilateral cranial Current Exam: Oct 24, 2017 [place] Ratio: Right: 1.9 Left: 1.6 [place] Ratio: Right: 0.7 Left: 1.8 Previous Exam: Oct 23, 2017 [place] Ratio: Right: 3.9 Left: 2.8 [place] Ratio: Right: 1.3 Left: 2.9 FINDINGS: Examination performed at bedside. Real-time ultrasound with the assistance of color and spectral Dop pler was utilized to evaluate the intracerebral circulation. Time-averaged maximal velocities are ca lculated in cm/s. Examination is now within normal limits. CONCLUSION: 1. No evidence for vasospasm. Korey Bustos MD on October 24, 2017 at 9:20 Board Certified Radiologist. This report was verified electronically.
[2017-10-24] MEDS: PANTOPRAZOLE SOD 40 MG DELAYED RELEASE TAB PO SCH (09:29)
[2017-10-24] MEDS: DOCUSATE SODIUM 100 MG CAP PO SCH (09:30)
[2017-10-24] MEDS: SENNOSIDES SYRUP 8.8 MG/5 ML CUP PO SCH (09:32)
[2017-10-24] MEDS: LACTULOSE SYRUP 20 GM/30 ML CUP PO SCH ×2 (09:32→11:53)
--- NOTE | 2017-10-24 11:25 | HHI.NSPN ---
History Chief Complaint: Slight headache Interval History 10/06: 42 y.o. female transfered from [facility] where she presented with severe BOWEN that she awoke with. Prior history of migraines. Poatitive nausea and emesis this evening. 10/07: The patient is awake but has her head covered when seen this morning due to the light hurting her eyes. She speaks softly due to her headache and she does have dizziness when moving her head. She has not had any further nausea since last night. She does report numbness to the fingers during the night but none at present. The patient went for an angiogram with subsequent coiling of an aneurysm with complete occlusion in the afternoon. 10/08: c/o mild headaches, photophobia, and nausea, moves x 4 reports symmetrically but patient reports mild heaviness right side. f/u CT Head completed this am. 10/09/2017: Persistent headache. No focal deficit. 10/09/2017: Persistent headache. No focal deficit. 10/10/17: Pt complains of frontal headache. No nausea or vomiting. No numbness or paresthesias. 10/11/17: Pt complains of frontal headaches and neck discomfort. No n/v. No numbness or paresthesias. No significant photophobia. 10/12: This morning the patient is awake and alert when seen. She states that no one is listening to her and taking her seriously. She says that she has had vaginal bleeding for a few days and that her menses ended a couple days before she came into the hospital. She is wondering if it might be related to the Cannon catheter being in place. She reports spasms to the posterolateral left neck which she relates to the central venous catheter placed in the left internal jugular vein. She states that she has pressure to the head and some light sensitivity. She denies any nausea for the past few days and states that she did have a bowel movement. She says she is getting up to the bedside commode without difficulty. Nursing this morning reports that the patient had a bowel movement and complained of blood which Nursing only saw on the tissue but not mixed with the stool. Nursing reports that the patient's sodium level was 135 yesterday and that she put out over four litres of urine the past 24 hours. It was also reported that the patient was changed from 2% saline to 3% saline in order to increase her sodium level and that if the fluids are decreased the patient's blood pressure drops in half. The Stockroom Keeper is continuing to maintain the patient's systolic blood pressure between 160 and 180 mm Hg due to vasospasms noted on Thursday. Yesterday's transcranial Doppler study demonstrated slight improvement in the vasospasm. 10/13: The patient is awake and alert when seen this morning. She complains of a frontal headache. She states that when she gets up it is worse and she will have some lightheadedness. She reports having to get up every couple hours so as to void. The Cannon catheter was discontinued yesterday. She does endorse light sensitivity to bright lights. She has not had any nausea the past several hours but did earlier. The transcranial Doppler study yesterday did not demonstrated any significant vasospasm. CT brain yesterday demonstrated an evolving subarachnoid haemorrhage but no new findings and the CTA did not demonstrate any vasospasm. 10/16: The patient is drowsy when seen. She awakens to voice and readily interacts. Techs are doing a transcranial Doppler when seen. She denies any headache or dizziness at present. She states that her sciatica is what is bothering her the most at present. She does say that when she wakes up if she opens her eyes before she moves she has no problem but if she starts to move before opening her eyes she gets spasms to the lower extremities. She also says that when she gets up to ambulate once she takes a step she has to stop and get herself ready to take another step. She says she feels like she is getting better but is having trouble doing things. She does say it is like the lower extremities between the knees to the buttocks are not working. 10/17: reports headaches improving, persistent pain in her legs due to muscle spasms requesting muscle relaxants. 10/18: stable headaches and leg spasms. TCD yesterday reports mild right MCA vasospasm, denies left hemiparesis or paresthesias. 10/19: The patient this morning awakens as this practitioner enters the room. She states that she isn't doing good because of pain and spasms to the lower extremities. She says the muscle relaxant "hasn't kicked in yet." She reports the pain whenever she stands. She had no other complaints. 10/20: The patient is awake and alert this morning when seen. She does have a slight headache. Her affect is better today. She denies any dizziness, nausea and leg pain or spasms. Her only other complaint is a dry nose and not being able to blow it. 10/21: Pt awake and alert. Denies headache. No n/v. No paresthesias. Pt had an angiogram yesterday and although no vasospasm seen given the findings of this on TCD she received intra arterial Verapamil. She is doing very well today. 10/22: When seen the patient states that she is doing better today. She does endorse a slight headache but says it is improving. Her affect is mildly flat. She denies any dizziness or nausea although she does have some occasional spasms to the posterior right thigh. 10/23: No acute events overnight. Patient expresses a she would like to go home to her kids. She reports improved headaches. 10/24: No acute events. No BOWEN Exam Results Vital Signs Date Time Temp Pulse Resp B/P (MAP) Pulse Ox O2 Delivery O2 Flow Rate FiO2 10/24/17 08:00 98.1 80 18 101/59 (73) 98 Intake and Output 10/24/17 10/24/17 10/25/17 08:00 16:00 00:00 Intake Total 60 ml Balance 60 ml Physical Examination GEN: Patient is awake and alert. No acute distress HEENT: Normocephalic, atraumatic. CV: Regular rate and rhythm PULM: Clear to auscultation bilaterally GI: soft, nondistended, normoactive bowel sounds : Cannon in place Extremities: No ecchymosis or edema NEURO: CNII: Pupils OS 3+/OD 3+. CNIII/IV/: EOMI bilaterally CNVII: Face symmetric CNVIII: Hearing intact to finger rub bilaterally CNX: Uvula elevates in the midline CNXI: Shoulder shrug intact CNXII: Tongue midline Motor strength testing (L/R): Shoulder abduction 5/5 Elbow flexion 5/5 Elbow extension 5/5 Wrist extension 5/5 Hand medical transcription 5/5 Hand intrinsics 5/5 Hip flexion 5/5 Knee extension 5/5 Knee flexion 5/5 Ankle dorsiflexion 5/5 Ankle plantarflexion 5/5 Great toe extension 5/5 DTR: Biceps Triceps Patella Achilles No Hoffmanns No clonus Sensory: Intact to light touch throughout Gait: Unable to assess Lab, Micro, Other Results Allergies Coded Allergies Type Severity Reaction Last Updated Verified prochlorperazine Allergy Intermediate 10/07/17 Yes Recent Impressions Transcranial Doppler Study Complete 10/24/17 08 Signed Impressions: Service Date/Time: Tuesday, October 24, 2017 07:39 - CONCLUSION: 1. No evidence for vasospasm. Korey Bustos MD Transcranial Doppler Study Complete 10/23/17 08 Signed Impressions: Service Date/Time: Monday, October 23, 2017 08:22 - CONCLUSION: 1. Continued improving right middle cerebral artery vasospasm. Korey Bustos MD Transcranial Doppler Study Complete 10/22/17 0000 Signed Impressions: Service Date/Time: October 07:57 - CONCLUSION: 1. Decreasing spasm in the right middle cerebral artery. Jon Collins MD 10/22/17 10/22/17 10/23/17 10/23/17 10/24/17 10/24/17 06:00 18:00 06:00 18:00 06:00 18:00 Intake Total 500 ml 60 ml Balance 500 ml 60 ml Intake Oral 60 ml IV Total 500 ml # Voids 3 1 4 1 # Bowel Movements 1 0 0 0 0 Laboratory Tests Test 10/22/17 09:44 10/23/17 08:04 10/24/17 06:39 Sodium Level 132 MEQ/L 135 MEQ/L 137 MEQ/L White Blood Count 8.3 TH/MM3 Red Blood Count 5.13 MIL/MM3 Hemoglobin 12.4 GM/DL Hematocrit 38.5 % Mean Corpuscular Volume 75.0 FL Mean Corpuscular Hemoglobin 24.2 PG Mean Corpuscular Hemoglobin Concent 32.2 % Red Cell Distribution Width 13.5 % Platelet Count 467 TH/MM3 Mean Platelet Volume 8.6 FL Neutrophils (%) (Auto) 42.8 % Lymphocytes (%) (Auto) 49.1 % Monocytes (%) (Auto) 5.9 % Eosinophils (%) (Auto) 1.9 % Basophils (%) (Auto) 0.3 % Neutrophils # (Auto) 3.6 TH/MM3 Lymphocytes # (Auto) 4.1 TH/MM3 Monocytes # (Auto) 0.5 TH/MM3 Eosinophils # (Auto) 0.2 TH/MM3 Basophils # (Auto) 0.0 TH/MM3 CBC Comment DIFF FINAL Differential Comment Blood Urea Nitrogen 11 MG/DL Creatinine 0.78 MG/DL Random Glucose 93 MG/DL Calcium Level 9.4 MG/DL Potassium Level 4.1 MEQ/L Chloride Level 99 MEQ/L Carbon Dioxide Level 27.6 MEQ/L Anion Gap 8 MEQ/L Estimat Glomerular Filtration Rate 98 ML/MIN Orders Procedure Category Date Status Time Ketorolac Inj MED 10/22/17 In Process (Toradol Inj) 08:30 Us Transcranial RADUS 10/23/17 Resulted Doppler Comp 08:00 Us Transcranial RADUS 10/24/17 Resulted Doppler Comp 08:00 Us Transcranial RADUS 10/25/17 Verified Doppler Comp 08:00 Us Transcranial RADUS 10/26/17 Verified Doppler Comp 08:00 Sodium (Na) LAB 10/24/17 Complete 06:00 Sodium (Na) LAB 10/25/17 Verified 06:00 Sodium (Na) LAB 10/26/17 Verified 06:00 Sodium (Na) LAB 10/27/17 Verified 06:00 Sodium Chlorid 0.9% MED 10/22/17 Complete 500 Ml Inj (Ns 500 M 12:15 Basic Metabolic Panel LAB 10/23/17 Complete (Bmp) 06:00 Complete Blood Count LAB 10/23/17 Complete With Diff 06:00 Hydromorphone Pf Inj MED 10/23/17 Complete (Dilaudid Pf Inj) 09:45 Vascular Access Team ARISTEO 10/24/17 In Process Consult/P 01:30 Vascular Poc IMGUS 10/24/17 Logged Ultrasound Vital Signs Date Time Temp Pulse Resp B/P (MAP) Pulse Ox O2 Delivery O2 Flow Rate FiO2 10/24/17 08:00 98.1 80 18 101/59 (73) 98 10/24/17 06:22 97.9 88 20 102/55 (71) 98 10/23/17 23:50 97.9 77 18 110/58 (75) 100 10/23/17 22:00 98.3 74 20 99/57 (71) 100 10/23/17 16:00 98.3 82 18 105/66 (79) 100 10/23/17 14:34 19 10/23/17 12:00 98.1 83 18 97/56 (70) 97 10/23/17 08:57 98.2 85 16 97/54 (68) 98 10/23/17 00:00 98.8 93 20 99/53 (68) 98 10/23/17 00:00 98.2 87 18 111/57 (75) 99 10/22/17 20:00 98.2 78 20 105/59 (74) 99 10/22/17 17:37 110/68 (82) 10/22/17 16:00 98.3 89 18 98/54 (69) 99 10/22/17 12:00 98.4 80 16 100/58 (72) 99 10/22/17 11:47 84 17 93/58 (70) 98 10/22/17 08:16 98.7 83 16 96/51 (66) 99 10/22/17 04:42 98.4 85 18 114/60 (78) 99 10/22/17 00:12 98.3 89 18 96/58 (71) 99 10/21/17 20:52 98.4 80 18 111/59 (76) 100 10/21/17 12:00 98.4 80 17 102/62 (75) 99 Medical Decision Making Impression and Plan Ms Curry is a 42 year old female who 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 Daily TCD reveal improving vasospasm. Patient also shows clinical improvement. Continue nimodipine 10/24 No evidence of vasospasm. Continue nimodipine x 30 days CV: normotensive. Now off Verapamil. Pulm: Good O2 saturation GI: Good bowel function Bowel regimen PPI prophylaxis : Good UOP F/E/N: ID: afebrile DVT prophylaxis: SCD, Lovenox Pain: BOWEN improving and well controlled. Disposition: Cleared for dc home Deep Pink MD Oct 24, 2017 11:25
[2017-10-24] MEDS ORDERED: AMBI5TAB PO (11:45)
[2017-10-24] MEDS ORDERED: HYDR-3516 PO (11:45)
[2017-10-24] MEDS ORDERED: NIMO30CA3 PO ×2 (11:45→11:47)
[2017-10-24] MEDS ORDERED: CYCL10TA PO (11:45)
--- NOTE | 2017-10-24 11:54 | HHI.DS ---
Discharge Summary Admission Date Oct 07, 2017 at 4:05 am Discharge Date: Oct 24, 2017 Admitting Diagnosis SAH (1) Subarachnoid hemorrhage ICD Code: I60.9 - Nontraumatic subarachnoid hemorrhage, unspecified Diagnosis: Principal Status: Acute (2) Anterior communicating artery aneurysm ICD Code: I67.1 - Cerebral aneurysm, nonruptured Status: Acute (3) Vasospasm of cerebral artery ICD Code: I67.848 - Other cerebrovascular vasospasm and vasoconstriction Procedures Cerebral angiogram with verapamil administration for vasospasm. 10/20/2017. Brief History - From Admission 42 y.o. female transfered from [facility] where she presented with severe BOWEN that she awoke with. Prior history of migraines. Positive nausea and emesis last evening. No complaining of diplopia, blurred vision. No significant speech deficit or memory loss. No complaint of pain and weakness or numbness in the extremities. Positive dizziness. No vertigo. CBC/BMP: 10/23/17 0804 10/24/17 0639 Significant Findings Laboratory Tests Test 10/22/17 09:44 10/23/17 08:04 10/24/17 06:39 Sodium Level 132 MEQ/L (136-145) 135 MEQ/L (136-145) Mean Corpuscular Volume 75.0 FL (80.0-100.0) Mean Corpuscular Hemoglobin 24.2 PG (27.0-34.0) Platelet Count 467 TH/MM3 (150-450) Lymphocytes (%) (Auto) 49.1 % (9.0-44.0) Imaging Last Impressions Transcranial Doppler Study Complete 10/24/17 0800 Signed Impressions: Service Date/Time: Tuesday, October 24, 2017 07:39 - CONCLUSION: 1. No evidence for vasospasm. Korey Bustos MD Head CT 10/21/17 0000 Signed Impressions: Service Date/Time: Saturday, October 21, 2017 02:28 - CONCLUSION: Negative noncontrast CT with no evidence hemorrhage or mass effect. Eduin Casillas MD Cerebral Arteriogram 10/20/17 0000 Signed Impressions: Service Date/Time: Friday, October 20, 2017 13:51 - CONCLUSION: 1. No significant angiographic evidence for right MCA territory vasospasm. 2. Uncomplicated intra-arterial administration of 10 mg verapamil in the distal right internal carotid cervical segment. Korey Bustos MD Head CTA 10/12/17 0000 Signed Impressions: Service Date/Time: Thursday, October 12, 2017 14:53 - CONCLUSION: Satisfactory appearance post ACOMM aneurysm coiling. Johann Troy MD Chest X-Ray 10/08/17 0000 Signed Impressions: Service Date/Time: September 12:18 - CONCLUSION: Central line in good position. No evidence of pneumothorax. Jett Collier MD Neck CTA 10/07/17 0000 Signed Impressions: Service Date/Time: Saturday, October 07, 2017 04:41 - CONCLUSION: Extracranial carotid and vertebral arteries have a normal appearance. Johann Shin MD PE at Discharge GENERAL: Alert, oriented 3, NAD SKIN: Warm and dry. HEAD: Normocephalic. EYES: No scleral icterus. No injection or drainage. NECK: Supple, trachea midline. No JVD or lymphadenopathy. CARDIOVASCULAR: Regular rate and rhythm without murmurs, gallops, or rubs. RESPIRATORY: Breath sounds equal bilaterally. No accessory muscle use. GASTROINTESTINAL: Abdomen soft, non-tender, nondistended. MUSCULOSKELETAL: No cyanosis, or edema. BACK: Nontender without obvious deformity. No CVA tenderness. Pt update on day of discharge Patient is doing well. Headache minimal. No fever, chills. Discussed with Neurosurgery (Dr. Pink) who is okay with patient going home. Dr. Pink also requested us to do the discharge summary and discharge orders. Hospital Course Ms. Curry is a 42-year-old female with a history of SLE, migraine headache, benign brain tumor status post resection in 1990 who was transferred to [place] due to acute subarachnoid hemorrhage on 10/07/2017. CT brain demonstrates diffuse SAH with no intraventricular extension or hydrocephalus. CTA demonstrates 3 mm Acom aneurysm with narrow neck per radiology report. She has received nimodipine. - Acute subarachnoid hemorrhage - Anterior communicating artery aneurysm - Cerebral artery vasospasm - Neurosurgery following. - s/p coiling of ACOM aneurysm. Continue Nimodipine 60 g by mouth every 4 hours. Will continue Nimodipine for 30 days upon discharge. - TCD today shows no vasospasm. - Hypokalemia - K+ 3.0 improved to 3.8 --> 4.1. Reviewed CBC, BMP from 2016. - Hypotension - Patient received Midodrine 10mg TID. Will not continue on discharge. Neurosurgery agreed. Will d/c patient home with home health. After patient was discharged, she called floor RN back because her pharmacy said they cannot get Nimodipine for couple of days. I tried contacting patient without success. I then called her sister. While we are waiting for Nimodipine, there is some evidence that statins may also help with vasospasm. I sent an rx for Pravastatin 40mg Qday to a [facility] on [facility]. Patient's sister will convey the message to patient. Once Nimodipine is available, she should take it for one month. Pt Condition on Discharge: Good Discharge Disposition: Disch w/ Home Health Serv Discharge Time: > 30 minutes Discharge Instructions DIET: Follow Instructions for: As Tolerated, No Restrictions Activities you can perform: Regular-No Restrictions Follow up Referrals: PCP Follow-up - 2 Weeks New Medications: Pravastatin (Pravastatin) 40 Mg Tab 40 MG PO DAILY for Cholesterol Management, #30 TAB 5 Refills Cyclobenzaprine (Flexeril) 10 Mg Tab 5 MG PO Q8H PRN for muscle spasms, #20 TAB Hydrocodone/Acetaminophen (Hydrocodone-Acetamin 5-325 mg) 5 Mg-325 Mg Tablet 1 TAB PO Q6HR PRN for PAIN GREATER THAN 5, #20 TAB 0 Refills Nimodipine (Nimodipine) 30 Mg Cap 60 MG PO Q4HR for cerebral artery spasm for 30 Days, CAP 0 Refills Zolpidem (Ambien) 5 Mg Tab 5 MG PO HS PRN for INSOMNIA, #20 TAB Earnestine Moreira DO Oct 24, 2017 11:54
[2017-10-24 12:00] VITALS: BP 91/51; PULSE 71; RESP 18; TEMP 98; O2SAT 100
[2017-10-24] MEDS ORDERED: PRAV40TA2 PO ×2 (20:07→20:12)
== END 2017-10-24 13:22 | disposition home health service (06) | DRG 21 ==
LOC: NEPE 03:55 → NEDA 04:05 → N03B 06:01 → N05A 10-16 16:34
PROVIDERS: ADMIT Neurological Surgery; ATTEND Neurological Surgery
PROC: 03VG3DZ Restriction of Intracranial Artery with Intraluminal Device, Percutaneous Approach (ICD-10-PCS; principal; 2017-10-07)
PROC: B314YZZ Fluoroscopy of Left Common Carotid Artery using Other Contrast (ICD-10-PCS; 2017-10-07)
PROC: B31RYZZ Fluoroscopy of Intracranial Arteries using Other Contrast (ICD-10-PCS; 2017-10-07)
PROC: B317YZZ Fluoroscopy of Left Internal Carotid Artery using Other Contrast (ICD-10-PCS; 2017-10-07)
PROC: B41GYZZ Fluoroscopy of Left Lower Extremity Arteries using Other Contrast (ICD-10-PCS; 2017-10-07)
PROC: 05HN33Z Insertion of Infusion Device into Left Internal Jugular Vein, Percutaneous Approach (ICD-10-PCS; 2017-10-08)
PROC: B41FYZZ Fluoroscopy of Right Lower Extremity Arteries using Other Contrast (ICD-10-PCS; 2017-10-20)
PROC: 3E06317 Introduction of Other Thrombolytic into Central Artery, Percutaneous Approach (ICD-10-PCS; 2017-10-20)
DX: I60.2 Nontraumatic subarachnoid hemorrhage from anterior communicating artery (principal); I67.848 Other cerebrovascular vasospasm and vasoconstriction; M32.9 Systemic lupus erythematosus, unspecified; R47.01 Aphasia; T83.511A Infection and inflammatory reaction due to indwelling urethral catheter, initial encounter; M54.2 Cervicalgia; F17.210 Nicotine dependence, cigarettes, uncomplicated; E87.6 Hypokalemia; Z86.011 Personal history of benign neoplasm of the brain; B95.2 Enterococcus as the cause of diseases classified elsewhere; G43.909 Migraine, unspecified, not intractable, without status migrainosus; I95.1 Orthostatic hypotension; M54.30 Sciatica, unspecified side; Y84.6 Urinary catheterization as the cause of abnormal reaction of the patient, or of later complication, without mention of misadventure at the time of the procedure; R03.0 Elevated blood-pressure reading, without diagnosis of hypertension; R40.2412 Glasgow coma scale score 13-15, at arrival to emergency department
CPT/HCPCS: 36556; 61624; 61650; 70450; 70496; 70498; 71010; 75894; 76937; 80048; 80053; 81001; 81003; 83735; 83930; 83935; 84100; 84132; 84295; 85025; 85027; 85610; 85730; 87077; 87086; 87186; 87641; 93886; 94150; 99152; 99153; 99285; C1760; C1769; C1887; C1894; G0269; J1170; J1644; J1650; J1885; J2250; J2270; J2370; J2405; J3010; J3480; J7030; J7040; J7060; Q9967

== ENCOUNTER 2017-10-26 16:33 | Emergency (ER) | payer OTHER ==
[~2017-10-26 16:33] MED LIST: AMBI5TAB PO; CYCL10TA PO; HYDR-3516 PO; NIMO30CA3 PO; PRAV40TA2 PO
[2017-10-26 16:34] VITALS: BP 98/70; PULSE 108; RESP 15; TEMP 98.8; O2SAT 99
--- NOTE | 2017-10-26 16:52 | PD ---
HPI Chief Complaint: Headache Time Seen by Provider: 16:51 Travel History International Travel<30 days: No Contact w/Intl Traveler<30days: No Traveled to known affect area: No History of Present Illness HPI 42-year-old female presents to the Emergency department for evaluation of a headache, constant, pressure-like. Patient states that she recently had an aneurysm with coiling and is concerned because she has not been able to have her knee Nimotop and her headache is similar to what it was prior to rupture except now she is having sensation of lightheadedness. Mild nausea without vomiting. No focal deficits or weakness. She has no other symptoms to report at this time. PFSH Past Medical History Autoimmune Disease: Yes (LUPUS) Cancer: No Cardiovascular Problems: No Endocrine: No Genitourinary: No Immune Disorder: Yes (Lupus) Neurologic: Yes Psychiatric: No Reproductive: Yes (Ectopic ) Respiratory: No ?: Not Ectopic : Yes Past Surgical History Abdominal Surgery: Yes (Appendectomy) Appendectomy: Yes Neurologic Surgery: Yes (BENIGN TUMOR REMOVAL A CHILD) Social History Alcohol Use: No Tobacco Use: No Substance Use: No Allergies-Medications (Allergen,Severity, Reaction): Coded Allergies: prochlorperazine (Verified Allergy, Intermediate, rash, 10/26/17) Reported Meds & Prescriptions Reported Meds & Active Scripts Active Pravastatin 40 Mg Tab 40 Mg PO DAILY Nimodipine 30 Mg Cap 60 Mg PO Q4HR 30 Days Ambien (Zolpidem Tartrate) 5 Mg Tab 5 Mg PO HS PRN Hydrocodone-Acetamin 5-325 mg (Hydrocodone/Acetaminophen) 5 Mg-325 Mg Tablet 1 Tab PO Q6HR PRN Flexeril (Cyclobenzaprine HCl) 10 Mg Tab 5 Mg PO Q8H PRN Review of Systems Except as stated in HPI: all other systems reviewed are Neg Physical Exam Narrative GENERAL: Well-nourished female patient, ambulatory and in no acute distress. SKIN: Focused skin assessment warm/dry. HEAD: Atraumatic. Normocephalic. EYES: Pupils equal and round. No scleral icterus. No injection or drainage. ENT: No nasal bleeding or discharge. Mucous membranes pink and moist. NECK: Trachea midline. No JVD. CARDIOVASCULAR: Regular rate and rhythm. No murmur appreciated. RESPIRATORY: No accessory muscle use. Clear to auscultation. Breath sounds equal bilaterally. GASTROINTESTINAL: Abdomen soft, non-tender, nondistended. Hepatic and splenic margins not palpable. MUSCULOSKELETAL: No obvious deformities. No clubbing. No cyanosis. No edema. NEUROLOGICAL: Awake and alert. No obvious cranial nerve deficits. Motor grossly within normal limits. Normal speech. PSYCHIATRIC: Appropriate mood and affect; insight and judgment normal. Data Data Last Documented VS Orders Orders Ct Brain W/O Iv Contrast(Rout) (10/26/17 ) Sodium Chlor 0.9% 1000 Ml Inj (Ns 1000 M (10/26/17 17:45) Morphine Inj (Morphine Inj) (10/26/17 17:45) Ondansetron Inj (Zofran Inj) (10/26/17 17:45) Iv Access Insert/Monitor (10/26/17 17:40) Morphine Inj (Morphine Inj) (10/26/17 17:45) Ed Discharge Order (10/26/17 18:58) [facility] Medical Decision Making Medical Screen Exam Complete: Yes Emergency Medical Condition: Yes Medical Record Reviewed: Yes Differential Diagnosis Headache versus vasospasm versus ICH Narrative Course 42-year-old female presents to the emergency department for evaluation of a headache. Patient does have history of recent coiling. She has no focal deficits or weakness. Patient is treated for pain. I discussed with my attending physician is also assessed her. Last Impressions Head CT 10/26/17 0000 Signed Impressions: Service Date/Time: Thursday, October 26, 2017 17:10 - CONCLUSION: 1. Stable appearance of the brain with a metallic coil mass in the expected location of the anterior communicating artery. 2. Otherwise negative. Nothing acute. Dimitris Astudillo MD Findings are discussed with patient. She is discharged to follow-up with her primary care provider and return immediately with any acute worsening symptoms. Diagnosis Primary Impression: Head ache Qualified Codes: R51 - Headache Additional Impression: Vasospasm of cerebral artery Referrals: Neurosurgeon Patient Instructions: General Instructions Additional Instructions: Follow-up with your primary care provider Follow-up with neurosurgeon Continue medication as prescribed Return immediately with any acute symptoms Med/Other Pt SpecificInfo: No Change to Meds Disposition: 01 DISCHARGE HOME Condition: Stable KarleyAnca BAUTISTA Oct 26, 2017 16:52
--- NOTE | 2017-10-26 17:28 | RADRPT ---
EXAM DATE/TIME: 10/26/2017 17:10 [place] COMPARISON: CT BRAIN W/O CONTRAST, October 21, 2017, 2:28. INDICATIONS : Headaches. History of anuerysm. RADIATION DOSE: 36.81 CTDIvol (mGy) MEDICAL HISTORY : Aneurysm, intracranial. Lupus. SURGICAL HISTORY : Craniotomy. Anuersym coil ENCOUNTER: Initial ACUITY: 1 day PAIN SCALE: 10/10 LOCATION: Bilateral cranial TECHNIQUE: Multiple contiguous axial images were obtained of the head. Using automated exposure control and adj ustment of the mA and/or kV according to patient size, radiation dose was kept as low as reasonably a chievable to obtain optimal diagnostic quality images. DICOM format image data is available electro nically for review and comparison. FINDINGS: CEREBRUM: The ventricles are normal for age. No evidence of midline shift, mass lesion, hemorrhage or acute in farction. Metallic coil mass in the expected location of the anterior communicating artery. No extra -axial fluid collections are seen. POSTERIOR FOSSA: The cerebellum and brainstem are intact. The 4th ventricle is midline. The cerebellopontine angle i s unremarkable. EXTRACRANIAL: The visualized portion of the orbits is intact. SKULL: The calvaria is intact. No evidence of skull fracture. CONCLUSION: 1. Stable appearance of the brain with a metallic coil mass in the expected location of the anterior communicating artery. 2. Otherwise negative. Nothing acute. Dimitris Astudillo MD on October 26, 2017 at 17:21 Board Certified Radiologist. This report was verified electronically.
[2017-10-26] MEDS ORDERED: SODIUM CHLOR 0.9% 1000 ML INJ 1,000 ML IV ONE (17:45)
[2017-10-26] MEDS ORDERED: MORPHINE SULFATE 4 MG/ML INJ IV PUSH ONE (17:45)
[2017-10-26] MEDS ORDERED: ONDANSETRON HCL 4 MG/2 ML VIAL IV PUSH ONE (17:45)
[2017-10-26] MEDS ORDERED: MORPHINE SULFATE 2 MG/ML INJ IV PUSH ONE (17:45)
[2017-10-26 17:53] VITALS: BP 106/62; PULSE 78; RESP 17; TEMP 97.8; O2SAT 98
[2017-10-26 18:45] VITALS: BP 102/59; PULSE 78; RESP 16; TEMP 97.8; O2SAT 100
[2017-11-05] MEDS ORDERED: VARE1PAK3 PO (09:20)
[2017-11-05] MEDS ORDERED: DILA2TAB4 PO (09:20)
== END 2017-10-26 20:32 | disposition home or self-care (01) ==
LOC: NEPE 16:33
DX: R51 Headache (principal); I67.848 Other cerebrovascular vasospasm and vasoconstriction; M32.9 Systemic lupus erythematosus, unspecified
CPT/HCPCS: 70450; 96361; 96374; 96375; 99285; J2270; J2405; J7030

== ENCOUNTER 2017-11-11 14:23 | Observation (INO) | payer OTHER ==
[~2017-11-11] VITALS: Ht 167.6 cm; Wt 77.9 kg
[~2017-11-11 14:23] MED LIST changes: +DILA2TAB4 PO; -PRAV40TA2 PO; +VARE1PAK3 PO
[2017-11-11 14:26] VITALS: BP 149/73; PULSE 111; RESP 16; TEMP 99.1; O2SAT 99
[2017-11-11 14:43] VITALS: BP 106/74; PULSE 99; RESP 17; O2SAT 100
[2017-11-11] MEDS ORDERED: SODIUM CHLOR 0.9% 1000 ML INJ 1,000 ML IV ONE (15:03)
[2017-11-11] MEDS ORDERED: METOCLOPRAMIDE HCL 10 MG/2 ML VIAL IVP ONE (15:15)
[2017-11-11] MEDS ORDERED: SODIUM CHLORIDE 0.9% FLUSH 10 ML FLUSH IVF PRN (15:15)
[2017-11-11] MEDS ORDERED: diphenhydrAMINE HCL 50 MG/ML VIAL IVP ONE (15:15)
[2017-11-11] MEDS ORDERED: MORPHINE SULFATE 2 MG/ML INJ IV PUSH ONE (15:15)
--- NOTE | 2017-11-11 15:25 | PD ---
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 Sudden onset around 12:30 this afternoon. Patient also complains of dull, right -sided frontal headache with blurred vision. She denies unilateral weakness, facial droop, chest pain, nausea, vomiting, weakness of the extremities. She called her primary care, Dr. Preston, who sent her to the ED for evaluation. 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; ANEURYSM RUPTUERED) Other Surgery: Yes Social History Alcohol Use: Yes (SOCIALLY) Tobacco Use: No (QUIT 1 MONTHS AGO) Substance Use: No Allergies-Medications (Allergen,Severity, Reaction): Coded Allergies: prochlorperazine (Verified Allergy, Intermediate, rash, 11/11/17) Reported Meds & Prescriptions Reported Meds & Active Scripts Active Chantix Starting Month Michael (Varenicline) 0.5 mg X 11 & 1 mg X 42 Pack 1 Tab PO DIRECTED Dilaudid (Hydromorphone HCl) 2 Mg Tab 2 Mg PO Q6H PRN Nimodipine 30 Mg Cap 60 Mg PO Q4HR 30 Days Ambien (Zolpidem Tartrate) 5 Mg Tab 5 Mg PO HS PRN Hydrocodone-Acetamin 5-325 mg (Hydrocodone/Acetaminophen) 5 Mg-325 Mg Tablet 1 Tab PO Q6HR PRN Flexeril (Cyclobenzaprine HCl) 10 Mg Tab 5 Mg PO Q8H PRN Review of Systems Except as stated in HPI: all other systems reviewed are Neg Physical Exam Narrative GENERAL: Well-nourished, well-developed anxious female in no acute distress. SKIN: Focused skin assessment warm/dry. HEAD: Normocephalic. EYES: No scleral icterus. No injection or drainage. PERRLA. EOMI. NECK: Supple, trachea midline. No JVD or lymphadenopathy. CARDIOVASCULAR: Regular rate and rhythm without murmurs, gallops, or rubs. RESPIRATORY: Breath sounds clear and equal bilaterally. No accessory muscle use. GASTROINTESTINAL: Abdomen soft, non-tender, nondistended. Active bowel sounds. MUSCULOSKELETAL: No cyanosis, or edema. NEUROLOGICAL: Awake and alert. Cranial nerves II through XII intact. Motor and sensory grossly within normal limits. Five out of 5 muscle strength in all muscle groups. Normal speech. Patient states sensation is diminished on the right side of the face. BACK: Nontender without obvious deformity. No CVA tenderness. Data Data Last Documented VS Vital Signs Date Time Temp Pulse Resp B/P (MAP) Pulse Ox O2 Delivery O2 Flow Rate FiO2 11/11/17 17:48 88 18 125/71 (89) 100 Room Air 11/11/17 14:[address] Brain W/O Iv Contrast(Rout) (11/11/17 15:03) Ecg Monitoring (11/11/17 15:03) Iv Access Insert/Monitor (11/11/17 15:03) Oximetry (11/11/17 15:03) Sodium Chloride 0.9% Flush (Ns Flush) (11/11/17 15:15) Diphenhydramine Inj (Benadryl Inj) (11/11/17 15:15) Metoclopramide Inj (Reglan Inj) (11/11/17 15:15) Sodium Chlor 0.9% 1000 Ml Inj (Ns 1000 M (11/11/17 15:03) Morphine Inj (Morphine Inj) (11/11/17 15:15) Complete Blood Count With Diff (11/11/17 16:12) Comprehensive Metabolic Panel (11/11/17 16:12) Prothrombin Time / Inr (Pt) (11/11/17 16:12) Act Partial Throm Time (Ptt) (11/11/17 16:12) Urinalysis - C+S If Indicated (11/11/17 16:12) Place In Observation (11/11/17 ) Vital Signs (Adult) Q2HX12,Q4H (11/11/17 17:39) Nih Stroke Scale - Nihss .Daily (11/11/17 17:39) Neuro Checks Q2HX12,Q4H (11/11/17 17:39) Notify Dr: Other (11/11/17 17:39) Remove Urinary Catheter .ONCE (11/11/17 17:39) Pt Request For Service (11/11/17 17:39) Case Management Consult (11/11/17 ) Activity Oob Ad Nicky (11/11/17 17:39) Nursing Bedside Swallow Assess .ONCE (11/11/17 17:39) Scd Bilateral/Knee High ARISTEO.QSHIFT (11/11/17 17:39) Hemoglobin (Hgb) A1c (11/11/17 17:39) Lipid Profile (11/12/17 06:00) ^ Hold Medication (11/11/17 17:39) Sodium Chloride 0.9% Flush (Ns Flush) (11/11/17 21:00) Sodium Chloride 0.9% Flush (Ns Flush) (11/11/17 17:45) Bedside Glucose ARISTEO.CSUGAR (11/11/17 17:39) ^ Discontinue Insulin Orders (11/11/17 17:39) Dextrose 50% In Ivania (Vial) Inj (D50w (Vi (11/11/17 17:45) Glucagon Inj (Glucagon Inj) (11/11/17 17:45) Alcoholism Worker / Telemetry ARISTEO.Q8H (11/11/17 17:39) Consult Stroke Navigator (11/11/17 ) Echo 2d Comp With Doppler (11/11/17 ) Admit Order (Ed Use Only) (11/11/17 17:50) Labs Laboratory Tests Test 11/11/17 16:00 11/11/17 17:45 White Blood Count 11.1 TH/MM3 Red Blood Count 4.78 MIL/MM3 Hemoglobin 11.4 GM/DL Hematocrit 35.2 % Mean Corpuscular Volume 73.6 FL Mean Corpuscular Hemoglobin 23.8 PG Mean Corpuscular Hemoglobin Concent 32.4 % Red Cell Distribution Width 14.3 % Platelet Count 356 TH/MM3 Mean Platelet Volume 8.2 FL Neutrophils (%) (Auto) 57.2 % Lymphocytes (%) (Auto) 38.1 % Monocytes (%) (Auto) 2.7 % Eosinophils (%) (Auto) 1.5 % Basophils (%) (Auto) 0.5 % Neutrophils # (Auto) 6.3 TH/MM3 Lymphocytes # (Auto) 4.2 TH/MM3 Monocytes # (Auto) 0.3 TH/MM3 Eosinophils # (Auto) 0.2 TH/MM3 Basophils # (Auto) 0.1 TH/MM3 CBC Comment DIFF FINAL Differential Comment Erythrocyte Sedimentation Rate 19 mm/hr Prothrombin Time 11.1 SEC Prothromb Time International Ratio 1.1 RATIO Activated Partial Thromboplast Time 28.0 SEC Blood Urea Nitrogen 7 MG/DL Creatinine 0.68 MG/DL Random Glucose 114 MG/DL Total Protein 7.9 GM/DL Albumin 3.7 GM/DL Calcium Level 9.3 MG/DL Alkaline Phosphatase 90 U/L Aspartate Amino Transf (AST/SGOT) 24 U/L Alanine Aminotransferase (ALT/SGPT) 23 U/L Total Bilirubin 0.2 MG/DL Sodium Level 137 MEQ/L Potassium Level 3.9 MEQ/L Chloride Level 104 MEQ/L Carbon Dioxide Level 24.4 MEQ/L Anion Gap 9 MEQ/L Estimat Glomerular Filtration Rate 115 ML/MIN Urine Color LIGHT-YELLOW Urine Turbidity CLEAR Urine pH 6.5 Urine Specific [place] 1.005 Urine Protein NEG mg/dL Urine Glucose (UA) NEG mg/dL Urine Ketones NEG mg/dL Urine Occult Blood NEG Urine Nitrite NEG Urine Bilirubin NEG Urine Urobilinogen LESS THAN 2.0 MG/DL Urine Leukocyte Esterase NEG Urine WBC LESS THAN 1 /hpf Urine Squamous Epithelial Cells <1 /hpf Microscopic Urinalysis Comment CULT NOT INDICATED MDM Medical Decision Making Medical Screen Exam Complete: Yes Emergency Medical Condition: Yes Differential Diagnosis TIA versus migraine versus ICH versus cerebral artery vasospasm versus other Narrative Course 42 YO F with PMH of SLE, migraines, benign brain tumor status post resection in 1990, 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 Sudden onset around 12:30 this afternoon. Patient also complains of dull, right -sided frontal headache with blurred vision. She denies unilateral weakness, facial droop, chest pain, nausea, vomiting, weakness of the extremities. She was sent by her primary care. Patient is tachycardic and hypertensive on presentation. Physical exam reveals no focal neuro deficit. Patient does state that sensation somewhat diminished on the right side of her face as compared to the left side. IV was established. Patient was administered 4 mg morphine, 5 mg Reglan, 25 mg Benadryl and 1 L normal saline IV. CT scan of the brain stable with no acute intracranial abnormality per radiology read. Discussed the results of the workup with the patient. She states that her symptoms are somewhat improved but not completely resolved. I recommended admission for TIA workup. Patient was initially resistant but ultimately acquiesced. spoke with Dr. Coyne who agrees to accept the patient to the medicine service. Please see medicine notes for disposition. Katiana Antonio Nov 11, 2017 15:25
[2017-11-11 16:29] LABS: AUTOMATED NEUTROPHIL # 6.3 TH/MM3 (1.8-7.7); BASOPHIL # 0.1 TH/MM3 (0-0.2); BASOPHIL % 0.5 % (0.0-2.0); EOSINOPHIL # 0.2 TH/MM3 (0-0.4); EOSINOPHIL % 1.5 % (0.0-4.0); HEMATOCRIT 35.2 % (35.0-46.0); HEMOGLOBIN 11.4 GM/DL (11.6-15.3); LYMPH % 38.1 % (9.0-44.0); LYMPHOCYTE # 4.2 TH/MM3 (1.0-4.8); MEAN CELL VOLUME 73.6 FL (80.0-100.0); MEAN CORPUSCULAR HEMOGLOBIN 23.8 PG (27.0-34.0); MEAN CORPUSCULAR HGB CONC 32.4 % (32.0-36.0); MEAN PLATELET VOLUME 8.2 FL (7.0-11.0); MONO % 2.7 % (0.0-8.0); MONOCYTE # 0.3 TH/MM3 (0-0.9); NEUT % 57.2 % (16.0-70.0); PLATELET COUNT 356 TH/MM3 (150-450); RED BLOOD COUNT 4.78 MIL/MM3 (4.00-5.30); RED CELL DISTRIBUTION WIDTH 14.3 % (11.6-17.2); WHITE BLOOD COUNT 11.1 TH/MM3 (4.0-11.0)
--- NOTE | 2017-11-11 16:45 | RADRPT ---
EXAM DATE/TIME: 11/11/2017 16:01 [facility] COMPARISON: CT BRAIN W/O CONTRAST, October 26, 2017, 17:10. INDICATIONS : Headache right sided facial numbness,blurred vision right eye RADIATION DOSE: 56.35 CTDIvol (mGy) MEDICAL HISTORY : Lupus. Brain tumer,aneurysm coiling SURGICAL HISTORY : None. ENCOUNTER: Initial ACUITY: 1 day PAIN SCALE: 8/10 LOCATION: cranial TECHNIQUE: Multiple contiguous axial images were obtained of the head. Using automated exposure control and adj ustment of the mA and/or kV according to patient size, radiation dose was kept as low as reasonably a chievable to obtain optimal diagnostic quality images. DICOM format image data is available electro nically for review and comparison. FINDINGS: CEREBRUM: Redemonstration of coils in the expected location of the anterior commuting artery. The ventricles ar e normal for age. No evidence of midline shift, mass lesion, hemorrhage or acute infarction. No ext ra-axial fluid collections are seen. POSTERIOR FOSSA: The cerebellum and brainstem are intact. The 4th ventricle is midline. The cerebellopontine angle i s unremarkable. EXTRACRANIAL: The visualized portion of the orbits is intact. SKULL: The calvaria is intact. No evidence of skull fracture. CONCLUSION: 1. Stable post surgical features of apparent prior anterior commuting artery aneurysm coiling. 2. No acute intracranial abnormality or significant interval change. Korey Bustos MD on November 11, 2017 at 16:38 Board Certified Radiologist. This report was verified electronically.
[2017-11-11 16:47] LABS: INTERNATIONAL NORMALIZED RATIO 1.1 RATIO; PROTHROMBIN TIME - PATIENT 11.1 SEC (9.8-11.6)
[2017-11-11 16:53] LABS: ALT (GPT) 23 U/L (10-53)
[2017-11-11 16:55] LABS: ALKALINE PHOSPHATASE 90 U/L (45-117); TOTAL BILIRUBIN ADULT 0.2 MG/DL (0.2-1.0); TOTAL PROTEIN 7.9 GM/DL (6.4-8.2)
[2017-11-11 16:56] LABS: ALBUMIN 3.7 GM/DL (3.4-5.0); AST (GOT) 24 U/L (15-37); BICARBONATE 24.4 MEQ/L (21.0-32.0); BLOOD UREA NITROGEN 7 MG/DL (7-18); CALCIUM 9.3 MG/DL (8.5-10.1); CHLORIDE 104 MEQ/L (98-107); CREATININE 0.68 MG/DL (0.50-1.00); GLOMERULAR FILTRATION RATE 115 ML/MIN (>89); GLUCOSE,RANDOM 114 MG/DL (74-106); SODIUM (NA) 137 MEQ/L (136-145)
[2017-11-11] MEDS ORDERED: GLUCAGON 1 MG/ML VIAL OTHER PRN (17:45)
[2017-11-11] MEDS ORDERED: SODIUM CHLORIDE 0.9% FLUSH 10 ML FLUSH IV FLUSH PRN (17:45)
[2017-11-11] MEDS ORDERED: DEXTROSE 50% IN WATER 50 ML VIAL(D50) IV PUSH PRN (17:45)
[2017-11-11 17:48] VITALS: BP 125/71; PULSE 84; PULSE 88; RESP 18; O2SAT 100
[2017-11-11] MEDS ORDERED: IOHEXOL 350 MG/ML 10 ML VIAL (for RAD DIAG) IVCONTRAST ONE (17:52)
[2017-11-11 18:10] LABS: BILIRUBIN, URINE NEG (NEG); BLOOD, URINE NEG (NEG); GLUCOSE,URINE NEG (NEG); KETONE, URINE NEG (NEG); NITRITE,URINE NEG (NEG); PH, URINE 6.5 (5.0-8.5); SQUAMOUS EPITHELIAL CELL URINE <1 /hpf (0-5); URINE COLOR LIGHT-YELLOW (YELLW/STRAW); URINE LEUKOCYTE ESTERASE NEG (NEG)
--- NOTE | 2017-11-11 18:39 | HHI.HP ---
[facility] Service [facility] Primary Care Physician Marie Preston MD Admission Diagnosis TIA Diagnoses: Travel History International Travel<30 Days: No Contact w/Intl Traveler <30 Da: No Traveled to Known Affected Are: No History of Present Illness History from patient, and your physician communication, and review of medical records. Patient reported that at around 12:30 PM, she started having right-sided facial numbness, right temporal pain, with blurry vision and pressure behind her right eye. She also reported her jaw on the right side was painful. She reports the pain persisted even till now. She arrived to the emergency room around 2:30 PM. Patient was discharged from our hospital on October 23, 2017. Her hospital course was significant for cerebral aneurysm rupture which required coiling. She was admitted from October 07, 2017 to October 23, 2017. She returned back to emergency room on October 26, 2017. She reported that at that time, she was having increasing headaches, with feeling of pressure sensation behind her head. On that particular day, she was told that it was because she was not receiving amlodipine at home as she was while at Hospital. She was not receiving his because of some prescription issues and thus this was fixed and she started taking Imodium pain at home. She reports her vasospasms has significantly reduced and her pressure feeling and headaches have gone away after taking Imodium pain. However today's pain though is completely different and the pain today is localized only to the right temporal area and behind the right eye. Apart from the above, patient denies any recent fever/nausea/vomiting/diarrhea/ urinary burning or pain on urination. she denies any hematemesis/hematochezia/ melena/hematuria. Denies any dizziness or syncopal episodes. She however does report of right lower abdominal pain around the right groin area where she had cerebral angiography done. She however reports that it is not significant pain and she is able to ambulate without any trouble. Review of Systems Except as stated in HPI: all other systems reviewed are Neg Past Family Social History Past Medical History Systemic Lupus- used to be on plaquenil - has been out if for about 1 yr ; usually gets pain in joints, migraines, muscles Juvenile RA - at age 12 yo, and this was when SLE as also diagnosed was also told Mixed Connective Tissue disease- was on plaquenil, MTX, and prednisone prior Cerebral anueyrsm rutpure Past Surgical History Cerebral aneurysm coiling Cerebral angiograms Appendectomy Right medial meniscus repair Ectopic Left eye benign tumor removed when she was 15 years old. Has metal wires behind the eye. Allergies: Coded Allergies: prochlorperazine (Verified Allergy, Intermediate, rash, 11/11/17) Family History father- prostate ca, copd, mom- htn, dm sister- spinal bifida, htn, dm another sister- htn grandma- htn, cad needing cabg grandfather- dm aunt- sickle cell another aunt - sle son- demetrioberger Social History used to smoke/ quitting now occasionally drinker- once a week no drugs lives with children, still driving - but son has been driving lately for her due to vision problems Physical Exam Vital Signs Vital Signs Date Time Temp Pulse Resp B/P (MAP) Pulse Ox O2 Delivery O2 Flow Rate FiO2 11/11/17 17:48 88 18 125/71 (89) 100 Room Air 11/11/17 17:48 84 18 125/71 (89) 100 Room Air 11/11/17 16:51 18 11/11/17 14:43 99 17 100 Room Air 11/11/17 14:43 99 17 106/74 (85) 100 Room Air 11/11/17 14:26 99.1 111 16 149/73 (98) 99 Room Air Physical Exam GENERAL: This is a well-nourished, well-developed patient, in no apparent distress. SKIN: No rashes, ecchymoses or lesions. Cool and dry. HEAD: Atraumatic. Normocephalic. No temporal or scalp tenderness. EYES: No scleral icterus. No injection or drainage. ENT: Nose without bleeding, purulent drainage or septal hematoma. Airway patent. NECK: Trachea midline. No JVD . Supple, nontender, no meningeal signs. CARDIOVASCULAR: Regular rate and rhythm without murmurs, gallops, or rubs. RESPIRATORY: Clear to auscultation. Breath sounds equal bilaterally. No wheezes , rales, or rhonchi. GASTROINTESTINAL: Abdomen soft, non-tender, nondistended. No guarding. MUSCULOSKELETAL: Extremities without clubbing, cyanosis, or edema. . No calf tenderness. NEUROLOGICAL: Awake and alert. Cranial nerves II through XII intact. Motor and sensory grossly within normal limits. Pain on palpation at right temporal area Normal speech. Laboratory Laboratory Tests Test 11/11/17 16:00 11/11/17 17:45 White Blood Count 11.1 Red Blood Count 4.78 Hemoglobin 11.4 Hematocrit 35.2 Mean Corpuscular Volume 73.6 Mean Corpuscular Hemoglobin 23.8 Mean Corpuscular Hemoglobin Concent 32.4 Red Cell Distribution Width 14.3 Platelet Count 356 Mean Platelet Volume 8.2 Neutrophils (%) (Auto) 57.2 Lymphocytes (%) (Auto) 38.1 Monocytes (%) (Auto) 2.7 Eosinophils (%) (Auto) 1.5 Basophils (%) (Auto) 0.5 Neutrophils # (Auto) 6.3 Lymphocytes # (Auto) 4.2 Monocytes # (Auto) 0.3 Eosinophils # (Auto) 0.2 Basophils # (Auto) 0.1 CBC Comment DIFF FINAL Differential Comment Prothrombin Time 11.1 Prothromb Time International Ratio 1.1 Activated Partial Thromboplast Time 28.0 Blood Urea Nitrogen 7 Creatinine 0.68 Random Glucose 114 Total Protein 7.9 Albumin 3.7 Calcium Level 9.3 Alkaline Phosphatase 90 Aspartate Amino Transf (AST/SGOT) 24 Alanine Aminotransferase (ALT/SGPT) 23 Total Bilirubin 0.2 Sodium Level 137 Potassium Level 3.9 Chloride Level 104 Carbon Dioxide Level 24.4 Anion Gap 9 Estimat Glomerular Filtration Rate 115 Urine Color LIGHT-YELLOW Urine Turbidity CLEAR Urine pH 6.5 Urine Specific [place] 1.005 Urine Protein NEG Urine Glucose (UA) NEG Urine Ketones NEG Urine Occult Blood NEG Urine Nitrite NEG Urine Bilirubin NEG Urine Urobilinogen LESS THAN 2.0 Urine Leukocyte Esterase NEG Urine WBC LESS THAN 1 Urine Squamous Epithelial Cells <1 Microscopic Urinalysis Comment CULT NOT INDICATED Result Diagram: 11/11/17 1600 11/11/17 1600 Imaging Last [address] 11/11/17 1503 Signed Impressions: Service Date/Time: Saturday, November 11, 2017 16:01 - CONCLUSION: 1. Stable post surgical features of apparent prior anterior commuting artery aneurysm coiling. 2. No acute intracranial abnormality or significant interval change. MD Dominick Hooper VTE Risk Assessment Caprinanu VTE Risk Assessment: Mod/High Risk (score >= 2) Caprini Risk Assessment Model Point Value = 1 Point Value = 2 Point Value = 3 Point Value = 5 Age 41-60 Minor surgery BMI > 25 kg/m2 Swollen legs Varicose veins or History of unexplained or recurrent spontaneous Oral contraceptives or hormone replacement Sepsis (< 1 month) Serious lung disease, including pneumonia (< 1 month) Abnormal pulmonary function Acute myocardial infarction Congestive heart failure (< 1 month) History of inflammatory bowel disease Medical patient at bed rest Age 61-74 Arthroscopic surgery Major open surgery (> 45 min) Laparoscopic surgery (> 45 min) Malignancy Confined to bed (> 72 hours) Immobilizing plaster cast Central venous access Age >= 75 History of VTE Family history of VTE Factor V Leiden Prothrombin [id number] Lupus anticoagulant Anticardiolipin antibodies Elevated serum homocysteine Heparin-induced thrombocytopenia Other congenital or acquired thrombophilia Stroke (< 1 month) Elective arthroplasty Hip, pelvis, or leg fracture Acute spinal cord injury (< 1 month) Prophylaxis Regimen Total Risk Factor Score Risk Level Prophylaxis Regimen 0-1 Low Early ambulation 2 Moderate Order ONE of the following: *Sequential Compression Device (SCD) *Heparin 5000 units SQ BID 3-4 Higher Order ONE of the following medications: *Heparin 5000 units SQ TID *Enoxaparin/Lovenox 40 mg SQ daily (WT < 150 kg, CrCl > 30 mL/min) *Enoxaparin/Lovenox 30 mg SQ daily (WT < 150 kg, CrCl > 10-29 mL/min) *Enoxaparin/Lovenox 30 mg SQ BID (WT < 150 kg, CrCl > 30 mL/min) AND/OR *Sequential Compression Device (SCD) 5 or more Highest Order ONE of the following medications: *Heparin 5000 units SQ TID (Preferred with Epidurals) *Enoxaparin/Lovenox 40 mg SQ daily (WT < 150 kg, CrCl > 30 mL/min) *Enoxaparin/Lovenox 30 mg SQ daily (WT < 150 kg, CrCl > 10-29 mL/min) *Enoxaparin/Lovenox 30 mg SQ BID (WT < 150 kg, CrCl > 30 mL/min) AND *Sequential Compression Device (SCD) Assessment and Plan Assessment and Plan Impression: Severe right temporal pain and blurry vision of the right eye. Possible temporal arteritis. Doubt this is CVA Recent anterior communicating artery aneurysm rupture. Status post coiling on October 07, 2017. Systemic Lupus- used to be on plaquenil - has been out if for about 1 yr ; usually gets pain in joints, migraines, muscles Juvenile RA - at age 12 yo, and this was when SLE as also diagnosed was also told Mixed Connective Tissue disease- was on plaquenil, MTX, and prednisone prior Cerebral anueyrsm rutpure Plan: ESR stat. CTA of the brain to evaluate for aneurysm. Prednisone 60 mg by mouth now and daily. Ophthalmology consult. Neurology consult. Continue amlodipine. Pain control. DVT prophylaxis with SCD. GI prophylaxis on pantoprazole. Discussed Condition With patient, ER MD Coyne,Anjelica LIPSCOMB Nov 11, 2017 18:39
[2017-11-11] MEDS ORDERED: CYCLOBENZAPRINE HCL 10 MG TAB PO PRN (18:45)
[2017-11-11] MEDS ORDERED: predniSONE 20 MG TAB PO ONE (18:45)
--- NOTE | 2017-11-11 18:52 | PD ---
Physical Exam Date Seen by Provider: Nov 11, 2017 Time Seen by Provider: 17:00 Narrative I'm seeing this patient with Katiana Antonio PA-C. This is a 42-year-old female who had a recent ruptured aneurysm who status post coiling, who presents from the primary care's office with complaints of right sided facial numbness with radiation to the jaw. She also reports subjective I pressure. She was sent here for further evaluation. Data Data Last Documented VS Vital Signs Date Time Temp Pulse Resp B/P (MAP) Pulse Ox O2 Delivery O2 Flow Rate FiO2 11/11/17 17:48 88 18 125/71 (89) 100 Room Air 11/11/17 14:[address] Brain W/O Iv Contrast(Rout) (11/11/17 15:03) Ecg Monitoring (11/11/17 15:03) Iv Access Insert/Monitor (11/11/17 15:03) Oximetry (11/11/17 15:03) Sodium Chloride 0.9% Flush (Ns Flush) (11/11/17 15:15) Diphenhydramine Inj (Benadryl Inj) (11/11/17 15:15) Metoclopramide Inj (Reglan Inj) (11/11/17 15:15) Sodium Chlor 0.9% 1000 Ml Inj (Ns 1000 M (11/11/17 15:03) Morphine Inj (Morphine Inj) (11/11/17 15:15) Complete Blood Count With Diff (11/11/17 16:12) Comprehensive Metabolic Panel (11/11/17 16:12) Prothrombin Time / Inr (Pt) (11/11/17 16:12) Act Partial Throm Time (Ptt) (11/11/17 16:12) Urinalysis - C+S If Indicated (11/11/17 16:12) Place In Observation (11/11/17 ) Vital Signs (Adult) Q2HX12,Q4H (11/11/17 17:39) Nih Stroke Scale - Nihss .Daily (11/11/17 17:39) Neuro Checks Q2HX12,Q4H (11/11/17 17:39) Notify Dr: Other (11/11/17 17:39) Remove Urinary Catheter .ONCE (11/11/17 17:39) Pt Request For Service (11/11/17 17:39) Case Management Consult (11/11/17 ) Activity Oob Ad Nicky (11/11/17 17:39) Nursing Bedside Swallow Assess .ONCE (11/11/17 17:39) Scd Bilateral/Knee High ARISTEO.QSHIFT (11/11/17 17:39) Hemoglobin (Hgb) A1c (11/11/17 17:39) Lipid Profile (11/12/17 06:00) ^ Hold Medication (11/11/17 17:39) Sodium Chloride 0.9% Flush (Ns Flush) (11/11/17 21:00) Sodium Chloride 0.9% Flush (Ns Flush) (11/11/17 17:45) Bedside Glucose ARISTEO.CSUGAR (11/11/17 17:39) ^ Discontinue Insulin Orders (11/11/17 17:39) Dextrose 50% In Ivania (Vial) Inj (D50w (Vi (11/11/17 17:45) Glucagon Inj (Glucagon Inj) (11/11/17 17:45) Crnp / Telemetry ARISTEO.Q8H (11/11/17 17:39) Consult Stroke Navigator (11/11/17 ) Echo 2d Comp With Doppler (11/11/17 ) Admit Order (Ed Use Only) (11/11/17 17:50) Labs Laboratory Tests Test 11/11/17 16:00 11/11/17 17:45 White Blood Count 11.1 TH/MM3 Red Blood Count 4.78 MIL/MM3 Hemoglobin 11.4 GM/DL Hematocrit 35.2 % Mean Corpuscular Volume 73.6 FL Mean Corpuscular Hemoglobin 23.8 PG Mean Corpuscular Hemoglobin Concent 32.4 % Red Cell Distribution Width 14.3 % Platelet Count 356 TH/MM3 Mean Platelet Volume 8.2 FL Neutrophils (%) (Auto) 57.2 % Lymphocytes (%) (Auto) 38.1 % Monocytes (%) (Auto) 2.7 % Eosinophils (%) (Auto) 1.5 % Basophils (%) (Auto) 0.5 % Neutrophils # (Auto) 6.3 TH/MM3 Lymphocytes # (Auto) 4.2 TH/MM3 Monocytes # (Auto) 0.3 TH/MM3 Eosinophils # (Auto) 0.2 TH/MM3 Basophils # (Auto) 0.1 TH/MM3 CBC Comment DIFF FINAL Differential Comment Prothrombin Time 11.1 SEC Prothromb Time International Ratio 1.1 RATIO Activated Partial Thromboplast Time 28.0 SEC Blood Urea Nitrogen 7 MG/DL Creatinine 0.68 MG/DL Random Glucose 114 MG/DL Total Protein 7.9 GM/DL Albumin 3.7 GM/DL Calcium Level 9.3 MG/DL Alkaline Phosphatase 90 U/L Aspartate Amino Transf (AST/SGOT) 24 U/L Alanine Aminotransferase (ALT/SGPT) 23 U/L Total Bilirubin 0.2 MG/DL Sodium Level 137 MEQ/L Potassium Level 3.9 MEQ/L Chloride Level 104 MEQ/L Carbon Dioxide Level 24.4 MEQ/L Anion Gap 9 MEQ/L Estimat Glomerular Filtration Rate 115 ML/MIN Urine Color LIGHT-YELLOW Urine Turbidity CLEAR Urine pH 6.5 Urine Specific [place] 1.005 Urine Protein NEG mg/dL Urine Glucose (UA) NEG mg/dL Urine Ketones NEG mg/dL Urine Occult Blood NEG Urine Nitrite NEG Urine Bilirubin NEG Urine Urobilinogen LESS THAN 2.0 MG/DL Urine Leukocyte Esterase NEG Urine WBC LESS THAN 1 /hpf Urine Squamous Epithelial Cells <1 /hpf Microscopic Urinalysis Comment CULT NOT INDICATED MDM Medical Record Reviewed: Yes Supervised Visit with SHAYY: Yes Narrative Course 42-year-old female with recent ruptured aneurysm status post aneurysm coiling. The patient presents from her primary doctor's with TIA like symptoms. The patient has a negative head CT. The rest of her labs are within normal limits. She still having some subtle symptoms however reports they've been much improved from when she presented. Given this and her recent intracranial hemorrhage, the patient be admitted for TIA versus CVA workup. The patient was discussed with Dr. Cassidy, [facility], who is agreed to admit the patient her service. Diagnosis Primary Impression: TIA versus CVA Additional Impressions: History of ruptured arterial aneurysm SLE (systemic lupus erythematosus) Admitting Information Admitting Physician Requests: Observation Say Ortiz MD Nov 11, 2017 18:52
[2017-11-11 20:30] VITALS: BP 105/51; PULSE 81; RESP 16; TEMP 98.6; O2SAT 99
--- NOTE | 2017-11-11 20:55 | RADRPT ---
EXAM DATE/TIME: 11/11/2017 19:41 [facility] COMPARISON: CTA BRAIN W 3D RECON, October 12, 2017, 14:53. INDICATIONS : Increasing headache IV CONTRAST: 75 cc Omnipaque 350 (iohexol) IV RADIATION DOSE: 14.24 CTDIvol (mGy) MEDICAL HISTORY : Lupus. Brain tumor,Aneurysm coiling SURGICAL HISTORY : Appendectomy. ENCOUNTER: Initial ACUITY: 1 day PAIN SCALE: 6/10 LOCATION: cranial TECHNIQUE: Volumetric scanning was performed using a multi-row detector CT scanner. The data was post processed with a variety of visualization algorithms including full volume maximum intensity projection, multi -planar sliding thin slab reformation, curved planar reformation, and surface rendering techniques. Using automated exposure control and adjustment of the mA and/or kV according to patient size, radiat ion dose was kept as low as reasonably achievable to obtain optimal diagnostic quality images. DICO M format image data is available electronically for review and comparison. FINDINGS: Anterior circulation: Distal intracranial internal carotid arteries are patent with flow extending to the middle and anteri or cerebral arteries. While embolization of anterior to indicating artery aneurysm. Aneurysm appears excluded. The anterior and middle cerebral arteries appear patent without significant flow-limiting s tenosis or spasm. No additional aneurysms are identified. Posterior circulation: Symmetric distal vertebral arteries with flow extending to basilar artery. There is no evidence for aneurysm, vessel truncation or stenosis, and no evidence for vascular malformation. CONCLUSION: 1. Stable appearance of prior ACOMM aneurysm coiling. Aneurysm appears excluded with patent anterior and middle cerebral arteries. Korey Bustos MD on November 11, 2017 at 20:49 Board Certified Radiologist. This report was verified electronically.
[2017-11-11] MEDS: SODIUM CHLORIDE 0.9% FLUSH 10 ML FLUSH IV FLUSH SCH (21:00)
[2017-11-11] MEDS: HYDROmorphone HCL 2 MG TAB PO PRN (21:21)
[2017-11-11] MEDS: niMODipine 30 MG CAP PO SCH ×2 (21:21→23:45)
[2017-11-11 21:48] LABS: HEMOGLOBIN A1C 5.9 % (4.3-6.0)
[2017-11-12] VITALS: BP 87/52; PULSE 91; RESP 16; TEMP 98.3; O2SAT 96
[2017-11-12 03:46] VITALS: BP 94/55; PULSE 84; RESP 18; TEMP 98.1; O2SAT 98
[2017-11-12] MEDS: niMODipine 30 MG CAP PO SCH ×3 (03:48→10:54)
[2017-11-12] MEDS: HYDROmorphone HCL 2 MG TAB PO PRN ×2 (03:48→09:49)
[2017-11-12 06:15] LABS: CHOLESTEROL/ HDL RATIO 3.35 RATIO; HDL CHOLESTEROL 57.5 MG/DL (40.0-60.0)
[2017-11-12] MEDS: SODIUM CHLORIDE 0.9% FLUSH 10 ML FLUSH IV FLUSH SCH (08:00)
[2017-11-12 08:05] VITALS: BP 107/63; PULSE 82; RESP 18; TEMP 98.4; O2SAT 99
[2017-11-12] MEDS ORDERED: PANTOPRAZOLE SOD 40 MG DELAYED RELEASE TAB PO SCH (09:00)
[2017-11-12] MEDS ORDERED: predniSONE 20 MG TAB PO SCH (09:00)
[2017-11-12 09:08] VITALS: PULSE 77
[2017-11-12] MEDS ORDERED: GABAPENTIN 300 MG CAP PO SCH (10:30)
--- NOTE | 2017-11-12 10:36 | HHI.PR ---
Subjective Remarks RN denies any deterioration since last night. Pt herself says her symptoms of eye pain, vision impairment, and jaw pain are resolved at this time. Neurology feels this was a migraine - CTA unremarkable for any worsening aneurysm. ESR neg , stopping steroids, unlikely TA. Patient reports that she has been able to ambulate all this morning without any issues. Objective Vital Signs Date Time Temp Pulse Resp B/P (MAP) Pulse Ox O2 Delivery O2 Flow Rate FiO2 11/12/17 09:08 77 11/12/17 08:05 98.4 82 18 107/63 (78) 99 11/12/17 03:46 98.1 84 18 94/55 (68) 98 11/12/17 00:00 98.3 91 16 87/52 (64) 96 11/11/17 20:30 98.6 81 16 105/51 (69) 99 11/11/17 17:48 88 18 125/71 (89) 100 Room Air 11/11/17 17:48 84 18 125/71 (89) 100 Room Air 11/11/17 16:51 18 11/11/17 14:43 99 17 100 Room Air 11/11/17 14:43 99 17 106/74 (85) 100 Room Air 11/11/17 14:26 99.1 111 16 149/73 (98) 99 Room Air I/O 11/11/17 11/11/17 11/11/17 11/12/17 11/12/17 11/12/17 07:00 15:00 23:00 07:00 15:00 23:00 Intake Total 1120 ml 240 ml Balance 1120 ml 240 ml Intake Oral 120 ml 240 ml IV Total 1000 ml # Voids 2 Result Diagram: 11/11/17 1600 11/11/17 1600 Objective Remarks Middle-aged white female, lying in bed, no acute distress No facial droop, no slurred speech, no obvious cranial nerve deficits Has 5 out of 5 proximal extremity strength in upper and lower studies bilaterally, has intact tracking with both eyes and grossly intact right eye discrimination of 2 fingers at Yard's length A/P Assessment and Plan Visual disturbance with headache - symptoms resolved. In discussion with neurology, likely a migraine variant. Starting patient on gabapentin. Unlikely temporal arteritis stopping steroids which neurology agrees with. Discussed case with ophthalmology who requests that the patient see them in their clinic for better facility resources for examination. Plan discussed with patient. Patient has met maximal benefit from hospitalization and is clinically stable for discharge today. Henrique Billy MD Nov 12, 2017 10:36
--- NOTE | 2017-11-12 10:37 | MB ---
cc: SUZE RENEE DATE OF CONSULTATION: 11/12/2017 REASON FOR CONSULTATION Headache. HISTORY OF PRESENT ILLNESS Ms. Curry is a pleasant 42-year-old female with a long history of migraine headaches. 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 She also has a history of benign left orbital tumor removal at 15 years of age. She states since the subarachnoid hemorrhage she has had persistent headache on the right side of the head with a shooting pain down the jaw as well. She rates the pain as an 8 on a scale of 1-10, pounding and throbbing with associated photophobia but no nausea. She states it is similar to her previous migraine except that the shooting pain down the jaw, occasionally has some neck pain as well. In the past she did try Topamax for migraine with no benefit. PAST MEDICAL HISTORY 1. 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 2. History of migraine headaches. 3. History of benign left orbital tumor removal at age 15. 4. Appendectomy. 5. Right medial meniscus repair. 6. Ectopic . ALLERGIES PROCHLORPERAZINE. MEDICATIONS Current medications: 1. Protonix 40 mg daily. 2. Prednisone 60 mg daily. 3. Nimotop 60 mg q.4 hours p.o. 4. Dilaudid p.r.n. 5. Flexeril p.r.n. NEUROLOGIC EXAMINATION VITAL SIGNS: Blood pressure 107/63, pulse 82, respirations 18, temperature is 98.4 degrees. Higher cortical functions are normal. Cranial nerves II through XII are normal. The pupils are equal and reactive. There is no ptosis. On motor examination there is 5/5 strength of all groups. There is no drift. Fine motor skills are normal. Reflexes are symmetric. IMAGING STUDIES CT of the brain is stable postoperative changes, no acute change, coil is identified in the region of the anterior communicating artery, ventricles are normal for age, there is no midline shift, no mass effect, there is no hemorrhage. CT angiogram of the brain is reviewed showing coiling of the ACOM aneurysm, the aneurysm is excluded from the circulation, no additional aneurysms are seen. LABORATORY DATA The white count is 11,000, hemoglobin 11.4, hematocrit 35% platelet count 356,000, sed rate is 19, PT 11.1, INR 1.1, APTT 28. Sodium is 137, potassium 3.9, chloride 104, CO2 24.4, BUN 7, creatinine 0.68, GFR is 115, AST 24, ALT 23. IMPRESSION Status post successful coiling of anterior communicating artery aneurysm which has been effective in removing the aneurysm from the circulation with no residual aneurysm present. Current headache probably post subarachnoid hemorrhage migraine. There is no evidence of any recurrent subarachnoid hemorrhage on the CT. RECOMMENDATIONS Start Gabapentin 300 mg b.i.d. for migraine prophylaxis. Would avoid triptans at the present time because of the tendency of causing possible arterial spasm. Could treat the headache as well with analgesics. The patient is stable neurologically for discharge. Please have her follow up with me in [id number] weeks. Would recommend discharging on Gabapentin 300 mg b.i.d. MD CHERYLE Payne/LEANDRO /9:49 AM /10:00 AM
[2017-11-12] MEDS ORDERED: GABA300C5 PO (10:45)
--- NOTE | 2017-11-12 10:46 | HHI.DCPOC ---
Discharge Care Plan Diagnosis: (1) Ocular migraine (2) Migraines (3) SLE (systemic lupus erythematosus) Goals to Promote Your Health * To prevent worsening of your condition and complications * To maintain your health at the optimal level Directions to Meet Your Goals Take your medications as prescribed Follow your dietary instruction Follow activity as directed Keep your appointments as scheduled Take your immunizations and boosters as scheduled If your symptoms worsen call your PCP, if no PCP go to Urgent Care Center or Emergency Room Smoking is Dangerous to Your Health. Avoid second hand smoke Call the 24-hour hour crisis hotline for domestic abuse at Henrique Billy MD Nov 12, 2017 10:46
[2017-11-12] MEDS ORDERED: ATOR10TA15 PO (10:48)
--- NOTE | 2017-11-12 14:19 | ECHRPT ---
Indication: CVA/TIA CONCLUSIONS The left ventricular systolic function is normal with an estimated ejection fraction in the range of 55-60%. Left ventricular diastolic function parameters are normal. Trace mitral valve regurgitation. BP: 94 / 55 HR: 84 Rhythm: Sinus MEASUREMENTS (Male / Female) Normal Values Technical Quality:Fair 2D ECHO LV Diastolic Diameter PLAX 4.6 cm 4.2 - 5.9 / 3.9 - 5.3 cm LV Systolic Diameter PLAX 3.6 cm IVS Diastolic Thickness 0.8 cm 0.6 - 1.0 / 0.6 - 0.9 cm LVPW Diastolic Thickness 0.8 cm 0.6 - 1.0 / 0.6 - 0.9 cm LV Relative Wall Thickness 0.4 RV Internal Dim ED PLAX 2.6 cm LVOT Diameter 2.0 cm Aortic Root Diameter 3.1 cm LA Systolic Diameter LX 2.1 cm 3.0 - 4.0 / 2.7 - 3.8 cm M-MODE AV Cusp Separation MM 2.1 cm DOPPLER AV Peak Velocity 95.1 cm/s AV Peak Gradient 3.6 mmHg AV Mean Gradient 2.0 mmHg AV Velocity Time Integral 19.8 cm LVOT Peak Velocity 93.2 cm/s LVOT Peak Gradient 3.5 mmHg LVOT Velocity Time Integral 18.0 cm LVOT Cardiac Index 2475.8 cm/minm AV Area Cont Eq vti 2.9 cm AV Area Cont Eq pk 3.1 cm Mitral E Point Velocity 72.6 cm/s Mitral A Point Velocity 82.4 cm/s Mitral E to A Ratio 0.9 LV E' Lateral Velocity 12.2 cm/s Mitral E to LV E' Lateral Ratio 6.0 LV E' Septal Velocity 8.5 cm/s Mitral E to LV E' Septal Ratio 8.6 PV Peak Velocity 61.7 cm/s PV Peak Gradient 1.5 mmHg FINDINGS LEFT VENTRICLE Normal left ventricular size. Wall thickness is normal. The left ventricular systolic function is normal with an estimated ejection fraction in the range of 55-60%. Left ventricular diastolic function parameters are normal. RIGHT VENTRICLE Normal right ventricular size and systolic function. LEFT ATRIUM The left atrial size is normal. RIGHT ATRIUM The right atrial size is normal. ATRIAL SEPTUM Normal atrial septal thickness. AORTA The aortic root and proximal ascending aorta are normal in size on limited imaging. MITRAL VALVE Structurally normal mitral valve. No mitral valve stenosis. Trace mitral valve regurgitation. AORTIC VALVE Trileaflet aortic valve. No aortic valve stenosis or regurgitation. TRICUSPID VALVE Structurally normal tricuspid valve. No tricuspid valve stenosis or regurgitation. PULMONARY VALVE No pulmonary valve regurgitation or stenosis. VESSELS The inferior vena cava is normal in size. PERICARDIUM No pericardial effusion. Leo Thakur DO (Electronically Signed) Final Date:12 November 2017 14:17
[2017-11-19] MEDS ORDERED: ATOR10TA15 PO (14:27)
[2017-11-19] MEDS ORDERED: GABA300C5 PO (14:27)
[2017-11-19] MEDS ORDERED: NIMO30CA3 PO (14:27)
== END 2017-11-12 13:30 | disposition home or self-care (01) ==
LOC: NEPC 14:23 → NEDA 17:51 → N05A 20:00
PROVIDERS: ADMIT Hospitalist; ATTEND Hospitalist
DX: G43.109 Migraine with aura, not intractable, without status migrainosus (principal); M32.9 Systemic lupus erythematosus, unspecified; I67.848 Other cerebrovascular vasospasm and vasoconstriction; R20.0 Anesthesia of skin; H53.8 Other visual disturbances; I67.1 Cerebral aneurysm, nonruptured
CPT/HCPCS: 70450; 70496; 80053; 80061; 81001; 82948; 83036; 85025; 85610; 85652; 85730; 93306; 96361; 96374; 96375; 97162; 99285; G0378; G8987; G8988; J1200; J2270; J2765; J7030; J7512; Q9967

== ENCOUNTER 2018-02-09 09:21 | Emergency (ER) | payer OTHER ==
[~2018-02-09 09:21] MED LIST changes: +AMBI10TA PO; -AMBI5TAB PO; +BUPR150T12 PO; +BUTA1CAP5 PO; -CYCL10TA PO; -DILA2TAB4 PO; +GABA300C5 PO; -HYDR-3516 PO; -NIMO30CA3 PO; -VARE1PAK3 PO
[2018-02-09 09:29] VITALS: BP 140/71; PULSE 102; RESP 16; TEMP 98; O2SAT 100
--- NOTE | 2018-02-09 09:55 | PD ---
HPI Chief Complaint: Related Problem Time Seen by Provider: 09:39 Travel History International Travel<30 days: No Contact w/Intl Traveler<30days: No Traveled to known affect area: No History of Present Illness HPI The patient was seen and examined in the presence of the nurse. This patient complains of pelvic pain and cramping. Started at 3 AM this morning. Duration is 7 hours. Severity is moderate. She's had no vaginal bleeding. Patient is . She says that she had a beta titer of 1700 a few days ago. Her periods are very irregular and she does not know how far she is. She has history of previous ectopic requiring surgery and has lupus. No alleviating factors. No exacerbating factors. 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 Gabapentin 300 Mg Cap 300 Mg PO TID Bupropion Sr 12 HR (Bupropion ER 12 HR (Smoking Deterrent)) 150 Mg Tab 150 Mg PO BID Take 1 tablet daily x 3 days then twice daily thereafter. Ambien (Zolpidem Tartrate) 10 Mg Tab 10 Mg PO HS PRN Review of Systems General / Constitutional: No: Fever Eyes: No: Visual changes HENT: No: Headaches Cardiovascular: No: Chest Pain or Discomfort Respiratory: No: Shortness of Breath Gastrointestinal: No: Abdominal Pain Genitourinary: Positive: Pelvic Pain, No: Dysuria Musculoskeletal: No: Pain Skin: No Rash Neurologic: No: Weakness Psychiatric: No: Depression Endocrine: No: Polydipsia Hematologic/Lymphatic: No: Easy Bruising Physical Exam Narrative GENERAL: Well-nourished, well-developed patient with pelvic pain. SKIN: Focused skin assessment reveals no rash and nodules. Skin is Warm and dry. HEAD: Atraumatic. Normocephalic. EYES: Pupils equal and round. No scleral icterus. No injection or drainage. ENT: No nasal bleeding or discharge. Mucous membranes pink and moist. NECK: Trachea midline. No JVD. CARDIOVASCULAR: Regular rate and rhythm. No murmur appreciated. RESPIRATORY: No accessory muscle use. Clear to auscultation. Breath sounds equal bilaterally. GASTROINTESTINAL: Abdomen soft, non-tender, nondistended. Hepatic and splenic margins not palpable. MUSCULOSKELETAL: No obvious deformities. No clubbing. No cyanosis. No edema. NEUROLOGICAL: Awake and alert. No obvious cranial nerve deficits. Motor grossly within normal limits. Normal speech. PSYCHIATRIC: Appropriate mood and affect; insight and judgment normal. Data Data Last Documented VS Vital Signs Date Time Temp Pulse Resp B/P (MAP) Pulse Ox O2 Delivery O2 Flow Rate FiO2 02/09/18 09:29 98.0 102 16 140/71 (94) 100 Orders Orders Beta Hcg (Quant/Titer) (02/09/18 09:49) Complete Blood Count With Diff (02/09/18 09:49) Comprehensive Metabolic Panel (02/09/18 09:49) Prothrombin Time / Inr (Pt) (02/09/18 09:49) Act Partial Throm Time (Ptt) (02/09/18 09:49) Urinalysis - C+S If Indicated (02/09/18 09:49) Iv Access Insert/Monitor (02/09/18 09:49) NPO (02/09/18 09:49) Sodium Chloride 0.9% Flush (Ns Flush) (02/09/18 10:00) Us Pelvis Preg W Transvaginal (02/09/18 ) Labs Laboratory Tests Test 02/09/18 10:00 White Blood Count 8.1 TH/MM3 Red Blood Count 4.97 MIL/MM3 Hemoglobin 12.4 GM/DL Hematocrit 38.0 % Mean Corpuscular Volume 76.4 FL Mean Corpuscular Hemoglobin 24.9 PG Mean Corpuscular Hemoglobin Concent 32.6 % Red Cell Distribution Width 14.3 % Platelet Count 342 TH/MM3 Mean Platelet Volume 7.7 FL Neutrophils (%) (Auto) 56.9 % Lymphocytes (%) (Auto) 34.4 % Monocytes (%) (Auto) 6.4 % Eosinophils (%) (Auto) 1.7 % Basophils (%) (Auto) 0.6 % Neutrophils # (Auto) 4.6 TH/MM3 Lymphocytes # (Auto) 2.8 TH/MM3 Monocytes # (Auto) 0.5 TH/MM3 Eosinophils # (Auto) 0.1 TH/MM3 Basophils # (Auto) 0.0 TH/MM3 CBC Comment DIFF FINAL Differential Comment Prothrombin Time 11.0 SEC Prothromb Time International Ratio 1.1 RATIO Activated Partial Thromboplast Time 27.5 SEC Urine Color YELLOW Urine Turbidity CLEAR Urine pH 7.5 Urine Specific [place] 1.016 Urine Protein NEG mg/dL Urine Glucose (UA) NEG mg/dL Urine Ketones NEG mg/dL Urine Occult Blood NEG Urine Nitrite NEG Urine Bilirubin NEG Urine Urobilinogen LESS THAN 2.0 MG/DL Urine Leukocyte Esterase NEG Urine WBC 1 /hpf Urine Squamous Epithelial Cells 2 /hpf Microscopic Urinalysis Comment CULT NOT INDICATED Blood Urea Nitrogen 8 MG/DL Creatinine 0.57 MG/DL Random Glucose 89 MG/DL Total Protein 7.3 GM/DL Albumin 3.5 GM/DL Calcium Level 8.7 MG/DL Alkaline Phosphatase 78 U/L Aspartate Amino Transf (AST/SGOT) 23 U/L Alanine Aminotransferase (ALT/SGPT) 17 U/L Total Bilirubin 0.2 MG/DL Sodium Level 136 MEQ/L Potassium Level 3.2 MEQ/L Chloride Level 105 MEQ/L Carbon Dioxide Level 23.1 MEQ/L Anion Gap 8 MEQ/L Estimat Glomerular Filtration Rate 141 ML/MIN Human Chorionic Gonadotropin, Quant 4418 MIU/ML [facility] Medical Decision Making Medical Screen Exam Complete: Yes Emergency Medical Condition: Yes Medical Record Reviewed: Yes Differential Diagnosis Ectopic, threatened , miscarriage Narrative Course I have reviewed the patient's electronic medical record. Patient was here 4 months ago with subarachnoid hemorrhage IV placed and labs drawn Beta hCG is 4400 CBC is normal CMP is normal Urinalysis is clean I did a bedside transabdominal ultrasound but I cannot definitively identify an intrauterine fetus Therefore formal radiology transvaginal ultrasound was done. Radiologist sees a gestational sac in the uterus but it is too early to sign a day to it. However ectopic is ruled out based on intrauterine gestational sac No adnexal abnormalities Patient looks clinically stable Stable for outpatient OB follow-up Diagnosis Primary Impression: Pelvic pain affecting in first trimester, antepartum Additional Impressions: SLE (systemic lupus erythematosus) Qualified Codes: M32.9 - Systemic lupus erythematosus, unspecified History of ectopic Additional Instructions: Follow-up with OB physician Med/Other Pt SpecificInfo: Other Disposition: 01 DISCHARGE HOME Condition: Stable Ray Land MD Feb 09, 2018 09:55
[2018-02-09] MEDS ORDERED: SODIUM CHLORIDE 0.9% FLUSH 10 ML FLUSH IV FLUSH PRN (10:00)
[2018-02-09 10:39] LABS: AUTOMATED NEUTROPHIL # 4.6 TH/MM3 (1.8-7.7); BASOPHIL % 0.6 % (0.0-2.0); EOSINOPHIL # 0.1 TH/MM3 (0-0.4); EOSINOPHIL % 1.7 % (0.0-4.0); HEMOGLOBIN 12.4 GM/DL (11.6-15.3); LYMPH % 34.4 % (9.0-44.0); LYMPHOCYTE # 2.8 TH/MM3 (1.0-4.8); MEAN CELL VOLUME 76.4 FL (80.0-100.0); MEAN CORPUSCULAR HEMOGLOBIN 24.9 PG (27.0-34.0); MEAN CORPUSCULAR HGB CONC 32.6 % (32.0-36.0); MEAN PLATELET VOLUME 7.7 FL (7.0-11.0); MONO % 6.4 % (0.0-8.0); MONOCYTE # 0.5 TH/MM3 (0-0.9); NEUT % 56.9 % (16.0-70.0); PLATELET COUNT 342 TH/MM3 (150-450); RED BLOOD COUNT 4.97 MIL/MM3 (4.00-5.30); RED CELL DISTRIBUTION WIDTH 14.3 % (11.6-17.2); WHITE BLOOD COUNT 8.1 TH/MM3 (4.0-11.0)
[2018-02-09 10:52] LABS: INTERNATIONAL NORMALIZED RATIO 1.1 RATIO
[2018-02-09 10:54] LABS: BILIRUBIN, URINE NEG (NEG); BLOOD, URINE NEG (NEG); GLUCOSE,URINE NEG (NEG); KETONE, URINE NEG (NEG); NITRITE,URINE NEG (NEG); PH, URINE 7.5 (5.0-8.5); SQUAMOUS EPITHELIAL CELL URINE 2 /hpf (0-5); URINE COLOR YELLOW (YELLW/STRAW); URINE LEUKOCYTE ESTERASE NEG (NEG)
[2018-02-09 10:57] LABS: ALBUMIN 3.5 GM/DL (3.4-5.0); AST (GOT) 23 U/L (15-37); BICARBONATE 23.1 MEQ/L (21.0-32.0); BLOOD UREA NITROGEN 8 MG/DL (7-18); CALCIUM 8.7 MG/DL (8.5-10.1); CHLORIDE 105 MEQ/L (98-107); CREATININE 0.57 MG/DL (0.50-1.00); GLOMERULAR FILTRATION RATE 141 ML/MIN (>89); GLUCOSE,RANDOM 89 MG/DL (74-106); SODIUM (NA) 136 MEQ/L (136-145)
[2018-02-09 10:58] LABS: ALT (GPT) 17 U/L (10-53)
[2018-02-09 11:14] LABS: ALKALINE PHOSPHATASE 78 U/L (45-117); TOTAL BILIRUBIN ADULT 0.2 MG/DL (0.2-1.0); TOTAL PROTEIN 7.3 GM/DL (6.4-8.2)
--- NOTE | 2018-02-09 13:36 | RADRPT ---
EXAM DATE/TIME: 02/09/2018 12:58 [facility] COMPARISON: No previous studies available for comparison. INDICATIONS : Pelvic pain. LAB(S): Beta-hC,418 MEDICAL HISTORY : . Bulging discs. Muscle spasms. Brain aneurysm. Lupus systemic erythema tosus. Migraines . Genital herpes. Tobacco use. Depression. SURGICAL HISTORY : Appendectomy. Left eye benign tumor. Brain aneurysm ruptured. Ectopic . Repair medical m eniscus tear. Right knee surgery. ENCOUNTER: Initial ACUITY: 4-6 days PAIN SCORE: 7/10 LOCATION: Bilateral pelvis MEASUREMENTS: UTERUS: 11.7 x 7.4 x 7.3 cm ENDOMETRIAL STRIPE: 15 mm RIGHT OVARY: 2.6 x 1.6 x 1.7 cm LEFT OVARY: 2.2 x 1.7 x 1.6 cm FREE FLUID: Yes posterior cul de sac FINDINGS: UTERUS: There is a cystic structure seen associated with the endometrial canal with small yolk sac. This cons istent with a gestational sac. Mean sac diameter is 0.93 cm which is below the threshold for accurate gestational age depiction with ultrasound. A small hypoechoic area consistent with a small intramura l fibroid is seen within the lower uterine segment measuring 18 mm in diameter.. A 6 mm simple naboth eric cyst. RIGHT OVARY: Ovary contains no mass or significant cystic lesion. LEFT OVARY: Ovary contains no mass or significant cystic lesion. MISCELLANEOUS: Small amount of free fluid in the cul-de-sac. CONCLUSION: Solitary intrauterine gestation. Gestational sac is below the threshold for accurate gestational age depiction with ultrasound. Small amount of free fluid. Jett Fuentes Jr., MD on February 09, 2018 at 13:22 Board Certified Radiologist. This report was verified electronically.
== END 2018-02-09 15:14 | disposition home or self-care (01) ==
LOC: NEPD 09:21
DX: O26.891 Other specified pregnancy related conditions, first trimester (principal); R10.2 Pelvic and perineal pain; O99.89 Other specified diseases and conditions complicating pregnancy, childbirth and the puerperium; M32.9 Systemic lupus erythematosus, unspecified
CPT/HCPCS: 76801; 76817; 80053; 81001; 84702; 85025; 85610; 85730; 99284

== ENCOUNTER 2018-03-08 09:56 | Emergency (ER) | payer OTHER ==
[~2018-03-08] VITALS: Ht 167.6 cm; Wt 80.0 kg
[2018-03-08 10:00] VITALS: BP 105/62; TEMP 98.9; O2SAT 92
--- NOTE | 2018-03-08 11:09 | PD ---
HPI Chief Complaint: Related Problem Time Seen by Provider: 10:51 Travel History International Travel<30 days: No Contact w/Intl Traveler<30days: No Traveled to known affect area: No History of Present Illness HPI The patient was seen and examined in the presence of the nurse. This patient is 9 weeks dated by early ultrasound. She has an IUP. She is having hyperemesis problems. She does follow with an OB who prescribed Zofran but is not helping. She complains of nausea and vomiting today. She is not having diarrhea or fever or vaginal bleeding or discharge. She does have some right lower quadrant discomfort. She does not have an appendix. Duration is 2 weeks. Severity is moderate. No alleviating factors. No exacerbating factors. 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 Gabapentin 300 Mg Cap 300 Mg PO TID Bupropion Sr 12 HR (Bupropion ER 12 HR (Smoking Deterrent)) 150 Mg Tab 150 Mg PO BID Take 1 tablet daily x 3 days then twice daily thereafter. Ambien (Zolpidem Tartrate) 10 Mg Tab 10 Mg PO HS PRN Review of Systems General / Constitutional: No: Fever Eyes: No: Visual changes HENT: No: Headaches Cardiovascular: No: Chest Pain or Discomfort Respiratory: No: Shortness of Breath Gastrointestinal: Positive: Nausea, Vomiting, Abdominal Pain Genitourinary: No: Dysuria Musculoskeletal: No: Pain Skin: No Rash Neurologic: No: Weakness Psychiatric: No: Depression Endocrine: No: Polydipsia Hematologic/Lymphatic: No: Easy Bruising Physical Exam Narrative GENERAL: Well-nourished, well-developed patient in no apparent distress. SKIN: Focused skin assessment reveals no rash and nodules. Skin is Warm and dry. HEAD: Atraumatic. Normocephalic. EYES: Pupils equal and round. No scleral icterus. No injection or drainage. ENT: No nasal bleeding or discharge. Mucous membranes pink and moist. NECK: Trachea midline. No JVD. CARDIOVASCULAR: Regular rate and rhythm. No murmur appreciated. RESPIRATORY: No accessory muscle use. Clear to auscultation. Breath sounds equal bilaterally. GASTROINTESTINAL: Abdomen soft, there is some tenderness in the right lower quadrant and a very distinct location an inch above the inguinal ligament. nondistended. Hepatic and splenic margins not palpable. No right upper quadrant tenderness. MUSCULOSKELETAL: No obvious deformities. No clubbing. No cyanosis. No edema. NEUROLOGICAL: Awake and alert. No obvious cranial nerve deficits. Motor grossly within normal limits. Normal speech. PSYCHIATRIC: Appropriate mood and affect; insight and judgment normal. Data Data Last Documented VS Vital Signs Date Time Temp Pulse Resp B/P (MAP) Pulse Ox O2 Delivery O2 Flow Rate FiO2 03/08/18 10:00 98.9 93 16 105/62 (76) 92 Orders Orders Iv Access Insert/Monitor (03/08/18 11:04) Complete Blood Count With Diff (03/08/18 11:04) Basic Metabolic Panel (Bmp) (03/08/18 11:04) Sodium Chlor 0.9% 1000 Ml Inj (Ns 1000 M (03/08/18 11:15) Promethazine Inj (Phenergan Inj) (03/08/18 11:15) Labs Laboratory Tests Test 03/08/18 11:15 White Blood Count 7.2 TH/MM3 Red Blood Count 5.34 MIL/MM3 Hemoglobin 12.9 GM/DL Hematocrit 39.3 % Mean Corpuscular Volume 73.5 FL Mean Corpuscular Hemoglobin 24.1 PG Mean Corpuscular Hemoglobin Concent 32.8 % Red Cell Distribution Width 13.6 % Platelet Count 333 TH/MM3 Mean Platelet Volume 7.6 FL Neutrophils (%) (Auto) 60.5 % Lymphocytes (%) (Auto) 31.5 % Monocytes (%) (Auto) 5.1 % Eosinophils (%) (Auto) 2.6 % Basophils (%) (Auto) 0.3 % Neutrophils # (Auto) 4.4 TH/MM3 Lymphocytes # (Auto) 2.3 TH/MM3 Monocytes # (Auto) 0.4 TH/MM3 Eosinophils # (Auto) 0.2 TH/MM3 Basophils # (Auto) 0.0 TH/MM3 CBC Comment DIFF FINAL Differential Comment Blood Urea Nitrogen 6 MG/DL Creatinine 0.56 MG/DL Random Glucose 86 MG/DL Calcium Level 9.2 MG/DL Sodium Level 137 MEQ/L Potassium Level 3.3 MEQ/L Chloride Level 101 MEQ/L Carbon Dioxide Level 26.1 MEQ/L Anion Gap 10 MEQ/L Estimat Glomerular Filtration Rate 144 ML/MIN MDM Medical Decision Making Medical Screen Exam Complete: Yes Emergency Medical Condition: Yes Medical Record Reviewed: Yes Differential Diagnosis Hyperemesis, dehydration, colitis Narrative Course I have reviewed the patient's electronic medical record. I saw this patient a month ago when she was here for pelvic pain. Ultrasound confirmed IUP IV placed and labs sent I gave her IM Phenergan and a liter of normal saline IV CBC is normal. Metabolic's reasonably normal I did a pelvic exam given her vague pelvic discomfort on the right side. There is no sign of infection. There is no bleeding. Her cervix is closed without motion tenderness. She has no appendix. Stable for outpatient follow-up with her physicians. She has no urinary complaints She would like a prescription for nausea. I wrote her a few Phenergan. We discussed the category C nature of the medication and she accepts the risks inherent in that. Diagnosis Primary Impression: Nausea and vomiting in prior to 22 weeks gestation Additional Impression: Pelvic pain affecting in first trimester, antepartum Additional Instructions: The patient was advised to follow up with their physician and return if they worsen. Med/Other Pt SpecificInfo: Other Disposition: 01 DISCHARGE HOME Condition: Stable Ray Land MD Mar 08, 2018 11:09
[2018-03-08] MEDS ORDERED: SODIUM CHLOR 0.9% 1000 ML INJ 1,000 ML IV ONE (11:15)
[2018-03-08] MEDS ORDERED: PROMETHAZINE INJ 25 MG/ML VIAL IM ONE (11:15)
[2018-03-08 11:38] LABS: AUTOMATED NEUTROPHIL # 4.4 TH/MM3 (1.8-7.7); BASOPHIL % 0.3 % (0.0-2.0); EOSINOPHIL # 0.2 TH/MM3 (0-0.4); EOSINOPHIL % 2.6 % (0.0-4.0); HEMATOCRIT 39.3 % (35.0-46.0); HEMOGLOBIN 12.9 GM/DL (11.6-15.3); LYMPH % 31.5 % (9.0-44.0); LYMPHOCYTE # 2.3 TH/MM3 (1.0-4.8); MEAN CELL VOLUME 73.5 FL (80.0-100.0); MEAN CORPUSCULAR HEMOGLOBIN 24.1 PG (27.0-34.0); MEAN CORPUSCULAR HGB CONC 32.8 % (32.0-36.0); MEAN PLATELET VOLUME 7.6 FL (7.0-11.0); MONO % 5.1 % (0.0-8.0); MONOCYTE # 0.4 TH/MM3 (0-0.9); NEUT % 60.5 % (16.0-70.0); PLATELET COUNT 333 TH/MM3 (150-450); RED BLOOD COUNT 5.34 MIL/MM3 (4.00-5.30); RED CELL DISTRIBUTION WIDTH 13.6 % (11.6-17.2); WHITE BLOOD COUNT 7.2 TH/MM3 (4.0-11.0)
[2018-03-08 11:53] LABS: BICARBONATE 26.1 MEQ/L (21.0-32.0); CALCIUM 9.2 MG/DL (8.5-10.1); CREATININE 0.56 MG/DL (0.50-1.00)
[2018-03-08] MEDS ORDERED: PROM25TA10 PO (13:03)
[2018-03-08] MEDS ORDERED: PROM1SUP7 RECTAL (13:03)
== END 2018-03-08 13:21 | disposition home or self-care (01) ==
LOC: NEPD 09:56
DX: O21.9 Vomiting of pregnancy, unspecified (principal); O26.891 Other specified pregnancy related conditions, first trimester; R10.2 Pelvic and perineal pain; O99.89 Other specified diseases and conditions complicating pregnancy, childbirth and the puerperium; M32.9 Systemic lupus erythematosus, unspecified; Z3A.09 9 weeks gestation of pregnancy; Z72.0 Tobacco use; Z88.8 Allergy status to other drugs, medicaments and biological substances; Z79.899 Other long term (current) drug therapy
CPT/HCPCS: 80048; 85025; 96360; 96372; 99284; J2550; J7030